=== PATIENT | female | born 1950 | race Caucasian/White ===

== ENCOUNTER 2016-12-25 13:57 | Emergency (ER) | payer MEDICARE ==
[2016-12-25 14:07] VITALS: RESP 18; TEMP 98
--- NOTE | 2016-12-25 15:31 | ED ---
General Adult HPI - General Chief complaint: Fall Stated complaint: rib Fx (Fall 2 days ago) Time Seen by Provider: 12/25/16 14:51 Source: patient, RN notes reviewed Mode of arrival: ambulatory Limitations: no limitations - History of Present Illness Initial comments: This 66-year-old female who states that she fell 2 days ago and now has left- sided rib pain. Patient did not hit her head or lose consciousness. Patient denies any neck or back pain. Patient denies any trouble breathing. Patient denies any pleuritic pain. Patient states the pain is worse on the left side posterior ribs with standing and sitting and moving. Patient denies being on any anticoagulants. Patient denies any recent fever, chills, shortness breath, chest pain, abdominal pain, nausea/vomiting/diarrhea, back pain, numbness, tingling, hematuria, headache, or visual changes, or any other complaints. - Related Data Home Medications Medication Instructions Recorded Confirmed Multivitamins, Thera [Multivitamin] 1 tab PO DAILY 04/11/16 12/25/16 Primidone [Primidone] 250 mg PO QAM 05/03/16 12/25/16 Primidone [Primidone] 500 mg PO HS 05/03/16 12/25/16 lamoTRIgine [lamoTRIgine] 300 mg PO BID 05/03/16 12/25/16 Previous Rx's Medication Instructions Recorded HYDROcodone/APAP 5-325MG [[place] 1 tab PO Q6HR #16 tab 12/25/16 5-325] Allergies Allergy/AdvReac Type Severity Reaction Status Date / Time No Known Allergies Allergy Verified 12/25/16 14:06 Review of Systems ROS Statement: Those systems with pertinent positive or pertinent negative responses have been documented in the HPI. ROS Other: All systems not noted in ROS Statement are negative. Past Medical History Past Medical History: Seizure Disorder Additional Past Medical History / Comment(s): Osteoporosis, previous right total knee joint arthroplasty, right hip replacement, and irritable bowel syndrome History of Any Multi-Drug Resistant Organisms: None Reported Past Surgical History: Orthopedic Surgery Additional Past Surgical History / Comment(s): TOTAL RIGHT HIP AND KNEE Past Anesthesia/Blood Transfusion Reactions: No Reported Reaction Past Psychological History: No Psychological Hx Reported Smoking Status: Never smoker Past Alcohol Use History: None Reported Past Drug Use History: None Reported General Exam - General Exam Comments Initial Comments: General: The patient is awake and alert, in no distress, and does not appear acutely ill. Neck: The neck is supple, there is no tenderness or JVD. No cervical midline tenderness. Cardiovascular: There is a regular rate and rhythm. No murmur, rub or gallop is appreciated. Respiratory: Lungs are clear to auscultation, respirations are non-labored, breath sounds are equal. No wheezes, stridor, rales, or rhonchi. Musculoskeletal: There is tenderness to palpation over the left posterior ribs in the area of the thoracic spine. No bruising, erythema or swelling. Range of motion, strength 5/5 and Sensation intact. Radial pulses 2+ bilaterally. Neurological: A&O x 3. CN II-XII intact, There are no obvious motor or sensory deficits. Coordination appears grossly intact. Speech is normal. Skin: Skin is warm and dry and no rashes or lesions are noted. Psychiatric: Normal mood and affect. Limitations: no limitations Course Vital Signs 12/25/16 14:02 Temperature 98.0 F Pulse Rate 93 Respiratory 18 Rate Blood Pressure 132/82 O2 Sat by Pulse 97 Oximetry Medical Decision Making - Medical Decision Making This is a 66-year-old female presents with left posterior rib pain after a fall 2 days ago. On physical exam there is tenderness to palpation over the left posterior ribs in the area of the thoracic spine. No bruising, erythema or swelling. Range of motion, strength 5/5 and Sensation intact. Radial pulses 2 + bilaterally. Patient's lungs are clear to auscultation bilaterally. And x-ray of the left ribs and chest were done and reviewed showing:X-ray chest : #1 chronic changes without acute cardiopulmonary process. #2 bilateral rib fracture deformities most of which appear old and healed. #3 however mildly displaced left posterior rib fractures involving the fifth, seventh, eighth, and ninth posterior ribs show no significant periosteal callus any acute rib fractures in these locations are not excluded. Report read by Dr. Caputo. Discussed results with patient. Patient has no pain on the right side and denies any history of rib fractures. Patient received a [place] in the [facility] for pain. Patient also received a prescription for [place]. I discussed the patient should continue follow up with her primary care physician in the next 1-2 days. I discussed return parameters. Patient will be given an incentive spirometer to use while at home. Discussed that patient should follow up with PCP in one to 2 days or return to the [facility] for any worsening symptoms or for any further concerns. Patient was receptive to this plan and patient will be discharged home. I discussed his case with attending physician Dr. Wilson who agrees the plan as stated above. Disposition Clinical Impression: Multiple fractures of ribs of left side Disposition: HOME SELF-CARE Condition: Good Instructions: Rib Fracture (ED), How to Use an Incentive Spirometer (ED) Additional Instructions: Please use pain medication as prescribed. Please use incentive spirometer every hour for 10 breaths while awake. Please follow-up with family doctor in the next 2 days of symptoms have not improved. Please return to emergency room if the symptoms increase or worsen or for any other concerns. Prescriptions: HYDROcodone/APAP 5-325MG [Luzerne 5-325] 1 tab PO Q6HR #16 tab Time of Disposition: 16:08
--- NOTE | 2016-12-25 15:50 | XR ---
EXAMINATION TYPE: XR chest 2V, Left rib series DATE OF EXAM: 12/25/2016 3:36 PM COMPARISON: None HISTORY: 66 year-old female left rib pain after fall 2 days ago FINDINGS: CHEST: There is prominent rightward patient rotation altered normal cardiac and mediastinal contours. There is some accentuated lower thoracic kyphosis. Heart is normal size. Prominent strandy atelectasis in t he lower lungs. Old healed fracture deformity of the right-sided ribs. No consolidation or pneumothor ax seen. Left RIBS: There are multiple healed left-sided rib fracture deformities. However, a couple areas show cortical step-offs including the fifth seventh, eighth, ninth posterior ribs which have a more acute appearan ce. No underlying pneumothorax. IMPRESSION: 1. Chronic changes without acute cardiopulmonary process. 2. Bilateral rib fracture deformities most of which appear old and healed. 3. However, mildly displaced left posterior rib fractures involving the fifth, seventh, eighth, and n inth posterior ribs show no significant periosteal callus and acute rib fractures in these locations are not excluded.
[2016-12-25] MEDS ORDERED: HYDROcodone/APAP 5-325MG 1 EACH TAB PO STA (16:02)
[2016-12-25 16:49] VITALS: BP 141/61; PULSE 88
== END 2016-12-25 16:48 | disposition home or self-care (01) ==
LOC: EC 13:57
DX: S22.42XA Multiple fractures of ribs, left side, initial encounter for closed fracture (principal); W19.XXXA Unspecified fall, initial encounter; G40.909 Epilepsy, unspecified, not intractable, without status epilepticus; Z79.899 Other long term (current) drug therapy
CPT/HCPCS: 71020; 99283

== ENCOUNTER 2017-03-21 13:41 | Emergency (ER) | payer MEDICARE ==
[2017-03-21 13:53] VITALS: RESP 18; TEMP 98.4
--- NOTE | 2017-03-21 14:06 | ED ---
Seizure HPI - General Chief Complaint: Seizure Stated Complaint: Seizure Time Seen by Provider: 03/21/17 13:53 Source: patient, EMS Mode of arrival: EMS Limitations: no limitations - History of Present Illness Initial Comments: This 66-year-old female with a history of long-standing epilepsy on primidone and who presents emergency department for a seizure. It was witnessed by family member who stated that last 2-3 minutes. It spontaneously resolved. The patient currently has no complaints. No injuries. No tongue biting or urinary incontinence. She states that she has seizures every once in a while and that is typical for her. She states her last seizure was approximately 3 weeks ago. She follows up with her primary doctor who just her medications. She does not recall who her neurologist is. The patient refused IV in route and states that she really does not want anything checked her done however after discussion I did convince her to undergo some blood work and EKG. No recent head trauma. No fevers or chills. No dysuria or hematuria. No nausea, vomiting, or diarrhea. No cough or shortness of breath. No other complains. - Related Data Home Medications Medication Instructions Recorded Confirmed Primidone [Primidone] 500 mg PO BID 05/03/16 03/21/17 lamoTRIgine [lamoTRIgine] 150 mg PO BID 05/03/16 03/21/17 Citalopram Hydrobromide [CeleXA] 20 mg PO DAILY 03/21/17 03/21/17 Previous Rx's Medication Instructions Recorded lamoTRIgine 150 mg PO BID #60 tab 03/21/17 Allergies Allergy/AdvReac Type Severity Reaction Status Date / Time No Known Allergies Allergy Verified 03/21/17 14:29 Review of Systems ROS Statement: Those systems with pertinent positive or pertinent negative responses have been documented in the HPI. ROS Other: All systems not noted in ROS Statement are negative. Past Medical History Past Medical History: Seizure Disorder Additional Past Medical History / Comment(s): Osteoporosis, previous right total knee joint arthroplasty, right hip replacement, and irritable bowel syndrome History of Any Multi-Drug Resistant Organisms: None Reported Past Surgical History: Orthopedic Surgery Additional Past Surgical History / Comment(s): TOTAL RIGHT HIP AND KNEE Past Anesthesia/Blood Transfusion Reactions: No Reported Reaction Past Psychological History: No Psychological Hx Reported Smoking Status: Never smoker Past Alcohol Use History: None Reported Past Drug Use History: None Reported General Exam - General Exam Comments Initial Comments: Constitutional: Awake alert Appears comfortable Head: Normocephalic atraumatic Eyes: no conjunctival injection No scleral icterus EOMI, pupils are 4 mm reactive bilaterally Neck: No JVD Supple Heart: Regular rate rhythm normal S1-S2 no murmurs Lungs: Clear to auscultation bilaterally No wheezing No rales Abdomen: Soft nondistended nontender Extremities: Non edematous DP pulses intact Radial pulses intact Neuro: A&Ox3 nerves II through XII are grossly intact, 5 out of 5 strength in upper and lower extremities bilaterally, no ataxia Psych: Appropriate mood and affect Limitations: no limitations Course Vital Signs 03/21/17 03/21/17 13:48 15:41 Temperature 98.4 F Pulse Rate 94 91 Respiratory 18 18 Rate Blood Pressure 98/54 103/51 O2 Sat by Pulse 96 94 L Oximetry - Reevaluation(s) Reevaluation #1: 03/21/17 14:20 EKG showing normal sinus rhythm with a rate of 90. No abnormal ST segment changes or T-wave inversions. QTC is 462. Other intervals are normal. No ectopy. Medical Decision Making - Medical Decision Making Is a 66-year-old female presents emergency room for seizure. She has a long history of seizures. Blood work was unremarkable. EKG was normal. Going to send her home. I refilled her Lamictal. She is to follow-up with her primary doctor and neurologist pain she can return if she has worsening symptoms. All questions were answered. - Lab Data Result diagrams: 03/21/17 14:25 03/21/17 14:25 Lab Results 03/21/17 03/21/17 Range/Units 14:25 14:25 WBC 4.2 (3.8-10.6) k/uL RBC 3.75 L (3.80-5.40) m/uL Hgb 11.4 (11.4-16.0) gm/dL Hct 34.3 (34.0-46.0) % MCV 91.5 (80.0-100.0) fL MCH 30.5 (25.0-35.0) pg MCHC 33.3 (31.0-37.0) g/dL RDW 13.4 (11.5-15.5) % Plt Count 295 (150-450) k/uL Neutrophils % 71 % Lymphocytes % 18 % Monocytes % 8 % Eosinophils % 2 % Basophils % 1 % Neutrophils # 3.0 (1.3-7.7) k/uL Lymphocytes # 0.7 L (1.0-4.8) k/uL Monocytes # 0.3 (0-1.0) k/uL Eosinophils # 0.1 (0-0.7) k/uL Basophils # 0.0 (0-0.2) k/uL Sodium 138 (137-145) mmol/L Potassium 4.0 (3.5-5.1) mmol/L Chloride 104 (98-107) mmol/L Carbon Dioxide 26 (22-30) mmol/L Anion Gap 8 mmol/L BUN 11 (7-17) mg/dL Creatinine 0.58 (0.52-1.04) mg/dL Est GFR (MDRD) Af Amer >60 (>60 ml/min/1.73 sqM) Est GFR (MDRD) Non-Af >60 (>60 ml/min/1.73 sqM) Glucose 122 H (74-99) mg/dL Calcium 8.5 (8.4-10.2) mg/dL Total Bilirubin 0.4 (0.2-1.3) mg/dL AST 29 (14-36) U/L ALT 23 (9-52) U/L Alkaline Phosphatase 129 H (38-126) U/L Total Protein 6.2 L (6.3-8.2) g/dL Albumin 3.5 (3.5-5.0) g/dL Disposition Clinical Impression: Epileptic seizure Disposition: HOME SELF-CARE Condition: Stable Instructions: Recurrent Seizures in Adults (ED) Prescriptions: lamoTRIgine 150 mg PO BID #60 tab Referrals: None,Stated [Primary Care Provider] - 1-2 days
[2017-03-21 14:40] LABS: Basophils % (A) 1 %; CH 29.8; CHCM 32.7; Eosinophils # (A) 0.1 k/uL (0-0.7); Eosinophils % (A) 2 %; HCT 34.3 % (34.0-46.0); HDW 2.28; HGB 11.4 gm/dL (11.4-16.0); Luc # (Auto) 0.08; Luc % (Auto) 2; Lymphocytes # (A) 0.7 k/uL (1.0-4.8); Lymphocytes % (A) 18 %; MCH 30.5 pg (25.0-35.0); MCHC 33.3 g/dL (31.0-37.0); MCV 91.5 fL (80.0-100.0); Mean Platelet Volume 7.5; Monocytes # (A) 0.3 k/uL (0-1.0); Monocytes % (A) 8 %; Neutrophils % (A) 71 %; RBC 3.75 m/uL (3.80-5.40); RDW 13.4 % (11.5-15.5); WBC 4.2 k/uL (3.8-10.6); WBC (Perox) 4.55
[2017-03-21 14:46] LABS: ALT 23 U/L (9-52); AST 29 U/L (14-36); Alkaline Phosphatase 129 U/L (38-126); Anion Gap 8 mmol/L; Blood Urea Nitrogen 11 mg/dL (7-17); Calcium 8.5 mg/dL (8.4-10.2); Carbon Dioxide 26 mmol/L (22-30); Chloride 104 mmol/L (98-107); Glucose 122 mg/dL (74-99); Non-African American GFR(MDRD) >60 (>60 ml/min/1.73 sqM); Sodium 138 mmol/L (137-145); Total Bilirubin 0.4 mg/dL (0.2-1.3); Total Protein 6.2 g/dL (6.3-8.2)
[2017-03-21 15:42] VITALS: BP 103/51; PULSE 91
== END 2017-03-21 15:51 | disposition home or self-care (01) ==
LOC: EC 13:41
DX: G40.909 Epilepsy, unspecified, not intractable, without status epilepticus (principal); Z79.899 Other long term (current) drug therapy
CPT/HCPCS: 36415; 80053; 85025; 93005; 99284

== ENCOUNTER 2017-06-18 08:20 | Emergency (ER) | payer MEDICARE ==
[2017-06-18] MEDS ORDERED: DIPH,PERTUS(ACELL)TETVAC-LF 0.5 ML VIAL IM ONE (08:21)
[2017-06-18 08:24] VITALS: BP 140/89; PULSE 95; RESP 16; TEMP 98.3
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
--- NOTE | 2017-06-18 08:56 | XR ---
EXAMINATION TYPE: XR hand complete RT , 3 VIEWS DATE OF EXAM ORDERED: 06/18/2017 HISTORY: Pain. COMPARISON: Previous study dated 05/03/2016. FINDINGS: There is a healed fracture at the base of the first metacarpal. There is a soft tissue def ect overlying the PIP joint of the right fifth digit. No acute fracture, dislocation or radiopaque fo reign body is seen. IMPRESSION: 1. LACERATION OF THE FIFTH DIGIT. 2. EVIDENCE OF OLD TRAUMA.
== END 2017-06-18 09:21 | disposition home or self-care (01) ==
LOC: EC 08:20
DX: S61.216A Laceration without foreign body of right little finger without damage to nail, initial encounter (principal); S61.511A Laceration without foreign body of right wrist, initial encounter; G40.909 Epilepsy, unspecified, not intractable, without status epilepticus; Z23 Encounter for immunization; Z79.899 Other long term (current) drug therapy; W01.110A Fall on same level from slipping, tripping and stumbling with subsequent striking against sharp glass, initial encounter; Y93.01 Activity, walking, marching and hiking; Y92.009 Unspecified place in unspecified non-institutional (private) residence as the place of occurrence of the external cause
CPT/HCPCS: 12002; 90471; 90715; 99283

== ENCOUNTER 2017-07-03 12:08 | Day surgery (SDC) | payer MEDICARE ==
[2017-06-29 15:38] VITALS: BMI 21.4
[~2017-07-03 12:08] MED LIST: LACTATED RINGERS 1,000 ML IV SCH
[2017-07-03 12:54] VITALS: TEMP 97.6
[2017-07-03] MEDS ORDERED: LACTATED RINGERS 1,000 ML IV ONE (12:56)
[2017-07-03] MEDS ORDERED: LIDOCAINE 1% 20 ML VIAL (10MG/ML) FOR IV START INTRADERMA ONE (12:56)
[2017-07-03] MEDS ORDERED: GLYCOPYRROLATE 0.2 MG/ML 2 ML VIAL ONE (14:04)
[2017-07-03] MEDS ORDERED: PROPOFOL 10 MG/ML 20 ML VIAL IV ONE (14:04)
[2017-07-03] MEDS ORDERED: LIDOCAINE 1% INJ 10MG/ML (20 ML MDV) ONE (14:04)
--- NOTE | 2017-07-03 14:55 | P.PCN ---
Date of Procedure: 07/03/17 Preoperative Diagnosis: Postoperative Diagnosis: Procedure(s) Performed: Procedures: 1. Esophagogastroduodenoscopy and biopsy. 2. Colonoscopy and biopsy. Preoperative diagnosis: Gastroesophageal reflux and altered bowel function. Postoperative diagnosis: 1. Hiatal hernia and LA grade C distal esophagitis. 2. Mild antral gastritis. 3. Normal colon exam. Preparation: HalfLytely prep. Sedation: Was provided by anesthesia. Brief clinical history: The patient is a 66-year-old female who I have evaluated in the office in April because of constant heart harrison that she had been experiencing for the prior 3-4 months requiring constant indigestion of Rolaids. Before that she would have an occasional heartburn "like everybody else". There is also history of irritable bowel syndrome with diarrhea. She had no recent upper endoscopy or colonoscopy. Procedure: With the patient on her left lateral decubitus position and after informed consent and adequate sedation, I passed the Olympus-GIF 160 video upper endoscope through the cricopharyngeus down the esophagus. GE junction was around 34-35 cm from the incisors and there was short linear erosions and superficial ulcerations in the distal esophagus close to the GE junction consistent with LA grade C distal esophagitis. There was an early nonobstructing stricture but no definite Vergara's esophagus. The endoscope was then passed into the stomach which was insufflated with air and inspected in detail including the retroflex view in the cardia. There was some mottling and erythema in the antrum but no ulcers or erosions. Pyloric channel, duodenal bulb, post bulbar area and descending duodenum appeared within normal limits. Because of her symptoms, I obtained biopsies from the duodenum, antrum and esophagus then the endoscope was withdrawn and I proceeded with the colonoscopy. Perianal area did not show any fissures or fistulas. There were no masses felt on digital rectal examination. The Olympus CFQ 160L video colonoscope was then inserted in the rectum in the usual fashion and advanced to the cecum. The mucosa appeared healthy. There was no obvious diverticular disease or any polyps or tumors. I obtained biopsies from the right colon then I retroflexed endoscope in the rectum before the endoscope was withdrawn. The patient tolerated the procedure well. Plan: The patient was reassured. Will await pathology results and make further plans based on her course and biopsy results. I will keep you updated on her progress. Implants: Indications for Procedure: Operative Findings: Description of Procedure:
[2017-07-03 15:04] VITALS: BP 107/77; PULSE 80; RESP 16
== END 2017-07-03 15:58 | disposition home or self-care (01) ==
LOC: ORWHC2ENDO 12:08
DX: K29.50 Unspecified chronic gastritis without bleeding (principal); K44.9 Diaphragmatic hernia without obstruction or gangrene; K21.0 Gastro-esophageal reflux disease with esophagitis; R19.4 Change in bowel habit; Z87.19 Personal history of other diseases of the digestive system; M19.90 Unspecified osteoarthritis, unspecified site; R56.9 Unspecified convulsions; Z79.899 Other long term (current) drug therapy
CPT/HCPCS: 88305; 88312; 88342; 45380; 43239; J2001; J2704

== ENCOUNTER 2017-07-22 08:50 | Emergency (ER) | payer MEDICARE ==
[2017-07-22 08:56] VITALS: RESP 18
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
[2017-07-22 09:40] LABS: Anisocytosis Slight; Basophils % (A) 1 %; CH 27.6; CHCM 31.7; Eosinophils % (A) 0 %; HDW 2.47; Luc # (Auto) 0.08; Luc % (Auto) 2; Lymphocytes # (A) 0.9 k/uL (1.0-4.8); Lymphocytes % (A) 19 %; MCHC 30.7 g/dL (31.0-37.0); MCV 87.7 fL (80.0-100.0); Mean Platelet Volume 7.6; Monocytes # (A) 0.3 k/uL (0-1.0); Monocytes % (A) 6 %; Neutrophils # (A) 3.4 k/uL (1.3-7.7); Neutrophils % (A) 73 %; RBC 4.44 m/uL (3.80-5.40); RDW 17.1 % (11.5-15.5); WBC 4.7 k/uL (3.8-10.6)
[2017-07-22 09:51] LABS: Prothrombin Time 10.1 sec (9.0-12.0)
--- NOTE | 2017-07-22 09:51 | XR ---
EXAMINATION TYPE: XR chest 2V DATE OF EXAM: 07/22/2017 COMPARISON: 12/25/2016 TECHNIQUE: PA and lateral views submitted. HISTORY: Dysrhythmia FINDINGS: The lungs are clear and there is no pneumothorax, pleural effusion, or focal pneumonia. Chronic rib deformities and elevation the right hemidiaphragm. No linear change right lung base compatible atelectasis. Degenerative changes spine and severe chroni c appearing compression deformity and additional superior endplate compression deformities within the thoracic spine. IMPRESSION: 1. No acute process.
[2017-07-22 09:56] LABS: ALT 29 U/L (9-52); AST 37 U/L (14-36); Alkaline Phosphatase 142 U/L (38-126); Anion Gap 11 mmol/L; Blood Urea Nitrogen 12 mg/dL (7-17); Calcium 8.9 mg/dL (8.4-10.2); Carbon Dioxide 25 mmol/L (22-30); Chloride 106 mmol/L (98-107); Glucose 75 mg/dL (74-99); Non-African American GFR(MDRD) >60 (>60 ml/min/1.73 sqM); Potassium 4.5 mmol/L (3.5-5.1); Sodium 142 mmol/L (137-145); Total Bilirubin 0.4 mg/dL (0.2-1.3)
[2017-07-22 10:01] LABS: Creatine Kinase 79 U/L (30-135)
[2017-07-22 10:13] LABS: Troponin I <0.012 ng/mL (0.000-0.034)
[2017-07-22 10:16] LABS: Creatine Kinase MB 2.5 ng/mL (0.0-2.4)
[2017-07-22 11:08] VITALS: BP 115/69; PULSE 76; TEMP 98.1
== END 2017-07-22 11:08 | disposition home or self-care (01) ==
LOC: EC 08:50
DX: R00.2 Palpitations (principal); F43.9 Reaction to severe stress, unspecified; G40.909 Epilepsy, unspecified, not intractable, without status epilepticus
CPT/HCPCS: 36415; 71020; 80053; 82550; 82553; 83735; 84439; 84443; 84481; 84484; 85025; 85610; 85730; 93005; 99285

== ENCOUNTER → 2018-04-04 | Outpatient (CLI) | payer MEDICARE | END | disposition home or self-care (01) | LOC: LABPAT 10:53 | PROVIDERS: ATTEND Orthopaedic Surgery | DX: Z01.812 Encounter for preprocedural laboratory examination (principal) | CPT/HCPCS: 87070 ==

== ENCOUNTER 2018-04-08 12:55 | Inpatient (IN) | payer MEDICARE ==
[2018-04-03 15:09] VITALS: BMI 21.1
--- NOTE | 2018-04-07 09:29 | HP ---
HISTORY AND PHYSICAL REASON FOR ADMISSION: Surgery 04/08/2018. HISTORY OF PRESENT ILLNESS: Yarelis Hicks is a 67-year-old patient seen with symptomatic left knee osteoarthritis. Treatment options discussed. She elected to proceed with left total knee arthroplasty. Consent was obtained. Medical clearance was provided by Dr. Garcia. PAST MEDICAL HISTORY: Depression. PAST SURGICAL HISTORY: Right total knee arthroplasty, total hip arthroplasty. MEDICATIONS: Lamictal, primidone. ALLERGIES: None. SOCIAL HISTORY: Patient denies current tobacco use. PHYSICAL EXAMINATION: Evaluation left knee range of motion is -4 to 115 degrees. Tenderness is noted along the lateral joint line with a positive lateral Blanka's. There is crepitus along the lateral patellofemoral compartments with range of motion. Pain with patellofemoral compression. There is a genu valgum deformity about the knee. Ligaments are stable. Hip rotation without pain. Distal neurovascular exam intact. RADIOGRAPHS: Left knee radiographs reveal severe lateral and moderate to severe patellofemoral compartment osteoarthritis. IMPRESSION: 1. Left knee osteoarthritis. 2. Depression. PLAN: Left total knee arthroplasty. Surgery scheduled for 04/08/2018. MMODL / IJN: [id number] /
[~2018-04-08 12:55] MED LIST changes: +ACETAMINOPHEN TAB 500 MG TAB PO ONE; +DEXAMETHASONE SOD PHOSPHATE 10 MG/ML 1 ML VIAL IV ONE; -LACTATED RINGERS 1,000 ML IV SCH; +MELOXICAM 7.5 MG TAB PO ONE; +MIDAZOLAM 2 MG/2 ML VIAL IV PRN; +ONDANSETRON 4 MG/2 ML VIAL IVP ONE; +TRANEXAMIC ACID 1,000 MG in SODIUM CHLORIDE 0.9% 50 ML IVPB ONE; +ceFAZolin IN SWFI 2 GM/20 ML SYRINGE IVP ONE; +fentaNYL (PF) 50 MCG/ML 2 ML AMP IV PRN
[2018-04-08] MEDS: LACTATED RINGERS 1,000 ML IV SCH ×3 (13:49→20:22)
[2018-04-08] MEDS ORDERED: LIDOCAINE 1% 20 ML VIAL (10MG/ML) FOR IV START INTRADERMA ONE (14:05)
--- NOTE | 2018-04-08 14:35 | P.ONQ ---
Anesthesiology Proc Note - PNB - Peripheral Nerve Block Performed Left Adductor Canal Infusion Indication: Acute Post-Operative Pain, Dx/Pain Location (Left Knee) Specifically requested for management of pain by DrRoberto: Brice Walker Sedation Type: Sedate with meaningful contact maintained Preparation: Sterile Dressing Position: Supine Catheter: Indwelling Needle Types: Other (see comment) (Pajunk) Needle Size: 100mm (4") Needle Gauge: 21 Injectate: 0.5% Ropivacaine (see comment for volume) (30cc) Blood Aspirated: No Pain Paresthesia on Injection Noted: No Resistance on Injection: Normal Events: Uneventful and Well Tolerated
[2018-04-08] MEDS ORDERED: MIDAZOLAM 2 MG/2 ML VIAL ONE (16:04)
[2018-04-08] MEDS ORDERED: TRANEXAMIC ACID 1,000 MG/10 ML VIAL ONE (16:04)
[2018-04-08] MEDS ORDERED: SODIUM CHLORIDE 0.9% 100 ML BAG ONE (16:04)
[2018-04-08] MEDS ORDERED: PROPOFOL 10 MG/ML 20 ML VIAL IV ONE (16:04)
[2018-04-08] MEDS ORDERED: ePHEDrine SULFATE/0.9% NACL/PF 50 MG/5 ML SYRINGE IV ONE (16:04)
[2018-04-08] MEDS ORDERED: fentaNYL (PF) 50 MCG/ML 2 ML AMP ONE (16:04)
[2018-04-08] MEDS ORDERED: ceFAZolin 3,000 MG in SODIUM CHLORIDE 0.9% IRRIGATIO 3,000 ML IRRIGATION ONE (16:48)
[2018-04-08] MEDS ORDERED: LACTATED RINGERS 1,000 ML IV ONE (17:45)
[2018-04-08] MEDS ORDERED: NALOXONE 0.4 MG/ML 1 ML VIAL IV PRN (18:30)
[2018-04-08] MEDS ORDERED: MORPHINE SULFATE 4 MG/ML SYRINGE IVP PRN ×3 (18:30)
[2018-04-08] MEDS: ROPIVACAINE 1,100 MG, SODIUM CHLORIDE 0.9% 330 ML MISCELLANE PRN ×2 (18:30)
[2018-04-08] MEDS ORDERED: ONDANSETRON 4 MG/2 ML VIAL IVP PRN (18:30)
[2018-04-08] MEDS ORDERED: HYDROcodone/APAP 7.5-325MG 1 EACH TAB PO PRN (18:30)
--- NOTE | 2018-04-08 18:30 | P.OP ---
Date of Procedure: 04/08/18 Preoperative Diagnosis: Left knee osteoarthritis Postoperative Diagnosis: Left knee osteoarthritis Procedure(s) Performed: Left total knee arthroplasty Implants: 1. Microport evolution MP CS/CR 6 left cemented femur 2. Microport evolution MP size 6 left cemented tibial base 3. Microport evolution MP CS size 6 left 10 mm polyethylene tibial insert 4. Microport advance 35 mm all polyethylene cemented patella Anesthesia: regional (Adductor canal catheter), spinal Surgeon: Brice Walker Associate Professor Of Surgery #1: Ghulam Cuevas Estimated Blood Loss (ml): 70 Pathology: other (Bone) Condition: stable Disposition: PACU Indications for Procedure: 67-year-old patient seen with symptomatic left knee osteoarthritis. After having treatment options discussed, she elected to proceed with total knee arthroplasty. Operative Findings: See description of procedure Description of Procedure: Patient was taken to the operative suite after having an adductor canal catheter placed by the department of anesthesia. Patient underwent a spinal anesthetic by the department of anesthesia. Patient was given preoperative IV intake antibiotics and TXA. A well-padded tourniquet was placed about the left lower extremity. The lower extremity was then prepped and draped in the normal sterile orthopedic fashion. The extremity was elevated, a tourniquet was insufflated to 350. A standard anterior incision was made sharply through skin. Dissection was taken down through the subcutaneous soft tissues down to the extensor mechanism. A medial arthrotomy was performed, patella was everted and knee was flexed. There was advanced osteoarthritis noted. A proximal tibial cutting guide was positioned. Proximal tibial cut was made. A distal intramedullary femoral cutting guide was positioned, distal femoral cut made. We placed the appropriate sizing guide and selected the appropriate size. A distal 4-in-1 femoral cutting block was positioned, distal femoral cuts were made. We now placed a trial femoral component into position, along with an appropriate size tibial tray and insert. We now took the knee through range of motion and had full extension good flexion and good overall soft tissue balance noted. The patella was everted and a flush cut made with patellar quad tendon. We templated the patella, appropriate drill holes were made. An appropriate trial patella was positioned, knee was taken through full range of motion with the patella tracking very nicely. The trial patella was removed. Drill holes were made through the femoral component. All trial components were removed after marking off the appropriate rotation of the tibia. Retractors were now positioned along the proximal tibia. An appropriate keel punch was made with the appropriate size tibial guide. At this point appropriate size implants were chosen and opened. The joint was irrigated copiously with pulse lavage mechanical irrigation. We mixed antibiotic methylmethacrylate. Once the methyl methacrylate was ready, the tibial component was cemented into place removing any excess methylmethacrylate. The femoral component was cemented into place removing the removing any excess methylmethacrylate. We then inserted the appropriate size polyethylene tibial insert. We made sure that it was locked into position. We took the knee into full extension, and then back in a flexion making sure we had removed any excess methylmethacrylate. The patellar component was then cemented down and secured with clamp. Excess methylmethacrylate removed. We kept the knee in full extension, patellar clamp in position until methylmethacrylate had hardened. Once it had hardened the patellar clamp was removed. The knee was taken through full range of motion. The patella tracked nicely. There was good soft tissue balancing. The tourniquet was now released. Additional hemostasis was achieved via electrocautery. A second gram of TXA was given. The wound was irrigated with pulse lavage mechanical irrigation. The extensor mechanism was repaired with Vicryl. We checked the repair with range of motion and it was stable. The subcutaneous soft tissues were repaired with Vicryl in layers. The skin was approximated with skin anil. Sterile dressings were applied followed by loose web roll and Alejandro bandage. The patient was transferred to a bed, and taken to recovery in stable and satisfactory condition. Davie VICENTE assisted with the procedure.
--- NOTE | 2018-04-08 20:01 | XR ---
PROCEDURE: XR knee limited LT, 2V DATE AND TIME: 04/08/2018 6:59 PM REFERRING PHYSICIAN: Brice Walker DO CLINICAL INDICATION: PHH, Evaluation for Postop abnormality and alignment TECHNIQUE: Department protocol. COMPARISON: 04/14/2014 FINDINGS: Crosstable lateral and AP views were obtained showing anterior cutaneous anil and TKR in anatomic position and alignment. Expected postprocedural changes noted. IMPRESSION: Postoperative.
[2018-04-08] MEDS ORDERED: ALPRAZolam 0.5 MG TAB PO PRN (20:04)
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
[2018-04-08] MEDS: HYDROcodone/APAP 7.5-325MG 1 EACH TAB PO PRN (20:45)
[2018-04-08] MEDS: SODIUM CHLORIDE 0.9% 1,000 ML IV SCH (20:45)
[2018-04-08] MEDS: hydrOXYzine PAMOATE 25 MG CAP PO PRN (20:46)
[2018-04-08] MEDS: PRIMIDONE 250 MG TAB PO SCH (21:53)
[2018-04-08] MEDS: lamoTRIgine 100 MG TAB PO SCH (21:54)
[2018-04-08] MEDS: SENNOSIDES-DOCUSATE SODIUM 1 EACH TAB PO SCH (21:54)
[2018-04-08] MEDS: traMADol 50 MG TAB PO SCH (21:55)
[2018-04-08] MEDS: ENOXAPARIN 30 MG/0.3 ML SYRINGE SQ SCH (21:56)
[2018-04-09] MEDS: ceFAZolin IN SWFI 2 GM/20 ML SYRINGE IVP SCH ×2 (01:50→09:26)
[2018-04-09] MEDS: ROPIVACAINE 1,100 MG, SODIUM CHLORIDE 0.9% 330 ML MISCELLANE PRN ×2 (01:51)
[2018-04-09] MEDS: LACTATED RINGERS 1,000 ML IV SCH ×2 (04:54→14:40)
[2018-04-09] MEDS: hydrOXYzine PAMOATE 25 MG CAP PO PRN ×4 (05:03→22:36)
[2018-04-09] MEDS: HYDROcodone/APAP 7.5-325MG 1 EACH TAB PO PRN ×4 (05:05→22:35)
[2018-04-09 07:35] LABS: Anisocytosis Slight; Basophils % (A) 0 %; Eosinophils # (A) 0.1 k/uL (0-0.7); Eosinophils % (A) 1 %; HCT 34.1 % (34.0-46.0); HGB 10.3 gm/dL (11.4-16.0); Hypochromasia Marked; Lymphocytes # (A) 0.8 k/uL (1.0-4.8); Lymphocytes % (A) 12 %; MCH 26.6 pg (25.0-35.0); MCHC 30.1 g/dL (31.0-37.0); MCV 88.3 fL (80.0-100.0); Mean Platelet Volume 7.3; Monocytes # (A) 0.5 k/uL (0-1.0); Monocytes % (A) 7 %; Neutrophils # (A) 5.1 k/uL (1.3-7.7); Neutrophils % (A) 78 %; Platelet Count 283 k/uL (150-450); RBC 3.86 m/uL (3.80-5.40); RDW 16.5 % (11.5-15.5); WBC 6.6 k/uL (3.8-10.6)
--- NOTE | 2018-04-09 08:03 | P.PN ---
Progress Note - Text Postoperative day # 1 status post total knee arthroplasty, on adductor canal perineural catheter placed for postoperative analgesia. Ropivacaine 0.2% 8 mL per hour through ON-Q pump continuous infusion. Pain is well controlled. On visual analog scale 3/10 Patient is taking PRN oral pain medications. Catheter site: Looks Ok. There is no erythema or tenderness. Continue with the current pain management plan and will follow.
[2018-04-09] MEDS ORDERED: FAMOTIDINE 20 MG TAB PO SCH (09:00)
[2018-04-09] MEDS: MULTIVITAMINS, THERA 1 EACH TAB PO SCH (09:01)
[2018-04-09] MEDS: lamoTRIgine 100 MG TAB PO SCH ×2 (09:01→20:04)
[2018-04-09] MEDS: FERROUS SULFATE 325 MG TAB PO SCH (09:01)
[2018-04-09] MEDS: traMADol 50 MG TAB PO SCH ×3 (09:01→17:56)
[2018-04-09] MEDS: PANTOPRAZOLE 40 MG TABLET PO SCH (09:01)
[2018-04-09] MEDS: PRIMIDONE 250 MG TAB PO SCH ×2 (09:01→20:05)
[2018-04-09] MEDS: MELOXICAM 7.5 MG TAB PO SCH (09:01)
[2018-04-09] MEDS: ENOXAPARIN 30 MG/0.3 ML SYRINGE SQ SCH ×2 (09:02→20:04)
[2018-04-09] MEDS: SODIUM CHLORIDE 0.9% 1,000 ML IV SCH (12:31)
--- NOTE | 2018-04-09 12:42 | P.PN ---
Subjective Progress Note Date: 04/09/18 Principal diagnosis: Status post arthroplasty Patient complaining of pain in her knee pain medication is helping, no nausea, tolerating oral, no fever Objective - Vital Signs Vital signs: Vital Signs Temp 98.1 F 04/09/18 07:40 Pulse 80 04/09/18 07:40 Resp 14 04/09/18 07:40 BP 106/56 04/09/18 07:40 Pulse Ox 97 04/09/18 07:40 Intake & Output 04/08/18 04/09/18 04/09/18 18:59 06:59 18:59 Intake Total 1201 1852.30 Output Total 70 400 Balance 1131 1452.30 Intake: IV 1201 100 Intake, IV Titration 412.30 Amount Sodium Chloride 0.9% 1, 412.30 000 ml @ 50 mls/hr IV . Q20H [facility] Rx#:[id number] Oral 1340 Output: Urine 400 Estimated Blood Loss 70 Other: Voiding Method Bedside Commode Bedside Commode # Voids 3 # Bowel Movements 0 - Exam gen:alert and oriented lungs:clear to auscultation heart:s1s2 abdomen:soft and depressible,non tender ext:dressing in place no edema - Labs CBC & Chem 7: 04/09/18 06:42 Labs: Abnormal Lab Results - Last 24 Hours (Table) 04/09/18 Range/Units 06:42 Hgb 10.3 L (11.4-16.0) gm/dL MCHC 30.1 L (31.0-37.0) g/dL RDW 16.5 H (11.5-15.5) % Lymphocytes # 0.8 L (1.0-4.8) k/uL Assessment and Plan (1) Osteoarthritis of left knee Narrative/Plan: s/p knee arthroplasty pain control Current Visit: Yes Status: Acute Code(s): M17.12 - UNILATERAL PRIMARY OSTEOARTHRITIS, LEFT KNEE SNOMED Code(s): 662726056594508 (2) Hypertension Narrative/Plan: controlled will keep metoprolol on hold for now Current Visit: Yes Status: Acute Code(s): I10 - ESSENTIAL (PRIMARY) HYPERTENSION SNOMED Code(s): 23906957 (3) Epilepsy Narrative/Plan: lamictal Current Visit: No Status: Acute Code(s): G40.909 - EPILEPSY, UNSP, NOT INTRACTABLE, WITHOUT STATUS EPILEPTICUS SNOMED Code(s): 06323245 (4) GERD (gastroesophageal reflux disease) Narrative/Plan: protonix Current Visit: Yes Status: Acute Code(s): K21.9 - GASTRO-ESOPHAGEAL REFLUX DISEASE WITHOUT ESOPHAGITIS SNOMED Code(s): 280008791 (5) IBS (irritable bowel syndrome) Current Visit: Yes Status: Acute Code(s): K58.9 - IRRITABLE BOWEL SYNDROME WITHOUT DIARRHEA SNOMED Code(s): 66611001
--- NOTE | 2018-04-09 13:35 | P.PN ---
Subjective Progress Note Date: 04/09/18 Principal diagnosis: Status post left total knee arthroplasty Patient seen today resting in her hospital bed, she appears comfortable. She's having some discomfort surrounding the knee. She's ambulated minimally at this time with therapy. She denies any headaches, lightheadedness, chest pain or shortness of breath. Objective - Vital Signs Vital signs: Vital Signs Temp 98.1 F 04/09/18 07:40 Pulse 80 04/09/18 07:40 Resp 14 04/09/18 07:40 BP 106/56 04/09/18 07:40 Pulse Ox 97 04/09/18 07:40 Intake & Output 04/08/18 04/09/18 04/09/18 18:59 06:59 18:59 Intake Total 1201 1852.30 Output Total 70 400 Balance 1131 1452.30 Intake: IV 1201 100 Intake, IV Titration 412.30 Amount Sodium Chloride 0.9% 1, 412.30 000 ml @ 50 mls/hr IV . Q20H [facility] Rx#:[id number] Oral 1340 Output: Urine 400 Estimated Blood Loss 70 Other: Voiding Method Bedside Commode Bedside Commode # Voids 3 # Bowel Movements 0 - Exam : Incision is clean, dry, and intact. [place] are in good condition and position. There is minimal soft tissue swelling and ecchymosis surrounding the medial and lateral aspects of the incision. Calf is soft, no tenderness with palpation. Plantar flexion, dorsiflexion, EHL, FHL are intact. Sensory exam to light touch throughout the extremity is intact, dorsal pedis pulses 2+. - Labs CBC & Chem 7: 04/09/18 06:42 Labs: Abnormal Lab Results - Last 24 Hours (Table) 04/09/18 Range/Units 06:42 Hgb 10.3 L (11.4-16.0) gm/dL MCHC 30.1 L (31.0-37.0) g/dL RDW 16.5 H (11.5-15.5) % Lymphocytes # 0.8 L (1.0-4.8) k/uL Assessment and Plan Plan: Assessment: 1. Postop day #1 status post left total knee arthroplasty Plan: 1. Pain control, continue supportive oral medication 2. Continue work with physical therapy 3. GI and DVT prophylaxis, continue use of subcu medication 4. Daily dressing changes/ice and elevate 5. Medical recommendations 6. Encourage incentive spirometer 7. Discharge planning: Patient may be discharged home, may consider outpatient rehab depending on activity level Time with Patient: Less than 30
[2018-04-09] MEDS: SENNOSIDES-DOCUSATE SODIUM 1 EACH TAB PO SCH (21:02)
[2018-04-10] MEDS: traMADol 50 MG TAB PO SCH ×5 (04:09→21:39)
[2018-04-10] MEDS: hydrOXYzine PAMOATE 25 MG CAP PO PRN ×2 (04:14→10:28)
[2018-04-10] MEDS: HYDROcodone/APAP 7.5-325MG 1 EACH TAB PO PRN ×2 (04:15→10:27)
[2018-04-10] MEDS: lamoTRIgine 100 MG TAB PO SCH ×2 (08:37→21:41)
[2018-04-10] MEDS: PANTOPRAZOLE 40 MG TABLET PO SCH (08:38)
[2018-04-10] MEDS: PRIMIDONE 250 MG TAB PO SCH ×2 (08:39→21:40)
[2018-04-10] MEDS: ENOXAPARIN 30 MG/0.3 ML SYRINGE SQ SCH ×2 (08:39→21:41)
[2018-04-10] MEDS: MELOXICAM 7.5 MG TAB PO SCH (08:39)
[2018-04-10] MEDS ORDERED: MORPHINE ORAL SOLN 10 MG/5 ML CUP PO PRN ×3 (10:12→10:13)
--- NOTE | 2018-04-10 11:26 | P.PN ---
Subjective Progress Note Date: 04/10/18 Principal diagnosis: Status post left total knee arthroplasty Patient seen today resting in her hospital bed, she appears comfortable. She continues to have a difficult time ambulating. She also admits to increased frequency of urination. She denies any headaches, lightheadedness, chest pain or shortness of breath. Objective - Vital Signs Vital signs: Vital Signs Temp 97 F L 04/10/18 08:36 Pulse 113 H 04/10/18 08:36 Resp 16 04/10/18 08:36 BP 114/63 04/10/18 08:36 Pulse Ox 95 04/10/18 08:36 Intake & Output 04/09/18 04/10/18 04/10/18 18:59 06:59 18:59 Intake Total 100 600 Balance 100 600 Intake: Intake, IV Titration 100 Amount Sodium Chloride 0.9% 1, 100 000 ml @ 50 mls/hr IV . Q20H [facility] Rx#:[id number] Oral 600 Other: Voiding Method Bedside Commode Bedside Commode # Voids 2 2 # Bowel Movements 0 - Exam : Incision is clean, dry, and intact. [place] are in good condition and position. There is minimal soft tissue swelling and ecchymosis surrounding the medial and lateral aspects of the incision. Calf is soft, no tenderness with palpation. Plantar flexion, dorsiflexion, EHL, FHL are intact. Sensory exam to light touch throughout the extremity is intact, dorsal pedis pulses 2+. - Labs CBC & Chem 7: 04/09/18 06:42 Assessment and Plan Plan: Assessment: 1. Postop day #2 status post left total knee arthroplasty Plan: 1. Pain control, continue supportive oral medication 2. Continue work with physical therapy 3. GI and DVT prophylaxis, continue use of subcu medication during inpatient stay, we'll discharge on aspirin 325 mg twice a day 4. Daily dressing changes/ice and elevate 5. Medical recommendations 6. Encourage incentive spirometer 7. Await results of UA 8. Discharge planning: Patient will be likely discharge to rehab tomorrow Time with Patient: Less than 30
--- NOTE | 2018-04-10 11:28 | P.DS ---
Providers Date of admission: 04/08/18 12:59 Expected date of discharge: 04/11/18 Attending physician: Brice Walker Consults: 04/08/18 18:30 Consult Physician Routine Consulting Provider: Anh Deleon Consult Reason/Comments: Medical management Do you want consulting provider notified?: Yes Primary care physician: [facility] Course: Date of admission: 04/08/2018 Date of discharge: 04/11/2018 Admission diagnosis: Status post left total knee arthroplasty Discharge diagnosis: Same Attending physician: Dr. Walker Surgical procedures: Left total knee arthroplasty Brief history: Patient is a 67-year-old female with a history of progressive primary left knee osteoarthritis. At this point patient has failed conservative treatment measures and has opted to proceed with a elective left total knee arthroplasty. Hospital course: Details of patient's surgery can be found in operative report. Patient tolerated the procedure well and was subsequently transported to orthopedic floor. Patient's orthopeidc and medical care was provided daily. Patient had daily laboratory tests performed for evaluation of overall blood counts. Patient had daily physical therapy to include strengthening range of motion as well as education with walker ambulation. Patient had daily CPM usage as part of their physical therapy program. Patient was treated with Lovenox for their postoperative DVT prophylaxis during their inpatient stay. Patient was noted to have a relatively uneventful postoperative course. Patient reported satisfactory pain control with oral pain medications by postoperative day 0. Patient showed satisfactory progress with physical therapy. Patient moved steadily through the program and had no difficulty meeting the goals by postoperative day 3. Given patient's otherwise satisfactory course and having met physical therapy goals, plan is to discharge patient rehab on postoperative day 3. Discharge condition/disposition: Patient will be discharged to rehab in stable condition. Discharge medications: Instructions are given on resumption of patient's normal daily medications per primary care recommendation, in addition patient will be prescribed [place] 7.5 mg/25 mg, aspirin 325 mg, Colace 100 mg. Discharge instructions: 1. Wound care and infection precautions, keep incision dry and covered while showering, no lotions, creams, moisturizers. No soaking, tubs, pools, hottubs. Do not scrub over the incision. 2. Weight-bear as tolerated with walker / cane until follow-up. 3. Ice and elevate when necessary. Do not exceed 20 minutes per hour with ice pack. 4. Utilize compression sleeve until seen at first follow up appointment. 5. Visiting nursing care. 6. Home physical therapy including home CPM. 7. Pain meds and anticoagulants per prescription. 8. Pain medication has potential to cause constipation. Increase oral fluid and fiber intake. Contact primary care provider if you have not had a bowel movement within 48 hours after discharge 9. No anti-inflammatory medication until discussed at first post operative visit, this including Motrin, Aleve, Mobic, Diclofenac. 10. Follow up in office at 2 weeks postop with Davie Cuevas PA-C 11. Follow up with your primary care doctor 7-10 days after discharge. 12. Contact [facility] with any questions, . Procedures: Left total knee arthroplasty Patient Condition at Discharge: Good Plan - Discharge Summary Discharge Rx Participant: Yes New Discharge Prescriptions: New Aspirin 325 mg PO BID #60 tab Docusate [Colace] 100 mg PO DAILY #30 capsule HYDROcodone/APAP 7.5-325MG [[place] 7.5] 1 each PO Q6HR PRN #40 tab PRN Reason: Pain No Action Primidone [Primidone] 250 mg PO BID lamoTRIgine [LaMICtal] 150 mg PO BID Multivit-Min/FA/Lycopen/Lutein [Centrum Silver Tablet] 1 tab PO DAILY ALPRAZolam [Xanax] 0.5 mg PO Q8HR PRN #8 tablet PRN Reason: Anxiety Ferrous Sulfate [Feosol] 325 mg PO DAILY Omeprazole 40 mg PO DAILY Metoprolol Tartrate [Lopressor] 25 mg PO BID Discharge Medication List Primidone [Primidone] 250 mg PO BID 05/03/16 [History] Multivit-Min/FA/Lycopen/Lutein [Centrum Silver Tablet] 1 tab PO DAILY 06/05/17 [ History] lamoTRIgine [LaMICtal] 150 mg PO BID 06/05/17 [History] ALPRAZolam [Xanax] 0.5 mg PO Q8HR PRN #8 tablet 07/22/17 [Rx] Ferrous Sulfate [Feosol] 325 mg PO DAILY 04/03/18 [History] Metoprolol Tartrate [Lopressor] 25 mg PO BID 04/03/18 [History] Omeprazole 40 mg PO DAILY 04/03/18 [History] Aspirin 325 mg PO BID #60 tab 04/10/18 [Rx] Docusate [Colace] 100 mg PO DAILY #30 capsule 04/10/18 [Rx] HYDROcodone/APAP 7.5-325MG [[place] 7.5] 1 each PO Q6HR PRN #40 tab 04/10/18 [Rx] Follow up Appointment(s)/Referral(s): Ghulam Cuevas, PAC [PHYSICIAN GROOMING ASSISTANT] - 2 Weeks Activity/Diet/Wound Care/Special Instructions: Orthopedic Discharge Instructions: 1. Wound care and infection precautions, keep incision dry and covered while showering, no lotions, creams, moisturizers. No soaking, pools, hot tubs. Do not scrub over incision. 2. Weight-bear as tolerated with walker / cane until follow-up. 3. Ice and elevate when necessary. Do not exceed 20 minutes per hour with ice pack. 4. Utilize compression sleeve until seen at first follow up appointment. 5. Visiting nursing care. 6. Home physical therapy including home CPM]. 7. Pain meds and anticoagulants per prescription. 8. Pain medication has potential to cause constipation. Increase oral fluid and fiber intake. Contact primary care provider if you have not had a bowel movement within 48 hours after discharge. 9. No anti-inflammatory medication until discussed at first post operative visit, this including Motrin, Aleve, Mobic, Diclofenac. 10. Follow up in office at 2 weeks postop with Davie Cuevas PA-C 11. Follow up with your primary care doctor 7-10 days after discharge. 12. Contact [facility] with any questions, . Discharge Disposition: HOME WITH HOME HEALTH SERVICES
--- NOTE | 2018-04-10 11:44 | P.PN ---
Subjective Progress Note Date: 04/10/18 Principal diagnosis: Status post knee replacement Still with significant pain with movement, no appetite, no fever Objective - Vital Signs Vital signs: Vital Signs Temp 97 F L 04/10/18 08:36 Pulse 113 H 04/10/18 08:36 Resp 16 04/10/18 08:36 BP 114/63 04/10/18 08:36 Pulse Ox 95 04/10/18 08:36 Intake & Output 04/09/18 04/10/18 04/10/18 18:59 06:59 18:59 Intake Total 100 600 Balance 100 600 Intake: Intake, IV Titration 100 Amount Sodium Chloride 0.9% 1, 100 000 ml @ 50 mls/hr IV . Q20H [facility] Rx#:[id number] Oral 600 Other: Voiding Method Bedside Commode Bedside Commode # Voids 2 2 # Bowel Movements 0 - Exam gen:alert and oriented lungs:clear to auscultation heart:s1s2 abdomen:soft and depressible,non tender ext: Dressing in place - Labs CBC & Chem 7: 04/09/18 06:42 Assessment and Plan (1) Osteoarthritis of left knee Narrative/Plan: s/p knee arthroplasty pain control Current Visit: Yes Status: Acute Code(s): M17.12 - UNILATERAL PRIMARY OSTEOARTHRITIS, LEFT KNEE SNOMED Code(s): 289452728799737 (2) Hypertension Narrative/Plan: controlled metoprolol still on hold Current Visit: Yes Status: Acute Code(s): I10 - ESSENTIAL (PRIMARY) HYPERTENSION SNOMED Code(s): 25143358 (3) Epilepsy Narrative/Plan: Stable Current Visit: No Status: Acute Code(s): G40.909 - EPILEPSY, UNSP, NOT INTRACTABLE, WITHOUT STATUS EPILEPTICUS SNOMED Code(s): 40154051 (4) GERD (gastroesophageal reflux disease) Narrative/Plan: Continue PPI Current Visit: Yes Status: Acute Code(s): K21.9 - GASTRO-ESOPHAGEAL REFLUX DISEASE WITHOUT ESOPHAGITIS SNOMED Code(s): 828790352 (5) IBS (irritable bowel syndrome) Current Visit: Yes Status: Acute Code(s): K58.9 - IRRITABLE BOWEL SYNDROME WITHOUT DIARRHEA SNOMED Code(s): 40338660
[2018-04-10] MEDS: MULTIVITAMINS, THERA 1 EACH TAB PO SCH (13:40)
[2018-04-10] MEDS: FERROUS SULFATE 325 MG TAB PO SCH (13:41)
[2018-04-10] MEDS: LACTATED RINGERS 1,000 ML IV SCH ×2 (17:20→17:21)
[2018-04-10] MEDS: SODIUM CHLORIDE 0.9% 1,000 ML IV SCH (17:20)
[2018-04-10 20:43] LABS: Appearance,Urine Clear (Clear); Bacteria,Urine Rare /hpf; Bilirubin,Urine Negative (Negative); Blood,Urine Moderate (Negative); Color,Urine Yellow; Glucose,Urine (UA) Negative (Negative); Ketones,Urine Negative (Negative); Leukocyte Esterase,Urine Negative (Negative); Mucus,Urine Rare /hpf; Nitrite,Urine Negative (Negative); PH, Urine 6.5 (5.0-8.0); Protein,Urine 1+ (Negative); RBC,Urine 60 /hpf (0-5); Specific Gravity,Urine 1.016 (1.001-1.035); Squamous Epithelial Cell,Urine 1 /hpf (0-4); Urobilinogen,Urine <2.0 mg/dL (<2.0); WBC,Urine 1 /hpf (0-5)
[2018-04-10] MEDS: SENNOSIDES-DOCUSATE SODIUM 1 EACH TAB PO SCH (21:38)
[2018-04-11] MEDS: HYDROcodone/APAP 7.5-325MG 1 EACH TAB PO PRN (00:58)
[2018-04-11] MEDS: hydrOXYzine PAMOATE 25 MG CAP PO PRN (00:58)
[2018-04-11 07:15] VITALS: BP 111/55; PULSE 98; RESP 20; TEMP 97.5
[2018-04-11] MEDS: SODIUM CHLORIDE 0.9% 1,000 ML IV SCH (07:38)
[2018-04-11] MEDS: LACTATED RINGERS 1,000 ML IV SCH (07:38)
[2018-04-11 08:04] LABS: Anisocytosis Slight; Basophils % (A) 0 %; Eosinophils # (A) 0.1 k/uL (0-0.7); Eosinophils % (A) 1 %; HGB 10.6 gm/dL (11.4-16.0); Hypochromasia Moderate; Lymphocytes # (A) 0.9 k/uL (1.0-4.8); Lymphocytes % (A) 13 %; MCH 26.6 pg (25.0-35.0); MCHC 30.3 g/dL (31.0-37.0); MCV 87.9 fL (80.0-100.0); Mean Platelet Volume 7.7; Monocytes # (A) 0.5 k/uL (0-1.0); Monocytes % (A) 7 %; Neutrophils # (A) 5.4 k/uL (1.3-7.7); Neutrophils % (A) 77 %; Platelet Count 209 k/uL (150-450); RBC 3.98 m/uL (3.80-5.40); RDW 16.5 % (11.5-15.5)
[2018-04-11] MEDS: ENOXAPARIN 30 MG/0.3 ML SYRINGE SQ SCH (08:28)
[2018-04-11] MEDS: traMADol 50 MG TAB PO SCH ×2 (08:28→12:01)
[2018-04-11] MEDS: PRIMIDONE 250 MG TAB PO SCH (08:29)
[2018-04-11] MEDS: MELOXICAM 7.5 MG TAB PO SCH (08:29)
[2018-04-11] MEDS: PANTOPRAZOLE 40 MG TABLET PO SCH (08:29)
[2018-04-11] MEDS: lamoTRIgine 100 MG TAB PO SCH (10:04)
--- NOTE | 2018-04-11 11:09 | P.PN ---
Progress Note - Text Progress Note Date: 04/11/18 Patient is seen lying in bed comfortably. Patient reports some discomfort in the knee although well tolerated with pain medication. Patient is having difficulty with ambulation. Incision stable with very mild drainage distally. Homans negative, Nic negative. Distal neurovascular exam intact. Impression: Status post left total knee arthroplasty Plan: We will transfer to ECF/rehab facility with appropriate discharge instructions
[2018-04-11] MEDS: FERROUS SULFATE 325 MG TAB PO SCH (12:01)
[2018-04-11] MEDS: MULTIVITAMINS, THERA 1 EACH TAB PO SCH (12:01)
--- NOTE | 2018-04-11 12:07 | P.PN ---
Subjective Progress Note Date: 04/11/18 Principal diagnosis: Status post arthroplasty Having some pain, appetite is good, Objective - Vital Signs Vital signs: Vital Signs Temp 97.5 F L 04/11/18 07:14 Pulse 98 04/11/18 07:14 Resp 20 04/11/18 07:14 BP 111/55 04/11/18 07:14 Pulse Ox 100 04/11/18 07:14 Intake & Output 04/10/18 04/11/18 04/11/18 18:59 06:59 18:59 Intake Total 600 Balance 600 Intake: Oral 600 Other: Voiding Method Toilet # Voids 2 2 - Exam gen:alert and oriented lungs:clear to auscultation heart:s1s2 abdomen:soft and depressible,non tender ext:no edema - Labs CBC & Chem 7: 04/11/18 07:00 Labs: Abnormal Lab Results - Last 24 Hours (Table) 04/10/18 04/11/18 Range/Units 19:30 07:00 Hgb 10.6 L (11.4-16.0) gm/dL MCHC 30.3 L (31.0-37.0) g/dL RDW 16.5 H (11.5-15.5) % Lymphocytes # 0.9 L (1.0-4.8) k/uL Urine Protein 1+ H (Negative) Urine Blood Moderate H (Negative) Urine RBC 60 H (0-5) /hpf Urine Bacteria Rare H (None) /hpf Urine Mucus Rare H (None) /hpf Microbiology - Last 24 Hours (Table) 04/10/18 19:30 Urine Culture - Preliminary Urine,Voided Assessment and Plan (1) Osteoarthritis of left knee Narrative/Plan: Status post arthroplasty Current Visit: Yes Status: Acute Code(s): M17.12 - UNILATERAL PRIMARY OSTEOARTHRITIS, LEFT KNEE SNOMED Code(s): 464517634395061 (2) Hypertension Narrative/Plan: Controlled Current Visit: Yes Status: Acute Code(s): I10 - ESSENTIAL (PRIMARY) HYPERTENSION SNOMED Code(s): 43762422 (3) Epilepsy Narrative/Plan: No evidence of seizures On lamictal Current Visit: No Status: Acute Code(s): G40.909 - EPILEPSY, UNSP, NOT INTRACTABLE, WITHOUT STATUS EPILEPTICUS SNOMED Code(s): 23594884 (4) GERD (gastroesophageal reflux disease) Narrative/Plan: Stable On Protonix Current Visit: Yes Status: Acute Code(s): K21.9 - GASTRO-ESOPHAGEAL REFLUX DISEASE WITHOUT ESOPHAGITIS SNOMED Code(s): 782314331 (5) IBS (irritable bowel syndrome) Current Visit: Yes Status: Acute Code(s): K58.9 - IRRITABLE BOWEL SYNDROME WITHOUT DIARRHEA SNOMED Code(s): 27531955
== END 2018-04-11 14:40 | DRG 470 ==
LOC: 2ORMAIN 12:59 → 3SUR 18:31
PROVIDERS: ADMIT Orthopaedic Surgery; ATTEND Orthopaedic Surgery
PROC: 0SRD0J9 Replacement of Left Knee Joint with Synthetic Substitute, Cemented, Open Approach (ICD-10-PCS; principal; 2018-04-08 15:45)
DX: M17.12 Unilateral primary osteoarthritis, left knee (principal); D64.9 Anemia, unspecified; F32.9 Major depressive disorder, single episode, unspecified; G40.909 Epilepsy, unspecified, not intractable, without status epilepticus; I10 Essential (primary) hypertension; K21.9 Gastro-esophageal reflux disease without esophagitis; K58.0 Irritable bowel syndrome with diarrhea; M06.9 Rheumatoid arthritis, unspecified; M41.9 Scoliosis, unspecified; R35.0 Frequency of micturition; F41.9 Anxiety disorder, unspecified; Z79.899 Other long term (current) drug therapy; Z96.651 Presence of right artificial knee joint; Z96.649 Presence of unspecified artificial hip joint; Z90.49 Acquired absence of other specified parts of digestive tract; Z82.0 Family history of epilepsy and other diseases of the nervous system; Z83.3 Family history of diabetes mellitus
CPT/HCPCS: 81001; 85025; 87086; 88300

== ENCOUNTER 2018-05-05 18:27 | Emergency (ER) | payer MEDICARE ==
[2018-05-05 18:38] VITALS: RESP 18; TEMP 98.3
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
--- NOTE | 2018-05-05 20:29 | US ---
EXAMINATION TYPE: US venous doppler duplex LE LT DATE OF EXAM: 05/05/2018 7:24 PM COMPARISON: US 05/29/2015 CLINICAL HISTORY: Pain and swelling left leg. Left knee replacement 04/08/2018 SIDE PERFORMED: Left TECHNIQUE: The lower extremity deep venous system is examined utilizing real time linear array sonog heaven with graded compression, doppler sonography and color-flow sonography. VESSELS IMAGED: External Iliac Vein (EIV) Common Femoral Vein Deep Femoral Vein Greater Saphenous Vein * Femoral Vein Popliteal Vein Small Saphenous Vein * Proximal Calf Veins (* superficial vessels) Grayscale, color doppler, spectral doppler imaging performed of the deep veins of the left lower extr emity. There is normal flow, compressibility, vascular waveforms. Left Leg: Negative for DVT IMPRESSION: No sonographic evidence of deep venous thrombosis within the left lower extremity.
[2018-05-05 21:00] LABS: Anisocytosis Slight; Basophils % (A) 0 %; Eosinophils # (A) 0.2 k/uL (0-0.7); Eosinophils % (A) 3 %; HCT 34.1 % (34.0-46.0); HGB 10.7 gm/dL (11.4-16.0); Hypochromasia Moderate; Lymphocytes # (A) 1.1 k/uL (1.0-4.8); Lymphocytes % (A) 16 %; MCH 27.6 pg (25.0-35.0); MCHC 31.5 g/dL (31.0-37.0); MCV 87.8 fL (80.0-100.0); Monocytes # (A) 0.4 k/uL (0-1.0); Monocytes % (A) 6 %; Neutrophils # (A) 4.9 k/uL (1.3-7.7); Neutrophils % (A) 74 %; Platelet Count 360 k/uL (150-450); RBC 3.88 m/uL (3.80-5.40); RDW 16.3 % (11.5-15.5); WBC 6.6 k/uL (3.8-10.6)
[2018-05-05] MEDS ORDERED: CYCLOBENZAPRINE 10MG STARTER 3 TAB BTL PO STA (21:08)
[2018-05-05 21:14] LABS: ALT 30 U/L (9-52); AST 24 U/L (14-36); Albumin 3.6 g/dL (3.5-5.0); Alkaline Phosphatase 141 U/L (38-126); Anion Gap 12 mmol/L; Blood Urea Nitrogen 14 mg/dL (7-17); C Reactive Protein 12.8 mg/L (<10.0); Calcium 8.6 mg/dL (8.4-10.2); Carbon Dioxide 22 mmol/L (22-30); Chloride 107 mmol/L (98-107); Glucose 104 mg/dL (74-99); Sodium 141 mmol/L (137-145); Total Bilirubin 0.2 mg/dL (0.2-1.3); Total Protein 6.1 g/dL (6.3-8.2)
[2018-05-05 21:34] VITALS: BP 134/78; PULSE 79
[2018-05-05] MEDS ORDERED: CEPHALEXIN 500MG STARTER PACK 4 CAP BTL PO STA (22:08)
== END 2018-05-05 22:15 | disposition home or self-care (01) ==
LOC: EC 18:27
DX: M79.89 Other specified soft tissue disorders (principal); M79.605 Pain in left leg; K21.9 Gastro-esophageal reflux disease without esophagitis; K58.9 Irritable bowel syndrome, unspecified; G40.909 Epilepsy, unspecified, not intractable, without status epilepticus; F32.9 Major depressive disorder, single episode, unspecified; F41.9 Anxiety disorder, unspecified; Z79.899 Other long term (current) drug therapy; Z96.641 Presence of right artificial hip joint; Z96.652 Presence of left artificial knee joint
CPT/HCPCS: 36415; 80053; 85025; 86140; 99284

== ENCOUNTER 2018-08-19 09:02 | Inpatient (IN) | payer MEDICARE ==
[2018-08-12 11:46] VITALS: BMI 21.1
--- NOTE | 2018-08-18 13:33 | HP ---
HISTORY AND PHYSICAL REASON FOR ADMISSION: Surgery scheduled for 08/19/2018 Yarelis Hicks is a 59-year-old patient who had previously undergone left total knee arthroplasty. She injured her knee, sustaining tears to the soft tissue, predominantly the medial collateral ligament and medial knee resulting in an unstable total knee arthroplasty. We discussed treatment options. I recommended revision left total knee arthroplasty given her significant instability. The procedure, risks, complications, benefits, and recovery were all discussed with the patient. She was agreeable and consent regarding the procedure was obtained. Medical clearance was provided by Dr. Garcia. PAST MEDICAL HISTORY: Depression. PAST SURGICAL HISTORY: Bilateral total knee arthroplasty, total hip arthroplasty. MEDICATIONS: Primidone and Lamictal. ALLERGIES: None. SOCIAL HISTORY: Patient denies tobacco use. PHYSICAL EXAMINATION: Evaluation of the left knee range of motion 0-130. There is well-healed incision. She has a +2 Olga's, very soft endpoint, +2 MCL. No end point. Weakness with quadriceps strength. Good dorsalis pedis pulse. X-RAY: Of the left knee obtained revealed medial laxity with subluxation of the knee joints. IMPRESSION: Unstable painful left total knee arthroplasty. PLAN: Revision left total knee arthroplasty. Surgery scheduled for 08/19/2018. MMODL / IJN: [id number] /
[~2018-08-19 09:02] MED LIST changes: -DEXAMETHASONE SOD PHOSPHATE 10 MG/ML 1 ML VIAL IV ONE; +HYDROmorphone 0.5 MG/0.5 ML SYRINGE IVP PRN; +LIDOCAINE 1% 20 ML VIAL (10MG/ML) FOR IV START INTRADERMA PRN; -MIDAZOLAM 2 MG/2 ML VIAL IV PRN; -fentaNYL (PF) 50 MCG/ML 2 ML AMP IV PRN
[2018-08-19] MEDS ORDERED: LACTATED RINGERS 1,000 ML IV ONE ×2 (12:59→17:08)
[2018-08-19] MEDS ORDERED: ROPIVACAINE 246.25 MG, EPINEPHrine 0.5 MG, KETOROLAC 30 MG, cloNIDine HCL/PF 80 MCG, WA... MISCELLANE ONE ×5 (14:32)
[2018-08-19] MEDS ORDERED: IV FLUID CONTINUATION 1,000 ML IV ONE (15:24)
[2018-08-19] MEDS ORDERED: ceFAZolin 3,000 MG in SODIUM CHLORIDE 0.9% IRRIGATIO 3,000 ML IRRIGATION ONE (16:16)
--- NOTE | 2018-08-19 17:59 | P.OP ---
Date of Procedure: 08/19/18 Preoperative Diagnosis: Painful/unstable left total knee arthroplasty Postoperative Diagnosis: Same Procedure(s) Performed: Revision left total knee arthroplasty Implants: 1. Microport evolution size 6 revision distal femur with medial and lateral 4 mm distal augments and a 20 mm/150 mm stem cemented 2. Microport evolution size 5 revision tibial baseplate with 15 mm/100 mm stem cemented 3. Microport evolution polyethylene tibial insert 10 mm CCK Anesthesia: local, spinal Surgeon: Brice Walker Color Paste Mixer #1: Ghulam Cuevas Estimated Blood Loss (ml): 100 Pathology: other (Extracted femoral and tibial components) Condition: stable Disposition: PACU Indications for Procedure: 67-year-old patient who was seen with a painful and unstable left total knee arthroplasty. We discussed treatment options. She elected to proceed with revision. Consent regarding the procedure was obtained. Operative Findings: See description of procedure Description of Procedure: The patient was taken to the operative suite. The patient received preoperative IV antibiotics and TXA. A spinal anesthetic was achieved by the department of anesthesia. A well-padded tourniquet was placed proximal left lower extremity. Left lower extremity was now prepped and draped in the normal sterile orthopedic fashion. Intraoperatively we noted complete loss of the MCL with significant medial laxity with no endpoint. The knee was very unstable. The extremity was elevated and tourniquet insufflated to 300. An incision was made over the previous cicatrix sharply through skin. Dissection taken down to the extensor mechanism. Medial arthrotomy made. Patella everted and knee flexed. We again noted a unstable knee with no medial stability and complete absence/loss of the medial collateral ligament. At this point the old polyethylene was removed. At this point I used a thin blade saw the lateral side to get between the cement and bone interface and the femoral component and Davie VICENTE used the saw on the medial side to get between the femoral component and the cement mantle. We both meticulously worked this until the component has loosened and then a was extracted without difficulty. There was some bone loss distally and posteriorly. Retractors were positioned along the proximal tibia. Again utilizing a thin saw blade we got between the femoral tibial component were able to work this out and remove it without difficulty. There was some bone loss but not substantial. At this point wound was irrigated with pulse lavage mechanical irrigation. And using an intramedullary drills to get up to a 15 mm on the tibia and a 20 mm femur which seemed to give us some good intramedullary stability on both sides. Freshen up cuts were made along the distal femur and proximal tibia. At this point appeared will need augments on the distal femur and 4 mm distal augments were placed both medially and laterally. At this point placed proximal components of the tibia and femur position with the appropriate stems and augments. We placed a trial 10 mm CCK polyethylene trial component. We now took the knee through a range of motion. We had full extension full flexion may be a +1 MCL laxity but solid endpoint with good stability at this point. We marked appropriate rotation of the tibia. All trial components removed. We irrigated the wound out with pulse lavage mechanical irrigation. The posterior capsule was infiltrated with local analgesic. We placed all components on the operative field and assembled them appropriately. Once the implants were appropriately assembled ready for implantation we mixed antibiotic methylmethacrylate. The knee was again irrigated with pulse lavage. Irrigation and dried out thoroughly. We now cemented down the femoral and tibial components and made sure they were well seated. I now with the assistance of Davie VICENTE removed all excess methacrylate. We now inserted our 10 mm CCK positive tibial insert was secured in position with the assistance of Davie VICENTE. We took the extension back in a flexion making sure all excess methyl methacrylate removed. We kept the knee in full extension while I continued use additional local analgesic superficially. When the methyl infected hardened the tourniquet was released. Additional hemostasis achieved electrocautery. We irrigated the wound again with pulse lavage mechanical irrigation. I now repaired the extensor mechanism with #3 Vicryl. I took the knee through range of motion and noted good overall stability and repair. The subcu soft tissues were repaired with the assistance of Davie VICENTE in layers. The skin is proximal skin anil. Sterile dressings were applied. The patient was now awakened transferred to bed and recovery stable condition. Davie VICENTE assisted with the procedure.
[2018-08-19] MEDS ORDERED: HYDROcodone/APAP 5-325MG 1 EACH TAB PO PRN (18:00)
[2018-08-19] MEDS ORDERED: NALOXONE 0.4 MG/ML 1 ML VIAL IV PRN (18:00)
[2018-08-19] MEDS ORDERED: ONDANSETRON 4 MG/2 ML VIAL IVP PRN (18:00)
[2018-08-19] MEDS ORDERED: HYDROmorphone 1 MG/ML 1 ML SYRINGE IVP PRN ×3 (18:00)
[2018-08-19] MEDS ORDERED: hydrOXYzine PAMOATE 25 MG CAP PO PRN (18:00)
--- NOTE | 2018-08-19 18:29 | XR ---
EXAMINATION TYPE: XR knee limited LT DATE OF EXAM: 08/19/2018 COMPARISON: NONE HISTORY: Postop knee surgery TECHNIQUE: 3 views FINDINGS: There are anterior skin anil. There is knee joint effusion. There is a left knee prosthe sis. Components are in anatomic position. IMPRESSION: Components are in anatomic position.
[2018-08-19] MEDS: HYDROcodone/APAP 5-325MG 1 EACH TAB PO PRN (19:59)
[2018-08-19] MEDS ORDERED: ALPRAZolam 0.5 MG TAB PO PRN (20:13)
[2018-08-19] MEDS: LACTATED RINGERS 1,000 ML IV SCH ×2 (20:16→22:24)
[2018-08-19] MEDS: traMADol 50 MG TAB PO SCH ×2 (20:16→22:22)
[2018-08-19] MEDS: SENNOSIDES-DOCUSATE SODIUM 1 EACH TAB PO SCH (22:17)
[2018-08-19] MEDS: ENOXAPARIN 30 MG/0.3 ML SYRINGE SQ SCH (22:18)
[2018-08-19] MEDS: METOPROLOL TARTRATE 25 MG TAB PO SCH (22:21)
[2018-08-19] MEDS: PRIMIDONE 250 MG TAB PO SCH (22:22)
[2018-08-19] MEDS: lamoTRIgine 100 MG TAB PO SCH (22:22)
[2018-08-20] MEDS: ceFAZolin IN SWFI 2 GM/20 ML SYRINGE IVP SCH ×2 (01:02→10:44)
[2018-08-20] MEDS: HYDROcodone/APAP 5-325MG 1 EACH TAB PO PRN ×3 (03:13→20:02)
[2018-08-20] MEDS: LACTATED RINGERS 1,000 ML IV SCH ×2 (06:24→09:26)
[2018-08-20] MEDS: lamoTRIgine 100 MG TAB PO SCH ×2 (08:06→22:04)
[2018-08-20] MEDS: PRIMIDONE 250 MG TAB PO SCH ×2 (08:06→22:05)
[2018-08-20] MEDS: MELOXICAM 7.5 MG TAB PO SCH (08:06)
[2018-08-20] MEDS: ENOXAPARIN 30 MG/0.3 ML SYRINGE SQ SCH ×2 (08:06→22:04)
[2018-08-20] MEDS: traMADol 50 MG TAB PO SCH ×4 (08:07→22:05)
[2018-08-20] MEDS: METOPROLOL TARTRATE 25 MG TAB PO SCH ×2 (08:07→22:05)
[2018-08-20 08:16] LABS: Anisocytosis Slight; Basophils % (A) 0 %; Eosinophils # (A) 0.1 k/uL (0-0.7); Eosinophils % (A) 1 %; HGB 10.2 gm/dL (11.4-16.0); Hypochromasia Slight; Lymphocytes # (A) 0.4 k/uL (1.0-4.8); Lymphocytes % (A) 5 %; MCHC 31.9 g/dL (31.0-37.0); Mean Platelet Volume 8.2; Monocytes # (A) 0.4 k/uL (0-1.0); Monocytes % (A) 6 %; Neutrophils # (A) 6.6 k/uL (1.3-7.7); Neutrophils % (A) 88 %; Platelet Count 208 k/uL (150-450); RBC 3.51 m/uL (3.80-5.40); RDW 16.7 % (11.5-15.5); WBC 7.5 k/uL (3.8-10.6)
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
--- NOTE | 2018-08-20 17:13 | P.PN ---
Subjective Progress Note Date: 08/20/18 Principal diagnosis: Status post revision left total knee arthroplasty Patient is seen today resting in her hospital bed, she appears comfortable. She does note some discomfort in the leg. She notes improvement from before surgery. She is ambulating minimally with therapy. She denies any chest pain or shortness of breath. Objective - Vital Signs Vital signs: Vital Signs Temp 99.4 F 08/20/18 14:14 Pulse 94 08/20/18 14:14 Resp 15 08/20/18 14:14 BP 106/64 08/20/18 14:14 Pulse Ox 98 08/20/18 14:14 Intake & Output 08/19/18 08/20/18 08/20/18 18:59 06:59 18:59 Intake Total 2401 630 1020 Output Total 100 Balance 2301 630 1020 Weight 64.864 kg Intake: IV 2401 Intake, IV Titration 630 Amount Lactated Ringers 1,000 ml 630 @ 70 mls/hr IV .[id number] [facility] Rx#:[id number] Oral 1020 Output: Estimated Blood Loss 100 Other: Voiding Method Toilet # Voids 1 1 - Exam Left lower extremity: Incision is clean, dry, and intact. Nubieber are in good position. There is minimal soft tissue swelling and ecchymosis surrounding the medial and lateral aspects of the incision. Calf is soft, no tenderness with palpation. Plantar flexion, dorsiflexion, EHL, FHL are intact. Sensory exam to light touch throughout the extremity is intact, dorsal pedis pulses 2+. - Labs CBC & Chem 7: 08/20/18 07:15 Labs: Abnormal Lab Results - Last 24 Hours (Table) 08/20/18 Range/Units 07:15 RBC 3.51 L (3.80-5.40) m/uL Hgb 10.2 L (11.4-16.0) gm/dL Hct 32.0 L (34.0-46.0) % RDW 16.7 H (11.5-15.5) % Lymphocytes # 0.4 L (1.0-4.8) k/uL Assessment and Plan Plan: Assessment: Postoperative day #1 status post revision left total knee arthroplasty Plan: Pain control, continue supportive oral medication Continue work physical therapy and use of CPM Daily dressing changes/ice and elevate GI and DVT prophylaxis, continue current medication Ice and elevate often Encourage incentive spirometer Discharge planning: Patient will be dischargedto rehab in the next few days Time with Patient: Less than 30
[2018-08-20] MEDS: SENNOSIDES-DOCUSATE SODIUM 1 EACH TAB PO SCH (22:05)
[2018-08-21] MEDS: HYDROcodone/APAP 5-325MG 1 EACH TAB PO PRN ×2 (04:54→16:06)
[2018-08-21] MEDS: LACTATED RINGERS 1,000 ML IV SCH ×3 (04:54→16:08)
[2018-08-21] MEDS: PANTOPRAZOLE 40 MG TABLET PO SCH (09:41)
[2018-08-21] MEDS: FERROUS SULFATE 325 MG TAB PO SCH (09:42)
[2018-08-21] MEDS: lamoTRIgine 100 MG TAB PO SCH ×2 (09:42→20:36)
[2018-08-21] MEDS: MELOXICAM 7.5 MG TAB PO SCH (09:43)
[2018-08-21] MEDS: ENOXAPARIN 30 MG/0.3 ML SYRINGE SQ SCH ×2 (09:44→20:36)
[2018-08-21] MEDS: traMADol 50 MG TAB PO SCH ×4 (09:45→22:14)
[2018-08-21] MEDS: PRIMIDONE 250 MG TAB PO SCH ×2 (09:47→22:14)
[2018-08-21] MEDS: METOPROLOL TARTRATE 25 MG TAB PO SCH ×2 (09:48→20:36)
--- NOTE | 2018-08-21 10:45 | P.PN ---
Subjective Progress Note Date: 08/21/18 Principal diagnosis: Status post revision left total knee arthroplasty Patient is seen today resting in her hospital bed, she appears comfortable. She does note some discomfort in the leg. She is ambulating minimally with therapy. She denies any chest pain or shortness of breath. Objective - Vital Signs Vital signs: Vital Signs Temp 99.2 F 08/21/18 07:37 Pulse 98 08/21/18 07:37 Resp 16 08/21/18 07:37 BP 101/62 08/21/18 07:37 Pulse Ox 96 08/21/18 07:37 Intake & Output 08/20/18 08/21/18 08/21/18 18:59 06:59 18:59 Intake Total 1138 490 Output Total 250 Balance 1138 490 -250 Intake: Intake, IV Titration 490 Amount Lactated Ringers 1,000 ml 490 @ 70 mls/hr IV .[id number] [facility] Rx#:[id number] Oral 1138 Output: Urine 250 Other: Voiding Method Toilet # Voids 1 2 - Exam Left lower extremity: Incision is clean, dry, and intact. Rolette are in good position. There is minimal soft tissue swelling and ecchymosis surrounding the medial and lateral aspects of the incision. Calf is soft, no tenderness with palpation. Plantar flexion, dorsiflexion, EHL, FHL are intact. Sensory exam to light touch throughout the extremity is intact, dorsal pedis pulses 2+. - Labs CBC & Chem 7: 08/20/18 07:15 Assessment and Plan Plan: Assessment: Postoperative day 21 status post revision left total knee arthroplasty Plan: Pain control, continue supportive oral medication Continue work physical therapy and use of CPM Daily dressing changes/ice and elevate GI and DVT prophylaxis, continue current medication Ice and elevate often Encourage incentive spirometer Discharge planning: Hopeful discharge to rehab tomorrow Time with Patient: Less than 30
--- NOTE | 2018-08-21 14:32 | P.PN ---
Subjective Progress Note Date: 08/21/18 This is a 67-year-old female patient of Dr. Garcia with past history of rheumatoid arthritis, irritable bowel syndrome diarrhea prominent, scoliosis and severe kyphosis, seizure disorder, gastroesophageal reflux disease, generalized anxiety disorder, hypertension. Patient has been brought into the hospital under the care of Dr. Walker for revision of left total knee arthroplasty. Patient gives history that she had multiple falls and ended up pulling a ligament. She denies any chest pain, shortness of breath. She denies any blood or tarry stools. She denies any dysuria. Patient does state that she had a seizure 3 days ago and normally follows with Dr. Mckeon but none since. Seizure precautions are in place. Patient has been to [facility] for subacute rehab in the past and is planning to return there for subacute rehab. Her initial knee surgery was in March of this year. 08/21: Patient is ambulating to the bathroom with assistance. She has been afebrile. Blood pressure is on the low side which is her normal. Patient has been accepted to [facility] with anticipated discharge for tomorrow. No new complaints. No chest pain or shortness of breath. No nausea or vomiting. Objective - Vital Signs Vital signs: Vital Signs Temp 99.2 F 08/21/18 07:37 Pulse 98 08/21/18 07:37 Resp 16 08/21/18 07:37 BP 101/62 08/21/18 07:37 Pulse Ox 96 08/21/18 07:37 Intake & Output 08/20/18 08/21/18 08/21/18 18:59 06:59 18:59 Intake Total 1138 490 Output Total 250 Balance 1138 490 -250 Intake: Intake, IV Titration 490 Amount Lactated Ringers 1,000 ml 490 @ 70 mls/hr IV .[id number] [facility] Rx#:[id number] Oral 1138 Output: Urine 250 Other: Voiding Method Toilet # Voids 1 2 - Exam Gen: This is a 67-year-old female. She is found ambulating with assistance from the bathroom and appears to be in no acute distress. The patient has significant kyphosis appears to impact her ambulatory status. HEENT: Head is atraumatic, normocephalic. Pupils equal, round. Sclerae is anicteric. NECK: Supple. No JVD. No lymphadenopathy. No thyromegaly. LUNGS: Clear to auscultation. No wheezes or rhonchi. No intercostal retractions. Severe kyphosis. HEART: Regular rate and rhythm. No murmur. ABDOMEN: Soft. Bowel sounds are present. No masses. No tenderness. EXTREMITIES: No pedal edema. No calf tenderness. Small dressing in place to the left knee with no drainage or breakthrough bleeding. NEUROLOGICAL: Patient is awake, alert and oriented x3. Cranial nerves 2 through 12 are grossly intact. - Labs CBC & Chem 7: 08/20/18 07:15 Assessment and Plan Plan: 1. Osteoarthritis status post revision of left total knee arthroplasty under the care of Dr. Walker. Continue current pain management, PT and OT per orthopedics, patient is on Lovenox for DVT prophylaxis with plan for aspirin 325 mg twice daily at discharge. 2. History of rheumatoid arthritis, stable. 3. Chronic anemia of chronic disease. Continue ferrous sulfate. 4. Seizure disorder. Continue Lamictal 150 mg twice daily, primidone 250 mg twice daily. Patient follows with Dr. Mckeon. 5. Generalized anxiety disorder. Continue Xanax 0.5 mg 3 times daily as needed. 6. Hypertension. Continue Lopressor 25 mg twice daily. 7. Gastroesophageal reflux disease. Continue omeprazole Discharge plan: [facility] for subacute rehab on Impression and plan of care have been directed as dictated by the signing physician. Dilma Costello nurse practitioner acting as scribe for signing physician.
[2018-08-21] MEDS: SENNOSIDES-DOCUSATE SODIUM 1 EACH TAB PO SCH (20:36)
[2018-08-22] MEDS: LACTATED RINGERS 1,000 ML IV SCH ×3 (03:11→09:56)
[2018-08-22 07:13] LABS: Anisocytosis Slight; Basophils % (A) 1 %; Eosinophils # (A) 0.2 k/uL (0-0.7); Eosinophils % (A) 3 %; HCT 29.9 % (34.0-46.0); HGB 9.4 gm/dL (11.4-16.0); Hypochromasia Slight; Lymphocytes # (A) 0.7 k/uL (1.0-4.8); Lymphocytes % (A) 14 %; MCH 28.9 pg (25.0-35.0); MCHC 31.3 g/dL (31.0-37.0); MCV 92.2 fL (80.0-100.0); Mean Platelet Volume 7.1; Monocytes # (A) 0.3 k/uL (0-1.0); Monocytes % (A) 7 %; Neutrophils # (A) 3.7 k/uL (1.3-7.7); Neutrophils % (A) 74 %; Platelet Count 207 k/uL (150-450); RBC 3.25 m/uL (3.80-5.40); RDW 16.6 % (11.5-15.5)
[2018-08-22 07:20] VITALS: BP 114/68; PULSE 90; RESP 12; TEMP 98.4
[2018-08-22] MEDS: MELOXICAM 7.5 MG TAB PO SCH (09:09)
[2018-08-22] MEDS: METOPROLOL TARTRATE 25 MG TAB PO SCH (09:09)
[2018-08-22] MEDS: FERROUS SULFATE 325 MG TAB PO SCH (09:09)
[2018-08-22] MEDS: ENOXAPARIN 30 MG/0.3 ML SYRINGE SQ SCH (09:09)
[2018-08-22] MEDS: PANTOPRAZOLE 40 MG TABLET PO SCH (09:09)
[2018-08-22] MEDS: PRIMIDONE 250 MG TAB PO SCH (09:09)
[2018-08-22] MEDS: lamoTRIgine 100 MG TAB PO SCH (09:09)
[2018-08-22] MEDS: traMADol 50 MG TAB PO SCH ×2 (09:13→12:25)
--- NOTE | 2018-08-22 11:25 | P.PN ---
Subjective Progress Note Date: 08/22/18 Principal diagnosis: Status post revision left total knee arthroplasty Patient is seen today resting in her hospital bed, she appears comfortable. She does note some discomfort in the leg. She is ambulating minimally with therapy. She denies any chest pain or shortness of breath. Objective - Vital Signs Vital signs: Vital Signs Temp 98.4 F 08/22/18 07:00 Pulse 90 08/22/18 07:00 Resp 12 08/22/18 07:00 BP 114/68 08/22/18 07:00 Pulse Ox 99 08/22/18 07:00 Intake & Output 08/21/18 08/22/18 08/22/18 18:59 06:59 18:59 Intake Total 400 500 Output Total 250 Balance 150 500 Intake: Oral 400 500 Output: Urine 250 Other: Voiding Method Toilet # Voids 2 2 - Exam Left lower extremity: Incision is clean, dry, and intact. Jansen are in good position. There is minimal soft tissue swelling and ecchymosis surrounding the medial and lateral aspects of the incision. Calf is soft, no tenderness with palpation. Plantar flexion, dorsiflexion, EHL, FHL are intact. Sensory exam to light touch throughout the extremity is intact, dorsal pedis pulses 2+. - Labs CBC & Chem 7: 08/22/18 06:34 Labs: Abnormal Lab Results - Last 24 Hours (Table) 08/22/18 Range/Units 06:34 RBC 3.25 L (3.80-5.40) m/uL Hgb 9.4 L (11.4-16.0) gm/dL Hct 29.9 L (34.0-46.0) % RDW 16.6 H (11.5-15.5) % Lymphocytes # 0.7 L (1.0-4.8) k/uL Assessment and Plan Plan: Assessment: Postoperative day #3 status post revision left total knee arthroplasty Plan: Pain control, Continue work physical therapy and use of CPM Daily dressing changes/ice and elevate GI and DVT prophylaxis, aspirin 325mg bid for 1 month Ice and elevate often Encourage incentive spirometer Discharge planning: discharge to rehab today Time with Patient: Less than 30
--- NOTE | 2018-08-22 11:28 | P.DS ---
Providers Date of admission: 08/19/18 11:45 Expected date of discharge: 08/22/18 Attending physician: Brice Walker Consults: 08/19/18 18:00 Consult Physician Routine Consulting Provider: Wendie Mcleod Consult Reason/Comments: Medical management Do you want consulting provider notified?: Yes Primary care physician: [facility] Course: Date of admission: 08/19/2018 Date of discharge: 08/22/2018 Admission diagnosis: Status post revision left total knee arthroplasty Discharge diagnosis: Same Attending physician: Dr. Walker Surgical procedures: Revision left total knee arthroplasty Brief history: Patient is a 67-year-old female with a history of a previous left total knee arthroplasty. During the postoperative period, patient has had a few separate falls, which has resulted in increasing pain and instability of the left knee. Patient was evaluated in the outpatient setting by Dr. Walker , conservative options were attempted, this did not work. She was scheduled for an elective revision left total knee arthroplasty. Hospital course: Details of patient's surgery can be found in operative report. Patient tolerated the procedure well and was subsequently transported to orthopedic floor. Patient's orthopeidc and medical care was provided daily. Patient had daily laboratory tests performed for evaluation of overall blood counts Patient had daily physical therapy to include strengthening range of motion as well as education with walker ambulation. Patient had daily CPM usage as part of their physical therapy program. Patient was treated with Lovenox for their postoperative DVT prophylaxis during their inpatient stay. Patient was noted to have a relatively uneventful postoperative course. Patient reported satisfactory pain control with oral pain medications by postoperative day 0. Patient showed satisfactory progress with physical therapy. Patient moved steadily through the program and had no difficulty meeting the goals by postoperative day 3. Given patient's otherwise satisfactory course and having met physical therapy goals, plan is to discharge patient rehab on postoperative day 3. Discharge condition/disposition: Patient will be discharged rehab in stable condition. Discharge medications: Instructions are given on resumption of patient's normal daily medications per primary care recommendation, in addition patient will be prescribed Covington 5 mg/325 mg, tramadol 50 mg, aspirin 325 mg. Discharge instructions: 1. Wound care and infection precautions, keep incision dry and covered while showering, no lotions, creams, moisturizers. No soaking, tubs, pools, hottubs. Do not scrub over the incision. 2. Weight-bear as tolerated with walker / cane until follow-up. 3. Ice and elevate when necessary. Do not exceed 20 minutes per hour with ice pack. 4. Utilize compression sleeve until seen at first follow up appointment. 5. Visiting nursing care. 6. Home physical therapy including home CPM. 7. Pain meds and anticoagulants per prescription. 8. Pain medication has potential to cause constipation. Increase oral fluid and fiber intake. Contact primary care provider if you have not had a bowel movement within 48 hours after discharge 9. No anti-inflammatory medication until discussed at first post operative visit, this including Motrin, Aleve, Mobic, Diclofenac 10. Follow up in office at 2 weeks postop with Davie Cuevas PA-C 11. Follow up with your primary care doctor 7-10 days after discharge. 12. Contact [facility] with any questions, . Procedures: Revision left total knee arthroplasty Patient Condition at Discharge: Good Plan - Discharge Summary Discharge Rx Participant: Yes New Discharge Prescriptions: New Hydrocodone/Acetaminophen [Covington 5-325] 1 - 2 each PO Q6HR PRN #40 tab PRN Reason: Pain traMADol HCl [Ultram] 50 mg PO Q6H PRN #40 tab PRN Reason: Pain Continue Primidone 250 mg PO BID lamoTRIgine [LaMICtal] 150 mg PO BID Multivit-Min/FA/Lycopen/Lutein [Centrum Silver Tablet] 1 tab PO DAILY Ferrous Sulfate [Iron (65 MG Elemental)] 325 mg PO DAILY Omeprazole 40 mg PO DAILY Metoprolol Tartrate [Lopressor] 25 mg PO BID Aspirin 325 mg PO BID #60 tab ALPRAZolam [Xanax] 0.5 mg PO TID PRN #9 tablet PRN Reason: Anxiety Discontinued HYDROcodone/APAP 7.5-325MG [Covington 7.5-325] 1 tab PO Q6HR PRN PRN Reason: Pain Discharge Medication List Primidone 250 mg PO BID 05/03/16 [History] Multivit-Min/FA/Lycopen/Lutein [Centrum Silver Tablet] 1 tab PO DAILY 06/05/17 [ History] lamoTRIgine [LaMICtal] 150 mg PO BID 06/05/17 [History] Ferrous Sulfate [Iron (65 MG Elemental)] 325 mg PO DAILY 04/03/18 [History] Metoprolol Tartrate [Lopressor] 25 mg PO BID 04/03/18 [History] Omeprazole 40 mg PO DAILY 04/03/18 [History] Aspirin 325 mg PO BID #60 tab 04/10/18 [Rx] ALPRAZolam [Xanax] 0.5 mg PO TID PRN #9 tablet 08/22/18 [Rx] Hydrocodone/Acetaminophen [Covington 5-325] 1 - 2 each PO Q6HR PRN #40 tab 08/22/18 [Rx] traMADol HCl [Ultram] 50 mg PO Q6H PRN #40 tab 08/22/18 [Rx] Follow up Appointment(s)/Referral(s): Brice Walker DO [Doctor of Osteopathic Medicine] - 09/04/18 1:50 pm Kapil Garcia MD [Primary Care Provider] - 08/27/18 1:00 pm (one week after discharge from [facility]) Activity/Diet/Wound Care/Special Instructions: Orthopedic Discharge Instructions: 1. Wound care and infection precautions, keep incision dry and covered while showering, no lotions, creams, moisturizers. No soaking, pools, hot tubs. Do not scrub over incision. 2. Weight-bear as tolerated with walker / cane until follow-up. 3. Ice and elevate when necessary. Do not exceed 20 minutes per hour with ice pack. 4. Utilize compression sleeve until seen at first follow up appointment. 5. Pain meds and anticoagulants per prescription. 6. Pain medication has potential to cause constipation. Increase oral fluid and fiber intake. Contact primary care provider if you have not had a bowel movement within 48 hours after discharge. 7. No anti-inflammatory medication until discussed at first post operative visit, this including Motrin, Aleve, Mobic, Diclofenac. 8. Follow up in office at 2 weeks postop with Davie Cuevas PA-C 9. Follow up with your primary care doctor 7-10 days after discharge. 10. Contact [facility] with any questions, . Discharge Disposition: TRANSFER TO SNF/ECF
--- NOTE | 2018-08-22 13:48 | P.PN ---
Subjective Progress Note Date: 08/22/18 This is a 67-year-old female patient of Dr. Garcia with past history of rheumatoid arthritis, irritable bowel syndrome diarrhea prominent, scoliosis and severe kyphosis, seizure disorder, gastroesophageal reflux disease, generalized anxiety disorder, hypertension. Patient has been brought into the hospital under the care of Dr. Walker for revision of left total knee arthroplasty. Patient gives history that she had multiple falls and ended up pulling a ligament. She denies any chest pain, shortness of breath. She denies any blood or tarry stools. She denies any dysuria. Patient does state that she had a seizure 3 days ago and normally follows with Dr. Mckeon but none since. Seizure precautions are in place. Patient has been to [facility] for subacute rehab in the past and is planning to return there for subacute rehab. Her initial knee surgery was in March of this year. 08/21: Patient is ambulating to the bathroom with assistance. She has been afebrile. Blood pressure is on the low side which is her normal. Patient has been accepted to [facility] with anticipated discharge for tomorrow. No new complaints. No chest pain or shortness of breath. No nausea or vomiting. 08/22: Repeat hemoglobin is at 9.4. Vital signs have been stable and patient has been afebrile. Patient is scheduled to be discharged to [facility] today. Patient denies any new complaints. Indication reconciliation reviewed. Objective - Vital Signs Vital signs: Vital Signs Temp 98.4 F 08/22/18 07:00 Pulse 90 08/22/18 07:00 Resp 12 08/22/18 07:00 BP 114/68 08/22/18 07:00 Pulse Ox 99 08/22/18 07:00 Intake & Output 08/21/18 08/22/18 08/22/18 18:59 06:59 18:59 Intake Total 400 500 Output Total 250 Balance 150 500 Intake: Oral 400 500 Output: Urine 250 Other: Voiding Method Toilet # Voids 2 2 - Exam Gen: This is a 67-year-old female. She is found ambulating with assistance from the bathroom and appears to be in no acute distress. The patient has significant kyphosis appears to impact her ambulatory status. HEENT: Head is atraumatic, normocephalic. Pupils equal, round. Sclerae is anicteric. NECK: Supple. No JVD. No lymphadenopathy. No thyromegaly. LUNGS: Clear to auscultation. No wheezes or rhonchi. No intercostal retractions. Severe kyphosis. HEART: Regular rate and rhythm. No murmur. ABDOMEN: Soft. Bowel sounds are present. No masses. No tenderness. EXTREMITIES: No pedal edema. No calf tenderness. Small dressing in place to the left knee with no drainage or breakthrough bleeding. NEUROLOGICAL: Patient is awake, alert and oriented x3. Cranial nerves 2 through 12 are grossly intact. - Labs CBC & Chem 7: 08/22/18 06:34 Labs: Abnormal Lab Results - Last 24 Hours (Table) 08/22/18 Range/Units 06:34 RBC 3.25 L (3.80-5.40) m/uL Hgb 9.4 L (11.4-16.0) gm/dL Hct 29.9 L (34.0-46.0) % RDW 16.6 H (11.5-15.5) % Lymphocytes # 0.7 L (1.0-4.8) k/uL Assessment and Plan Plan: 1. Osteoarthritis status post revision of left total knee arthroplasty under the care of Dr. Walker. Continue current pain management, PT and OT per orthopedics, patient is on Lovenox for DVT prophylaxis with plan for aspirin 325 mg twice daily at discharge. 2. History of rheumatoid arthritis, stable. 3. Chronic anemia of chronic disease. Continue ferrous sulfate. 4. Seizure disorder. Continue Lamictal 150 mg twice daily, primidone 250 mg twice daily. Patient follows with Dr. Mckeon. 5. Generalized anxiety disorder. Continue Xanax 0.5 mg 3 times daily as needed. 6. Hypertension. Continue Lopressor 25 mg twice daily. 7. Gastroesophageal reflux disease. Continue omeprazole Discharge plan: [facility] Impression and plan of care have been directed as dictated by the signing physician. Dilma Costello nurse practitioner acting as scribe for signing physician.
== END 2018-08-22 14:15 | DRG 467 ==
LOC: 2ORMAIN 11:45 → 3SUR 17:45
PROVIDERS: ADMIT Orthopaedic Surgery; ATTEND Orthopaedic Surgery
PROC: 0SRD0J9 Replacement of Left Knee Joint with Synthetic Substitute, Cemented, Open Approach (ICD-10-PCS; 2018-08-19)
PROC: 0SPD0JZ Removal of Synthetic Substitute from Left Knee Joint, Open Approach (ICD-10-PCS; principal; 2018-08-19 13:15)
DX: T84.023A Instability of internal left knee prosthesis, initial encounter (principal); K22.10 Ulcer of esophagus without bleeding; M41.9 Scoliosis, unspecified; T84.84XA Pain due to internal orthopedic prosthetic devices, implants and grafts, initial encounter; F41.1 Generalized anxiety disorder; G40.909 Epilepsy, unspecified, not intractable, without status epilepticus; I10 Essential (primary) hypertension; K58.9 Irritable bowel syndrome, unspecified; M06.9 Rheumatoid arthritis, unspecified; K21.0 Gastro-esophageal reflux disease with esophagitis; D64.9 Anemia, unspecified; F32.9 Major depressive disorder, single episode, unspecified; R29.6 Repeated falls; K44.9 Diaphragmatic hernia without obstruction or gangrene; K29.50 Unspecified chronic gastritis without bleeding; M19.049 Primary osteoarthritis, unspecified hand; Z96.651 Presence of right artificial knee joint; Z96.641 Presence of right artificial hip joint; Z79.899 Other long term (current) drug therapy; Z82.0 Family history of epilepsy and other diseases of the nervous system; Z82.49 Family history of ischemic heart disease and other diseases of the circulatory system; Z83.3 Family history of diabetes mellitus; Z84.89 Family history of other specified conditions; Y83.1 Surgical operation with implant of artificial internal device as the cause of abnormal reaction of the patient, or of later complication, without mention of misadventure at the time of the procedure; Y92.9 Unspecified place or not applicable
CPT/HCPCS: 85025

== ENCOUNTER 2018-09-09 09:43 | Inpatient (IN) | payer MEDICARE ==
[2018-09-09] MEDS ORDERED: MORPHINE SULFATE 4 MG/ML SYRINGE IVP STA (10:00)
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
--- NOTE | 2018-09-09 10:39 | XR ---
EXAMINATION TYPE: XR Hip RT and AP Pelvis DATE OF EXAM: 09/09/2018 COMPARISON: Prior pelvis 08/04/2016, right hip 10/15/2016, 08/04/2016 HISTORY: Trauma and pain TECHNIQUE: A single AP view of the pelvis is obtained. Two views of the right hip are obtained. FINDINGS: There is posterior right hip dislocation. No evident fracture. Degenerative disc changes a re present in the visualized spine. IMPRESSION: Right hip dislocation.
[2018-09-09] MEDS ORDERED: ETOMIDATE 2 MG/ML 10 ML VIAL IV STA (11:21)
[2018-09-09] MEDS ORDERED: ETOMIDATE 2 MG/ML 10 ML VIAL IVP STA (12:12)
[2018-09-09] MEDS ORDERED: HYDROcodone/APAP 5-325MG 1 EACH TAB PO PRN (12:31)
[2018-09-09] MEDS ORDERED: ONDANSETRON 4 MG/2 ML VIAL IVP PRN (12:31)
--- NOTE | 2018-09-09 12:41 | XR ---
EXAMINATION TYPE: XR Hip Limited RT DATE OF EXAM: 09/09/2018 COMPARISON: Earlier today HISTORY: 67-year-old female postreduction TECHNIQUE: Single AP view FINDINGS: On the single frontal view, there appears to be appropriate positioning of the femoral head relative to the acetabular cup. No periprosthetic fracture is seen. Stable heterotopic ossification along the superior aspect of the hip joint. IMPRESSION: Satisfactory reduction of the right hip total arthroplasty.
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
[2018-09-09 18:46] VITALS: BMI 27.7
[2018-09-10] MEDS ORDERED: ENOXAPARIN 30 MG/0.3 ML SYRINGE SQ SCH (09:00)
[2018-09-10 10:29] VITALS: RESP 16
--- NOTE | 2018-09-10 12:59 | P.PN ---
Subjective Progress Note Date: 09/10/18 Principal diagnosis: Status post relocation right total hip arthroplasty Patient is seen today resting in her hospital bed, she appears comfortable. She ambulated the halls. She notes no pain involving the right hip. Objective - Vital Signs Vital signs: Vital Signs Temp 99.3 F 09/10/18 09:01 Pulse 106 H 09/10/18 09:01 Resp 16 09/10/18 09:01 BP 100/65 09/10/18 09:01 Pulse Ox 97 09/10/18 09:01 Intake & Output 09/09/18 09/10/18 09/10/18 18:59 06:59 18:59 Intake Total 500 Balance 500 Weight 64.4 kg Intake: Amount of Fluid Infused ( 500 ml) Other: # Voids 1 - Exam Right lower extremity: No obvious malalignment noted of the extremity No obvious open lesions or sores present Painless range of motion with internal and external rotation, hip flexion reproduces no discomfort Distal neurovascular exam is intact Assessment and Plan Plan: Assessment: 1. Status post relocation right total hip arthroplasty 2. Status post fall from standing 3. History of revision left total knee arthroplasty, stable Plan: Patient remained stable at this time, the hip is causing her no symptoms. Had a discussion with her today regarding posterior hip precautions 3-4 weeks, this including limiting internal rotation, no hip flexion past 90. I also mentioned having a pillow between legs while she sleeps and avoiding laying on that side Advise weight-bear as tolerated Patient is stable via orthopedics standpoint for discharge to home Time with Patient: Less than 30
--- NOTE | 2018-09-10 13:03 | P.DS ---
Providers Date of admission: 09/09/18 12:33 Expected date of discharge: 09/10/18 Attending physician: Brice Walker Primary care physician: Kapil [facility] Course: Date of admission: 09/09/2018 Date of discharge: 09/10/2018 Admission diagnosis: Status post relocation right periprosthetic hip dislocation Discharge diagnosis: Same Attending physician: Dr. Walker Surgical procedures: None Brief history: Patient is a 59-year-old female who presented to [facility] emergency room yesterday afternoon after sustaining a fall at her home. Patient was attempting to walk and do her home, she tripped over the dura wall fell backwards on the right hip. She attempted to move the leg and felt a pop, she was unable to move the extremity. She is brought to [facility], imaging test demonstrated a right periprosthetic hip dislocation. She was given conscious sedation by the emergency room staff, he relocation procedure was performed. Post reduction films were done, this demonstrated adequate alignment of the hip. No acute fractures or dislocations are present. Patient was admitted under orthopedic care for further evaluation and management. Hospital course: Patient had a uneventful hospital stay. She was evaluated by therapy, she was able to ambulate with no difficulty. There is no significant pain involving the right hip. Discharge condition/disposition: Patient will be discharged [home] in stable condition. Discharge medications: Instructions are given on resumption of patient's normal daily medications per primary care recommendation, in addition patient will be prescribed no new medications. Discharge instructions: 1. Posterior hip precautions were discussed the patient at bedside 2. Weight-bear as tolerated 3. Patient is scheduled to follow-up with Dr. Walker for her left knee and 3 weeks, she will be reassessed for the right hip at that time. 4. Contact [phone] with any questions Procedures: Conscious sedation and relocation dislocated right periprosthetic hip Patient Condition at Discharge: Good Plan - Discharge Summary Discharge Rx Participant: Yes New Discharge Prescriptions: No Action Primidone 250 mg PO BID lamoTRIgine [LaMICtal] 150 mg PO BID Discharge Medication List Primidone 250 mg PO BID 05/03/16 [History] lamoTRIgine [LaMICtal] 150 mg PO BID 06/05/17 [History] Follow up Appointment(s)/Referral(s): Kapil Garcia MD [Primary Care Provider] - 1-2 days Brice Walker DO [Doctor of Osteopathic Medicine] - 3 Weeks Activity/Diet/Wound Care/Special Instructions: Discharge instructions: 1. Posterior hip precautions were discussed the patient 2. Weight-bear as tolerated 3. [facility]up at [facility] in [facility] weeks, contact our office with any questions Discharge Disposition: HOME SELF-CARE
[2018-09-10 13:09] VITALS: BP 115/73; PULSE 96; TEMP 98.1
== END 2018-09-10 14:20 | disposition home or self-care (01) | DRG 561 ==
LOC: EC 09:43 → 4SSUR 12:33 → 6PED 18:10
PROVIDERS: ADMIT Orthopaedic Surgery; ATTEND Orthopaedic Surgery
PROC: 0QS6XZZ Reposition Right Upper Femur, External Approach (ICD-10-PCS; principal; 2018-09-09)
DX: T84.020A Dislocation of internal right hip prosthesis, initial encounter (principal); F32.9 Major depressive disorder, single episode, unspecified; F41.9 Anxiety disorder, unspecified; G40.909 Epilepsy, unspecified, not intractable, without status epilepticus; I10 Essential (primary) hypertension; K21.9 Gastro-esophageal reflux disease without esophagitis; K58.9 Irritable bowel syndrome, unspecified; M19.90 Unspecified osteoarthritis, unspecified site; Z79.899 Other long term (current) drug therapy; Z96.653 Presence of artificial knee joint, bilateral; Z82.0 Family history of epilepsy and other diseases of the nervous system; Z82.49 Family history of ischemic heart disease and other diseases of the circulatory system; Z83.3 Family history of diabetes mellitus; W01.0XXA Fall on same level from slipping, tripping and stumbling without subsequent striking against object, initial encounter; Y92.009 Unspecified place in unspecified non-institutional (private) residence as the place of occurrence of the external cause; Y79.2 Prosthetic and other implants, materials and accessory orthopedic devices associated with adverse incidents
CPT/HCPCS: 27265; 51701; 73501; 73502; 96374; 99152; 99153; 99285

== ENCOUNTER 2018-09-11 21:53 | Emergency (ER) | payer MEDICARE ==
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
--- NOTE | 2018-09-11 23:39 | XR ---
EXAMINATION TYPE: XR Hip RT and AP Pelvis DATE OF EXAM: 09/11/2018 COMPARISON: 09/09/2018 HISTORY: Hip dislocation TECHNIQUE: A single AP view of the pelvis is obtained. Two views of the right hip are obtained. FINDINGS: There is a posterior superior dislocation of the prosthetic femoral head. I see no fracture. The pelv ic ring appears intact. Sacroiliac joints are intact. IMPRESSION: Posterior dislocation of the prosthetic femoral head is new compared to last exam.
[2018-09-12] MEDS ORDERED: ETOMIDATE 2 MG/ML 10 ML VIAL IVP STA (00:24)
[2018-09-12 01:41] VITALS: PULSE 92
[2018-09-12 02:23] VITALS: BP 112/70; RESP 16
--- NOTE | 2018-09-12 02:25 | XR ---
EXAMINATION TYPE: XR Hip Limited RT DATE OF EXAM: 09/12/2018 COMPARISON: 2 hours ago HISTORY: Post reduction TECHNIQUE: Single view. FINDINGS: There is anatomic reduction of the dislocated prosthetic femoral head. IMPRESSION: Anatomic reduction. No fracture seen.
[2018-09-12 02:31] VITALS: TEMP 98
--- NOTE | 2018-09-14 01:51 | CDI ---
Documentation Clarification OP Dear Kim FLORES, PAC As reviewed the chart, Procedure stop time is missing, Please provide addendum for procedure stop time to code the moderate sedation. Thank you, Vidya Damico Radiologic Electronic Specialist If you have any question, Please contact manager of enterprise at [phone] [facility]
== END 2018-09-12 02:30 | disposition home or self-care (01) ==
LOC: EC 21:53
DX: S73.014A Posterior dislocation of right hip, initial encounter (principal); F32.9 Major depressive disorder, single episode, unspecified; G40.909 Epilepsy, unspecified, not intractable, without status epilepticus; M19.90 Unspecified osteoarthritis, unspecified site; F41.9 Anxiety disorder, unspecified; Z79.899 Other long term (current) drug therapy; Z96.641 Presence of right artificial hip joint; X50.9XXA Other and unspecified overexertion or strenuous movements or postures, initial encounter
CPT/HCPCS: 27250; 73501; 73502; 99283

== ENCOUNTER 2018-12-01 21:21 | Observation (INO) | payer MEDICARE ==
[2018-12-01] MEDS ORDERED: PROPOFOL 10 MG/ML 20 ML VIAL IV STA ×2 (21:43→23:52)
[2018-12-01] MEDS ORDERED: SODIUM CHLORIDE 0.9% 1,000 ML IV STA (21:43)
--- NOTE | 2018-12-01 21:44 | XR ---
EXAMINATION TYPE: XR Hip Limited RT DATE OF EXAM: 12/01/2018 COMPARISON: 09/12/2018 HISTORY: Dislocated hip TECHNIQUE: Single view FINDINGS: There is a lateral superior dislocation of the prosthetic femoral head. I see no fracture l ine. IMPRESSION: Dislocated right hip prosthesis is a change compared to last exam.
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
--- NOTE | 2018-12-01 23:04 | XR ---
EXAMINATION TYPE: XR Hip Limited RT DATE OF EXAM: 12/01/2018 COMPARISON: Today HISTORY: Post reduction TECHNIQUE: Single view FINDINGS: There is anatomic reduction of the prosthetic femoral head. No fracture seen. IMPRESSION: Anatomic reduction.
--- NOTE | 2018-12-01 23:49 | XR ---
EXAMINATION TYPE: XR Hip Limited RT DATE OF EXAM: 12/01/2018 COMPARISON: Today HISTORY: Dislocation TECHNIQUE: Single view. FINDINGS: The prosthetic femoral head appears dislocated laterally and superiorly. IMPRESSION: There is dislocation of the prosthetic femoral head.
[2018-12-01] MEDS ORDERED: SODIUM CHLORIDE 0.9% 500 ML 500 ML IV STA (23:52)
[2018-12-01] MEDS ORDERED: NALOXONE 0.4 MG/ML 1 ML VIAL IV PRN (23:53)
--- NOTE | 2018-12-02 01:22 | XR ---
EXAMINATION TYPE: XR Hip Limited RT DATE OF EXAM: 12/02/2018 COMPARISON: Yesterday HISTORY: Post reduction TECHNIQUE: Single view FINDINGS: There is anatomic reduction of the prosthetic femoral head. I see no fracture. IMPRESSION: Anatomic reduction.
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
[2018-12-02] MEDS ORDERED: ARTIFICIAL TEARS-HYPROMELLOSE DROPS 15 ML BTL BOTH EYES PRN (10:39)
[2018-12-02] MEDS ORDERED: predniSONE 5 MG TAB PO SCH (10:45)
[2018-12-02] MEDS: lamoTRIgine 100 MG TAB PO SCH ×2 (11:13→20:54)
[2018-12-02] MEDS: PANTOPRAZOLE 40 MG TABLET PO SCH (11:14)
[2018-12-02] MEDS: METOPROLOL TARTRATE 25 MG TAB PO SCH ×2 (11:14→20:54)
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
[2018-12-02] MEDS: predniSONE 5 MG TAB PO SCH (16:55)
[2018-12-02] MEDS: PRIMIDONE 250 MG TAB PO SCH (20:54)
[2018-12-02] MEDS ORDERED: FAMOTIDINE 20 MG TAB PO SCH (21:00)
[2018-12-03 06:50] VITALS: BP 114/80; PULSE 89; RESP 16; TEMP 97.9
[2018-12-03] MEDS: PANTOPRAZOLE 40 MG TABLET PO SCH (08:33)
[2018-12-03] MEDS: lamoTRIgine 100 MG TAB PO SCH (08:33)
[2018-12-03] MEDS: predniSONE 5 MG TAB PO SCH (08:33)
[2018-12-03] MEDS: PRIMIDONE 250 MG TAB PO SCH (08:34)
[2018-12-03] MEDS: METOPROLOL TARTRATE 25 MG TAB PO SCH (08:34)
--- NOTE | 2018-12-03 11:13 | P.PN ---
Subjective Progress Note Date: 12/03/18 Principal diagnosis: Status post closed reduction right periprosthetic hip dislocation Patient is evaluated today at bedside, she is resting comfortably. She's ambulated with therapy. She's had no issues with the right hip since being admitted. Objective - Vital Signs Vital signs: Vital Signs Temp 97.9 F 12/03/18 06:49 Pulse 89 12/03/18 06:49 Resp 16 12/03/18 06:49 BP 114/80 12/03/18 06:49 Pulse Ox 100 12/03/18 06:49 Intake & Output 12/02/18 12/03/18 12/03/18 18:59 06:59 18:59 Intake Total 600 240 Output Total 300 Balance 300 240 Intake: Oral 600 240 Output: Urine 300 Uretheral (Mcmahan) 300 Other: Voiding Method Indwelling Catheter Toilet # Voids 2 - Exam Right lower extremity: Painless range of motion of the right hip is noted, remained stable on exam. Distal neurovascular exam is intact. Assessment and Plan Plan: Assessment: Status post closed reduction right periprosthetic hip dislocation Plan: Utilize walker with ambulation Utilize abductor pillow while lying down Posterior hip precautions [facility] 10-14 days for recheck Time with Patient: Less than 30
--- NOTE | 2018-12-03 11:14 | P.DS ---
Providers Date of admission: 12/01/18 23:56 Expected date of discharge: 12/03/18 Attending physician: Kody Parra Consults: 12/01/18 23:53 Consult Physician Stat Consulting Provider: Adelfo Stokes Reason/Comments: medical management Do you want consulting provider notified?: Yes, Notify in am Primary care physician: [facility] Course: Date of admission: 12/01/2018 Date of discharge: 12/03/2018 Admission diagnosis: Status post closed reduction right periprosthetic hip dislocation Discharge diagnosis: Same Attending physician: Dr. Parra Surgical procedures: None Brief history: Patient is a 67-year-old female who presented to [facility] late 12/01/2018 with regards to a right hip injury. Patient states that she was in the shower with attempt to shave her legs, when she felt the right hip give out. The family member contacted EMS, patient was brought to [facility]. Imaging studies demonstrated a right periprosthetic hip dislocation. Dr. Parra was contacted regarding this patient , the case was discussed with him in the emergency room staff. The emergency room staff attempted a closed reduction with sedation, x-rays demonstrated a reduced hip. Patient then had a sense of giving out of the hip while in the ER , it was determined was dislocated. Sedation was provided once again the hip was relocated properly. Patient was admitted to to [facility] for further evaluation by our orthopedic group. Hospital course: Patient's orthopeidc and medical care was provided daily. Patient had daily laboratory tests performed for evaluation of overall blood counts . Patient had daily physical therapy to include strengthening range of motion as well as education with walker ambulation. Patient was noted to have a relatively uneventful postoperative course. Patient showed satisfactory progress with physical therapy. Discussed with patient possible need for revision type surgery in the near future. She'll follow-up in the outpatient setting for further discussion of treatment. Discharge condition/disposition: Patient will be discharged home in stable condition. Discharge medications: Instructions are given on resumption of patient's normal daily medications per primary care recommendation, in addition patient will be prescribed no new medication. Discharge instructions: 1. Posterior hip precautions, utilize abductor pillow while in bed 2. Weight-bear as tolerated with walker / cane until follow-up. 3. Visiting nursing care. 4. Home physical therapy including home CPM. Procedures: Closed reduction of a right periprosthetic hip dislocation Patient Condition at Discharge: Stable Plan - Discharge Summary New Discharge Prescriptions: No Action lamoTRIgine [LaMICtal] 150 mg PO BID Ranitidine HCl [Zantac] 150 mg PO HS Omeprazole 40 mg PO DAILY Metoprolol Tartrate [Lopressor] 25 mg PO BID Artificial Tears-Hypromellose [Artificial Tear Drops] 1 drops BOTH EYES TID PRN PRN Reason: Dry Eye(S) Multivit-Min/FA/Lycopen/Lutein [Centrum Silver Tablet] 1 tab PO DAILY predniSONE See Taper PO DIRECTED Primidone [Mysoline] 500 mg PO BID Discharge Medication List lamoTRIgine [LaMICtal] 150 mg PO BID 06/05/17 [History] Artificial Tears-Hypromellose [Artificial Tear Drops] 1 drops BOTH EYES TID PRN 12/02/18 [History] Metoprolol Tartrate [Lopressor] 25 mg PO BID 12/02/18 [History] Multivit-Min/FA/Lycopen/Lutein [Centrum Silver Tablet] 1 tab PO DAILY 12/02/18 [ History] Omeprazole 40 mg PO DAILY 12/02/18 [History] Primidone [Mysoline] 500 mg PO BID 12/02/18 [History] Ranitidine HCl [Zantac] 150 mg PO HS 12/02/18 [History] predniSONE See Taper PO DIRECTED 12/02/18 [History] Follow up Appointment(s)/Referral(s): Brice Walker DO [Doctor of Osteopathic Medicine] - 12/18/18 2:50 pm Kapil Garcia MD [Primary Care Provider] - 12/05/18 4:00 pm [facility] Visiting Nurse, [NON-STAFF] - 1-2 Days Patient Instructions/Handouts: Hip Dislocation (GEN), Closed Reduction (GEN) Activity/Diet/Wound Care/Special Instructions: Discharge instructions: 1. Posterior hip precautions, utilize abductor pillow while lying down 2. Utilize walker with ambulation 3. Follow-up with orthopedics in [address] Walker Discharge Disposition: HOME WITH HOME HEALTH SERVICES
[2018-12-03] MEDS ORDERED: MULTIVITAMINS, THERA 1 EACH TAB PO SCH (12:00)
--- NOTE | 2018-12-03 13:25 | P.PN ---
Subjective Progress Note Date: 12/03/18 This is a 67-year-old female patient of Dr. Garcia with past history of rheumatoid arthritis, irritable bowel syndrome diarrhea prominent, scoliosis and severe kyphosis, seizure disorder, gastroesophageal reflux disease, generalized anxiety disorder, hypertension. Patient has history of right total hip arthroplasty done greater than 10 years ago. She states she was in the bathtub and she lifted her right leg to shave it and she felt her hip dislocate. She has had several dislocations in the past. Patient came into the [facility] emergency center for evaluation. She did undergo closed reduction in the ER but states that a few minutes later it popped back out. She denies having any pain in the hip or groin area. She has been seen by orthopedics with plan to do physical therapy and conservative management but if she has recurrent instability, revision arthroplasty may be warranted. 12/03: The patient has been doing well and has ambulated with physical therapy without any repeat dislocation. She denies having any pain to her right hip. Orthopedics is planning for discharge home today. Patient is clear for discharge from medicine. Review of Systems All systems: negative Constitutional: Denies chills, Denies fatigue, Denies fever, Denies poor appetite, Denies weakness, Denies weight loss Eyes: denies blurred vision, denies pain Ears, nose, mouth and throat: Denies dysphagia, Denies headache, Denies sore throat, Denies vertigo Cardiovascular: Denies chest pain, Denies decreased exercise tolerance, Denies dyspnea on exertion, Denies edema, Denies lightheadedness, Denies orthopnea, Denies shortness of breath, Denies syncope Respiratory: Denies cough, Denies cough with sputum, Denies dyspnea, Denies excessive sputum, Denies hemoptysis, Denies home oxygen, Denies wheezing Gastrointestinal: Denies abdominal pain, Denies diarrhea, Denies loss of appetite, Denies nausea, Denies vomiting Genitourinary: Denies dysuria, Denies hematuria Musculoskeletal: Denies gait dysfunction, Denies frequent falls, Denies muscle weakness, Denies myalgias, denies right hip pain Integumentary: Denies pruritus, Denies rash, Denies wounds Neurological: Reports gait dysfunction, Denies change in mentation, Denies change in speech, Denies convulsions, Denies numbness, Denies seizures, Denies vertigo, Denies weakness Psychiatric: Denies anxiety, Denies depression Endocrine: Denies fatigue, Denies weight change Objective - Vital Signs Vital signs: Vital Signs Temp 97.9 F 12/03/18 06:49 Pulse 89 12/03/18 06:49 Resp 16 12/03/18 06:49 BP 114/80 12/03/18 06:49 Pulse Ox 100 12/03/18 06:49 Intake & Output 12/02/18 12/03/18 12/03/18 18:59 06:59 18:59 Intake Total 600 240 Output Total 300 Balance 300 240 Intake: Oral 600 240 Output: Urine 300 Uretheral (Mcmahan) 300 Other: Voiding Method Indwelling Catheter Toilet # Voids 2 - Exam Gen: This is a 67-year-old female. She is in bed and appears to be in no acute distress. The patient has significant kyphosis appears to impact her ambulatory status. HEENT: Head is atraumatic, normocephalic. Pupils equal, round. Sclerae is anicteric. NECK: Supple. No JVD. No lymphadenopathy. No thyromegaly. LUNGS: Clear to auscultation. No wheezes or rhonchi. No intercostal retractions. Severe kyphosis. HEART: Regular rate and rhythm. No murmur. ABDOMEN: Soft. Bowel sounds are present. No masses. No tenderness. EXTREMITIES: No pedal edema. No calf tenderness. NEUROLOGICAL: Patient is awake, alert and oriented x3. Cranial nerves 2 through 12 are grossly intact. Assessment and Plan Plan: 1. Dislocation right hip. PT and OT. Conservative management. Orthopedics is following. Patient denies having any pain. Incentive spirometry to reduce incidence of atelectasis and hospital-acquired pneumonia. 2. History of osteoarthritis status post revision of left total knee arthroplasty and previous right hip arthroplasty. 3. History of rheumatoid arthritis, stable. 4. Seizure disorder. Continue Lamictal 150 mg twice daily, primidone 500 mg twice daily. Patient follows with Dr. Mckeon. 5. Generalized anxiety disorder. 6. Hypertension. Continue Lopressor 25 mg twice daily. 7. Gastroesophageal reflux disease. Continue omeprazole Discharge plan: Home with [facility] today Impression and plan of care have been directed as dictated by the signing physician. Dilma Costello nurse practitioner acting as scribe for signing physician.
[2018-12-05] MEDS ORDERED: predniSONE 5 MG TAB PO SCH (09:00)
== END 2018-12-03 13:30 | disposition home health service (06) ==
LOC: EC 21:21 → INTOOBSV 23:56 → 4SSUR 23:56
PROVIDERS: ADMIT Orthopaedic Surgery; ATTEND Orthopaedic Surgery
DX: T84.020A Dislocation of internal right hip prosthesis, initial encounter (principal); K21.9 Gastro-esophageal reflux disease without esophagitis; I10 Essential (primary) hypertension; G40.909 Epilepsy, unspecified, not intractable, without status epilepticus; M19.90 Unspecified osteoarthritis, unspecified site; M40.209 Unspecified kyphosis, site unspecified; K58.0 Irritable bowel syndrome with diarrhea; M06.9 Rheumatoid arthritis, unspecified; D64.9 Anemia, unspecified; F41.1 Generalized anxiety disorder; F32.9 Major depressive disorder, single episode, unspecified; Z79.899 Other long term (current) drug therapy; Z90.49 Acquired absence of other specified parts of digestive tract; Z96.653 Presence of artificial knee joint, bilateral; Z96.641 Presence of right artificial hip joint; Z82.0 Family history of epilepsy and other diseases of the nervous system; Z83.3 Family history of diabetes mellitus; Z82.49 Family history of ischemic heart disease and other diseases of the circulatory system; Z82.69 Family history of other diseases of the musculoskeletal system and connective tissue
CPT/HCPCS: 99285; 51702; 27265 ×2; 94770; 97116; 97161; 73501 ×2; 99152 ×2; G0378 ×3; J2704 ×2; J7512

== ENCOUNTER 2018-12-11 00:17 | Emergency (ER) | payer MEDICARE ==
[2018-12-11] MEDS ORDERED: PROPOFOL 10 MG/ML 20 ML VIAL IV STA ×2 (00:19→02:12)
[2018-12-11] MEDS ORDERED: SODIUM CHLORIDE 0.9% 500 ML 500 ML IV STA ×2 (00:19→02:12)
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
[2018-12-11 00:22] VITALS: TEMP 98.8
--- NOTE | 2018-12-11 00:40 | XR ---
EXAMINATION TYPE: XR Hip Limited RT DATE OF EXAM: 12/11/2018 COMPARISON: 12/02/2018 HISTORY: Dislocated hip TECHNIQUE: Single view FINDINGS: There is a lateral superior dislocation of the prosthetic femoral head. I see no fracture l ine. IMPRESSION: Dislocated right hip prosthesis.
[2018-12-11 00:58] VITALS: RESP 16
--- NOTE | 2018-12-11 01:13 | XR ---
EXAMINATION TYPE: XR Hip Limited RT DATE OF EXAM: 12/11/2018 COMPARISON: Today HISTORY: Post reduction TECHNIQUE: Single view. FINDINGS: There is anatomic reduction of the prosthetic femoral head. No fracture seen. IMPRESSION: Anatomic reduction.
--- NOTE | 2018-12-11 02:18 | XR ---
EXAMINATION TYPE: XR Hip Limited RT DATE OF EXAM: 12/11/2018 COMPARISON: 12/11/2018 HISTORY: Dislocation TECHNIQUE: Single view. FINDINGS: There is a superior lateral dislocation of the prosthetic femoral head. IMPRESSION: Repeat dislocation of the femoral head.
[2018-12-11 03:16] VITALS: BP 109/66; PULSE 79
--- NOTE | 2018-12-11 03:30 | XR ---
EXAMINATION TYPE: XR Hip Limited RT DATE OF EXAM: 12/11/2018 COMPARISON: Today HISTORY: Postreduction TECHNIQUE: Single view. There is anatomic reduction of the prosthetic right hip joint. I see no fracture. IMPRESSION: Anatomic reduction.
== END 2018-12-11 03:24 | disposition home or self-care (01) ==
LOC: EC 00:17
DX: T84.020A Dislocation of internal right hip prosthesis, initial encounter (principal); K21.9 Gastro-esophageal reflux disease without esophagitis; I10 Essential (primary) hypertension; M19.90 Unspecified osteoarthritis, unspecified site; G40.909 Epilepsy, unspecified, not intractable, without status epilepticus; Z96.653 Presence of artificial knee joint, bilateral; Z96.641 Presence of right artificial hip joint; Z98.890 Other specified postprocedural states; Z79.52 Long term (current) use of systemic steroids; Z79.899 Other long term (current) drug therapy; X50.1XXA Overexertion from prolonged static or awkward postures, initial encounter; Y93.89 Activity, other specified
CPT/HCPCS: 99283 ×2; 27265 ×2; 73501; L1830; J2704

== ENCOUNTER 2018-12-25 22:17 | Emergency (ER) | payer MEDICARE ==
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
[2018-12-25] MEDS ORDERED: ETOMIDATE 2 MG/ML 10 ML VIAL IVP STA (23:07)
--- NOTE | 2018-12-25 23:24 | XR ---
EXAMINATION TYPE: XR Hip Complete RT DATE OF EXAM: 12/25/2018 COMPARISON: 12/11/2018 HISTORY: Pain. Dislocation. TECHNIQUE: 2 views FINDINGS: There is a lateral superior dislocation of the right femoral head prosthesis. This is a mingo nge compared to old exam. IMPRESSION: Dislocated right hip prosthesis.
[2018-12-26 00:27] VITALS: RESP 16
--- NOTE | 2018-12-26 00:27 | XR ---
EXAMINATION TYPE: XR Hip Limited RT DATE OF EXAM: 12/26/2018 COMPARISON: Yesterday HISTORY: Post reduction Findings There is anatomic reduction of the prosthetic femoral head. IMPRESSION: Single view shows anatomic reduction.
[2018-12-26 02:23] VITALS: BP 90/59; PULSE 70; TEMP 97.8
--- NOTE | 2019-01-21 00:46 | CDI ---
Dear Jorden GUARDADO MD: Please do addendum stop time of moderate sedation given for reduction of hip dislocation. Thank you, Leslie Sauceda, [place] Program Coordinator. If you have any questions, please contact [employer] Supervisor at [phone]. MTDD
== END 2018-12-26 02:15 | disposition home or self-care (01) ==
LOC: EC 22:17
DX: T84.020A Dislocation of internal right hip prosthesis, initial encounter (principal); M19.90 Unspecified osteoarthritis, unspecified site; G40.909 Epilepsy, unspecified, not intractable, without status epilepticus; K21.9 Gastro-esophageal reflux disease without esophagitis; F32.9 Major depressive disorder, single episode, unspecified; Z79.899 Other long term (current) drug therapy; Z96.653 Presence of artificial knee joint, bilateral; Z82.69 Family history of other diseases of the musculoskeletal system and connective tissue; Y93.89 Activity, other specified
CPT/HCPCS: 27265; 73501; 73502; 99152; 99153; 99283

== ENCOUNTER 2019-01-01 10:38 | Emergency (ER) | payer MEDICARE ==
[2019-01-01 10:43] VITALS: TEMP 97.5
[2019-01-01] MEDS ORDERED: HYDROmorphone 1 MG/ML 1 ML SYRINGE IVP STA (10:55)
[2019-01-01] MEDS ORDERED: PROPOFOL 10 MG/ML 20 ML VIAL IV STA (10:56)
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
--- NOTE | 2019-01-01 11:32 | XR ---
EXAMINATION TYPE: XR Hip RT and AP Pelvis DATE OF EXAM: 01/01/2019 COMPARISON: 09/11/2018 HISTORY: Pain TECHNIQUE: AP view of the pelvis and 2 views of the right hip are submitted. FINDINGS: Dislocated total right hip prosthesis is noted. Superior dislocation of the femoral compone nt relative to the acetabular component. No acute fractures are identified. Suspect healed fractures inferior pubic rami. Severe degenerative change lumbar spine. Mild degenerative narrowing left hip mario int space. IMPRESSION: 1. Dislocated total right hip prosthesis as noted. No acute fracture seen.
[2019-01-01 12:20] LABS: Anisocytosis Slight; Basophils % (A) 1 %; Eosinophils # (A) 0.1 k/uL (0-0.7); Eosinophils % (A) 1 %; HCT 41.7 % (34.0-46.0); HGB 12.7 gm/dL (11.4-16.0); Hypochromasia Moderate; Lymphocytes % (A) 23 %; MCH 26.4 pg (25.0-35.0); MCHC 30.4 g/dL (31.0-37.0); MCV 86.8 fL (80.0-100.0); Mean Platelet Volume 7.1; Microcytosis Slight; Monocytes # (A) 0.3 k/uL (0-1.0); Monocytes % (A) 6 %; Neutrophils % (A) 66 %; Platelet Count 391 k/uL (150-450); RDW 18.1 % (11.5-15.5); WBC 4.5 k/uL (3.8-10.6)
[2019-01-01] MEDS ORDERED: LORazepam 2 MG/ML INJ IV STA (12:24)
[2019-01-01 12:45] LABS: Glucose 81 mg/dL (74-99)
[2019-01-01 12:46] LABS: ALT 27 U/L (9-52); AST 43 U/L (14-36); Albumin 4.6 g/dL (3.5-5.0); Alkaline Phosphatase 159 U/L (38-126); Anion Gap 10 mmol/L; Blood Urea Nitrogen 20 mg/dL (7-17); Calcium 9.4 mg/dL (8.4-10.2); Carbon Dioxide 25 mmol/L (22-30); Chloride 105 mmol/L (98-107); Magnesium 2.2 mg/dL (1.6-2.3); Potassium 4.5 mmol/L (3.5-5.1); Sodium 140 mmol/L (137-145); Total Bilirubin 0.4 mg/dL (0.2-1.3)
--- NOTE | 2019-01-01 12:54 | XR ---
EXAMINATION TYPE: XR Hip Limited RT DATE OF EXAM: 01/01/2019 COMPARISON: NONE HISTORY: Postreduction right hip TECHNIQUE: Single postreduction view of the right hip was submitted. FINDINGS: There appears to be relocation of the prosthetic femoral head into the prosthetic acetabulu m. No fractures are evident. IMPRESSION: Relocation of the prosthetic femoral head.
[2019-01-01 14:57] VITALS: BP 98/69; PULSE 67; RESP 18
--- NOTE | 2019-01-02 07:06 | CDI ---
Documentation Clarification OP Dear Dr. Fermin Jain Please provide sedation stop time. Thank you, Gigi Garcia Ct Technologist If you have any questions, please contact Electronic System Engineer at [phone] [facility]
== END 2019-01-01 14:57 | disposition home or self-care (01) ==
LOC: EC 10:38
DX: T84.020A Dislocation of internal right hip prosthesis, initial encounter (principal); S80.211A Abrasion, right knee, initial encounter; K21.9 Gastro-esophageal reflux disease without esophagitis; M19.90 Unspecified osteoarthritis, unspecified site; G40.909 Epilepsy, unspecified, not intractable, without status epilepticus; Z96.653 Presence of artificial knee joint, bilateral; Z96.641 Presence of right artificial hip joint; Z79.899 Other long term (current) drug therapy; W01.0XXA Fall on same level from slipping, tripping and stumbling without subsequent striking against object, initial encounter
CPT/HCPCS: 99284; 27265; 99152; 99153; 96374; 96375; 36415; 80053; 83735; 85025; 73501; 73502; J2060; J1170; J2704

== ENCOUNTER 2019-01-25 13:43 | Emergency (ER) | payer MEDICARE ==
[2019-01-25 13:48] VITALS: RESP 18
[2019-01-25] MEDS ORDERED: MAG HYDROX/AL HYDROX/SIMETH 30 ML, HYOSCYAMINE ELIXIR 10 ML, CIMETIDINE HCL 300 MG, LID... PO STA ×4 (14:09)
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
[2019-01-25 14:37] LABS: Anisocytosis Slight; Basophils % (A) 0 %; Eosinophils # (A) 0.1 k/uL (0-0.7); Eosinophils % (A) 2 %; HGB 12.8 gm/dL (11.4-16.0); Hypochromasia Marked; Lymphocytes # (A) 0.3 k/uL (1.0-4.8); Lymphocytes % (A) 4 %; MCH 26.5 pg (25.0-35.0); MCHC 29.9 g/dL (31.0-37.0); MCV 88.9 fL (80.0-100.0); Mean Platelet Volume 6.8; Monocytes # (A) 0.2 k/uL (0-1.0); Monocytes % (A) 3 %; Neutrophils % (A) 90 %; Platelet Count 270 k/uL (150-450); RBC 4.84 m/uL (3.80-5.40); RDW 16.9 % (11.5-15.5); WBC 7.8 k/uL (3.8-10.6)
[2019-01-25 14:46] LABS: ALT 34 U/L (9-52); AST 38 U/L (14-36); Albumin 4.2 g/dL (3.5-5.0); Alkaline Phosphatase 139 U/L (38-126); Amylase 84 U/L (30-110); Anion Gap 10 mmol/L; Blood Urea Nitrogen 24 mg/dL (7-17); Calcium 8.5 mg/dL (8.4-10.2); Carbon Dioxide 22 mmol/L (22-30); Chloride 106 mmol/L (98-107); Glucose 116 mg/dL (74-99); Lipase 72 U/L (23-300); Potassium 4.2 mmol/L (3.5-5.1); Sodium 138 mmol/L (137-145); Total Bilirubin 0.6 mg/dL (0.2-1.3); Total Protein 7.1 g/dL (6.3-8.2)
[2019-01-25] MEDS ORDERED: PANTOPRAZOLE 40 MG TABLET PO STA (14:57)
[2019-01-25 15:02] VITALS: BP 111/70; PULSE 103; TEMP 101.5
[2019-01-25] MEDS ORDERED: IBUPROFEN 600 MG TAB PO STA (15:02)
[2019-01-25] MEDS ORDERED: ACETAMINOPHEN TAB 325 MG TAB PO STA (15:02)
[2019-01-25] MEDS ORDERED: ACETAMINOPHEN TAB 500 MG TAB PO STA (15:13)
[2019-01-25 15:59] LABS: Appearance,Urine Clear (Clear); Bilirubin,Urine Negative (Negative); Blood,Urine Moderate (Negative); Color,Urine Yellow; Glucose,Urine (UA) Negative (Negative); Ketones,Urine Negative (Negative); Leukocyte Esterase,Urine Negative (Negative); Mucus,Urine Rare /hpf; Nitrite,Urine Negative (Negative); Protein,Urine 1+ (Negative); RBC,Urine 48 /hpf (0-5); Specific Gravity,Urine 1.022 (1.001-1.035); Squamous Epithelial Cell,Urine 1 /hpf (0-4); Urobilinogen,Urine <2.0 mg/dL (<2.0); WBC,Urine 2 /hpf (0-5)
== END 2019-01-25 16:22 | disposition home or self-care (01) ==
LOC: EC 13:43
DX: K21.9 Gastro-esophageal reflux disease without esophagitis (principal); R31.9 Hematuria, unspecified; G40.909 Epilepsy, unspecified, not intractable, without status epilepticus; M19.90 Unspecified osteoarthritis, unspecified site; Z79.899 Other long term (current) drug therapy; Z96.652 Presence of left artificial knee joint
CPT/HCPCS: 36415; 80053; 81001; 82150; 83690; 84484; 85025; 87086; 87502; 93005; 99283

== ENCOUNTER 2019-01-25 21:51 | Emergency (ER) | payer MEDICARE ==
[2019-01-25] MEDS ORDERED: SODIUM CHLORIDE 0.9% 1,000 ML IV STA (21:56)
[2019-01-25 21:57] VITALS: RESP 16; TEMP 98.9
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
--- NOTE | 2019-01-25 23:05 | XR ---
EXAM: XR Right Hip-one view CLINICAL HISTORY: Reason: recurrent dislocation TECHNIQUE: X-ray right hip -frontal 1 view. COMPARISON: Right hip radiographs 01/01/2019 FINDINGS: Status post previous right hip arthroplasty. Superior dislocation of femoral prosthesis projecting superior to acetabular cup. No acute fracture. Partially imaged internal fixation sarah mid to distal femur. IMPRESSION: Status post previous right hip arthroplasty with superior femoral prosthetic dislocation.
[2019-01-25] MEDS: PROPOFOL 10 MG/ML 20 ML VIAL IV STA ×3 (23:09→23:48)
--- NOTE | 2019-01-26 00:09 | XR ---
EXAM: XR Right Hip-frontal view 01/25/2019 at 2330 hrs. CLINICAL HISTORY: Reason: Pain TECHNIQUE: X-ray right hip. COMPARISON: Right hip radiographs 01/25/2019 at 2239 hours and right hip radiograph 01/01/2019 FINDINGS: Interval reduction of previously identified femoral prosthetic dislocation since earlier examination of the same date. Right hip arthroplasty acetabular and femoral prosthetic components appear in near anatomic position and alignment on single frontal projection. No acute fracture identified. IMPRESSION: Right hip arthroplasty. Interval reduction of previously identified femoral prosthetic dislocation.
[2019-01-26 00:28] VITALS: PULSE 80
[2019-01-26 00:32] VITALS: BP 114/81
== END 2019-01-26 01:09 | disposition home or self-care (01) ==
LOC: EC 21:51
DX: T84.020A Dislocation of internal right hip prosthesis, initial encounter (principal); G40.909 Epilepsy, unspecified, not intractable, without status epilepticus; Z96.652 Presence of left artificial knee joint; Z96.641 Presence of right artificial hip joint; Z79.899 Other long term (current) drug therapy; X50.1XXA Overexertion from prolonged static or awkward postures, initial encounter; Y93.E1 Activity, personal bathing and showering
CPT/HCPCS: 99283; 27265; 99152; 99153 ×4; 96360; 73501; J2704

== ENCOUNTER 2019-02-06 22:31 | Emergency (ER) | payer MEDICARE ==
[2019-02-06] MEDS ORDERED: PROPOFOL 10 MG/ML 20 ML VIAL IV ONE (22:39)
--- NOTE | 2019-02-06 23:01 | XR ---
EXAM: XR Right Hip With Pelvis When Performed, 2 or 3 Views CLINICAL HISTORY: ITS.REASON XR Reason: Pain/dislocation TECHNIQUE: Two or three views of the right hip, with pelvis when performed. COMPARISON: Right hip radiography 01/25/19 FINDINGS: See Impression. IMPRESSION: Superior dislocation of the right femoral head relative to the right acetabular cup. No acute or healing fractures. No focal soft tissue abnormalities.
--- NOTE | 2019-02-06 23:23 | ED ---
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: Identity, Site, Procedure, Consent Site: right hip Site Marked: Not Applicable Site Verified With Patient/Guardian: Yes - Orthopedic Joint Reduction Joint #1 Consent Obtained: verbal consent, written consent Side: right Joint Reduction Location: hip Analgesia: procedural sedation Shoulder Technique Used (if applicable): other Technique Used: other Post-Reduction Neuro Exam: intact Post-Reduction Vascular Exam: intact Post Reduction X-Ray Obtained: Yes Post Reduction X-Ray Results: reduced Splint Applied: No Patient Tolerated Procedure: well - Procedural Sedation Procedural Sedation Start Time: 23:12 Procedural Sedation Stop Time: 23:17 Indications: fracture/dislocation reduction ASA Class: II Mallampati Airway Score: 2 Preparation: cardiac cath lab manager applied, pulse oximeter, supplemental O2 applied, reversal agents at bedside, suction/airway equipment at bedside, IV secured IV Propofol Dose (mgs): 100 Complications: none Interventions: oxygen applied Patient Tolerated Procedure: well
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
--- NOTE | 2019-02-07 | XR ---
EXAM: XR Right Hip With Pelvis When Performed, 2 or 3 Views CLINICAL HISTORY: ITS.REASON XR Reason: Pain TECHNIQUE: Two or three views of the right hip, with pelvis when performed. COMPARISON: No relevant prior studies available. FINDINGS: See Impression. IMPRESSION: Interval closed reduction with satisfactory alignment demonstrated. No hardware complications or failure. No acute fracture is seen. Soft tissues are normal.
[2019-02-07 00:05] VITALS: RESP 18
[2019-02-07 00:26] VITALS: BP 112/66; PULSE 73; TEMP 97.9
== END 2019-02-07 00:25 | disposition home or self-care (01) ==
LOC: EC 22:31
DX: T84.020A Dislocation of internal right hip prosthesis, initial encounter (principal); G40.909 Epilepsy, unspecified, not intractable, without status epilepticus; Z79.899 Other long term (current) drug therapy; Z96.641 Presence of right artificial hip joint; Z96.653 Presence of artificial knee joint, bilateral; Y79.2 Prosthetic and other implants, materials and accessory orthopedic devices associated with adverse incidents
CPT/HCPCS: 73501; 96374; 27265; 99284; J2704

== ENCOUNTER 2019-02-09 05:40 | Emergency (ER) | payer MEDICARE ==
[2019-02-09] MEDS ORDERED: ETOMIDATE 2 MG/ML 10 ML VIAL IV STA (06:33)
[2019-02-09] MEDS ORDERED: ETOMIDATE 2 MG/ML 10 ML VIAL IVP STA (06:59)
[2019-02-09] MEDS ORDERED: PROPOFOL 10 MG/ML 20 ML VIAL IV ONE (07:02)
--- NOTE | 2019-02-09 07:09 | XR ---
EXAM: XR Pelvis, 1 or 2 Views CLINICAL HISTORY: ITS.REASON XR Reason: Pain TECHNIQUE: Frontal view of the pelvis. COMPARISON: Pelvic radiograph dated 05/02/15, Right hip radiographs dated 02/06/19 FINDINGS: Bones/joints: Posterior and superior dislocation of the femoral component of a right hip arthroplasty from the acetabular component. Degenerative changes of the spine. Mild joint space narrowing of the left hip. No acute fracture. Soft tissues: Unremarkable. Other findings: Multiple sutures are seen within the right mid and left upper abdomen. IMPRESSION: Posterior and superior dislocation of the femoral component of a right hip arthroplasty from the acetabular component.
[2019-02-09 07:13] VITALS: RESP 18
--- NOTE | 2019-02-09 07:46 | XR ---
AP pelvis HISTORY: Post reduction Single frontal view of the pelvis submitted and correlated to prior exam on same dated earlier time. There is been interval reduction of patient's right hip dislocation. Overlying brace is present in th e proximal aspect of the right lower extremity. There are overlying cardiac leads. No evident fractur e. No other significant interval change. IMPRESSION: Interval right hip reduction.
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
[2019-02-09 08:37] VITALS: BP 114/70; PULSE 76; TEMP 97.8
== END 2019-02-09 08:33 | disposition home or self-care (01) ==
LOC: EC 05:40
DX: T84.020A Dislocation of internal right hip prosthesis, initial encounter (principal); K21.9 Gastro-esophageal reflux disease without esophagitis; I10 Essential (primary) hypertension; G40.909 Epilepsy, unspecified, not intractable, without status epilepticus; M19.90 Unspecified osteoarthritis, unspecified site; Z96.641 Presence of right artificial hip joint; Z96.653 Presence of artificial knee joint, bilateral; Z79.899 Other long term (current) drug therapy; X58.XXXA Exposure to other specified factors, initial encounter; Y92.009 Unspecified place in unspecified non-institutional (private) residence as the place of occurrence of the external cause
CPT/HCPCS: 72170; 99284; 27265; 99152; 99153 ×2; L1830; J2704

== ENCOUNTER 2019-02-18 10:33 | Emergency (ER) | payer MEDICARE ==
[2019-02-18 10:41] VITALS: RESP 18; TEMP 98.1
[2019-02-18] MEDS ORDERED: SODIUM CHLORIDE 0.9% 1,000 ML IV ONE (10:45)
[2019-02-18] MEDS ORDERED: PROPOFOL 10 MG/ML 20 ML VIAL IV ONE ×3 (10:45→12:21)
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
--- NOTE | 2019-02-18 11:05 | XR ---
EXAMINATION TYPE: XR Hip RT and AP Pelvis DATE OF EXAM: 02/18/2019 COMPARISON: 02/09/2019 HISTORY: Pain TECHNIQUE: A single AP view of the pelvis is obtained. Two views of the right hip are obtained. FINDINGS: There is a posterior dislocation of the right femoral head prostheses relative to the acet abular component. Chronic appearing deformities of the inferior pubic rami are stable. Severe arthrop athy of the left hip. Severe degenerative change lower lumbar spine. Previous surgery noted in the lo wer abdomen. Calcifications in the pelvis appear to be vascular. IMPRESSION: 1. Posterior dislocation of femoral component of the right hip arthroplasty.
--- NOTE | 2019-02-18 12:45 | XR ---
EXAMINATION TYPE: XR Hip Limited RT DATE OF EXAM: 02/18/2019 CLINICAL HISTORY: Right hip pain and osteoarthritis. TECHNIQUE: Single AP portable view of right hip is obtained immediately postoperatively. COMPARISON: None. FINDINGS: Metallic hardware from right hip arthroplasty is seen and appears satisfactory in alignment and position. There is evidence of recent surgery with subcutaneous gas noted laterally. IMPRESSION: Metallic hardware from right hip arthroplasty is satisfactory in position.
[2019-02-18 13:26] VITALS: BP 112/66; PULSE 77
--- NOTE | 2019-02-18 14:29 | ED ---
Medical Decision Making - Medical Decision Making Patient was given moderate sedation instructions. Disposition Clinical Impression: Hip dislocation, right Disposition: HOME SELF-CARE Condition: Good Instructions (If sedation given, give patient instructions): Hip Dislocation (ED), Moderate Sedation (ED) Additional Instructions: Patient has to follow up with paid search specialist. Return to emergency department if any alarming signs or symptoms occur. Is patient prescribed a controlled substance at d/c from ED?: No Referrals: Kapil Garcia MD [Primary Care Provider] - 1-2 days Procedures - [place] Protocol (Time Out) Procedure Performed:: r hip closed reduction Performing Provider: Cristobal Gaona Nurse: Concepcion Madrigal Patient Identification (2 identifiers required): Chart Patient/Legal Site Engineer has Confirmed: Identity, Site, Procedure, Consent Site: r hip Site Verified With Patient/Guardian: No Final Confirmation: Procedure, Patient Position, Radiographs, Confirmed w/Provider
== END 2019-02-18 13:44 | disposition home or self-care (01) ==
LOC: EC 10:33
DX: T84.021A Dislocation of internal left hip prosthesis, initial encounter (principal); K21.9 Gastro-esophageal reflux disease without esophagitis; I10 Essential (primary) hypertension; G40.909 Epilepsy, unspecified, not intractable, without status epilepticus; M19.90 Unspecified osteoarthritis, unspecified site; Z96.641 Presence of right artificial hip joint; Z96.653 Presence of artificial knee joint, bilateral; Z79.899 Other long term (current) drug therapy; Z53.8 Procedure and treatment not carried out for other reasons; X58.XXXA Exposure to other specified factors, initial encounter; Y92.002 Bathroom of unspecified non-institutional (private) residence as the place of occurrence of the external cause
CPT/HCPCS: 99284 ×2; 27265 ×2; 99152 ×2; 96360 ×2; 96361 ×2; 99153 ×2; 72170; 73501; 73502; J2704

== ENCOUNTER 2019-02-18 18:42 | Emergency (ER) | payer MEDICARE ==
[2019-02-18] MEDS ORDERED: SODIUM CHLORIDE 0.9% 1,000 ML IV ONE (19:06)
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
[2019-02-18] MEDS ORDERED: PROPOFOL 10 MG/ML 20 ML VIAL IV ONE (19:14)
--- NOTE | 2019-02-18 19:19 | XR ---
EXAMINATION TYPE: XR pelvis AP view DATE OF EXAM: 02/18/2019 COMPARISON: 02/09/2019 HISTORY: Pain TECHNIQUE: Single view FINDINGS: There is a lateral dislocation of the prosthetic femoral head. The bones are osteopenic. Pe lvic ring appears intact. Sacroiliac joints are normal. IMPRESSION: Lateral dislocation of the prostatic right hip joint. No fracture seen.
--- NOTE | 2019-02-18 20:18 | XR ---
EXAMINATION TYPE: XR pelvis AP view DATE OF EXAM: 02/18/2019 COMPARISON: Today HISTORY: Postreduction TECHNIQUE: Single view FINDINGS: There is anatomic reduction of the dislocated right prosthetic femoral head. There is osteo penia. I see no fracture. IMPRESSION: Satisfactory reduction.
[2019-02-18 20:54] VITALS: BP 114/66; PULSE 84; RESP 16; TEMP 98.5
== END 2019-02-18 20:58 | disposition home or self-care (01) ==
LOC: EC 18:42
DX: T84.021A Dislocation of internal left hip prosthesis, initial encounter (principal); K21.9 Gastro-esophageal reflux disease without esophagitis; I10 Essential (primary) hypertension; M19.90 Unspecified osteoarthritis, unspecified site; G40.909 Epilepsy, unspecified, not intractable, without status epilepticus; Z96.641 Presence of right artificial hip joint; Z96.653 Presence of artificial knee joint, bilateral; Z79.899 Other long term (current) drug therapy; Z53.29 Procedure and treatment not carried out because of patient's decision for other reasons; X50.1XXA Overexertion from prolonged static or awkward postures, initial encounter; Y93.89 Activity, other specified
CPT/HCPCS: 99284; 27265; 99152; 96360; 72170; J2704

== ENCOUNTER 2019-06-07 12:46 | Emergency (ER) | payer MEDICARE ==
[2019-06-07 13:18] VITALS: BP 118/79; PULSE 97; RESP 18; TEMP 97.8
[2019-06-07] MEDS ORDERED: DIPH,PERTUS(ACELL)TETVAC-LF 0.5 ML VIAL IM ONE (13:38)
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
--- NOTE | 2019-06-07 14:19 | XR ---
EXAMINATION TYPE: XR Hip RT and AP Pelvis DATE OF EXAM: 06/07/2019 COMPARISON: 02/18/2019 HISTORY: Pain history of hip dislocations TECHNIQUE: AP pelvis and 2 view right hip FINDINGS: There is a right hip prosthesis with acetabular component. The femoral component is disloca dannie from the acetabular component superiorly. No acute fractures are evident. There is joint space narrowing of the left hip. Sacroiliac joints and symphysis pubis appear intact. Surgical sutures in the right lower quadrant. IMPRESSION: 1. Dislocation of the femoral prosthesis component from the acetabular component at the right hip. 2. No acute fractures are evident
--- NOTE | 2019-06-07 15:16 | XR ---
EXAMINATION TYPE: XR Hip Limited RT DATE OF EXAM: 06/07/2019 COMPARISON: 06/07/2019 earlier exam HISTORY: Dislocation femoral prosthesis TECHNIQUE: Single AP view right hip FINDINGS: The femoral prosthesis is been reduced with normal orientation in the AP projection. Previo us this location is not evident. IMPRESSION: 1. Reduction of previous dislocated right hip prosthesis
== END 2019-06-07 16:10 | disposition home or self-care (01) ==
LOC: EC 12:46
DX: T84.020A Dislocation of internal right hip prosthesis, initial encounter (principal); S80.211A Abrasion, right knee, initial encounter; Z23 Encounter for immunization; K21.9 Gastro-esophageal reflux disease without esophagitis; I10 Essential (primary) hypertension; G40.909 Epilepsy, unspecified, not intractable, without status epilepticus; Z79.899 Other long term (current) drug therapy; Z96.652 Presence of left artificial knee joint; W01.0XXA Fall on same level from slipping, tripping and stumbling without subsequent striking against object, initial encounter; Y79.2 Prosthetic and other implants, materials and accessory orthopedic devices associated with adverse incidents
CPT/HCPCS: 27250; 73501; 73502; 90471; 90715; 99283

== ENCOUNTER 2019-06-26 13:26 | Emergency (ER) | payer MEDICARE ==
[2019-06-26 13:35] VITALS: BP 111/72; PULSE 94; RESP 16; TEMP 98.3
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
[2019-06-26 14:49] LABS: Basophils # (A) 0.1 k/uL (0-0.2); Basophils % (A) 1 %; Eosinophils # (A) 0.1 k/uL (0-0.7); Eosinophils % (A) 1 %; HCT 34.4 % (34.0-46.0); HGB 10.3 gm/dL (11.4-16.0); Hypochromasia Marked; Lymphocytes # (A) 1.1 k/uL (1.0-4.8); Lymphocytes % (A) 18 %; MCH 23.6 pg (25.0-35.0); MCHC 29.9 g/dL (31.0-37.0); MCV 78.8 fL (80.0-100.0); Mean Platelet Volume 6.5; Microcytosis Slight; Monocytes # (A) 0.3 k/uL (0-1.0); Monocytes % (A) 6 %; Neutrophils # (A) 4.2 k/uL (1.3-7.7); Neutrophils % (A) 72 %; Platelet Count 375 k/uL (150-450); RBC 4.37 m/uL (3.80-5.40); RDW 15.9 % (11.5-15.5); WBC 5.8 k/uL (3.8-10.6)
[2019-06-26 14:56] LABS: ALT 13 U/L (9-52); AST 30 U/L (14-36); African American GFR (CKD) >90 (>60 ml/min/1.73 sqM); Albumin 4.3 g/dL (3.5-5.0); Alkaline Phosphatase 142 U/L (38-126); Anion Gap 9 mmol/L; Blood Urea Nitrogen 17 mg/dL (7-17); Calcium 9.3 mg/dL (8.4-10.2); Carbon Dioxide 22 mmol/L (22-30); Chloride 108 mmol/L (98-107); Glucose 92 mg/dL (74-99); Magnesium 2.2 mg/dL (1.6-2.3); Non-African American GFR(CKD) >90 (>60 ml/min/1.73 sqM); Potassium 4.7 mmol/L (3.5-5.1); Sodium 139 mmol/L (137-145); Total Bilirubin 0.2 mg/dL (0.2-1.3); Total Protein 7.4 g/dL (6.3-8.2)
[2019-06-26 15:38] LABS: Amphetamine Screen,Urine Not Detected (NotDetected); Barbiturate Screen,Urine Detected (NotDetected); Benzodiazepines Screen,Urine Not Detected (NotDetected); Cocaine Screen,Urine Not Detected (NotDetected); Methadone Screen, Urine Not Detected (NotDetected); Opiate Screen,Urine Not Detected (NotDetected); Oxycodone Screen, Urine Not Detected (NotDetected); Phencyclidine Screen,Urine Not Detected (NotDetected); Tricyclic Antidepressant,Urine Not Detected (NotDetected); Urn Cannabinoid Scrn Not Detected (NotDetected)
== END 2019-06-26 17:25 | disposition home or self-care (01) ==
LOC: EC 13:26
DX: F43.21 Adjustment disorder with depressed mood (principal); K21.9 Gastro-esophageal reflux disease without esophagitis; G40.909 Epilepsy, unspecified, not intractable, without status epilepticus; Z96.652 Presence of left artificial knee joint; Z79.899 Other long term (current) drug therapy
CPT/HCPCS: 36415; 80053; 80306; 82075; 83735; 84443; 85025; 99284

== ENCOUNTER 2019-10-20 17:46 | Emergency (ER) | payer MEDICARE ==
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
[2019-10-20] MEDS ORDERED: SODIUM CHLORIDE 0.9% 1,000 ML IV STA (18:04)
[2019-10-20] MEDS ORDERED: PROPOFOL 10 MG/ML 20 ML VIAL IV ONE (18:04)
--- NOTE | 2019-10-20 18:37 | XR ---
EXAMINATION TYPE: XR Hip Complete RT DATE OF EXAM: 10/20/2019 COMPARISON: 06/07/2019 HISTORY: Hip pain TECHNIQUE: 2 views FINDINGS: There is a lateral superior dislocation of the prosthetic femoral head. I see no fracture l ine. IMPRESSION: Dislocated hip prosthesis.
--- NOTE | 2019-10-20 20:45 | XR ---
EXAMINATION TYPE: XR Hip Limited RT DATE OF EXAM: 10/20/2019 COMPARISON: Today HISTORY: Fall. Hip pain. Post reduction TECHNIQUE: Single view FINDINGS: there is persistent superior and lateral dislocation of the prosthetic femoral head. IMPRESSION: Persistent dislocation.
--- NOTE | 2019-10-20 21:46 | XR ---
EXAMINATION TYPE: XR Hip Limited RT DATE OF EXAM: 10/20/2019 COMPARISON: Today HISTORY: Post reduction TECHNIQUE: Single view FINDINGS: There is anatomic reduction of the right hip joint prosthesis. IMPRESSION: Anatomic reduction. No fracture seen.
[2019-10-20 22:03] VITALS: BP 118/79; PULSE 83; RESP 18; TEMP 98.4
== END 2019-10-20 22:03 | disposition home or self-care (01) ==
LOC: EC 17:46
DX: M24.451 Recurrent dislocation, right hip (principal); K21.9 Gastro-esophageal reflux disease without esophagitis; I10 Essential (primary) hypertension; M19.90 Unspecified osteoarthritis, unspecified site; G40.909 Epilepsy, unspecified, not intractable, without status epilepticus; K58.9 Irritable bowel syndrome, unspecified; D64.9 Anemia, unspecified; F32.9 Major depressive disorder, single episode, unspecified; F41.9 Anxiety disorder, unspecified; Z79.899 Other long term (current) drug therapy; Z96.641 Presence of right artificial hip joint; Z96.651 Presence of right artificial knee joint; Y79.2 Prosthetic and other implants, materials and accessory orthopedic devices associated with adverse incidents; W18.09XA Striking against other object with subsequent fall, initial encounter; Y92.009 Unspecified place in unspecified non-institutional (private) residence as the place of occurrence of the external cause
CPT/HCPCS: 73501; 73502; 99284; 27265; 96360; 96361; 99152; 99153 ×2; J2704

== ENCOUNTER 2020-12-30 14:17 | Emergency (ER) | payer MEDICARE, OTHER ==
[2020-12-30 14:22] VITALS: BP 154/72; PULSE 104; RESP 16; TEMP 98
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
--- NOTE | 2020-12-30 15:28 | XR ---
EXAMINATION TYPE: XR knee complete LT DATE OF EXAM: 12/30/2020 CLINICAL HISTORY: History of replacement 3 years ago with pain TECHNIQUE: Three views of the left knee are obtained. COMPARISON: Left x-ray August 19, 2018. FINDINGS: There is long segment metallic prosthesis redemonstrated. Position stable and satisfactor y. No new suspicious surrounding lucency. [place] osseous structures demineralized. No acute fracture or dislocation seen. IMPRESSION: As above.
--- NOTE | 2020-12-30 15:29 | US ---
EXAMINATION TYPE: US venous doppler duplex LE LT DATE OF EXAM: 12/30/2020 2:55 PM COMPARISON: NONE CLINICAL HISTORY: concern for dvt. Pain SIDE PERFORMED: Left TECHNIQUE: The lower extremity deep venous system is examined utilizing real time linear array sonog heaven with graded compression, doppler sonography and color-flow sonography. VESSELS IMAGED: Common Femoral Vein Deep Femoral Vein Greater Saphenous Vein * Femoral Vein Popliteal Vein Small Saphenous Vein * Proximal Calf Veins (* superficial vessels) Left Leg: Negative for DVT IMPRESSION: 1. Left lower extremity ultrasound negative for deep venous thrombosis.
== END 2020-12-30 16:26 | disposition home or self-care (01) ==
LOC: EC 14:17
DX: R60.0 Localized edema (principal); K21.9 Gastro-esophageal reflux disease without esophagitis; I10 Essential (primary) hypertension; G40.909 Epilepsy, unspecified, not intractable, without status epilepticus; F41.9 Anxiety disorder, unspecified; F32.9 Major depressive disorder, single episode, unspecified; Z79.899 Other long term (current) drug therapy
CPT/HCPCS: 99284

== ENCOUNTER 2021-05-15 08:30 | Emergency (ER) | payer MEDICARE, OTHER ==
[2021-05-15] MEDS ORDERED: SODIUM CHLORIDE 0.9% 500 ML 500 ML IV STA (08:51)
[2021-05-15 09:19] LABS: Basophils % (A) 1 %; Eosinophils # (A) 0.1 k/uL (0-0.7); Eosinophils % (A) 2 %; HCT 33.4 % (34.0-46.0); HGB 10.7 gm/dL (11.4-16.0); Hypochromasia Slight; Lymphocytes # (A) 0.6 k/uL (1.0-4.8); Lymphocytes % (A) 11 %; MCH 29.6 pg (25.0-35.0); MCHC 32.1 g/dL (31.0-37.0); MCV 92.2 fL (80.0-100.0); Monocytes # (A) 0.4 k/uL (0-1.0); Monocytes % (A) 7 %; Neutrophils # (A) 4.2 k/uL (1.3-7.7); Neutrophils % (A) 79 %; Platelet Count 398 k/uL (150-450); RBC 3.63 m/uL (3.80-5.40); RDW 13.4 % (11.5-15.5); WBC 5.4 k/uL (3.8-10.6)
[2021-05-15 09:22] LABS: ALT 13 U/L (4-34); African American GFR (CKD) >90 (>60 ml/min/1.73 sqM); Anion Gap 12 mmol/L; Blood Urea Nitrogen 14 mg/dL (7-17); Calcium 8.5 mg/dL (8.4-10.2); Carbon Dioxide 29 mmol/L (22-30); Chloride 99 mmol/L (98-107); Glucose 81 mg/dL (74-99); Non-African American GFR(CKD) >90 (>60 ml/min/1.73 sqM); Sodium 140 mmol/L (137-145); Total Bilirubin 0.4 mg/dL (0.2-1.3); Total Protein 6.8 g/dL (6.3-8.2)
[2021-05-15 09:22] LABS: INR 0.9 (<1.2); Partial Thromboplastin Time 27.5 sec (22.0-30.0); Prothrombin Time 9.9 sec (9.0-12.0)
[2021-05-15 09:23] LABS: AST 38 U/L (14-36); Alkaline Phosphatase 125 U/L (38-126); Magnesium 2.5 mg/dL (1.6-2.3); Potassium 3.5 mmol/L (3.5-5.1)
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
[2021-05-15] MEDS ORDERED: SODIUM CHLORIDE 0.9% 1,000 ML IV STA (09:45)
[2021-05-15 10:06] LABS: Amorphous Sediment,Urine Rare /hpf; Appearance,Urine Clear (Clear); Bacteria,Urine Rare /hpf; Bilirubin,Urine Negative (Negative); Blood,Urine Moderate (Negative); Color,Urine Light Yellow; Glucose,Urine (UA) Negative (Negative); Ketones,Urine Negative (Negative); Leukocyte Esterase,Urine Negative (Negative); Nitrite,Urine Negative (Negative); PH, Urine 7.5 (5.0-8.0); Protein,Urine Negative (Negative); RBC,Urine 8 /hpf (0-5); Specific Gravity,Urine 1.009 (1.001-1.035); Squamous Epithelial Cell,Urine <1 /hpf (0-4); Urobilinogen,Urine <2.0 mg/dL (<2.0); WBC,Urine 1 /hpf (0-5)
--- NOTE | 2021-05-15 10:48 | XR ---
EXAMINATION TYPE: XR chest 2V DATE OF EXAM: 05/15/2021 COMPARISON: Chest x-ray July 22, 2017 HISTORY: Weakness and Lightheadedness. Minor fall injury. TECHNIQUE: Frontal and lateral views of the chest are obtained. FINDINGS: Multiple posterior lateral bilateral old rib fractures redemonstrated. Persistent elevated and eventrated anterior aspect right hemidiaphragm. Chronic ankle multiple changes without new focal airspace opacity, pleural effusion, or pneumothorax. Cardiac silhouette size upper limits of normal on current study with retrocardiac opacity suggesting moderate size hiatal hernia. Osseous structures are demineralized with underlying scoliosis and exaggerated thoracic kyphosis noted. IMPRESSION: Chronic changes without new acute pulmonary process.
[2021-05-15 11:17] VITALS: RESP 16
[2021-05-15 12:00] VITALS: BP 130/85; PULSE 74; TEMP 98.2
== END 2021-05-15 12:18 | disposition home or self-care (01) ==
LOC: SUPCPDRO 08:30 → EC 08:30
DX: E86.0 Dehydration (principal); R55 Syncope and collapse; I10 Essential (primary) hypertension; K21.9 Gastro-esophageal reflux disease without esophagitis; G40.909 Epilepsy, unspecified, not intractable, without status epilepticus; M19.90 Unspecified osteoarthritis, unspecified site; M06.9 Rheumatoid arthritis, unspecified; Z79.899 Other long term (current) drug therapy; Z79.1 Long term (current) use of non-steroidal anti-inflammatories (NSAID)
CPT/HCPCS: 36415; 71046; 80053; 81001; 83605; 83735; 84484; 85025; 85610; 85730; 93005; 96360; 99284

== ENCOUNTER 2021-10-27 14:06 | Emergency (ER) | payer MEDICARE, OTHER ==
[2021-10-27 14:22] VITALS: RESP 20; TEMP 97.8
--- NOTE | 2021-10-27 15:21 | XR ---
EXAMINATION TYPE: XR hand complete LT DATE OF EXAM: 10/27/2021 CLINICAL HISTORY: pain TECHNIQUE: Frontal, lateral and oblique images of the left wrist are obtained. COMPARISON: None. FINDINGS: There is fracture through the middle one third of the proximal phalanx of the left first di git with displacement of approximately 2.7 mm. Soft tissue swelling noted. There are degenerative mingo nges throughout the visualized metacarpal phalangeal joints and interphalangeal joints. IMPRESSION: Fracture involving the middle one third of the proximal phalanx left first digit.
[2021-10-27] MEDS ORDERED: LIDOCAINE 1% INJ 10MG/ML (20 ML MDV) SQ ONE (15:24)
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
[2021-10-27 17:09] VITALS: BP 132/79; PULSE 86
== END 2021-10-27 16:46 | disposition home or self-care (01) ==
LOC: EC 14:06
DX: S62.512A Displaced fracture of proximal phalanx of left thumb, initial encounter for closed fracture (principal); I10 Essential (primary) hypertension; K21.9 Gastro-esophageal reflux disease without esophagitis; M06.9 Rheumatoid arthritis, unspecified; M19.90 Unspecified osteoarthritis, unspecified site; G40.909 Epilepsy, unspecified, not intractable, without status epilepticus; Z79.899 Other long term (current) drug therapy; W01.0XXA Fall on same level from slipping, tripping and stumbling without subsequent striking against object, initial encounter
CPT/HCPCS: 29125; 99283

== ENCOUNTER 2022-01-27 18:20 | Inpatient (IN) | payer MEDICARE, OTHER ==
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
--- NOTE | 2022-01-27 18:52 | XR ---
EXAMINATION TYPE: XR Hip Complete RT DATE OF EXAM: 01/27/2022 COMPARISON: 10/20/2019 HISTORY: Fall dislocation TECHNIQUE: 2 views FINDINGS: There is a superior lateral dislocation of the right femoral prosthetic head. No fracture s een. IMPRESSION: Dislocated hip prosthesis is a change compared to the old exam.
[2022-01-27] MEDS ORDERED: PROPOFOL 10 MG/ML 20 ML VIAL IV STA (18:59)
[2022-01-27] MEDS ORDERED: SODIUM CHLORIDE 0.9% 500 ML 500 ML IV STA (18:59)
--- NOTE | 2022-01-27 21:51 | XR ---
EXAMINATION TYPE: XR Hip Limited RT DATE OF EXAM: 01/27/2022 COMPARISON: NONE HISTORY: Post reduction TECHNIQUE: Single view FINDINGS: There is anatomic position of the prosthetic right hip joint. IMPRESSION: Anatomic reduction. No fracture seen.
[2022-01-27] MEDS ORDERED: Acetaminophen-Codeine 300-30mg TAB PO STA (22:04)
[2022-01-28] MEDS ORDERED: NALOXONE 0.4 MG/ML 1 ML VIAL IV PRN (00:07)
[2022-01-28] MEDS: lamoTRIgine 100 MG TAB PO SCH ×3 (00:16→20:27)
[2022-01-28] MEDS: PRIMIDONE 250 MG TAB PO SCH ×3 (00:57→20:27)
[2022-01-28 00:59] LABS: Anisocytosis Slight; Basophils % (A) 0 %; Eosinophils % (A) 0 %; HCT 39.3 % (34.0-46.0); HGB 12.3 gm/dL (11.4-16.0); Hypochromasia Slight; Lymphocytes # (A) 0.9 k/uL (1.0-4.8); Lymphocytes % (A) 14 %; MCH 26.7 pg (25.0-35.0); MCHC 31.3 g/dL (31.0-37.0); MCV 85.4 fL (80.0-100.0); Mean Platelet Volume 7.5; Monocytes # (A) 0.3 k/uL (0-1.0); Monocytes % (A) 5 %; Neutrophils % (A) 79 %; Platelet Count 294 k/uL (150-450); RBC 4.61 m/uL (3.80-5.40); RDW 17.8 % (11.5-15.5); WBC 6.4 k/uL (3.8-10.6)
[2022-01-28 01:15] LABS: ALT 27 U/L (4-34); AST 43 U/L (14-36); African American GFR (CKD) >90 (>60 ml/min/1.73 sqM); Albumin 3.9 g/dL (3.5-5.0); Alkaline Phosphatase 136 U/L (38-126); Anion Gap 8 mmol/L; Blood Urea Nitrogen 17 mg/dL (7-17); Calcium 8.7 mg/dL (8.4-10.2); Carbon Dioxide 25 mmol/L (22-30); Chloride 104 mmol/L (98-107); Glucose 105 mg/dL (74-99); Non-African American GFR(CKD) >90 (>60 ml/min/1.73 sqM); Potassium 3.5 mmol/L (3.5-5.1); Sodium 137 mmol/L (137-145); Total Bilirubin 0.5 mg/dL (0.2-1.3); Total Protein 6.9 g/dL (6.3-8.2)
[2022-01-28] MEDS: FUROSEMIDE 20 MG TAB PO SCH (08:44)
[2022-01-28] MEDS: SERTRALINE 100 MG TAB PO SCH (08:44)
[2022-01-28] MEDS: PANTOPRAZOLE 40 MG TABLET PO SCH (08:44)
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
--- NOTE | 2022-01-28 11:44 | US ---
EXAMINATION TYPE: US carotid duplex BILAT DATE OF EXAM: 01/28/2022 COMPARISON: NONE CLINICAL HISTORY: falling. h/o seizures, recent fall EXAM MEASUREMENTS: RIGHT: Peak Systolic Velocity (PSV) cm/sec ----- Right CCA: 92.6 ----- Right ICA: 141 ----- Right ECA: 77.3 ICA/CCA ratio: 1.5 RIGHT: End Diastole cm/sec ----- Right CCA: 19.7 ----- Right ICA: 22.2 ----- Right ECA: 10.1 LEFT: Peak Systolic Velocity (PSV) cm/sec ----- Left CCA: 107 ----- Left ICA: 115 ----- Left ECA: 88.8 ICA/CCA ratio: 0.8 LEFT: End Diastole cm/sec ----- Left CCA: 19.1 ----- Left ICA: 25.2 ----- Left ECA: 9.5 VERTEBRALS (direction of flow): Right Vertebral: Antegrade Left Vertebral: Antegrade Rhythm: Normal IMPRESSION: Mild homogeneous plaque with no significant stenosis seen Criteria for Assigning % of Stenosis / Diameter reduction (Estimation based on the indirect measurements of the internal carotid artery velocities (ICA PSV). 1. Normal (no stenosis)=ICA PSV < 125 cm/s: ratio < 2.0: ICA EDV<40 cm/s. 2. Less than 50% stenosis=ICA PSV < 125 cm/s: ratio < 2.0: ICA EDV<40 cm/s. 3. 50 to 69% stenosis=ICA PSV of 125 to 230 cm/s: ration 2.0 ? 4.0: ICA EDV 40-100 cm/s. 4. Greater than 70% stenosis to near occlusion= ICA PSV > 230 cm/s: ratio > 4.0: ICA EDV > 100 cm/s. 5. Near occlusion= ICA PSV velocities may be low or undetectable: variable ratio and ICA EDV. 6. Total occlusion=unable to detect flow.
--- NOTE | 2022-01-28 12:28 | CT ---
EXAMINATION TYPE: CT brain wo con DATE OF EXAM: 01/28/2022 COMPARISON: 05/02/2015 HISTORY: seizure CT DLP: 1206.[address] of the brain was performed. The ventricles, basal cisterns and sulci overlying the cerebral convexities demonstrate mild enlargem ent. There is no evidence for intracranial hemorrhage or sulcal effacement. There is decreased attenuation about the periventricular white matter and deep white matter of both c erebral hemispheres, compatible with chronic small vessel ischemia. Differential diagnosis does inclu de demyelination. No mass effects are seen.No midline shift. Osseous calvarium is intact. If symptoms persist consider MRI. IMPRESSION: 1. Age related atrophic and chronic small vessel ischemic change without acute intracranial process s een at this time.
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
[2022-01-28 20:19] VITALS: RESP 20
[2022-01-28] MEDS: lamoTRIgine 25 MG TAB PO SCH (20:27)
[2022-01-29 04:50] VITALS: TEMP 97.9
[2022-01-29] MEDS: PANTOPRAZOLE 40 MG TABLET PO SCH (08:21)
[2022-01-29] MEDS: SERTRALINE 100 MG TAB PO SCH (08:21)
[2022-01-29] MEDS: PRIMIDONE 250 MG TAB PO SCH (08:21)
[2022-01-29] MEDS: lamoTRIgine 100 MG TAB PO SCH (08:21)
[2022-01-29] MEDS: lamoTRIgine 25 MG TAB PO SCH (08:21)
[2022-01-29] MEDS: FUROSEMIDE 20 MG TAB PO SCH (08:21)
[2022-01-29 08:26] VITALS: BP 118/74; PULSE 90
--- NOTE | 2022-01-29 11:37 | P.PN ---
Subjective Progress Note Date: 01/29/22 The patient is seen at bedside and she feels she is doing well and no further seizures. Per nurse she agrees she had no further seizures. Objective - Vital Signs Vital signs: Vital Signs Temp 97.9 F 01/29/22 04:30 Pulse 90 01/29/22 08:30 Resp 20 01/29/22 08:30 BP 118/74 01/29/22 08:26 Pulse Ox 96 01/29/22 04:30 Intake & Output 01/28/22 01/29/22 01/29/22 18:59 06:59 18:59 Intake Total 360 700 Balance 360 700 Intake: Oral 360 700 Other: Voiding Method Toilet Toilet # Voids 5 1 3 # Bowel Movements 1 - Exam GENERAL: The patient is lying in bed and is not in acute distress. NEUROLOGICAL: Higher mental function: The patient is awake, alert, oriented to self, place and time. Patient is following commands. No aphasia and no neglect. Cranial nerves: The pupils are round, equal and reactive to light and accommodat ion. Visual rasmussen are full to confrontation throughout. Extraocular movement is intact no nystagmus is noted. Facial sensation is normal to touch throughout. The facial strength is normal throughout. Hearing is normal bilaterally to hand rub. Tongue is midline and moved [id number] without any difficulty. No dysarthria is noted. Shoulder shrug is normal bilaterally. Motor: Gait is deferred because of pain over the right lower extremity. The strength is 5/5 throughout except could not assess right lower extremity because has brace on from her dislocation. Normal tone and bulk. Cerebellum: Normal finger to nose bilaterally. Sensation: Sensation is normal to touch throughout Reflexes (right/left): 1+ throughout (right lower could not be assessed). Plantars is right lower extremity is right is mute while left is upgoing. WORK-UP: CT of the head is reported as age-related atrophic and chronic small vessel ischemic change without acute intracranial process seen at this time. Carotid duplex was reported as mild homogeneous plaque with no significant stenosis seen. - Labs CBC & Chem 7: 01/28/22 00:35 01/28/22 00:35 Assessment and Plan Assessment: Breakthrough seizure (had reported two seizure-like in the ED lasting 20 seconds within 6 hour period). Her labs do not seem significantly remarkably reactive for patient with two seizure--currently stable History of seizure since age of [age] years old Right hip dislocation due to mechanical fall Plan: Continue Lamictal from 175 mg 1 tablet twice a day (was increased during this hospital stay from 150mg bid). If she continues to have further seizure-like episodes recommend increasing it to 200 mg 1 tablet twice a day She is also on primidone 250 mg twice a day for seizures. Lamictal level is ordered by ED and is pending I ordered at 2.5 hour EEG as an outpatient (ambulatory EEG) to truly assess whether the patient truly has seizures or epileptiform discharges this will be coordinated by the remanufacturing technician. If negative I recommend that her neurologist or primary caregiver for her for epilepsy monitoring unit as an outpatient to capture these episodes. PT and OT are consulted. Orthopedic surgery team is consulted for right hip dislocation Every 4 hours neuro checks Patient is on seizure precautions We'll defer the rest of the medical management to the primary team Patient was notified that per [facility] that she cannot drive for 6 month until seizure-free. She is to avoid heights, swimming unassisted and using heavy machinery. Upon discharge recommend the patient to follow-up with her neurologist as an outpatient within 1-2 weeks. She does not recall name of her neurologist. The plan was discussed with the patient and her nurse There is no further neurological work-up. Patient is clear from neurological perspective. Bridger Gutiérrez M.D. Neuro-hospitalist Time with Patient: Less than 30
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
== END 2022-01-29 13:30 | disposition home or self-care (01) | DRG 101 ==
LOC: EC 18:20 → 5NMEDONC 01-28 00:07
PROVIDERS: ADMIT Hospitalist; ATTEND Hospitalist
PROC: 0QS6XZZ Reposition Right Upper Femur, External Approach (ICD-10-PCS; principal; 2022-01-27)
DX: G40.909 Epilepsy, unspecified, not intractable, without status epilepticus (principal); T84.020A Dislocation of internal right hip prosthesis, initial encounter; F32.A Depression, unspecified; F41.9 Anxiety disorder, unspecified; I10 Essential (primary) hypertension; K58.9 Irritable bowel syndrome, unspecified; D64.9 Anemia, unspecified; K21.9 Gastro-esophageal reflux disease without esophagitis; M06.9 Rheumatoid arthritis, unspecified; M41.9 Scoliosis, unspecified; Z79.899 Other long term (current) drug therapy; Z82.0 Family history of epilepsy and other diseases of the nervous system; Z82.49 Family history of ischemic heart disease and other diseases of the circulatory system; Z83.3 Family history of diabetes mellitus; Z96.653 Presence of artificial knee joint, bilateral; W01.0XXA Fall on same level from slipping, tripping and stumbling without subsequent striking against object, initial encounter; Y79.2 Prosthetic and other implants, materials and accessory orthopedic devices associated with adverse incidents
CPT/HCPCS: 27265; 70450; 73501; 73502; 80053; 80175; 80188; 85025; 93880; 99156; 99285

== ENCOUNTER 2022-01-30 09:04 | Inpatient (IN) | payer MEDICARE, OTHER ==
[2022-01-30] MEDS ORDERED: MORPHINE SULFATE 4 MG/ML SYRINGE IVP STA (09:21)
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
[2022-01-30 11:50] LABS: INR 0.9 (<1.2); Partial Thromboplastin Time 24.3 sec (22.0-30.0); Prothrombin Time 10.1 sec (9.0-12.0)
--- NOTE | 2022-01-30 12:22 | US ---
EXAMINATION TYPE: US groin RT DATE OF EXAM: 01/30/2022 COMPARISON: NONE CLINICAL HISTORY: pain, swelling. Pain and swelling in right groin. Pt states she had hip surgery 01/27. Scanned right groin at area of concern. Complex area seen at patient's palpable area measuring 5.3 x 5.3 x 6.7 cm. IMPRESSION: Findings suggest necrotic adenopathy in the right groin
--- NOTE | 2022-01-30 13:00 | XR ---
EXAMINATION TYPE: XR pelvis AP view DATE OF EXAM: 01/30/2022 COMPARISON: X-ray dated 01/27/2022 INDICATION: Right inguinal pain TECHNIQUE: Single AP view of the pelvis FINDINGS: Right total hip arthroplasty. Questionable lucency surrounding the right acetabular prosthesis, stabl e. Osteopenia. No definite acute pelvic bone fracture identified. Degenerative changes of the lumbar spine. Mild degenerative changes of the right sacroiliac joint. Right abdominal surgical sutures. Bilateral pelvic phleboliths rather than urinary calculi. Degenerative changes of the left hip joint. IMPRESSION: As above.
[2022-01-30] MEDS ORDERED: MORPHINE SULFATE 4 MG/ML SYRINGE IV PRN (13:08)
[2022-01-30] MEDS ORDERED: NALOXONE 0.4 MG/ML 1 ML VIAL IV PRN (13:08)
[2022-01-30] MEDS ORDERED: AMPICILLIN-SULBACTAM 1.5 GM in SODIUM CHLORIDE 0.9% 50 ML IVPB STA (13:09)
[2022-01-30 13:37] LABS: ALT 24 U/L (4-34); African American GFR (CKD) >90 (>60 ml/min/1.73 sqM); Albumin 4.3 g/dL (3.5-5.0); Anion Gap 10 mmol/L; Blood Urea Nitrogen 14 mg/dL (7-17); Calcium 8.8 mg/dL (8.4-10.2); Carbon Dioxide 23 mmol/L (22-30); Chloride 101 mmol/L (98-107); Glucose 102 mg/dL (74-99); Non-African American GFR(CKD) >90 (>60 ml/min/1.73 sqM); Sodium 134 mmol/L (137-145); Total Bilirubin 0.9 mg/dL (0.2-1.3); Total Protein 7.7 g/dL (6.3-8.2)
[2022-01-30 13:38] LABS: AST 52 U/L (14-36); Alkaline Phosphatase 148 U/L (38-126)
[2022-01-30 13:54] LABS: Anisocytosis Slight; Basophils % (A) 1 %; Eosinophils % (A) 1 %; HCT 39.9 % (34.0-46.0); HGB 12.7 gm/dL (11.4-16.0); Hypochromasia Slight; Lymphocytes # (A) 1.1 k/uL (1.0-4.8); Lymphocytes % (A) 16 %; MCH 27.4 pg (25.0-35.0); MCHC 31.8 g/dL (31.0-37.0); MCV 86.1 fL (80.0-100.0); Mean Platelet Volume 7.2; Monocytes # (A) 0.3 k/uL (0-1.0); Monocytes % (A) 5 %; Neutrophils % (A) 76 %; Platelet Count 270 k/uL (150-450); RBC 4.63 m/uL (3.80-5.40); RDW 17.6 % (11.5-15.5); WBC 6.6 k/uL (3.8-10.6)
--- NOTE | 2022-01-30 15:12 | CT ---
EXAMINATION TYPE: CT pelvis w con DATE OF EXAM: 01/30/2022 INDICATION: Necrotic adenopathy right groin area CT DLP: 642.2 mGy.cm Automated Exposure Control for Dose Reduction was Utilized. TECHNIQUE AND CONTRAST: Multiplanar CT scan of the pelvis is performed with IV Contrast, patient injected with 100 mL of Isov ue 300. COMPARISON: Ultrasound dated 01/30/2022 FINDINGS: Status post right total hip arthroplasty. Marginally enhancing cystic structure is seen insinuated be tween the superior aspect of the right adductor muscles and the right inferior pubic ramus measuring 5.4 x 7.7 cm, with marginal calcification. It is inseparable from the adjacent portion of the adducto r muscles. No air or solid component seen within. This could represent a larger bursitis. A smaller one is seen more posteriorly between the right femoral lesser trochanter and the ischial bobby ne measuring up to 2.2 cm. A third similar marginally enhancing collection is seen along the lateral aspect of the right femoral greater trochanter with marginal calcification inferiorly, measuring 4.3 x 8.9 cm. This also most likely represents a greater trochanteric bursitis. Associated infection candy ot be excluded. Lucency surrounding the right acetabular prosthesis, suboptimally assessed due to artifacts. Chronic healed fractures of the inferior pubic rami. Osteopenia. No definite acute pelvic bone fracture ident ified. Severe degenerative changes of the lower lumbar spine. Severe bilateral L3-4, bilateral L4-5 a nd bilateral L5-S1 neuroforaminal stenosis compressing the corresponding nerve roots. Surgical sutures are seen along the right lower anterior abdominal wall. Subcentimeter bilateral ingu inal lymph nodes with preserved fatty eric. No suspicious lymphadenopathy in the pelvis. IMPRESSION: Multiple cystic structures along the right hip joint and right upper thigh as described above, not ap preciated in 2011 CT scan, possibly representing bursitis. Other cystic lesion or superadded infectio n/abscesses cannot be excluded, please correlate clinically. Further MRI assessment can be considered . No suspicious or pathologically enlarged inguinal or pelvic lymph nodes. Other findings as described above.
[2022-01-30] MEDS ORDERED: KETOROLAC 30 MG/ML 1 ML VIAL IVP PRN (15:28)
[2022-01-30] MEDS ORDERED: HYDROcodone/APAP 5-325MG 1 EACH TAB PO PRN (15:29)
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
[2022-01-30] MEDS: AMPICILLIN-SULBACTAM 1.5 GM in SODIUM CHLORIDE 0.9% 50 ML IVPB SCH (18:11)
[2022-01-30] MEDS: HEPARIN SODIUM,PORCINE/PF 5,000 UNIT/0.5 ML SYRINGE SQ SCH (21:18)
[2022-01-30] MEDS: PRIMIDONE 250 MG TAB PO SCH (21:18)
[2022-01-30] MEDS: lamoTRIgine 25 MG TAB PO SCH (21:18)
[2022-01-30] MEDS: lamoTRIgine 100 MG TAB PO SCH (21:18)
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
[2022-01-31] MEDS: AMPICILLIN-SULBACTAM 1.5 GM in SODIUM CHLORIDE 0.9% 50 ML IVPB SCH ×4 (00:23→19:57)
[2022-01-31] MEDS: HEPARIN SODIUM,PORCINE/PF 5,000 UNIT/0.5 ML SYRINGE SQ SCH ×2 (09:39→19:57)
[2022-01-31] MEDS: lamoTRIgine 100 MG TAB PO SCH ×2 (10:13→19:57)
[2022-01-31] MEDS: FUROSEMIDE 20 MG TAB PO SCH (10:13)
[2022-01-31] MEDS: PANTOPRAZOLE 40 MG TABLET PO SCH (10:13)
[2022-01-31] MEDS: PRIMIDONE 250 MG TAB PO SCH ×2 (10:14→19:57)
[2022-01-31] MEDS: lamoTRIgine 25 MG TAB PO SCH ×2 (10:14→19:57)
[2022-01-31] MEDS: SERTRALINE 100 MG TAB PO SCH (10:15)
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
--- NOTE | 2022-01-31 13:21 | P.PN ---
Subjective Progress Note Date: 01/31/22 CHIEF COMPLAINT: Right groin pain HISTORY OF PRESENT ILLNESS: Patient reports improvement in her pain today. White count is 6.6. Discussed case with orthopedic PA who reported that the cystic formation of the right hip is likely due to patient's chronic hip instability and trauma from the dislocation of the hip. They're recommending that patient follows up with orthopedic at [facility] for revision of her right hip arthroplasty. Patient is afebrile. White count is 6.6. Patient seen and examined with Dr. Copeland PHYSICAL EXAM: VITAL SIGNS: Reviewed. GENERAL: Well-developed in no acute distress. HEENT: No sclera icterus. Extraocular movements grossly intact. Moist buccal mucosa. Head is atraumatic, normocephalic. ABDOMEN: Soft. Nondistended. Nontender. NEUROLOGIC: Alert and oriented. Cranial nerves II through XII grossly intact. ASSESSMENT: 1. Right groin pain 2. Multiple cystic structures along the right hip joint and right upper thigh noted on computed tomography scan likely due to trauma from patient's recurrent dislocation of the hip 3. Recent right hip reduction 4. Prior history of right total hip arthroplasty PLAN: -No surgical intervention planned -Defer to orthopedic service -we will transfer service to medical service -Continue supportive care Physician Health Information Assistant note has been reviewed by physician. Signing provider agrees with the documented findings, assessment, and plan of care. Objective - Vital Signs Vital signs: Vital Signs Temp 97.5 F L 01/31/22 07:00 Pulse 81 01/31/22 08:00 Resp 18 01/31/22 08:00 BP 122/77 01/31/22 07:00 Pulse Ox 100 01/31/22 07:00 Intake & Output 01/30/22 01/31/22 01/31/22 18:59 06:59 18:59 Intake Total 900 118 Balance 900 118 Weight 65.771 kg Intake: Oral 900 118 Other: Voiding Method Toilet Toilet # Voids 2 - Labs CBC & Chem 7: 01/30/22 13:47 01/30/22 11:08 Labs: Abnormal Lab Results - Last 24 Hours (Table) 01/30/22 01/30/22 Range/Units 11:08 13:47 RDW 17.6 H (11.5-15.5) % Sodium 134 L (137-145) mmol/L Creatinine 0.50 L (0.52-1.04) mg/dL Glucose 102 H (74-99) mg/dL AST 52 H (14-36) U/L Alkaline Phosphatase 148 H (38-126) U/L
--- NOTE | 2022-01-31 14:20 | CONS ---
CONSULTATION DATE OF SERVICE: 01/31/2022 REASON FOR CONSULTATION: Advice regarding a cyst around the right heel joint, pain and other medical issues, requested by Surgery. HISTORY OF PRESENT ILLNESS: This 71-year-old woman with a past medical history of multiple medical problems, including GERD and hypertension, also had right hip surgery, but subsequently the patient had multiple dislocations and corrections. Currently patient is complaining of severe right hip pain. Patient was taken to [facility]. Significant cystic lesion or bursal fluid collection was noted on the CT scan. The patient is being closely monitored. There is no history of any fever, rigor or chills at this time. Multiple consultants are following the patient closely. PAST MEDICAL HISTORY: History of GERD, hypertension. MEDICATIONS: Home medications include Lamictal and Zoloft. Doses and other medications are reviewed. ALLERGIES: NONE. FAMILY HISTORY: History of Parkinson's in mother. SOCIAL HISTORY: No history of smoking. Occasional alcohol intake. REVIEW OF SYSTEMS: Fourteen-point review of systems negative except as mentioned earlier. PHYSICAL EXAMINATION: Pulse is 81, blood pressure 126/80 respiration 18. HEENT: Normal. CARDIOVASCULAR: S1, S2 muffled. RESPIRATION: Breath sounds diminished at the bases. No rhonchi. No crackles. ABDOMEN: Soft, nontender. No mass palpable. LEGS: Significant pain and difficulty moving the right hip present. Some excoriations of the skin of the right knee joint also present. NERVOUS SYSTEM: No focal deficit. SKIN: As mentioned earlier. JOINTS: As mentioned earlier. LYMPHATICS: No lymph node palpable in neck, axillae or groin. LABS: WBC 6.6, sodium 135. ASSESSMENT: 1. Severe right hip pain with cystic lesion around the hip joint; rule out bursitis or infection. 2. Gait dysfunction. 3. Hyponatremia. 4. Hypertension. 5. Rheumatoid arthritis. RECOMMENDATIONS AND DISCUSSION: In this 71-year-old woman who presented with multiple complex medical issues, I recommend continuing the current medications. Closely follow with Orthopedic Surgery. ESR is only 14 and CRP is 0.7. I would recommend a possible interventional radiology consultation and fluid aspiration for symptomatic relief. Prognosis guarded. Further recommendations to follow. I would also recommend a rheumatoid factor and JAVAN. See orders for further details. MMODL / IJN: [id number] / [facility]
[2022-01-31] MEDS ORDERED: KETOROLAC 15 MG/ML 1 ML VIAL IVP PRN (16:46)
[2022-01-31 21:18] LABS: Rheumatoid Factor, Qnt <10 IU/mL (0-15); Uric Acid 4.8 mg/dL (2.9-7.7)
--- NOTE | 2022-01-31 22:44 | P.PN ---
Subjective Progress Note Date: 01/31/22 Principal diagnosis: Abnormal CT question of bursitis versus abscess right hip Patient is a 71-year-old female with a past medical history significant for osteoarthritis did have a history of dislocation of the right hip presenting to the hospital with a right groin pain with abnormal CT suspicious for possible cystic lesion on the tip concerning for bursitis versus abscess. On today's evaluation that is 01/31/2022, the patient denies having any fever or any chills, the patient pain to the right hip area has improved patient denies having any chest pain shortness of breath or cough no abdominal pain no diarrhea Objective - Vital Signs Vital signs: Vital Signs Temp 98.2 F 01/31/22 14:51 Pulse 63 01/31/22 14:51 Resp 18 01/31/22 14:51 BP 100/63 01/31/22 14:51 Pulse Ox 98 01/31/22 14:51 Intake & Output 01/30/22 01/31/22 01/31/22 18:59 06:59 18:59 Intake Total 900 236 Balance 900 236 Weight 65.771 kg Intake: Oral 900 236 Other: Voiding Method Toilet Toilet # Voids 2 3 # Bowel Movements 1 - Exam GENERAL DESCRIPTION: An elderly female lying in bed in no distress RESPIRATORY SYSTEM: Unlabored breathing , decreased breath sounds at bases HEART: S1 S2 regular rate and rhythm , ABDOMEN: Soft , no tenderness EXTREMITIES: No edema feet - Labs CBC & Chem 7: 01/30/22 13:47 01/30/22 11:08 Assessment and Plan (1) Abnormal CT scan, pelvis Current Visit: Yes Status: Acute Code(s): R93.5 - ABN FINDINGS ON DX IMAGING OF ABD REGIONS, INC RETROPERITON SNOMED Code(s): 49362115990595818 (2) Adenopathy Current Visit: Yes Status: Acute Code(s): R59.9 - ENLARGED LYMPH NODES, UNSPECIFIED SNOMED Code(s): 24889507 Plan: 1patient presented to hospital with pain to the right groin area in this patient who do have a history of recurrent dislocation of the right hip status post reduction with recent injection about 3 days ago noted to have abnormal CT of the pelvis which is showing a cystic masses with concern for possible bursitis patient is clinically not behaving as an abscess with no fever or elevated white count. 2Arthur has evaluated the patient and did not recommending aspiration 3Patient did have normal inflammatory markers 4Unasyn can be safely discontinued Time with Patient: Less than 30
[2022-02-01 03:36] LABS: Appearance,Urine Clear (Clear); Bilirubin,Urine Negative (Negative); Blood,Urine Negative (Negative); Color,Urine Light Yellow; Glucose,Urine (UA) Negative (Negative); Ketones,Urine Negative (Negative); Leukocyte Esterase,Urine Negative (Negative); Nitrite,Urine Negative (Negative); PH, Urine 6.5 (5.0-8.0); Protein,Urine Negative (Negative); Specific Gravity,Urine 1.004 (1.001-1.035); Urobilinogen,Urine <2.0 mg/dL (<2.0)
[2022-02-01] MEDS: lamoTRIgine 100 MG TAB PO SCH ×2 (08:26→20:24)
[2022-02-01] MEDS: PANTOPRAZOLE 40 MG TABLET PO SCH (08:26)
[2022-02-01] MEDS: HEPARIN SODIUM,PORCINE/PF 5,000 UNIT/0.5 ML SYRINGE SQ SCH ×3 (08:26→20:24)
[2022-02-01] MEDS: FUROSEMIDE 20 MG TAB PO SCH (08:26)
[2022-02-01] MEDS: lamoTRIgine 25 MG TAB PO SCH ×2 (08:26→20:24)
[2022-02-01] MEDS: PRIMIDONE 250 MG TAB PO SCH ×2 (08:26→20:24)
[2022-02-01] MEDS: SERTRALINE 100 MG TAB PO SCH (08:26)
[2022-02-01 08:52] LABS: Basophils # (A) 0.02 X 10*3/uL (0.00-0.10); Basophils % (A) 0.4 %; Eosinophils # (A) 0 X 10*3/uL (0.04-0.35); Eosinophils % (A) 0 %; HGB 11.6 g/dL (12.0-15.0); Immature Grans, Automated 0.4 %; Lymphocytes # (A) 1.08 X 10*3/uL (0.90-5.00); Lymphocytes % (A) 20.5 %; MCH 25.5 pg (27.0-32.0); MCHC 29.7 g/dL (32.0-37.0); MCV 85.7 fL (80.0-97.0); Mean Platelet Volume 10.3 fL (9.5-12.2); Monocytes # (A) 0.59 X 10*3/uL (0.20-1.00); Monocytes % (A) 11.2 %; NRBC Per 100 WBC 0 /100 WBCS (0.0-0.0); Neutrophils # (A) 3.57 X 10*3/uL (1.80-7.70); Neutrophils % (A) 67.5 %; Platelet Count 247 X 10*3/uL (140-440); RBC 4.55 X 10*6/uL (4.10-5.20); RDW 19.6 % (11.5-14.5); WBC 5.28 X 10*3/uL (4.50-10.00)
[2022-02-01 09:53] LABS: ALT 18 U/L (8-44); AST 24 U/L (13-35); African American GFR (CKD) 105.5 (60.0-200.0); Albumin 3.6 g/dL (3.8-4.9); Alkaline Phosphatase 118 U/L (41-126); BUN/Creat Ratio 19.17 Ratio (12.00-20.00); Blood Urea Nitrogen 11.5 mg/dL (9.0-27.0); Calcium 8.9 mg/dL (8.7-10.3); Carbon Dioxide 24.9 mmol/L (20.0-27.5); Chloride 101 mmol/L (96-109); Globulin 2.4 g/dL (1.6-3.3); Glucose 88 mg/dL (70-110); Non-African American GFR(CKD) 91.1 (60.0-200.0); Potassium 3.6 mmol/L (3.5-5.5); Sodium 139 mmol/L (135-145); Total Bilirubin <0.15 mg/dL (0.30-1.20)
--- NOTE | 2022-02-01 12:19 | P.PN ---
Subjective Progress Note Date: 02/01/22 This is a pleasant 71-year-old female who was recently admitted with right hip pain and has had multiple dislocations and corrections most recently 3-4 days prior to this admission and was reduced in the ER and was sent home and patient continued to develop worsening severe right hip pain and presented back to the ER for further evaluation. Orthopedics and Gen. surgery following an consult interventional radiology was placed for possible aspiration of these multiple significant cystic lesions or bursal fluid collections that were noted on CT. Infectious disease also following and patient was maintained on IV anabiotic's with concerns for possible infection although patient is afebrile and denies any further hip pain and WBC is within normal limits at 5.28 today. Patient tolerating diet with no reports of nausea or vomiting noted. Patient will be made nothing by mouth for interventional radiology consultation today. Patient is afebrile. Patient denies any chest pain or shortness of breath. Patient encouraged to increase activity as tolerated. PT/OT therapy working with the patient. Case management and social work also following and arranging for possible home care in the outpatient setting. Patient is refusing rehab at this time. Patient is adamant about going home and states she has family and friends that can check on her. Review of systems: Constitutional: No reports of fatigue, fever, or chills Cardiovascular: No reports of chest pain or palpitations Respiratory: No reports of shortness of breath or cough GI: reports of nausea, no reports of of vomiting, no reports of diarrhea : No reports of dysuria or retention Neurovascular: No reports of generalized weakness, reports right hip pain, although is improved today All medications have been reviewed Active Medications Hydrocodone Bitart/Acetaminophen (Hydrocodone/Apap 5-325mg 1 Each Tab) 1 each PO Q4HR PRN PRN Reason: Pain Last Admin: 01/30/22 19:29 Dose: 1 each Documented by: Furosemide (Furosemide 20 Mg Tab) 20 mg PO DAILY SEBAS Last Admin: 02/01/22 08:26 Dose: 20 mg Documented by: Heparin Sodium (Porcine) (Heparin Sodium,Porcine/Pf 5,000 Unit/0.5 Ml Syringe) 5,000 unit SQ Q12HR SEBAS Last Admin: 02/01/22 09:18 Dose: Not Given Documented by: Ketorolac Tromethamine (Ketorolac 15 Mg/Ml 1 Ml Vial) 15 mg IVP Q6HR PRN PRN Reason: Pain Stop: 02/02/22 15:28 Lamotrigine (Lamotrigine 25 Mg Tab) 75 mg PO BID [facility] Last Admin: 02/01/22 08:26 Dose: 75 mg Documented by: Lamotrigine (Lamotrigine 100 Mg Tab) 100 mg PO BID [facility] Last Admin: 02/01/22 08:26 Dose: 100 mg Documented by: Morphine Sulfate (Morphine Sulfate 4 Mg/Ml Syringe) 4 mg IV Q4HR PRN PRN Reason: Severe Pain Naloxone HCl (Naloxone 0.4 Mg/Ml 1 Ml Vial) 0.2 mg IV Q2M PRN PRN Reason: Opioid Reversal Pantoprazole Sodium (Pantoprazole 40 Mg Tablet) 40 mg PO AC-BRKFST [facility] Last Admin: 02/01/22 08:26 Dose: 40 mg Documented by: Primidone (Primidone 250 Mg Tab) 250 mg PO BID [facility] Last Admin: 02/01/22 08:26 Dose: 250 mg Documented by: Sertraline HCl (Sertraline 100 Mg Tab) 100 mg PO DAILY [facility] Last Admin: 02/01/22 08:26 Dose: 100 mg Documented by: PHYSICAL EXAMINATION: GENERAL: The patient is alert and oriented x4, Well developed, well nourished. Thin built HEENT: Pupils are round and equally reacting to light. EOMI. does have scleral icterus. No conjunctival pallor. Normocephalic, atraumatic. No pharyngeal erythema. No thyromegaly. CARDIOVASCULAR: S1 and S2 muffled PULMONARY: diminished breath sounds bilaterally with no wheezing or rhonchi noted. ABDOMEN: soft. Nontender on exam. non-distended, normoactive bowel sounds. No palpable organomegaly. MUSCULOSKELETAL: No joint swelling or deformity. EXTREMITIES: No cyanosis, clubbing, or pedal edema. Right hip tenderness noted on palpation laterally NEUROLOGICAL: Gross neurological examination did not reveal any focal deficits. Diffuse weakness SKIN: No rashes. Assessment: Severe right hip pain with cystic lesion around the hip joint, rule out bursitis or infection Gait dysfunction hyponatremia Hypertension Rheumatoid arthritis GI prophylaxis DVT prophylaxis Full code Plan: Recommend to continue with current medications and management. Multiple medical consultations including infectious disease, general surgery, orthopedics, and interventional radiology following. No orthopedic or surgical interventions planned at this time and the case was discussed with interventional radiology f or possible aspiration of these multiple lesions noted on the right hip which will be attempted this afternoon. Patient is nothing by mouth and orders have been placed. Patient is working with PT/OT therapy daily in case management also following arranging for home care in the outpatient setting. Patient is refusing ECF for rehab at this time. Encouraged increase activity as tolerated and will continue to monitor closely. Will await interventional radiology report. Patient is currently off IV antibiotics and WBC within normal limits at 5.28 and patient continues to be afebrile. Again infectious disease is following closely. Given the severity of symptoms and multiple rehospitalizatio ns and admissions for dislocations, patient will require more than two night hospitalization for interventions and to rule out infection. Due to multiple complex medical issues, prognosis is guarded. The impression and plan of care has been dictated by Mine Negrete, nurse practitioner as directed. MD Mark I have performed a history and examination and MDM of this patient, discussed the same with the dictator, and agree with the dictator's assessment and plan as written ,documented as a scribe. Based on total visit time, I have performed more than 50% of the visit. Total number of minutes spent on this visit, 15 minutes. Any additional findings or plans will be noted. Objective - Vital Signs Vital signs: Vital Signs Temp 97.8 F 02/01/22 07:00 Pulse 83 02/01/22 07:00 Resp 18 02/01/22 07:00 BP 110/69 02/01/22 07:00 Pulse Ox 98 02/01/22 07:00 Intake & Output 01/31/22 02/01/22 02/01/22 18:59 06:59 18:59 Intake Total 236 118 Balance 236 118 Intake: Oral 236 118 Other: Voiding Method Toilet # Voids 3 3 # Bowel Movements 1 - Labs CBC & Chem 7: 02/01/22 06:14 02/01/22 06:14 Labs: Abnormal Lab Results - Last 24 Hours (Table) 02/01/22 Range/Units 06:14 Hgb 11.6 L (12.0-15.0) g/dL MCH 25.5 L (27.0-32.0) pg MCHC 29.7 L (32.0-37.0) g/dL RDW 19.6 H (11.5-14.5) % Eosinophils # 0 L (0.04-0.35) X 10*3/uL Microbiology - Last 24 Hours (Table) 01/30/22 13:45 Blood Culture - Preliminary Blood No Growth after 24 hours 01/30/22 13:47 Blood Culture - Preliminary Blood No Growth after 24 hours
--- NOTE | 2022-02-01 13:27 | US ---
Ultrasound-guided right thigh fluid collection. DATE OF EXAM: 02/01/2022 CLINICAL HISTORY: Request for fine needle aspiration of right thigh fluid collection analysis. FINDINGS: The procedure was discussed with the patient. The risks, complications, benefits, and alternatives we re discussed and any questions were answered. Informed consent was obtained. The patient was placed s upine on the ultrasound table and prepped and draped in the usual sterile fashion. All elements of maximal barrier technique were utilized. Under ultrasound guidance, access into the right thigh fluid collection was achieved and there is removal of approximately 200 cc of serous. Jose ple sent to pathology for analysis. The patient was stable throughout the procedure and remained stable upon discharge from Department of Radiology. IMPRESSION: Successful right-sided fluid collection FNA under ultrasound guidance.
--- NOTE | 2022-02-01 15:49 | P.PN ---
Subjective Progress Note Date: 02/01/22 CHIEF COMPLAINT: Right groin pain HISTORY OF PRESENT ILLNESS: Patient denies any right groin pain or hip pain. She has been up and ambulating without pain. IR did a fine-needle aspiration of fluid from the right thigh 200 mL of serous fluid. Patient afebrile. Patient seen and examined with Dr. Copeland PHYSICAL EXAM: VITAL SIGNS: Reviewed. GENERAL: Well-developed in no acute distress. HEENT: No sclera icterus. Extraocular movements grossly intact. Moist buccal mucosa. Head is atraumatic, normocephalic. ABDOMEN: Soft. Nondistended. Nontender. NEUROLOGIC: Alert and oriented. Cranial nerves II through XII grossly intact. ASSESSMENT: 1. Right groin pain 2. Multiple cystic structures along the right hip joint and right upper thigh noted on computed tomography scan likely due to trauma from patient's recurrent dislocation of the hip 3. Recent right hip reduction 4. Prior history of right total hip arthroplasty PLAN: -Follow up on fluid aspiration results -No surgical intervention planned -Defer to orthopedic service. They recommended revision of right total hip with physician out of [place] -Continue supportive care Physician Bus Matron note has been reviewed by physician. Signing provider agrees with the documented findings, assessment, and plan of care. Objective - Vital Signs Vital signs: Vital Signs Temp 97.9 F 02/01/22 14:54 Pulse 94 02/01/22 14:54 Resp 16 02/01/22 14:54 BP 106/70 02/01/22 14:54 Pulse Ox 95 02/01/22 14:54 Intake & Output 01/31/22 02/01/22 02/01/22 18:59 06:59 18:59 Intake Total 236 680 Balance 236 680 Intake: Oral 236 680 Other: Voiding Method Toilet # Voids 3 3 1 # Bowel Movements 1 - Labs CBC & Chem 7: 02/01/22 06:14 02/01/22 06:14 Labs: Abnormal Lab Results - Last 24 Hours (Table) 02/01/22 02/01/22 Range/Units 06:14 06:14 Hgb 11.6 L (12.0-15.0) g/dL MCH 25.5 L (27.0-32.0) pg MCHC 29.7 L (32.0-37.0) g/dL RDW 19.6 H (11.5-14.5) % Eosinophils # 0 L (0.04-0.35) X 10*3/uL Total Bilirubin <0.15 L (0.30-1.20) mg/dL Total Protein 6.0 L (6.2-8.2) g/dL Albumin 3.6 L (3.8-4.9) g/dL Albumin/Globulin Ratio 1.50 L (1.60-3.17) g/dL Microbiology - Last 24 Hours (Table) 01/30/22 13:45 Blood Culture - Preliminary Blood No Growth after 24 hours 01/30/22 13:47 Blood Culture - Preliminary Blood No Growth after 24 hours
[2022-02-02 02:15] LABS: Appearance,BF Bloody
[2022-02-02] MEDS: HEPARIN SODIUM,PORCINE/PF 5,000 UNIT/0.5 ML SYRINGE SQ SCH ×2 (09:38→20:54)
[2022-02-02] MEDS: FUROSEMIDE 20 MG TAB PO SCH (09:38)
[2022-02-02] MEDS: PANTOPRAZOLE 40 MG TABLET PO SCH (09:38)
[2022-02-02] MEDS: lamoTRIgine 25 MG TAB PO SCH ×2 (09:39→20:54)
[2022-02-02] MEDS: PRIMIDONE 250 MG TAB PO SCH ×2 (09:39→20:55)
[2022-02-02] MEDS: SERTRALINE 100 MG TAB PO SCH (09:40)
[2022-02-02] MEDS: lamoTRIgine 100 MG TAB PO SCH ×2 (09:41→21:09)
--- NOTE | 2022-02-02 11:19 | P.PN ---
Subjective Progress Note Date: 02/02/22 CHIEF COMPLAINT: Right groin pain HISTORY OF PRESENT ILLNESS: Patient denies any right groin pain or hip pain. She has been up and ambulating without pain. IR did a fine-needle aspiration of fluid from the right thigh 200 mL of serous fluid. Culture results are pending. Patient tolerating diet. Patient elected discharged home. Patient afebrile. Patient seen and examined with Dr. Copeland PHYSICAL EXAM: VITAL SIGNS: Reviewed. GENERAL: Well-developed in no acute distress. HEENT: No sclera icterus. Extraocular movements grossly intact. Moist buccal mucosa. Head is atraumatic, normocephalic. ABDOMEN: Soft. Nondistended. Nontender. NEUROLOGIC: Alert and oriented. Cranial nerves II through XII grossly intact. ASSESSMENT: 1. Right groin pain resolved 2. Multiple cystic structures along the right hip joint and right upper thigh noted on computed tomography scan possibly due to trauma from patient's recurrent dislocation of the hip. Status post aspiration of fluid 3. Recent right hip reduction 4. Prior history of right total hip arthroplasty PLAN: -Patient can be discharged from surgical standpoint and follow up with aspiration culture results outpatient with her PCP -No surgical intervention planned Physician Asset Coordinator note has been reviewed by physician. Signing provider agrees with the documented findings, assessment, and plan of care. Objective - Vital Signs Vital signs: Vital Signs Temp 97.3 F L 02/02/22 08:00 Pulse 89 02/02/22 08:00 Resp 16 02/02/22 08:00 BP 104/68 02/02/22 08:00 Pulse Ox 96 02/02/22 08:00 Intake & Output 02/01/22 02/02/22 02/02/22 18:59 06:59 18:59 Intake Total 1028 480 Balance 1028 480 Intake: Oral 1028 480 Other: Voiding Method Toilet # Voids 1 1 - Labs CBC & Chem 7: 02/01/22 06:14 02/01/22 06:14 Labs: Microbiology - Last 24 Hours (Table) 02/01/22 13:00 Gram Stain - Preliminary Aspirate Body Fluid Culture - Preliminary 02/01/22 13:00 Anaerobic Culture - Preliminary Aspirate 01/30/22 13:45 Blood Culture - Preliminary Blood No Growth after 48 hours 01/30/22 13:47 Blood Culture - Preliminary Blood No Growth after 48 hours
--- NOTE | 2022-02-02 13:18 | P.PN ---
Subjective Progress Note Date: 02/02/22 This is a pleasant 71-year-old female who was recently admitted with right hip pain and has had multiple dislocations and corrections most recently 3-4 days prior to this admission and was reduced in the ER and was sent home and patient continued to develop worsening severe right hip pain and presented back to the ER for further evaluation. Orthopedics and Gen. surgery following an consult interventional radiology was placed for possible aspiration of these multiple significant cystic lesions or bursal fluid collections that were noted on CT. Infectious disease also following and patient was maintained on IV antibiotics with concerns for possible infection although patient is afebrile and denies any further hip pain and WBC is within normal limits at 5.28 today. Patient tolerating diet with no reports of nausea or vomiting noted. Patient will be made nothing by mouth for interventional radiology consultation today. Patient is afebrile. Patient denies any chest pain or shortness of breath. Patient encouraged to increase activity as tolerated. PT/OT therapy working with the patient. Case management and social work also following and arranging for possible home care in the outpatient setting. Patient is refusing rehab at this time. Patient is adamant about going home and states she has family and friends that can check on her. 02/02/2022 Patient is seen and evaluated in follow-up today status post aspiration of the right hip cyst and cultures were obtained and currently pending. Multiple medical consultations including orthopedics, infectious disease, general surgery following. Physical therapy also following and working with the patient daily. Reported approximately 200 mL from the aspiration and cultures are pending. Patient continues to be afebrile and infectious disease is following. Patient is maintained off IV antibiotic therapy and will continue for now. Patient is anxious to go home. We'll continue to monitor closely and await culture results. She denies any chest pain, shortness of breath, or palpitations. Patient denies nausea or vomiting and tolerating diet. Patient denies any pain of the right hip and reports improvement in mobility. PT/OT following. Review of systems: Constitutional: No reports of fatigue, fever, or chills Cardiovascular: No reports of chest pain or palpitations Respiratory: No reports of shortness of breath or cough GI: no reports of nausea, no reports of of vomiting, no reports of diarrhea : No reports of dysuria or retention Neurovascular: No reports of generalized weakness, reports right hip pain is re solved All medications have been reviewed Active Medications Hydrocodone Bitart/Acetaminophen (Hydrocodone/Apap 5-325mg 1 Each Tab) 1 each PO Q4HR PRN PRN Reason: Pain Last Admin: 01/30/22 19:29 Dose: 1 each Documented by: Furosemide (Furosemide 20 Mg Tab) 20 mg PO DAILY [facility] Last Admin: 02/02/22 09:38 Dose: 20 mg Documented by: Heparin Sodium (Porcine) (Heparin Sodium,Porcine/Pf 5,000 Unit/0.5 Ml Syringe) 5,000 unit SQ Q12HR [facility] Last Admin: 02/02/22 09:38 Dose: 5,000 unit Documented by: Ketorolac Tromethamine (Ketorolac 15 Mg/Ml 1 Ml Vial) 15 mg IVP Q6HR PRN PRN Reason: Pain Stop: 02/02/22 15:28 Lamotrigine (Lamotrigine 25 Mg Tab) 75 mg PO BID [facility] Last Admin: 02/02/22 09:39 Dose: 75 mg Documented by: Lamotrigine (Lamotrigine 100 Mg Tab) 100 mg PO BID [facility] Last Admin: 02/02/22 09:41 Dose: 100 mg Documented by: Morphine Sulfate (Morphine Sulfate 4 Mg/Ml Syringe) 4 mg IV Q4HR PRN PRN Reason: Severe Pain Naloxone HCl (Naloxone 0.4 Mg/Ml 1 Ml Vial) 0.2 mg IV Q2M PRN PRN Reason: Opioid Reversal Pantoprazole Sodium (Pantoprazole 40 Mg Tablet) 40 mg PO AC-BRKFST [facility] Last Admin: 02/02/22 09:38 Dose: 40 mg Documented by: Primidone (Primidone 250 Mg Tab) 250 mg PO BID [facility] Last Admin: 02/02/22 09:39 Dose: 250 mg Documented by: Sertraline HCl (Sertraline 100 Mg Tab) 100 mg PO DAILY [facility] Last Admin: 02/02/22 09:40 Dose: 100 mg Documented by: PHYSICAL EXAMINATION: GENERAL: The patient is alert and oriented x4, Well developed, well nourished. Thin built HEENT: Pupils are round and equally reacting to light. EOMI. does have scleral icterus. No conjunctival pallor. Normocephalic, atraumatic. No pharyngeal eryt johnnie. No thyromegaly. CARDIOVASCULAR: S1 and S2 muffled PULMONARY: diminished breath sounds bilaterally with no wheezing or rhonchi noted. ABDOMEN: soft. Nontender on exam. non-distended, normoactive bowel sounds. No palpable organomegaly. MUSCULOSKELETAL: No joint swelling or deformity. EXTREMITIES: No cyanosis, clubbing, or pedal edema. Right hip nontender on palpation , status post needle aspiration of approximately 200 mL of the right hip cyst noted laterally NEUROLOGICAL: Gross neurological examination did not reveal any focal deficits. Diffuse weakness SKIN: No rashes. Assessment: Severe right hip pain with cystic lesion around the hip joint, rule out bursitis or infection Status post aspiration of fluid on the lateral aspect of the right hip Gait dysfunction hyponatremia Hypertension Rheumatoid arthritis GI prophylaxis DVT prophylaxis Full code Plan: Recommend to continue with current medications and management. Multiple medical consultations including infectious disease, general surgery, orthopedics, and interventional radiology following. No orthopedic or surgical interventions planned at this time . Patient is status post aspiration of the right lateral cystic lesion approximately 200 mL of fluid aspirated and sent for analysis which is currently pending. Patient reports to significant improvement in pain in mobility and requesting to go home today. Patient is working with PT/OT therapy daily in case management also following arranging for home care in the outpatient setting. Encouraged increase activity as tolerated and will continue to monitor closely. Patient is currently off IV antibiotics and WBC within normal limits at 5.28 and patient continues to be afebrile. infectious disease is following closely. Due to multiple complex medical issues, prognosis is guarded. Possible discharge in 24 hours. The impression and plan of care has been dictated by Mine Negrete, nurse practitioner as directed. MD Mark I have performed a history and examination and MDM of this patient, discussed the same with the dictator, and agree with the dictator's assessment and plan as written ,documented as a scribe. Based on total visit time, I have performed more than 50% of the visit. Total number of minutes spent on this visit, 15 minutes. Any additional findings or plans will be noted. Objective - Vital Signs Vital signs: Vital Signs Temp 97.3 F L 02/02/22 08:00 Pulse 89 02/02/22 08:00 Resp 16 02/02/22 08:00 BP 104/68 02/02/22 08:00 Pulse Ox 96 02/02/22 08:00 Intake & Output 03/08/1702/02/22 02/02/22 18:59 06:59 18:59 Intake Total 1028 Balance 1028 Intake: Oral 1028 Other: Voiding Method Toilet # Voids 1 1 - Labs CBC & Chem 7: 02/01/22 06:14 02/01/22 06:14 Labs: Abnormal Lab Results - Last 24 Hours (Table) 02/01/22 02/01/22 Range/Units 06:14 06:14 Hgb 11.6 L (12.0-15.0) g/dL MCH 25.5 L (27.0-32.0) pg MCHC 29.7 L (32.0-37.0) g/dL RDW 19.6 H (11.5-14.5) % Eosinophils # 0 L (0.04-0.35) X 10*3/uL Total Bilirubin <0.15 L (0.30-1.20) mg/dL Total Protein 6.0 L (6.2-8.2) g/dL Albumin 3.6 L (3.8-4.9) g/dL Albumin/Globulin Ratio 1.50 L (1.60-3.17) g/dL Microbiology - Last 24 Hours (Table) 02/01/22 13:00 Body Fluid Culture - Preliminary Aspirate 02/01/22 13:00 Anaerobic Culture - Preliminary Aspirate 01/30/22 13:45 Blood Culture - Preliminary Blood No Growth after 48 hours 01/30/22 13:47 Blood Culture - Preliminary Blood No Growth after 48 hours
--- NOTE | 2022-02-02 22:18 | P.PN ---
Subjective Progress Note Date: 02/01/22 Principal diagnosis: Abnormal CT question of bursitis versus abscess right hip Patient is a 71-year-old female with a past medical history significant for osteoarthritis did have a history of dislocation of the right hip presenting to the hospital with a right groin pain with abnormal CT suspicious for possible cystic lesion on the tip concerning for bursitis versus abscess. On today's evaluation that is 02/01/2022, the patient remains to be afebrile, the patient pain to the right hip and groin area has improved patient denies having any chest pain shortness of breath or cough no abdominal pain no diarrhea Objective - Vital Signs Vital signs: Vital Signs Temp 97.8 F 02/01/22 07:00 Pulse 83 02/01/22 07:00 Resp 18 02/01/22 07:00 BP 110/69 02/01/22 07:00 Pulse Ox 98 02/01/22 07:00 Intake & Output 01/31/22 02/01/22 02/01/22 18:59 06:59 18:59 Intake Total 236 118 Balance 236 118 Intake: Oral 236 118 Other: Voiding Method Toilet # Voids 3 3 # Bowel Movements 1 - Exam GENERAL DESCRIPTION: An elderly female lying in bed in no distress RESPIRATORY SYSTEM: Unlabored breathing , decreased breath sounds at bases HEART: S1 S2 regular rate and rhythm , ABDOMEN: Soft , no tenderness EXTREMITIES: No edema feet - Labs CBC & Chem 7: 02/01/22 06:14 02/01/22 06:14 Labs: Abnormal Lab Results - Last 24 Hours (Table) 02/01/22 02/01/22 Range/Units 06:14 06:14 Hgb 11.6 L (12.0-15.0) g/dL MCH 25.5 L (27.0-32.0) pg MCHC 29.7 L (32.0-37.0) g/dL RDW 19.6 H (11.5-14.5) % Eosinophils # 0 L (0.04-0.35) X 10*3/uL Total Bilirubin <0.15 L (0.30-1.20) mg/dL Total Protein 6.0 L (6.2-8.2) g/dL Albumin 3.6 L (3.8-4.9) g/dL Albumin/Globulin Ratio 1.50 L (1.60-3.17) g/dL Microbiology - Last 24 Hours (Table) 01/30/22 13:45 Blood Culture - Preliminary Blood No Growth after 24 hours 01/30/22 13:47 Blood Culture - Preliminary Blood No Growth after 24 hours Assessment and Plan (1) Abnormal CT scan, pelvis Current Visit: Yes Status: Acute Code(s): R93.5 - ABN FINDINGS ON DX IMAGING OF ABD REGIONS, INC RETROPERITON SNOMED Code(s): 56504712949121221 (2) Adenopathy Current Visit: Yes Status: Acute Code(s): R59.9 - ENLARGED LYMPH NODES, UNSPECIFIED SNOMED Code(s): 47034729 Plan: 1patient presented to hospital with pain to the right groin area in this patient who do have a history of recurrent dislocation of the right hip status post reduction with recent injection about 3 days ago noted to have abnormal CT of the pelvis which is showing a cystic masses with concern for possible bursitis patient is clinically not behaving as an abscess with no fever or elevated white count. 2ortho has evaluated the patient and did not recommending aspiration 3Patient did have normal inflammatory markers and is currently being monitor closely off antibiotic therapy Time with Patient: Less than 30
--- NOTE | 2022-02-02 22:20 | P.PN ---
Subjective Progress Note Date: 02/02/22 Principal diagnosis: Abnormal CT question of bursitis versus abscess right hip Patient is a 71-year-old female with a past medical history significant for osteoarthritis did have a history of dislocation of the right hip presenting to the hospital with a right groin pain with abnormal CT suspicious for possible cystic lesion on the tip concerning for bursitis versus abscess. On today's evaluation that is 02/02/2022, the patient denies fever or any chills, the patient denies pain to the right hip and groin area , patient denies having any chest pain shortness of breath or cough no abdominal pain no diarrhea Objective - Vital Signs Vital signs: Vital Signs Temp 97.8 F 02/02/22 14:00 Pulse 94 02/02/22 14:00 Resp 18 02/02/22 14:00 BP 121/74 02/02/22 14:00 Pulse Ox 99 02/02/22 14:00 Intake & Output 02/02/22 02/02/22 02/03/22 06:59 18:59 06:59 Intake Total 1178 Balance 1178 Intake: Oral 1178 Other: Voiding Method Toilet # Voids 1 2 - Exam GENERAL DESCRIPTION: An elderly female lying in bed in no distress RESPIRATORY SYSTEM: Unlabored breathing , decreased breath sounds at bases HEART: S1 S2 regular rate and rhythm , ABDOMEN: Soft , no tenderness EXTREMITIES: No edema feet - Labs CBC & Chem 7: 02/01/22 06:14 02/01/22 06:14 Labs: Microbiology - Last 24 Hours (Table) 02/01/22 13:00 Gram Stain - Preliminary Aspirate Body Fluid Culture - Preliminary 01/30/22 13:45 Blood Culture - Preliminary Blood No Growth after 72 hours 01/30/22 13:47 Blood Culture - Preliminary Blood No Growth after 72 hours 02/01/22 13:00 Anaerobic Culture - Preliminary Aspirate Assessment and Plan (1) Abnormal CT scan, pelvis Current Visit: Yes Status: Acute Code(s): R93.5 - ABN FINDINGS ON DX IMAGING OF ABD REGIONS, INC RETROPERITON SNOMED Code(s): 68422944380348475 (2) Adenopathy Current Visit: Yes Status: Acute Code(s): R59.9 - ENLARGED LYMPH NODES, UNSPECIFIED SNOMED Code(s): 10946620 Plan: 1patient presented to hospital with pain to the right groin area in this patient who do have a history of recurrent dislocation of the right hip status post reduction with recent injection about 3 days ago noted to have abnormal CT of the pelvis which is showing a cystic masses with concern for possible bursitis patient is clinically not behaving as an abscess with no fever or elevated white count. 2ortho has evaluated the patient and did not recommending aspiration of the right hip 3Patient did have normal inflammatory markers and is currently doing well off antibiotic therapy, hence recommending no antibiotic on discharge Time with Patient: Less than 30
[2022-02-02 23:18] VITALS: RESP 16
[2022-02-03 07:50] LABS: Anisocytosis Slight; Basophils % (A) 1 %; Eosinophils % (A) 0 %; HCT 40.7 % (34.0-46.0); HGB 12.3 gm/dL (11.4-16.0); Hypochromasia Moderate; Lymphocytes # (A) 0.9 k/uL (1.0-4.8); Lymphocytes % (A) 19 %; MCH 26.6 pg (25.0-35.0); MCHC 30.3 g/dL (31.0-37.0); Mean Platelet Volume 7.4; Monocytes # (A) 0.3 k/uL (0-1.0); Monocytes % (A) 6 %; Neutrophils # (A) 3.2 k/uL (1.3-7.7); Neutrophils % (A) 71 %; Platelet Count 244 k/uL (150-450); RBC 4.63 m/uL (3.80-5.40); RDW 17.6 % (11.5-15.5); WBC 4.6 k/uL (3.8-10.6)
[2022-02-03 08:07] LABS: African American GFR (CKD) >90 (>60 ml/min/1.73 sqM); Anion Gap 3 mmol/L; Blood Urea Nitrogen 16 mg/dL (7-17); Calcium 8.6 mg/dL (8.4-10.2); Carbon Dioxide 28 mmol/L (22-30); Chloride 105 mmol/L (98-107); Glucose 86 mg/dL (74-99); Non-African American GFR(CKD) >90 (>60 ml/min/1.73 sqM); Sodium 136 mmol/L (137-145)
[2022-02-03] MEDS: HEPARIN SODIUM,PORCINE/PF 5,000 UNIT/0.5 ML SYRINGE SQ SCH (09:30)
[2022-02-03] MEDS: lamoTRIgine 25 MG TAB PO SCH (09:30)
[2022-02-03] MEDS: SERTRALINE 100 MG TAB PO SCH (09:31)
[2022-02-03] MEDS: PANTOPRAZOLE 40 MG TABLET PO SCH (09:31)
[2022-02-03] MEDS: FUROSEMIDE 20 MG TAB PO SCH (09:31)
[2022-02-03] MEDS: PRIMIDONE 250 MG TAB PO SCH (09:31)
[2022-02-03] MEDS: lamoTRIgine 100 MG TAB PO SCH (09:31)
--- NOTE | 2022-02-03 11:39 | P.PN ---
Subjective Progress Note Date: 02/02/22 Principal diagnosis: Recent right periprosthetic hip dislocation, status post relocation, other medical comorbidities patient evaluated at bedside, she is resting comfortably. It has continued to improve. Interventional radiology did aspirate fluid from the soft tissue near the right hip yesterday. Objective - Vital Signs Vital signs: Vital Signs Temp 97.3 F L 02/02/22 08:00 Pulse 89 02/02/22 08:00 Resp 16 02/02/22 08:00 BP 104/68 02/02/22 08:00 Pulse Ox 96 02/02/22 08:00 Intake & Output 02/01/22 02/02/22 02/02/22 18:59 06:59 18:59 Intake Total 1028 Balance 1028 Intake: Oral 1028 Other: Voiding Method Toilet # Voids 1 1 - Exam Right lower extremity: No open lesions or sores are visualized throughout the extremity, there is well- healed incision on the posterior/lateral aspect of the right lower extremity No tenderness with palpation throughout the right lower extremity, there is some generalized swelling present in the greater trochanteric region. Logroll maneuver of the extremity reproduces no pain, she is able to straight leg raise, this does reproduce some discomfort in the groin. Taking the patient to passive motion is to include minimal external and internal rotation reproduces no obvious instability. Knee flexion, knee extension, plantar flexion, dorsiflexion, EHL, FHL is intact Calf is soft, no tenderness with palpation. Anterior posterior compartments of the upper aspect of the extremity are soft and compressible Sensory exam to light touch throughout the extremity is intact, dorsalis pedis pulses 2+ - Labs CBC & Chem 7: 02/03/22 06:37 02/03/22 06:37 Labs: Abnormal Lab Results - Last 24 Hours (Table) 02/01/22 Range/Units 06:14 Total Bilirubin <0.15 L (0.30-1.20) mg/dL Total Protein 6.0 L (6.2-8.2) g/dL Albumin 3.6 L (3.8-4.9) g/dL Albumin/Globulin Ratio 1.50 L (1.60-3.17) g/dL Microbiology - Last 24 Hours (Table) 02/01/22 13:00 Gram Stain - Preliminary Aspirate Body Fluid Culture - Preliminary 02/01/22 13:00 Anaerobic Culture - Preliminary Aspirate 01/30/22 13:45 Blood Culture - Preliminary Blood No Growth after 48 hours 01/30/22 13:47 Blood Culture - Preliminary Blood No Growth after 48 hours Assessment and Plan Assessment: History of right total hip arthroplasty Recent periprosthetic hip dislocation with relocation Cystic formation right hip, likely chronic hip instability Other medical specialty recommendations Plan: Office visit was scheduled for Dr. Turner out of [facility] on 02/10/2022, paperwork was placed in her chart. She was notified to contact office with any questions Recommend weightbear as tolerated with walker Posterior hip precautions Please contact our practice with any questions
--- NOTE | 2022-02-03 11:42 | P.PN ---
Subjective Progress Note Date: 02/03/22 CHIEF COMPLAINT: Right groin pain HISTORY OF PRESENT ILLNESS: Patient denies any right groin pain or hip pain. She has been up and ambulating without pain. IR did a fine-needle aspiration of fluid from the right thigh 200 mL of serous fluid. Culture results are pending. Patient tolerating diet. Patient afebrile. WBC 4.6 Patient seen and examined with Dr. Copeland PHYSICAL EXAM: VITAL SIGNS: Reviewed. GENERAL: Well-developed in no acute distress. HEENT: No sclera icterus. Extraocular movements grossly intact. Moist buccal mucosa. Head is atraumatic, normocephalic. ABDOMEN: Soft. Nondistended. Nontender. NEUROLOGIC: Alert and oriented. Cranial nerves II through XII grossly intact. ASSESSMENT: 1. Right groin pain resolved 2. Multiple cystic structures along the right hip joint and right upper thigh noted on computed tomography scan possibly due to trauma from patient's recur rent dislocation of the hip. Status post aspiration of fluid 3. Recent right hip reduction 4. Prior history of right total hip arthroplasty PLAN: -Patient can be discharged from surgical standpoint and follow up with aspiration culture results outpatient with her PCP -No surgical intervention planned -Follow up with orthopedics outpatient. Patient has scheduled orthopedic appointment at [facility] -Surgical service will sign off. Please call with any questions or concerns. Physician Asic Engineer note has been reviewed by physician. Signing provider agrees with the documented findings, assessment, and plan of care. Objective - Vital Signs Vital signs: Vital Signs Temp 97.6 F 02/03/22 08:00 Pulse 83 02/03/22 08:00 Resp 16 02/03/22 08:00 BP 101/66 02/03/22 08:00 Pulse Ox 96 02/03/22 08:00 Intake & Output 02/02/22 02/03/22 02/03/22 18:59 06:59 18:59 Intake Total 1178 118 Balance 1178 118 Intake: Oral 1178 118 Other: # Voids 2 - Labs CBC & Chem 7: 02/03/22 06:37 02/03/22 06:37 Labs: Abnormal Lab Results - Last 24 Hours (Table) 02/03/22 02/03/22 Range/Units 06:37 06:37 MCHC 30.3 L (31.0-37.0) g/dL RDW 17.6 H (11.5-15.5) % Lymphocytes # 0.9 L (1.0-4.8) k/uL Sodium 136 L (137-145) mmol/L Microbiology - Last 24 Hours (Table) 02/01/22 13:00 Gram Stain - Preliminary Aspirate Body Fluid Culture - Preliminary 01/30/22 13:45 Blood Culture - Preliminary Blood No Growth after 72 hours 01/30/22 13:47 Blood Culture - Preliminary Blood No Growth after 72 hours
[2022-02-03 15:14] VITALS: BP 113/73; PULSE 114; TEMP 98.3
--- NOTE | 2022-02-03 23:03 | P.DS ---
Providers Date of admission: 02/01/22 13:48 Expected date of discharge: 02/03/22 Attending physician: Dalton Kendrick Consults: 01/30/22 13:09 Consult Physician Routine Consulting Provider: Dmitriy Burks Consult Reason/Comments: medical care Do you want consulting provider notified?: Yes 01/30/22 15:24 Consult Physician Routine Consulting Provider: Brice Castillo Consult Reason/Comments: groin pain, multiple cystic structures at right hip joint Do you want consulting provider notified?: Yes 01/30/22 15:36 Consult Physician Routine Consulting Provider: Mini Lainez Consult Reason/Comments: Cystic structures at right hip joint, possible infection Do you want consulting provider notified?: Yes 01/31/22 13:14 Consult Physician Routine Consulting Provider: Ronni Copeland Consult Reason/Comments: Lymphadenopathy Do you want consulting provider notified?: Already Contacted Primary care physician: Sawyer Lance [facility] Course: Final diagnosis Severe right hip pain with cystic lesion around the hip joint, ruled out bursitis or infection Status post aspiration of fluid on the lateral aspect of the right hip Gait dysfunction hyponatremia Hypertension Rheumatoid arthritis GI prophylaxis DVT prophylaxis Full code Discharge disposition Patient is being discharged in a stable condition with guarded prognosis to home. Patient will follow-up with Dr. Lance in the outpatient setting upon discharge. Patient is to follow up with DR. Castillo as scheduled. Total time taken is greater than 35 minutes. Hospital course This is a 71-year-old female who was recently admitted with right hip pain and swelling and has had multiple dislocations of this hip with reduction. Patient developed multiple cystic lesions of the right hip and was concern for bursitis or infection. Patient was initially started on IV antibiotics with ID following and has had no fever, no wbc, and now no pain. Orthopedics evaluated the patient recommending following up outpatient for possible intervention with ortho from [place]. Patient does have an appointment with Dr. castillo. Patient was seen by IR and one of the cysts were drained of approx 200ml of fluid and culture remain negative thus far. Patient is adamant about going home. Currently no reports of chest pain, shortness of breath, or palpitations. Patient is afebrile. No reports of nausea or vomiting and patient is tolerating diet. Patient will be discharge home today. Guarded prognosis. On exam vital signs are stable. Cardio S1, S2 are muffled. Respiratory system shows diminished breath sounds at the bases with no wheezing or rhonchi noted. Abdomen is soft and nontender. right hip is non-tender on palpation. Nervous system shows no focal deficits. Please refer to medication reconciliation sheet for a list of medications. The impression and plan of care has been dictated by Mine Negrete, nurse practitioner as directed. MD Mark I have performed a history and examination and MDM of this patient, discussed the same with the dictator, and agree with the dictator's assessment and plan as written ,documented as a scribe. Based on total visit time, I have performed more than 50% of the visit. Patient Condition at Discharge: Stable Plan - Discharge Summary New Discharge Prescriptions: Continue Primidone [Mysoline] 250 mg PO BID Omeprazole 40 mg PO DAILY Sertraline [Zoloft] 100 mg PO DAILY Furosemide [Lasix] 20 mg PO DAILY lamoTRIgine [LaMICtal] 100 mg PO BID 30 Days #60 tab lamoTRIgine [LaMICtal] 75 mg PO BID 30 Days #60 tab Discharge Medication List Primidone [Mysoline] 250 mg PO BID 02/18/19 [History] Omeprazole 40 mg PO DAILY 10/20/19 [History] Furosemide [Lasix] 20 mg PO DAILY 01/27/22 [History] Sertraline [Zoloft] 100 mg PO DAILY 01/27/22 [History] lamoTRIgine [LaMICtal] 75 mg PO BID 30 Days #60 tab 01/29/22 [Rx] lamoTRIgine [LaMICtal] 100 mg PO BID 30 Days #60 tab 01/29/22 [Rx] Follow up Appointment(s)/Referral(s): [facility], [NON-STAFF] - 1-2 Days Brice Castillo DO [Doctor of Osteopathic Medicine] - 1 Week Sawyer Lance DO [Primary Care Provider] - 02/08/22 1:30 pm Patient Instructions/Handouts: Osteoarthritis (DC), Revision Total Joint Arthroplasty (DC) Activity/Diet/Wound Care/Special Instructions: Activity Limited until follow-up Follow-up with primary care provider on discharge follow-up with orthopedics as discussed and scheduled with Linda Continue taking medications as prescribed Discharge Disposition: HOME WITH HOME HEALTH SERVICES
== END 2022-02-03 16:10 | disposition home health service (06) | DRG 556 ==
LOC: EC 09:04 → 6NMEDSUR 13:09 → OBSVTOIN 02-01 13:48
PROVIDERS: ADMIT Hospitalist; ATTEND Hospitalist
PROC: 0J9L3ZX Drainage of Right Upper Leg Subcutaneous Tissue and Fascia, Percutaneous Approach, Diagnostic (ICD-10-PCS; principal; 2022-02-01)
DX: M79.89 Other specified soft tissue disorders (principal); T84.020A Dislocation of internal right hip prosthesis, initial encounter; E87.1 Hypo-osmolality and hyponatremia; R59.0 Localized enlarged lymph nodes; F32.A Depression, unspecified; F41.9 Anxiety disorder, unspecified; I10 Essential (primary) hypertension; M06.9 Rheumatoid arthritis, unspecified; G40.909 Epilepsy, unspecified, not intractable, without status epilepticus; K58.9 Irritable bowel syndrome, unspecified; M41.9 Scoliosis, unspecified; Z96.652 Presence of left artificial knee joint; M25.351 Other instability, right hip; R26.9 Unspecified abnormalities of gait and mobility; Y79.2 Prosthetic and other implants, materials and accessory orthopedic devices associated with adverse incidents; D64.9 Anemia, unspecified; Z79.899 Other long term (current) drug therapy; Z82.0 Family history of epilepsy and other diseases of the nervous system; Z82.49 Family history of ischemic heart disease and other diseases of the circulatory system; Z83.3 Family history of diabetes mellitus
CPT/HCPCS: 10030; 36415; 72170; 72193; 76942; 80048; 80053; 81003; 83605; 84145; 84550; 85025; 85610; 85652; 85730; 86038; 86140; 86431; 87040; 87070; 87075; 87205; 88108; 88305; 89050; 96365; 96366; 96372; 96375; 99285

== ENCOUNTER 2022-02-17 13:20 | Inpatient (IN) | payer MEDICARE, OTHER ==
[2022-02-17] MEDS ORDERED: SODIUM CHLORIDE 0.9% 1,000 ML IV STA (14:07)
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
[2022-02-17 14:41] LABS: Calcium 7.8 mg/dL (8.4-10.2)
[2022-02-17 14:42] LABS: Potassium 2.7 mmol/L (3.5-5.1)
[2022-02-17] MEDS ORDERED: POTASSIUM CHLORIDE 40 MEQ in WATER FOR INJECTION 1 100ML.BAG IVPB STA (14:43)
[2022-02-17 14:44] LABS: Anisocytosis Slight; Basophils % (A) 0 %; Eosinophils # (A) 0.1 k/uL (0-0.7); Eosinophils % (A) 1 %; HGB 12.2 gm/dL (11.4-16.0); Hypochromasia Slight; Lymphocytes # (A) 0.2 k/uL (1.0-4.8); Lymphocytes % (A) 1 %; MCHC 31.4 g/dL (31.0-37.0); MCV 85.8 fL (80.0-100.0); Mean Platelet Volume 7.6; Monocytes # (A) 0.5 k/uL (0-1.0); Monocytes % (A) 3 %; Neutrophils # (A) 15.1 k/uL (1.3-7.7); Neutrophils % (A) 94 %; Platelet Count 298 k/uL (150-450); RBC 4.54 m/uL (3.80-5.40); RDW 18.2 % (11.5-15.5); WBC 16.1 k/uL (3.8-10.6)
[2022-02-17 14:47] LABS: Appearance,Urine Clear (Clear); Bilirubin,Urine Negative (Negative); Blood,Urine Moderate (Negative); Color,Urine Yellow; Glucose,Urine (UA) Negative (Negative); Ketones,Urine Negative (Negative); Leukocyte Esterase,Urine Negative (Negative); Nitrite,Urine Negative (Negative); PH, Urine 5.5 (5.0-8.0); Protein,Urine 1+ (Negative); RBC,Urine 14 /hpf (0-5); Specific Gravity,Urine 1.011 (1.001-1.035); Squamous Epithelial Cell,Urine <1 /hpf (0-4); Urobilinogen,Urine <2.0 mg/dL (<2.0); WBC,Urine 6 /hpf (0-5)
[2022-02-17] MEDS: POTASSIUM CHLORIDE 20 MEQ in WATER FOR INJECTION 1 100ML.BAG IVPB SCH ×2 (14:58→17:00)
--- NOTE | 2022-02-17 15:00 | XR ---
EXAMINATION TYPE: XR knee 4V RT DATE OF EXAM: 02/17/2022 CLINICAL HISTORY: Fall injury with pain TECHNIQUE: Three views of the right knee are obtained. Fourth sunrise view was acquired. COMPARISON: Prior right knee x-ray May 02, 2015. FINDINGS: [place] osseous structures are demineralized. There is no acute fracture/dislocation evident in right knee. Metallic hardware from total right knee arthroplasty redemonstrated. Large intramedul jefry sarah with distal transverse fixating screw is partially imaged similar to prior through healed fr acture distal metadiaphysis. Patellar articulation satisfactory on the sunrise view. There is moderat e suprapatellar joint effusion now thought present on lateral view. IMPRESSION: There is no acute fracture or dislocation in the right knee.
--- NOTE | 2022-02-17 15:02 | XR ---
EXAMINATION TYPE: XR chest 1V portable DATE OF EXAM: 02/17/2022 COMPARISON: Chest x-ray May 15, 2021 HISTORY: Frequent falls with pain. TECHNIQUE: Single frontal view of the chest is obtained. FINDINGS: Osseous structures are demineralized. Elevated Right humeral head suggests chronic rotator cuff tear. Multiple bilateral rib fractures are redemonstrated. Elevated right hemidiaphragm again se en. Chronic parenchymal changes with new right basilar opacity. Cardiac silhouette size is stable and upper limits of normal with retrocardiac opacity consistent with moderate size hiatal hernia redemon strated. IMPRESSION: Chronic changes with new right lateral basilar mass like opacity favoring consolidation and/or atelectasis. Progress study advised.
--- NOTE | 2022-02-17 15:08 | XR ---
EXAMINATION TYPE: XR Hip Bilateral and AP pelvis DATE OF EXAM: 02/17/2022 COMPARISON: CT pelvis and pelvic x-ray January 30, 2022 HISTORY: Fall injury with pain. TECHNIQUE: A single AP view of the pelvis is obtained. Two views of the bilateral hips are obtained. FINDINGS: Osseous structures are demineralized which is noted to lower radiographic sensitivity. Old healed fracture bilateral inferior pelvic rami redemonstrated. Sacroiliac joints are symmetric and wi thin normal limits. Numerous surgical sutures overlie the right lower quadrant and upper pelvis simil ar to prior. Pubic symphysis is intact. Multilevel spurring and disc space narrowing in the mid to lo wer lumbar spine is redemonstrated. Occasional scattered pelvic phleboliths. Persistent curvilinear d ensity just above pubic symphysis correlates with anterior density on CT of uncertain etiology. Images of right femur show metallic hardware stable and satisfactory in position. No periprosthetic f racture. Images of left hip show no acute displaced fracture. Moderate to severe axial joint space lo ss is redemonstrated. IMPRESSION: There is no acute fracture or dislocation in the pelvis or either hip.
--- NOTE | 2022-02-17 15:08 | CT ---
EXAMINATION TYPE: CT brain cspine wo con DATE OF EXAM: 02/17/2022 COMPARISON: 01/29/2020 to HISTORY: Fall,pain CT DLP: 2766.4 mGycm Automated exposure control for dose reduction was used. TECHNIQUE: CT scan of the head and cervical spine are performed without contrast. FINDINGS: Artifact limits assessment of the posterior fossa. Moderate generalized degenerative change and areas of low attenuation in the white matter most typica l remote ischemia. Scattered vascular calcifications are seen throughout the brain. There is artifact from a density within the left parietal temporal calvarium which appears to be present on the prior exam and may be metallic and embedded within the calvarium correlate clinically. Stable from prior ex am. Also stable from exam of 2014. No acute hemorrhage or mass effect. No midline shift. Orbits symme tric.. Assessment cervical spine is limited due to positioning. There is an exaggerated lordosis of the cerv ical spine. Grossly odontoid is intact and there are severe degenerative disc disease at virtually al l levels with multilevel facet arthropathy, foraminal encroachment and canal stenosis suspected. Ther e is be a grade 1 anterolisthesis of C7 relative to T1. Axial images due to positioning or severely l imited. No definite acute fracture. Given limitation exam at clinical suspicion is high correlate wit h MRI. Multiple rib cage deformities are seen. Assessment spinal canal nondiagnostic due to artifact and technique. Atherosclerotic changes of the carotid arteries noted. There is a scoliosis of the spi ne. There is right-sided consolidation within the lung which is only partially included in the field- of-view. IMPRESSION: 1. There is no acute fracture or dislocation evident in the cervical spine. Severe multilevel degener ative disc disease with grade 1 anterolisthesis C7 relative to T1. Multilevel facet arthropathy, maria luisa l stenosis and foraminal encroachment suspected recommend follow-up MRI. 2. No acute intracranial hemorrhage, mass effect, or midline shift is seen. Degenerative and nonspeci fic white matter changes most typical remote ischemia. 3. There is increased consolidation in the right lung recommend chest x-ray.
[2022-02-17] MEDS ORDERED: fentaNYL (PF) 50 MCG/ML 2 ML AMP IV STA (15:45)
[2022-02-17] MEDS ORDERED: NALOXONE 0.4 MG/ML 1 ML VIAL IV PRN (19:26)
[2022-02-17] MEDS ORDERED: ONDANSETRON 4 MG/2 ML VIAL IVP PRN (19:26)
[2022-02-17] MEDS ORDERED: ACETAMINOPHEN TAB 325 MG TAB PO PRN (19:26)
[2022-02-17] MEDS: IBUPROFEN 600 MG TAB PO PRN (19:46)
[2022-02-17] MEDS: SODIUM CHLORIDE 0.9% 1,000 ML IV SCH (19:48)
[2022-02-17] MEDS ORDERED: Potassium Replacement Protocol 1 EACH MISC MISCELLANE PRN (21:09)
[2022-02-17] MEDS: lamoTRIgine 100 MG TAB PO SCH (22:48)
[2022-02-17] MEDS: lamoTRIgine 25 MG TAB PO SCH (22:48)
[2022-02-17] MEDS: PRIMIDONE 250 MG TAB PO SCH (22:48)
[2022-02-18] MEDS: HEPARIN SODIUM,PORCINE/PF 5,000 UNIT/0.5 ML SYRINGE SQ SCH ×4 (00:04→23:38)
[2022-02-18] MEDS: POTASSIUM CHLORIDE ER 20 MEQ TAB.ER PO SCH ×6 (00:04→16:04)
[2022-02-18] MEDS: IBUPROFEN 600 MG TAB PO PRN ×3 (04:05→20:14)
[2022-02-18] MEDS: PANTOPRAZOLE 40 MG TABLET PO SCH (07:56)
[2022-02-18] MEDS: lamoTRIgine 25 MG TAB PO SCH ×2 (07:56→20:14)
[2022-02-18] MEDS: FUROSEMIDE 20 MG TAB PO SCH (07:56)
[2022-02-18] MEDS: PRIMIDONE 250 MG TAB PO SCH ×2 (07:56→20:15)
[2022-02-18] MEDS: lamoTRIgine 100 MG TAB PO SCH ×2 (07:56→20:14)
[2022-02-18] MEDS: SERTRALINE 100 MG TAB PO SCH (07:56)
[2022-02-18] MEDS: SODIUM CHLORIDE 0.9% 1,000 ML IV SCH (09:55)
[2022-02-18] MEDS: Acetaminophen-Codeine 300-30mg TAB PO PRN ×2 (14:16→16:05)
--- NOTE | 2022-02-18 15:16 | HP ---
HISTORY AND PHYSICAL DATE OF SERVICE: 02/18/2022 CHIEF COMPLAINTS: Fall and pain of both knees and right knee more than the left. HISTORY OF PRESENT ILLNESS: This 71-year-old woman with a past medical history of multiple medical problems including: Hypertension, DJD, history of seizure disorder, was being followed by Dr. Lance in the outpatient setting. Patient apparently had a fall about 2 nights ago and the patient had significant pain and swelling of the right knee. The patient taken to [facility] and was admitted for further evaluation and treatment. Apparently bedbugs were also found per staff. The evaluation including the knee x-ray showed no acute fracture or dislocation of the right knee. There is no history of fever, rigors, chills. PAST MEDICAL HISTORY: History of DJD, history of hypertension, rheumatoid arthritis, seizure. HOME MEDICATIONS: Reviewed and include: Lamictal and Zoloft. Doses and other medications reviewed. ALLERGIES: None. FAMILY HISTORY: No history of heart disease but Parkinson's in mother. SOCIAL HISTORY: No history of smoking. Daily alcohol. REVIEW OF SYSTEMS: A 14-point review is negative except as mentioned earlier. PHYSICAL EXAMINATION: Pulse 58, blood pressure 180/60, respiration 20, temperature 97.2. HEENT: Conjunctivae normal. NECK: No JVD. CARDIOVASCULAR: S1, S2 muffled. RESPIRATION: Breath sounds diminished in the bases. No rhonchi. No crackles. ABDOMEN: Soft, nontender. LEGS: Significant pain and swelling of the both knees, right more the left with cellulitis and some effusions/hematoma on the right knee present, anterior part. Some skin breakdown also noted. NERVOUS SYSTEM: No focal deficits. SKIN as mentioned. JOINTS: No active deforming arthropathy. LABS: Sodium 132, potassium 2.6. Other labs are noted. ASSESSMENT: 1. Fall and right knee trauma with possible cellulitis and effusion or hematoma. 2. Severe hypokalemia. 3. Severe hyponatremia. 4. Increased WBC. 5. Gastroesophageal reflux disease. 6. Hypertension. 7. History of degenerative joint disease. 8. Gait dysfunction. 9. History of seizure disorder. RECOMMENDATIONS AND DISCUSSION: This is a 71-year-old woman who presented with multiple complex medical issues, we will monitor the patient closely. I would recommend to initiate broad-spectrum IV antibiotics, obtain cultures and consult Infectious Disease and Orthopedic surgery. Otherwise PT/OT evaluation, possible ECF rehab. Resume the rest of the medications. Overall prognosis guarded because of multiple complex medical issues. Further recommendations to follow. MMODL / IJN: [id number] /
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
[2022-02-19] MEDS: SODIUM CHLORIDE 0.9% 1,000 ML IV SCH ×3 (00:15→23:53)
[2022-02-19] MEDS: IBUPROFEN 600 MG TAB PO PRN ×2 (04:42→15:57)
[2022-02-19] MEDS: PANTOPRAZOLE 40 MG TABLET PO SCH (07:25)
[2022-02-19] MEDS: SERTRALINE 100 MG TAB PO SCH (07:25)
[2022-02-19] MEDS: lamoTRIgine 100 MG TAB PO SCH ×2 (07:25→20:03)
[2022-02-19] MEDS: FUROSEMIDE 20 MG TAB PO SCH (07:26)
[2022-02-19] MEDS: lamoTRIgine 25 MG TAB PO SCH ×2 (07:26→20:03)
[2022-02-19] MEDS: PRIMIDONE 250 MG TAB PO SCH ×2 (07:27→20:04)
[2022-02-19] MEDS: HEPARIN SODIUM,PORCINE/PF 5,000 UNIT/0.5 ML SYRINGE SQ SCH ×3 (07:27→23:53)
[2022-02-19] MEDS ORDERED: DRY MOUTH SPRAY 44.3 SPRAY/44.3 ML SPRAY MUCOUS MEM PRN (11:24)
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
--- NOTE | 2022-02-19 12:22 | P.PN ---
Subjective Progress Note Date: 02/19/22 Principal diagnosis: Right knee pain, cellulitis Patient is seen at bedside this morning with Dr. Whitten. We are following her for right knee pain and cellulitis. She states her pain is improved some. She denies any new complaints. She denies numbness, tingling or calf pain. Review of systems is negative for fever, chills, chest pain, shortness of breath or other Objective - Vital Signs Vital signs: Vital Signs Temp 97.9 F 02/19/22 04:14 Pulse 111 H 02/19/22 08:00 Resp 20 02/19/22 04:14 BP 119/67 02/19/22 04:14 Pulse Ox 92 L 02/19/22 04:14 Intake & Output 02/18/22 02/19/22 02/19/22 18:59 06:59 18:59 Intake Total 1730 Balance 1730 Intake: Intake, IV Titration 950 Amount Sodium Chloride 0.9% 1, 900 000 ml @ 75 mls/hr IV . [id number] Rx#:[id number] ceFAZolin 2 gm In Sodium 50 Chloride 0.9% 50 ml @ 100 mls/hr IVPB Q8HR [facility] Rx# :[id number] Oral 780 Other: Voiding Method Bedside Commode # Voids 2 1 # Bowel Movements 1 - Exam Inspection shows a small dime sized healing wound at the anterior knee. There is no change or improved. There is no diffuse erythema. There is no effusion. The joint is not hot to touch. there is no excessive pain with ROM of the knee. The knee appears ligamentously stable. Neurovascular status is intact throughout the lower extremity with motor and sensation fully intact. Calf is soft and nontender. 2+ dorsalis pedis pulse and less than 2 second cap refill is present.. - Constitutional General appearance: Present: no acute distress - Labs CBC & Chem 7: 02/20/22 05:28 02/20/22 05:28 Labs: Abnormal Lab Results - Last 24 Hours (Table) 02/18/22 Range/Units 13:00 Potassium 3.4 L (3.5-5.1) mmol/L Microbiology - Last 24 Hours (Table) 02/17/22 18:05 Blood Culture Gram Stain - Preliminary Blood Blood Culture - Preliminary Staphylococcus aureus 02/17/22 18:05 Blood Culture - Final Blood Assessment and Plan (1) Cellulitis of right knee Narrative/Plan: Continue to monitor along with continue IV antibiotics, wound care, rest, pain management, and medical management. Will continue to follow Current Visit: Yes Status: Acute Priority: Medium Code(s): L03.115 - CELLULITIS OF RIGHT LOWER LIMB SNOMED Code(s): 42762710561301284 Plan: Pt seen and examined. The redness and irritation seems isolated to her prepate llar bursa area. She has minimal pain with movement of the knee joint itself. Continue ABX, no restrictions. Time with Patient: Less than 30
--- NOTE | 2022-02-19 13:31 | PN ---
PROGRESS NOTE DATE OF SERVICE: 02/19/2022 This 71-year-old woman who was admitted with a fall and significant right knee pain and swelling also had features of sepsis. Staph aureus was grown from the culture. Final ID is pending. Infectious Disease is following the patient as well as Orthopedic Surgery. Patient complains of severe pain and swelling of the right knee joint. Past medical reviewed. REVIEW OF SYSTEMS: CARDIOVASCULAR SYSTEM: No angina. RESPIRATION: As mentioned earlier. GI: As mentioned earlier. MUSCULOSKELETAL: As mentioned earlier. CURRENT MEDICATIONS: Reviewed. They include Tylenol No.3, cefazolin, Lasix and other medications. PHYSICAL EXAMINATION: Pulse is 111, blood pressure 199/60, respiration 20. CHEST: Clear to auscultation. CARDIOVASCULAR: S1, S2 muffled. ABDOMEN: Soft, nontender. EXAMINATION OF RIGHT LEG: Significant swelling and pain and tenderness and limitation of movement present. LABS: Reviewed. Potassium 4.5. Other labs are not available. ASSESSMENT: 1. Fall and right knee swelling with possible cellulitis and effusion or hematoma or abscess with sepsis with Staphylococcus aureus. 2. Severe hypokalemia. 3. Severe hyponatremia. 4. Increased white count. 5. Gastroesophageal reflux disease. 6. Hypertension. 7. History of degenerative joint disease. 8. Gait dysfunction. 9. History of seizure disorder. RECOMMENDATIONS AND DISCUSSION: I recommend to continue current medications, continue with the monitoring, symptomatic treatment. Continue with broad-spectrum IV antibiotics. I would also recommend ultrasound of the right knee and continue with orthopedic evaluation for any interventions such as joint aspiration and further studies. Otherwise, closely follow with Infectious Disease. Repeat labs are ordered. As mentioned earlier, the current labs are not available. Further recommendations to follow. MMODL / IJN: [id number] /
--- NOTE | 2022-02-19 14:10 | US ---
EXAMINATION TYPE: US extremity nonvasc mass RT DATE OF EXAM: 02/19/2022 COMPARISON: NONE CLINICAL HISTORY: swollen painful knee joint. Right knee swollen wound following fall 1 week ago No fluid collection seen IMPRESSION: 1. No obvious joint effusion. 2. Consider MRI for additional evaluation of soft tissues
[2022-02-19] MEDS: Acetaminophen-Codeine 300-30mg TAB PO PRN ×2 (20:06→23:24)
--- NOTE | 2022-02-19 23:23 | P.PN ---
Subjective Progress Note Date: 02/19/22 Principal diagnosis: Right knee cellulitis and MSSA bacteremia Patient is a 71-year-old female presenting to the hospital with right knee pain in this patient who did have a x-ray showing moderate suprapatellar joint fluid and did have MSSA bacteremia concerning for possible septic bursitis. On today's evaluation that is 02/19/2022, the patient denies having any fever or any chills, the patient pain to the right knee is currently controlled, denies having any chest pain shortness of breath or cough no abdominal pain no diarrhea Objective - Vital Signs Vital signs: Vital Signs Temp 98.1 F 02/19/22 13:03 Pulse 103 H 02/19/22 13:03 Resp 17 02/19/22 13:03 BP 108/61 02/19/22 13:03 Pulse Ox 99 02/19/22 13:03 Intake & Output 02/18/22 02/19/22 02/19/22 18:59 06:59 18:59 Intake Total 1730 Balance 1730 Intake: Intake, IV Titration 950 Amount Sodium Chloride 0.9% 1, 900 000 ml @ 75 mls/hr IV . [id number] [facility] Rx#:[id number] ceFAZolin 2 gm In Sodium 50 Chloride 0.9% 50 ml @ 100 mls/hr IVPB Q8HR [facility] Rx# :[id number] Oral 780 Other: Voiding Method Bedside Commode # Voids 2 1 # Bowel Movements 1 - Exam GENERAL DESCRIPTION: An elderly female lying in bed in no distress RESPIRATORY SYSTEM: Unlabored breathing , decreased breath sounds at bases HEART: S1 S2 regular rate and rhythm , ABDOMEN: Soft , no tenderness EXTREMITIES: No edema feet - Labs CBC & Chem 7: 02/17/22 14:19 02/18/22 18:11 Labs: Abnormal Lab Results - Last 24 Hours (Table) 02/19/22 02/19/22 Range/Units 07:33 07:33 ESR 88 H (0-30) mm/Hr C-Reactive Protein 27.80 H (0.00-0.80) mg/dL Microbiology - Last 24 Hours (Table) 02/17/22 18:05 Blood Culture Gram Stain - Preliminary Blood Blood Culture - Preliminary Staphylococcus aureus 02/17/22 18:05 Blood Culture - Final Blood Assessment and Plan (1) Cellulitis of right knee Current Visit: Yes Status: Acute Priority: Medium Code(s): L03.115 - CELLULITIS OF RIGHT LOWER LIMB SNOMED Code(s): 00574628559887308 Plan: 1patient presented to hospital with sepsis in this patient who did have a fever elevated white count predominantly pain to the right knee area with abnormal x- ray suspicious for suprapatellar fluid collection with concern for possible septic bursitis and will need to cover for the gram-positive skin yosvany to be the likely pathogen. 2patient to continuecefazolin 2 g every 8 hours 3blood cultures has been repeated to document clearance of bacteremia Time with Patient: Less than 30
[2022-02-20 06:30] LABS: Anisocytosis Slight; HCT 37.6 % (34.0-46.0); HGB 10.9 gm/dL (11.4-16.0); Hypochromasia Marked; MCH 27.8 pg (25.0-35.0); MCHC 28.9 g/dL (31.0-37.0); Macrocytosis Slight; Platelet Count 261 k/uL (150-450); RBC 3.91 m/uL (3.80-5.40); RDW 17.7 % (11.5-15.5); WBC 6.5 k/uL (3.8-10.6)
[2022-02-20 06:32] LABS: MCV 96.2 fL (80.0-100.0)
[2022-02-20 07:43] LABS: Lymphocytes # (M) 1.17 k/uL (1.0-4.8); Monocytes # (M) 0.65 k/uL (0-1.0); Neutrophils # (M) 4.68 k/uL (1.3-7.7); Neutrophils % (M) 72 %; Nucleated Red Blood Cells 0 /100 WBC (0-0); Ovalocytes Present; Polychromasia Present; Rouleaux Present; Total Cells Counted 100
[2022-02-20 09:38] LABS: African American GFR (CKD) 120.6 (60.0-200.0); Albumin 2.8 g/dL (3.8-4.9); Albumin/Globulin Ratio 1.12 (1.60-3.17); Anion Gap 13.4 mmol/L (10.00-18.00); BUN/Creat Ratio 17.75 Ratio (12.00-20.00); Blood Urea Nitrogen 7.1 mg/dL (9.0-27.0); Calcium 8.3 mg/dL (8.7-10.3); Carbon Dioxide 21.6 mmol/L (20.0-27.5); Globulin 2.5 g/dL (1.6-3.3); Non-African American GFR(CKD) 104.1 (60.0-200.0); Potassium 3.7 mmol/L (3.5-5.5); Total Bilirubin 0.3 mg/dL (0.30-1.20); Total Protein 5.3 g/dL (6.2-8.2)
[2022-02-20] MEDS: FUROSEMIDE 20 MG TAB PO SCH (10:04)
[2022-02-20] MEDS: HEPARIN SODIUM,PORCINE/PF 5,000 UNIT/0.5 ML SYRINGE SQ SCH ×3 (10:04→23:19)
[2022-02-20] MEDS: lamoTRIgine 100 MG TAB PO SCH ×2 (10:05→20:53)
[2022-02-20] MEDS: SERTRALINE 100 MG TAB PO SCH (10:05)
[2022-02-20] MEDS: PANTOPRAZOLE 40 MG TABLET PO SCH (10:05)
[2022-02-20] MEDS: lamoTRIgine 25 MG TAB PO SCH ×2 (10:05→20:52)
[2022-02-20] MEDS: PRIMIDONE 250 MG TAB PO SCH ×2 (10:06→21:03)
[2022-02-20] MEDS: IBUPROFEN 600 MG TAB PO PRN ×2 (10:24→20:29)
--- NOTE | 2022-02-20 12:42 | P.PN ---
Subjective Progress Note Date: 02/20/22 Principal diagnosis: Right knee cellulitis and MSSA bacteremia Patient is a 71-year-old female presenting to the hospital with right knee pain in this patient who did have a x-ray showing moderate suprapatellar joint fluid and did have MSSA bacteremia concerning for possible septic bursitis. On today's evaluation that is 02/20/2022, the patient remains to be afebrile, the patient pain to the right knee is currently controlled,the patient denies having any chest pain shortness of breath or cough no abdominal pain no diarrhea Objective - Vital Signs Vital signs: Vital Signs Temp 98.3 F 02/20/22 04:47 Pulse 96 02/20/22 04:47 Resp 16 02/20/22 04:47 BP 113/71 02/20/22 04:47 Pulse Ox 97 02/20/22 04:47 Intake & Output 02/19/22 02/20/22 02/20/22 18:59 06:59 18:59 Intake Total 2070 685 Balance 2070 685 Intake: Intake, IV Titration 560 Amount Sodium Chloride 0.9% 1, 510 000 ml @ 75 mls/hr IV . [id number] [facility] Rx#:[id number] ceFAZolin 2 gm In Sodium 50 Chloride 0.9% 50 ml @ 100 mls/hr IVPB Q8HR [facility] Rx# :[id number] Oral [id number] 685 Other: Voiding Method Bedside Commode Bedside Commode # Voids 3 1 1 - Exam GENERAL DESCRIPTION: An elderly female lying in bed in no distress RESPIRATORY SYSTEM: Unlabored breathing , decreased breath sounds at bases HEART: S1 S2 regular rate and rhythm , ABDOMEN: Soft , no tenderness EXTREMITIES: No edema feet - Labs CBC & Chem 7: 02/20/22 05:28 02/20/22 05:28 Labs: Abnormal Lab Results - Last 24 Hours (Table) 02/19/22 02/19/22 02/20/22 Range/Units 07:33 07:33 05:28 Hgb 10.9 L (11.4-16.0) gm/dL MCHC 28.9 L (31.0-37.0) g/dL RDW 17.7 H (11.5-15.5) % ESR 88 H (0-30) mm/Hr BUN (9.0-27.0) mg/dL Creatinine (0.6-1.5) mg/dL Calcium (8.7-10.3) mg/dL Alkaline Phosphatase (41-126) U/L C-Reactive Protein 27.80 H (0.00-0.80) mg/dL Total Protein (6.2-8.2) g/dL Albumin (3.8-4.9) g/dL Albumin/Globulin Ratio (1.60-3.17) g/dL 02/20/22 Range/Units 05:28 Hgb (11.4-16.0) gm/dL MCHC (31.0-37.0) g/dL RDW (11.5-15.5) % ESR (0-30) mm/Hr BUN 7.1 L (9.0-27.0) mg/dL Creatinine 0.4 L (0.6-1.5) mg/dL Calcium 8.3 L (8.7-10.3) mg/dL Alkaline Phosphatase 130 H (41-126) U/L C-Reactive Protein (0.00-0.80) mg/dL Total Protein 5.3 L (6.2-8.2) g/dL Albumin 2.8 L (3.8-4.9) g/dL Albumin/Globulin Ratio 1.12 L (1.60-3.17) g/dL Microbiology - Last 24 Hours (Table) 02/19/22 07:33 Blood Culture - Preliminary Blood No Growth after 24 hours 02/17/22 18:05 Blood Culture Gram Stain - Preliminary Blood Blood Culture - Preliminary Staphylococcus aureus Assessment and Plan (1) Cellulitis of right knee Current Visit: Yes Status: Acute Priority: Medium Code(s): L03.115 - CELLULITIS OF RIGHT LOWER LIMB SNOMED Code(s): 59593523893385933 Plan: 1patient presented to hospital with sepsis in this patient who did have a fever elevated white count predominantly pain to the right knee area with abnormal x- ray suspicious for suprapatellar fluid collection with concern for possible septic bursitis and will need to cover for the gram-positive skin yosvany to be the likely pathogen. 2-patient blood culture positive for staph aureus likely secondary to the right knee bursitis, blood culture has been repeated document clearance of bacteremia 3- cefazolin 2 g every 8 hours to continue Time with Patient: Less than 30
--- NOTE | 2022-02-20 13:04 | P.PN ---
Subjective Progress Note Date: 02/20/22 Principal diagnosis: Right knee pain, cellulitis Patient is seen at bedside this morning. We are following her for right knee pain and cellulitis/prepatellarbursitis. She states her pain is same. She denies any new complaints. She has ambulated to bathroom. U/S was negative for effusion. She had a PICC line placed. Initial blood cultures were positive for MSSA. She denies numbness, tingling or calf pain. Review of systems is negative for fever, chills, chest pain, shortness of breath or other Objective - Vital Signs Vital signs: Vital Signs Temp 98.3 F 02/20/22 04:47 Pulse 96 02/20/22 04:47 Resp 16 02/20/22 04:47 BP 113/71 02/20/22 04:47 Pulse Ox 97 02/20/22 04:47 Intake & Output 02/19/22 02/20/22 02/20/22 18:59 06:59 18:59 Intake Total 2070 685 Balance 2070 685 Intake: Intake, IV Titration 560 Amount Sodium Chloride 0.9% 1, 510 000 ml @ 75 mls/hr IV . [id number] [facility] Rx#:[id number] ceFAZolin 2 gm In Sodium 50 Chloride 0.9% 50 ml @ 100 mls/hr IVPB Q8HR [facility] Rx# :[id number] Oral [id number] Other: Voiding Method Bedside Commode Bedside Commode # Voids 3 1 1 - Exam Inspection shows a small improved sized healing wound at the anterior knee. There is no diffuse erythema. There is no joint effusion. There is some peripatellar edema. The joint is not hot to touch. There is no excessive pain with ROM of the knee. The knee appears ligamentously stable. Neurovascular status is intact throughout the lower extremity with motor and sensation fully intact. Calf is soft and nontender. 2+ dorsalis pedis pulse and less than 2 second cap refill is present.. - Constitutional General appearance: Present: no acute distress - Labs CBC & Chem 7: 02/20/22 05:28 02/20/22 05:28 Labs: Abnormal Lab Results - Last 24 Hours (Table) 02/19/22 02/19/22 02/20/22 Range/Units 07:33 07:33 05:28 Hgb 10.9 L (11.4-16.0) gm/dL MCHC 28.9 L (31.0-37.0) g/dL RDW 17.7 H (11.5-15.5) % ESR 88 H (0-30) mm/Hr BUN (9.0-27.0) mg/dL Creatinine (0.6-1.5) mg/dL Calcium (8.7-10.3) mg/dL Alkaline Phosphatase (41-126) U/L C-Reactive Protein 27.80 H (0.00-0.80) mg/dL Total Protein (6.2-8.2) g/dL Albumin (3.8-4.9) g/dL Albumin/Globulin Ratio (1.60-3.17) g/dL 02/20/22 Range/Units 05:28 Hgb (11.4-16.0) gm/dL MCHC (31.0-37.0) g/dL RDW (11.5-15.5) % ESR (0-30) mm/Hr BUN 7.1 L (9.0-27.0) mg/dL Creatinine 0.4 L (0.6-1.5) mg/dL Calcium 8.3 L (8.7-10.3) mg/dL Alkaline Phosphatase 130 H (41-126) U/L C-Reactive Protein (0.00-0.80) mg/dL Total Protein 5.3 L (6.2-8.2) g/dL Albumin 2.8 L (3.8-4.9) g/dL Albumin/Globulin Ratio 1.12 L (1.60-3.17) g/dL Microbiology - Last 24 Hours (Table) 02/19/22 07:33 Blood Culture - Preliminary Blood No Growth after 24 hours 02/17/22 18:05 Blood Culture Gram Stain - Preliminary Blood Blood Culture - Preliminary Staphylococcus aureus Assessment and Plan (1) Cellulitis of right knee Narrative/Plan: We will continue to monitor along with continue IV antibiotics, wound care, rest, pain management, and medical management. If edema worsens may consider I and D. Will continue to follow Current Visit: Yes Status: Acute Priority: Medium Code(s): L03.115 - OLIVER LULITIS OF RIGHT LOWER LIMB SNOMED Code(s): 17011224944919296 Time with Patient: Less than 30
--- NOTE | 2022-02-20 14:56 | P.PN ---
Subjective Progress Note Date: 02/20/22 This is a 71-year-old female who was recently admitted with recent fall and significant right knee pain and swelling and also sepsis, present on admission. Patient being closely monitored and evaluated by infectious disease along with orthopedics. Patient continues with right knee pain and some fluctuation noted on exam and will discuss further with orthopedics about possible aspiration or I&D. Patient has continued on IV antibiotics and also was found to have some evidence of bacteremia. Patient continues on IV cefazolin and will continue at this time. Awaiting cultures as well. PT/OT to follow and will also consult social work and case management for possible ECF. Patient denies chest pain or shortness of breath. Patient is afebrile. No reports of nausea or vomiting noted and patient is tolerating diet. Review of systems: Constitutional: No reports of fatigue, fever, or chills Cardiovascular: No reports of chest pain or palpitations Respiratory: No reports of shortness of breath or cough GI: No reports of nausea, no reports of of vomiting, no reports of diarrhea : No reports of dysuria or retention Neurovascular: reports of generalized weakness, reports right knee pain Active Medications Acetaminophen (Acetaminophen Tab 325 Mg Tab) 650 mg PO Q6HR PRN PRN Reason: Mild Pain or Fever > 100.5 Acetaminophen/Codeine Phosphate (Acetaminophen-Codeine 300-30mg Tab) 1 each PO Q4HR PRN PRN Reason: Pain Last Admin: 02/19/22 20:06 Dose: 1 each Documented by: Acetaminophen/Codeine Phosphate (Acetaminophen-Codeine 300-30mg Tab) 2 each PO Q4HR PRN PRN Reason: Pain Last Admin: 02/19/22 23:24 Dose: 2 each Documented by: Furosemide (Furosemide 20 Mg Tab) 20 mg PO DAILY [facility] Last Admin: 02/20/22 10:04 Dose: 20 mg Documented by: Heparin Sodium (Porcine) (Heparin Sodium,Porcine/Pf 5,000 Unit/0.5 Ml Syringe) 5,000 unit SQ Q8HR [facility] Last Admin: 02/20/22 10:04 Dose: 5,000 unit Documented by: Sodium Chloride (Saline 0.9%) 1,000 mls @ 75 mls/hr IV .[id number] [facility] Last Admin: 02/19/22 23:53 Dose: Not Given Documented by: Cefazolin Sodium 2 gm/ Sodium (Chloride) 50 mls @ 100 mls/hr IVPB Q8HR [facility]; Protocol Last Admin: 02/20/22 10:08 Dose: 100 mls/hr Documented by: Ibuprofen (Ibuprofen 600 Mg Tab) 600 mg PO Q8HR PRN PRN Reason: Pain Last Admin: 02/20/22 10:24 Dose: 600 mg Documented by: Lamotrigine (Lamotrigine 100 Mg Tab) 100 mg PO BID [facility] Last Admin: 02/20/22 10:05 Dose: 100 mg Documented by: Lamotrigine (Lamotrigine 25 Mg Tab) 75 mg PO BID [facility] Last Admin: 02/20/22 10:05 Dose: 75 mg Documented by: Miscellaneous Information (Potassium Replacement Protocol 1 Each Misc) 1 each MISCELLANE DAILY PRN; Protocol PRN Reason: Per Protocol Naloxone HCl (Naloxone 0.4 Mg/Ml 1 Ml Vial) 0.2 mg IV Q2M PRN PRN Reason: Opioid Reversal Ondansetron HCl (Ondansetron 4 Mg/2 Ml Vial) 4 mg IVP Q8HR PRN PRN Reason: Nausea And Vomiting Pantoprazole Sodium (Pantoprazole 40 Mg Tablet) 40 mg PO AC-BRKFST [facility] Last Admin: 02/20/22 10:05 Dose: 40 mg Documented by: Primidone (Primidone 250 Mg Tab) 250 mg PO BID [facility] Last Admin: 02/20/22 10:06 Dose: 250 mg Documented by: Saliva Substitute (Dry Mouth [place] 44.3 [place]/44.3 Ml [place]) 1 spray MUCOUS MEM QID PRN PRN Reason: Dry Mouth Last Admin: 02/19/22 11:37 Dose: 1 spray Documented by: Sertraline HCl (Sertraline 100 Mg Tab) 100 mg PO DAILY [facility] Last Admin: 02/20/22 10:05 Dose: 100 mg Documented by: PHYSICAL EXAMINATION: GENERAL: The patient is alert and oriented x4, Well developed, well nourished. HEENT: Pupils are round and equally reacting to light. EOMI. no scleral icterus. No conjunctival pallor. Normocephalic, atraumatic. No pharyngeal erythema. No thyromegaly. CARDIOVASCULAR: S1 and S2 muffled PULMONARY: diminished breath sounds bilaterally with no wheezing or rhonchi noted. ABDOMEN: soft. Nontender on exam. non-distended, normoactive bowel sounds. No palpable organomegaly. MUSCULOSKELETAL: No joint swelling or deformity. EXTREMITIES: No cyanosis, clubbing, or pedal edema. Right knee swelling and tenderness on palpation with some mild fluctuation noted NEUROLOGICAL: Gross neurological examination did not reveal any focal deficits. Diffuse weakness SKIN: No rashes. Assessment: Fall and right knee swelling with possible cellulitis and effusion or hematoma or abscess with sepsis with Staphylococcus aureus, present on admission Severe hypokalemia Severe hyponatremia Increased white count Gastroesophageal reflux disease Hypertension History of degenerative joint disease Gait dysfunction history of seizure disorder GI prophylaxis DVT prophylaxis Full code Plan: Recommend to continue with current medications and management. Infectious disease and orthopedics following. Patient is maintained on IV cefazolin and most recent repeat blood cultures are negative to monitor for clearance of bacteremia. Patient continues with extensive right knee pain and discomfort with minimal palpation and will discuss further with orthopedics about possible aspiration or I&D of the right knee. PT/OT to evaluate the patient and will also consult case management and social work for possible ECF. Recommend repeat labs in the morning and will continue to monitor closely. Due to multiple complex medical issues, prognosis is guarded. The impression and plan of care has been dictated by Mine Negrete, nurse practitioner as directed. MD Mark I have performed a history and examination and MDM of this patient, discussed the same with the dictator, and agree with the dictator's assessment and plan as written ,documented as a scribe. Based on total visit time, I have performed more than 50% of the visit. Any additional findings or plans will be noted. Objective - Vital Signs Vital signs: Vital Signs Temp 98.3 F 02/20/22 04:47 Pulse 96 02/20/22 04:47 Resp 16 02/20/22 04:47 BP 113/71 02/20/22 04:47 Pulse Ox 97 02/20/22 04:47 Intake & Output 02/19/22 02/20/22 02/20/22 18:59 06:59 18:59 Intake Total 0 685 Balance 2069 685 Intake: Intake, IV Titration 560 Amount Sodium Chloride 0.9% 1, 510 000 ml @ 75 mls/hr IV . [id number] [facility] Rx#:[id number] ceFAZolin 2 gm In Sodium 50 Chloride 0.9% 50 ml @ 100 mls/hr IVPB Q8HR [facility] Rx# :[id number] Oral [id number] Other: Voiding Method Bedside Commode Bedside Commode # Voids 3 1 1 - Labs CBC & Chem 7: 02/20/22 05:28 02/20/22 05:28 Labs: Abnormal Lab Results - Last 24 Hours (Table) 02/19/22 02/19/22 02/20/22 Range/Units 07:33 07:33 05:28 Hgb 10.9 L (11.4-16.0) gm/dL MCHC 28.9 L (31.0-37.0) g/dL RDW 17.7 H (11.5-15.5) % ESR 88 H (0-30) mm/Hr BUN (9.0-27.0) mg/dL Creatinine (0.6-1.5) mg/dL Calcium (8.7-10.3) mg/dL Alkaline Phosphatase (41-126) U/L C-Reactive Protein 27.80 H (0.00-0.80) mg/dL Total Protein (6.2-8.2) g/dL Albumin (3.8-4.9) g/dL Albumin/Globulin Ratio (1.60-3.17) g/dL 02/20/22 Range/Units 05:28 Hgb (11.4-16.0) gm/dL MCHC (31.0-37.0) g/dL RDW (11.5-15.5) % ESR (0-30) mm/Hr BUN 7.1 L (9.0-27.0) mg/dL Creatinine 0.4 L (0.6-1.5) mg/dL Calcium 8.3 L (8.7-10.3) mg/dL Alkaline Phosphatase 130 H (41-126) U/L C-Reactive Protein (0.00-0.80) mg/dL Total Protein 5.3 L (6.2-8.2) g/dL Albumin 2.8 L (3.8-4.9) g/dL Albumin/Globulin Ratio 1.12 L (1.60-3.17) g/dL Microbiology - Last 24 Hours (Table) 02/19/22 07:33 Blood Culture - Preliminary Blood No Growth after 24 hours 02/17/22 18:05 Blood Culture Gram Stain - Preliminary Blood Blood Culture - Preliminary Staphylococcus aureus
[2022-02-20] MEDS: SODIUM CHLORIDE 0.9% 1,000 ML IV SCH ×2 (16:06→20:24)
[2022-02-20] MEDS: Acetaminophen-Codeine 300-30mg TAB PO PRN (23:17)
[2022-02-21] MEDS: Acetaminophen-Codeine 300-30mg TAB PO PRN (05:09)
[2022-02-21] MEDS: lamoTRIgine 100 MG TAB PO SCH ×2 (08:04→20:39)
[2022-02-21] MEDS: PANTOPRAZOLE 40 MG TABLET PO SCH (08:04)
[2022-02-21] MEDS: HEPARIN SODIUM,PORCINE/PF 5,000 UNIT/0.5 ML SYRINGE SQ SCH ×2 (08:04→15:29)
[2022-02-21] MEDS: SERTRALINE 100 MG TAB PO SCH (08:04)
[2022-02-21] MEDS: PRIMIDONE 250 MG TAB PO SCH ×2 (08:05→20:39)
[2022-02-21] MEDS: FUROSEMIDE 20 MG TAB PO SCH (08:05)
[2022-02-21] MEDS: lamoTRIgine 25 MG TAB PO SCH ×2 (08:05→20:39)
[2022-02-21] MEDS: IBUPROFEN 600 MG TAB PO PRN ×2 (10:46→20:38)
--- NOTE | 2022-02-21 11:22 | P.PN ---
Subjective Progress Note Date: 02/21/22 Principal diagnosis: Right knee pain, cellulitis Patient is seen at bedside this morning. We are following her for right knee pain and cellulitis/prepatellarbursitis. She states her pain is improved. She denies any new complaints. She has ambulated and sititing up in chair comfo rtable. U/S was negative for effusion. She had a PICC line placed. She denies numbness, tingling or calf pain. Review of systems is negative for fever, chills, chest pain, shortness of breath or other Objective - Vital Signs Vital signs: Vital Signs Temp 97.9 F 02/21/22 04:51 Pulse 99 02/21/22 04:51 Resp 16 02/21/22 04:51 BP 122/76 02/21/22 04:51 Pulse Ox 96 02/21/22 04:51 Intake & Output 02/20/22 02/21/22 02/21/22 18:59 06:59 18:59 Intake Total 850 1360 Balance 850 1360 Intake: Intake, IV Titration 850 Amount Sodium Chloride 0.9% 1, 750 000 ml @ 75 mls/hr IV . [id number] [facility] Rx#:[id number] ceFAZolin 2 gm In Sodium 100 Chloride 0.9% 50 ml @ 100 mls/hr IVPB Q8HR [facility] Rx# :[id number] Oral 1360 Other: Voiding Method Bedside Commode Bedside Commode Bedside Commode # Voids 1 8 - Exam Inspection shows a small improved sized healing wound at the anterior knee. There is no diffuse erythema. There is no joint effusion. There is improved peripatellar edema today versus yesterday. The joint is not hot to touch. There is no excessive pain with ROM of the knee. The knee appears ligamentously stable. Neurovascular status is intact throughout the lower extremity with motor and sensation fully intact. Calf is soft and nontender. 2+ dorsalis pedis pulse and less than 2 second cap refill is present.. - Constitutional General appearance: Present: no acute distress - Labs CBC & Chem 7: 02/20/22 05:28 02/20/22 05:28 Labs: Microbiology - Last 24 Hours (Table) 02/19/22 07:33 Blood Culture - Preliminary Blood No Growth after 48 hours 02/20/22 05:28 Blood Culture - Preliminary Blood No Growth after 24 hours 02/17/22 18:05 Blood Culture Gram Stain - Final Blood Blood Culture - Final Staphylococcus aureus Assessment and Plan (1) Cellulitis of right knee Narrative/Plan: She is showing signs of improvement today. She remains afebrile. WBC is normal. We will continue to monitor along with continued IV antibiotics, wound care, rest, pain management, and medical management. Patient was reviewed with Dr. Whitten. Will continue to follow Current Visit: Yes Status: Acute Priority: Medium Code(s): L03.115 - CELLULITIS OF RIGHT LOWER LIMB SNOMED Code(s): 75264902891255643 Time with Patient: Less than 30
--- NOTE | 2022-02-21 19:55 | P.PN ---
Subjective Progress Note Date: 02/21/22 This is a 71-year-old female who was recently admitted with recent fall and significant right knee pain and swelling and also sepsis, present on admission. Patient being closely monitored and evaluated by infectious disease along with orthopedics. Patient continues with right knee pain and some fluctuation noted on exam and will discuss further with orthopedics about possible aspiration or I&D. Patient has continued on IV antibiotics and also was found to have some evidence of bacteremia. Patient continues on IV cefazolin and will continue at this time. Awaiting cultures as well. PT/OT to follow and will also consult social work and case management for possible ECF. Patient denies chest pain or shortness of breath. Patient is afebrile. No reports of nausea or vomiting noted and patient is tolerating diet. 02/21/2022 Patient seen today and reports to some mild improvement in the swelling of the right knee. Patient is afebrile and has no white count. ID following along with orthopedics and recommending conservative management and no plan for I&D at this time. Patient with continued weakness and now agreeable to rehab. Case management following and referrals submitted. Patient denies chest pain or shortness of breath. Patient being followed by PT/OT daily. Review of systems: Constitutional: No reports of fatigue, fever, or chills Cardiovascular: No reports of chest pain or palpitations Respiratory: No reports of shortness of breath or cough GI: No reports of nausea, no reports of of vomiting, no reports of diarrhea : No reports of dysuria or retention Neurovascular: reports of generalized weakness, reports right knee pain with some mild improvement Active Medications Acetaminophen (Acetaminophen Tab 325 Mg Tab) 650 mg PO Q6HR PRN PRN Reason: Mild Pain or Fever > 100.5 Last Admin: 02/21/22 15:29 Dose: 650 mg Documented by: Acetaminophen/Codeine Phosphate (Acetaminophen-Codeine 300-30mg Tab) 1 each PO Q4HR PRN PRN Reason: Pain Last Admin: 02/20/22 23:17 Dose: 1 each Documented by: Acetaminophen/Codeine Phosphate (Acetaminophen-Codeine 300-30mg Tab) 2 each PO Q4HR PRN PRN Reason: Pain Last Admin: 02/21/22 05:09 Dose: 2 each Documented by: Furosemide (Furosemide 20 Mg Tab) 20 mg PO DAILY [facility] Last Admin: 02/21/22 08:05 Dose: 20 mg Documented by: Heparin Sodium (Porcine) (Heparin Sodium,Porcine/Pf 5,000 Unit/0.5 Ml Syringe) 5,000 unit SQ Q8HR [facility] Last Admin: 02/21/22 15:29 Dose: 5,000 unit Documented by: Cefazolin Sodium 2 gm/ Sodium (Chloride) 50 mls @ 100 mls/hr IVPB Q8HR [facility]; Protocol Last Admin: 02/21/22 15:29 Dose: 100 mls/hr Documented by: Ibuprofen (Ibuprofen 600 Mg Tab) 600 mg PO Q8HR PRN PRN Reason: Pain Last Admin: 02/21/22 10:46 Dose: 600 mg Documented by: Lamotrigine (Lamotrigine 100 Mg Tab) 100 mg PO BID [facility] Last Admin: 02/21/22 08:04 Dose: 100 mg Documented by: Lamotrigine (Lamotrigine 25 Mg Tab) 75 mg PO BID [facility] Last Admin: 02/21/22 08:05 Dose: 75 mg Documented by: Miscellaneous Information (Potassium Replacement Protocol 1 Each Misc) 1 each MISCELLANE DAILY PRN; Protocol PRN Reason: Per Protocol Naloxone HCl (Naloxone 0.4 Mg/Ml 1 Ml Vial) 0.2 mg IV Q2M PRN PRN Reason: Opioid Reversal Ondansetron HCl (Ondansetron 4 Mg/2 Ml Vial) 4 mg IVP Q8HR PRN PRN Reason: Nausea And Vomiting Pantoprazole Sodium (Pantoprazole 40 Mg Tablet) 40 mg PO AC-BRKFST [facility] Last Admin: 02/21/22 08:04 Dose: 40 mg Documented by: Primidone (Primidone 250 Mg Tab) 250 mg PO BID [facility] Last Admin: 02/21/22 08:05 Dose: 250 mg Documented by: Saliva Substitute (Dry Mouth [place] 44.3 [place]/44.3 Ml [place]) 1 spray MUCOUS MEM QID PRN PRN Reason: Dry Mouth Last Admin: 02/19/22 11:37 Dose: 1 spray Documented by: Sertraline HCl (Sertraline 100 Mg Tab) 100 mg PO DAILY [facility] Last Admin: 02/21/22 08:04 Dose: 100 mg Documented by: PHYSICAL EXAMINATION: GENERAL: The patient is alert and oriented x4, Well developed, well nourished. HEENT: Pupils are round and equally reacting to light. EOMI. no scleral icterus. No conjunctival pallor. Normocephalic, atraumatic. No pharyngeal erythema. No thyromegaly. CARDIOVASCULAR: S1 and S2 muffled PULMONARY: diminished breath sounds bilaterally with no wheezing or rhonchi noted. ABDOMEN: soft. Nontender on exam. non-distended, normoactive bowel sounds. No palpable organomegaly. MUSCULOSKELETAL: No joint swelling or deformity. EXTREMITIES: No cyanosis, clubbing, or pedal edema. Right knee swelling and t enderness on palpation with some improvement in the swelling noted NEUROLOGICAL: Gross neurological examination did not reveal any focal deficits. Diffuse weakness SKIN: No rashes. Assessment: Fall and right knee swelling with possible cellulitis and effusion or hematoma or abscess with sepsis with Staphylococcus aureus, present on admission bacteremia secondary to above Severe hypokalemia Severe hyponatremia Increased white count Gastroesophageal reflux disease Hypertension History of degenerative joint disease Gait dysfunction history of seizure disorder GI prophylaxis DVT prophylaxis Full code Plan: Recommend to continue with current medications and management. Infectious disease and orthopedics following. Patient is maintained on IV cefazolin and most recent repeat blood cultures are negative to monitor for clearance of bacteremia. Patient continues with right knee pain and discomfort although reports to some improvement in the swelling. discussed further with orthopedics about possible aspiration or I&D of the right knee and will evaluate although most likely recommending conservative management and continued IV antibiotics. ID following as well and will discuss further about treatment plan and possible need for IV at ECF. PT/OT to follow. Due to multiple complex medical issues, prognosis is guarded. Possible discharge in 24-48 hours. The impression and plan of care has been dictated by Mine Negrete, nurse practitioner as directed. MD Mark I have performed a history and examination and MDM of this patient, discussed the same with the dictator, and agree with the dictator's assessment and plan as written ,documented as a scribe. Based on total visit time, I have performed more than 50% of the visit. Any additional findings or plans will be noted. Objective - Vital Signs Vital signs: Vital Signs Temp 97.9 F 02/21/22 04:51 Pulse 99 02/21/22 04:51 Resp 16 02/21/22 04:51 BP 122/76 02/21/22 04:51 Pulse Ox 96 02/21/22 04:51 Intake & Output 02/20/22 02/21/22 02/21/22 18:59 06:59 18:59 Intake Total 850 1360 Balance 850 1360 Intake: Intake, IV Titration 850 Amount Sodium Chloride 0.9% 1, 750 000 ml @ 75 mls/hr IV . [id number] [facility] Rx#:[id number] ceFAZolin 2 gm In Sodium 100 Chloride 0.9% 50 ml @ 100 mls/hr IVPB Q8HR [facility] Rx# :[id number] Oral 1360 Other: Voiding Method Bedside Commode Bedside Commode # Voids 1 8 - Labs CBC & Chem 7: 02/20/22 05:28 02/20/22 05:28 Labs: Abnormal Lab Results - Last 24 Hours (Table) 02/20/22 Range/Units 05:28 BUN 7.1 L (9.0-27.0) mg/dL Creatinine 0.4 L (0.6-1.5) mg/dL Calcium 8.3 L (8.7-10.3) mg/dL Alkaline Phosphatase 130 H (41-126) U/L Total Protein 5.3 L (6.2-8.2) g/dL Albumin 2.8 L (3.8-4.9) g/dL Albumin/Globulin Ratio 1.12 L (1.60-3.17) g/dL Microbiology - Last 24 Hours (Table) 02/20/22 05:28 Blood Culture - Preliminary Blood No Growth after 24 hours 02/17/22 18:05 Blood Culture Gram Stain - Final Blood Blood Culture - Final Staphylococcus aureus 02/19/22 07:33 Blood Culture - Preliminary Blood No Growth after 24 hours
[2022-02-22] MEDS: HEPARIN SODIUM,PORCINE/PF 5,000 UNIT/0.5 ML SYRINGE SQ SCH ×2 (00:02→08:46)
[2022-02-22] MEDS: Acetaminophen-Codeine 300-30mg TAB PO PRN ×2 (00:02→05:21)
[2022-02-22 01:04] VITALS: RESP 20
[2022-02-22] MEDS: PRIMIDONE 250 MG TAB PO SCH (08:46)
[2022-02-22] MEDS: SERTRALINE 100 MG TAB PO SCH (08:46)
[2022-02-22] MEDS: FUROSEMIDE 20 MG TAB PO SCH (08:46)
[2022-02-22] MEDS: lamoTRIgine 100 MG TAB PO SCH (08:46)
[2022-02-22] MEDS: lamoTRIgine 25 MG TAB PO SCH (08:46)
[2022-02-22] MEDS: PANTOPRAZOLE 40 MG TABLET PO SCH (08:46)
--- NOTE | 2022-02-22 10:02 | P.PN ---
Subjective Progress Note Date: 02/22/22 Principal diagnosis: Right knee pain, cellulitis Patient is seen at bedside this morning. We are following her for right knee pain and cellulitis/prepatellarbursitis. She states her pain continues to improve some. She denies any new complaints. She has ambulated with PT and sitt ing up in chair comfortably. U/S was negative for effusion. She had a PICC line placed. WBC normal, afebrile. She denies numbness, tingling or calf pain. Review of systems is negative for fever, chills, chest pain, shortness of breath or other Objective - Vital Signs Vital signs: Vital Signs Temp 98.2 F 02/22/22 04:50 Pulse 100 02/22/22 04:50 Resp 20 02/21/22 19:35 BP 118/69 02/22/22 04:50 Pulse Ox 94 L 02/21/22 19:35 Intake & Output 02/21/22 02/22/22 02/22/22 18:59 06:59 18:59 Intake Total 1000 100 Balance 1000 100 Intake: Intake, IV Titration 1000 Amount Sodium Chloride 0.9% 1, 900 000 ml @ 75 mls/hr IV . [id number] [facility] Rx#:[id number] ceFAZolin 2 gm In Sodium 100 Chloride 0.9% 50 ml @ 100 mls/hr IVPB Q8HR [facility] Rx# :[id number] Oral 100 Other: Voiding Method Bedside Commode Bedside Commode # Voids 3 - Exam Inspection shows a small improving healing wound at the anterior knee. There is no diffuse erythema. There is no joint effusion. There is improved peripatellar edema today versus yesterday. The joint is not hot to touch. There is no excessive pain with ROM of the knee. The knee appears ligamentously stable. Neurovascular status is intact throughout the lower extremity with motor and sensation fully intact. Calf is soft and nontender. 2+ dorsalis pedis pulse and less than 2 second cap refill is present.. - Constitutional General appearance: Present: no acute distress - Labs CBC & Chem 7: 02/20/22 05:28 02/20/22 05:28 Labs: Microbiology - Last 24 Hours (Table) 02/19/22 07:33 Blood Culture - Preliminary Blood No Growth after 72 hours 03/28/22 05:28 Blood Culture - Preliminary Blood No Growth after 48 hours Assessment and Plan (1) Cellulitis of right knee Narrative/Plan: She continues to show some signs of improvement. The knee is not red or hot. She has DJD and recent injury which has likely caused her the majority of her pain vs the bursitis/cellulitis. Suspect the initial blood cultures possibly contaminant. She remains afebrile. WBC is normal. Would consider giving corticosteroids if okay with IM. Continue IV antibiotics, wound care, rest, ice, PT, pain management, and medical management. Would also recommend knee immobilizer or hinged knee brace while out of bed but she stated she would not wear. Will continue to follow. Current Visit: Yes Status: Acute Priority: Medium Code(s): L03.115 - CELLULITIS OF RIGHT LOWER LIMB SNOMED Code(s): 77568813296040437 Time with Patient: Less than 30
[2022-02-22] MEDS: IBUPROFEN 600 MG TAB PO PRN (10:52)
[2022-02-22 11:38] VITALS: BP 100/64; PULSE 92; TEMP 97.8
--- NOTE | 2022-02-22 12:19 | P.DS ---
Providers Date of admission: 02/17/22 19:26 Expected date of discharge: 02/22/22 Attending physician: Dalton Kendrick Consults: 02/17/22 19:27 Consult Physician Routine Consulting Provider: Christine Whitten Consult Reason/Comments: Right knee cellulitis history of right total knee replacement Do you want consulting provider notified?: Yes, Notify in am 02/18/22 10:41 Consult Physician Routine Consulting Provider: Mini Lainez Consult Reason/Comments: cellulitis Do you want consulting provider notified?: Yes Primary care physician: Sawyer Lance [facility] Course: Final diagnosis Fall and right knee swelling with possible cellulitis and effusion or hematoma or abscess with sepsis with Staphylococcus aureus, present on admission bacteremia secondary to above Severe hypokalemia Severe hyponatremia Increased white count Gastroesophageal reflux disease Hypertension History of degenerative joint disease Gait dysfunction history of seizure disorder GI prophylaxis DVT prophylaxis Full code Discharge disposition Patient is being discharged in a stable condition with guarded prognosis to [facility] for continued PT/OT therapy. Patient will follow-up with Dr. Dueñas in the outpatient setting upon discharge. Patient is to continue with IV antibiotics in the form of cefazolin 2 g every 8 hours per infectious disease recommendations on discharge are the next 4 weeks. Patient will need outpatient follow-up with Dr. Lainez in one week in his clinic. Patient will need orthopedic along with infectious disease follow-up in the outpatient setting. Total time taken is greater than 35 minutes. Hospital course This is a 71-year-old female who was recently admitted with recent fall and right knee pain and swelling and also sepsis, present on admission and is being closely monitored. Patient was evaluated by orthopedics along with infectious disease as patient was also found to have some bacteremia. Right knee swelling is slightly improved and orthopedics recommending conservative management and continued IV antibiotics. Patient has been evaluated by infectious disease and needs close outpatient follow-up in one week and will continue on IV cefazolin 2 g every 8 hours for the next 4 weeks. Patient did receive a midline. Patient continues with weakness and is now agreeable to rehab. Patient reports to feeling much better and is adamant about leaving today. Patient will be discharged to [facility]. Currently no reports of chest pain, shortness of breath, or palpitations. Patient is afebrile. No reports of nausea or vomiting and patient is tolerating diet. Patient will be going to [facility] today. Guarded prognosis. On exam vital signs are stable. Cardio S1, S2 are muffled. Respiratory system shows diminished breath sounds at the bases with no wheezing or rhonchi noted. Abdomen is soft and obese, and nontender. Nervous system shows diffuse weakness. Please refer to medication reconciliation sheet for a list of medications. The impression and plan of care has been dictated by Mine Negrete, Nurse Practitioner as directed. Dr. Aroldo MD I have performed a history and examination and MDM of this patient, discussed the same with the dictator, and agree with the dictator's assessment and plan as written ,documented as a scribe. Based on total visit time, I have performed more than 50% of the visit. Patient Condition at Discharge: Fair Plan - Discharge Summary New Discharge Prescriptions: New Ibuprofen [Motrin] 600 mg PO Q8HR PRN tab PRN Reason: Pain Heparin Sodium,Porcine [Heparin Sodium] 5,000 unit SQ Q12HR 30 Days #60 each ceFAZolin [Kefzol] 2 gm IVP Q8HR 30 Days #90 each Acetaminophen Tab [Tylenol] 650 mg PO Q6HR PRN tab PRN Reason: Mild Pain Or Fever > 100.5 Acetaminophen-Codeine 300-30mg [Tylenol w/codeine #3] 2 each PO Q4HR PRN #6 tab PRN Reason: Pain Continue Primidone [Mysoline] 250 mg PO BID Omeprazole 40 mg PO DAILY Sertraline [Zoloft] 100 mg PO DAILY Furosemide [Lasix] 20 mg PO DAILY lamoTRIgine [LaMICtal] 75 mg PO BID #6 tab lamoTRIgine [LaMICtal] 100 mg PO BID #6 tab Discharge Medication List Primidone [Mysoline] 250 mg PO BID 02/18/19 [History] Omeprazole 40 mg PO DAILY 10/20/19 [History] Furosemide [Lasix] 20 mg PO DAILY 01/27/22 [History] Sertraline [Zoloft] 100 mg PO DAILY 01/27/22 [History] Acetaminophen Tab [Tylenol] 650 mg PO Q6HR PRN tab 02/22/22 [Rx] Acetaminophen-Codeine 300-30mg [Tylenol w/codeine #3] 2 each PO Q4HR PRN #6 tab 02/22/22 [Rx] Heparin Sodium,Porcine [Heparin Sodium] 5,000 unit SQ Q12HR 30 Days #60 each 02/22/22 [Rx] Ibuprofen [Motrin] 600 mg PO Q8HR PRN tab 02/22/22 [Rx] ceFAZolin [Kefzol] 2 gm IVP Q8HR 30 Days #90 each 02/22/22 [Rx] lamoTRIgine [LaMICtal] 75 mg PO BID #6 tab 02/22/22 [Rx] lamoTRIgine [LaMICtal] 100 mg PO BID #6 tab 02/22/22 [Rx] Follow up Appointment(s)/Referral(s): Christine Whitten DO [Doctor of Osteopathic Medicine] - 1 Week Sawyer Lance DO [Primary Care Provider] - 1-2 days Mini Lainez MD [STAFF PHYSICIAN] - 1 Week Patient Instructions/Handouts: Seizure/Epilepsy Discharge Instructions & Follow-Up Activity/Diet/Wound Care/Special Instructions: Patient is going to [facility] Activity as tolerated Patient follow-up with orthopedics in the outpatient setting in the next 2-3 weeks Patient to follow-up with infectious disease Dr. Lainez in one week Patient is to continue on IV antibiotics of cefazolin 2 g every 8 hours for the next 4 weeks Continue current diet Discharge Disposition: TRANSFER TO SNF/ECF
--- NOTE | 2022-02-22 12:41 | P.PN ---
Subjective Progress Note Date: 02/21/22 Principal diagnosis: Right knee cellulitis and MSSA bacteremia Patient is a 71-year-old female presenting to the hospital with right knee pain in this patient who did have a x-ray showing moderate suprapatellar joint fluid and did have MSSA bacteremia concerning for possible septic bursitis. On today's evaluation that is 02/21/2022, The patient denies having any fever or any chills, the patient pain to the leg is currently controlled but denies having any chest pain shortness of breath or cough no nausea vomiting abdominal pain or diarrhea Objective - Vital Signs Vital signs: Vital Signs Temp 97.9 F 02/21/22 04:51 Pulse 99 02/21/22 04:51 Resp 16 02/21/22 04:51 BP 122/76 02/21/22 04:51 Pulse Ox 96 02/21/22 04:51 Intake & Output 02/20/22 02/21/22 02/21/22 18:59 06:59 18:59 Intake Total 850 1360 Balance 850 1360 Intake: Intake, IV Titration 850 Amount Sodium Chloride 0.9% 1, 750 000 ml @ 75 mls/hr IV . [id number] [facility] Rx#:[id number] ceFAZolin 2 gm In Sodium 100 Chloride 0.9% 50 ml @ 100 mls/hr IVPB Q8HR [facility] Rx# :[id number] Oral 1360 Other: Voiding Method Bedside Commode Bedside Commode Bedside Commode # Voids 1 8 - Exam GENERAL DESCRIPTION: An elderly female lying in bed in no distress RESPIRATORY SYSTEM: Unlabored breathing , decreased breath sounds at bases HEART: S1 S2 regular rate and rhythm , ABDOMEN: Soft , no tenderness EXTREMITIES: No edema feet - Labs CBC & Chem 7: 02/20/22 05:28 02/20/22 05:28 Labs: Microbiology - Last 24 Hours (Table) 02/19/22 07:33 Blood Culture - Preliminary Blood No Growth after 48 hours 02/20/22 05:28 Blood Culture - Preliminary Blood No Growth after 24 hours 02/17/22 18:05 Blood Culture Gram Stain - Final Blood Blood Culture - Final Staphylococcus aureus Assessment and Plan (1) Cellulitis of right knee Current Visit: Yes Status: Acute Priority: Medium Code(s): L03.115 - CELLULITIS OF RIGHT LOWER LIMB SNOMED Code(s): 34149019386163962 Plan: 1patient presented to hospital with sepsis in this patient who did have a fever elevated white count predominantly pain to the right knee area with abnormal x- ray suspicious for suprapatellar fluid collection with concern for possible septic bursitis and will need to cover for the gram-positive skin yosvany to be the likely pathogen. 2-patient blood culture positive for staph aureus likely secondary to the right knee bursitis, blood culture has been repeated document clearance of bacteremia 3- cefazolin 2 g every 8 hours to continue While monitoring clinical course closely Time with Patient: Less than 30
--- NOTE | 2022-02-22 12:43 | P.PN ---
Subjective Progress Note Date: 02/22/22 Principal diagnosis: Right knee cellulitis and MSSA bacteremia Patient is a 71-year-old female presenting to the hospital with right knee pain in this patient who did have a x-ray showing moderate suprapatellar joint fluid and did have MSSA bacteremia concerning for possible septic bursitis. On today's evaluation that is 02/22/2022, The patient is afebrile , the patient pain to the right knee is currently controlled, the pt denies having any chest pain shortness of breath or cough no nausea vomiting abdominal pain or diarrhea Objective - Vital Signs Vital signs: Vital Signs Temp 97.8 F 02/22/22 11:35 Pulse 92 02/22/22 11:35 Resp 20 02/22/22 11:35 BP 100/64 02/22/22 11:35 Pulse Ox 99 02/22/22 11:35 Intake & Output 02/21/22 02/22/22 02/22/22 18:59 06:59 18:59 Intake Total 1000 100 Balance 1000 100 Intake: Intake, IV Titration 1000 Amount Sodium Chloride 0.9% 1, 900 000 ml @ 75 mls/hr IV . [id number] COUNT INCLUDES THE [facility] Rx#:[id number] ceFAZolin 2 gm In Sodium 100 Chloride 0.9% 50 ml @ 100 mls/hr IVPB Q8HR COUNT INCLUDES THE [facility] Rx# :[id number] Oral 100 Other: Voiding Method Bedside Commode Bedside Commode # Voids 3 - Exam GENERAL DESCRIPTION: An elderly female lying in bed in no distress RESPIRATORY SYSTEM: Unlabored breathing , decreased breath sounds at bases HEART: S1 S2 regular rate and rhythm , ABDOMEN: Soft , no tenderness EXTREMITIES: Right knee swelling and warmth has slightly decreased - Labs CBC & Chem 7: 02/20/22 05:28 02/20/22 05:28 Labs: Microbiology - Last 24 Hours (Table) 02/19/22 07:33 Blood Culture - Preliminary Blood No Growth after 72 hours 02/20/22 05:28 Blood Culture - Preliminary Blood No Growth after 48 hours Assessment and Plan (1) Cellulitis of right knee Current Visit: Yes Status: Acute Priority: Medium Code(s): L03.115 - CELLULITIS OF RIGHT LOWER LIMB SNOMED Code(s): 34403190257511674 Plan: 1patient presented to hospital with sepsis in this patient who did have a fever elevated white count predominantly pain to the right knee area with abnormal x- ray suspicious for suprapatellar fluid collection with concern for possible septic bursitis and will need to cover for the gram-positive skin yosvany to be the likely pathogen. 2-patient blood culture positive for MSSA repeat blood culture has been negative so far 3- Patient already has midline and will continue with cefazolin 2 g every 8 hours X 4weeks to finish her course of therapy And close outpatient follow-up Time with Patient: Less than 30
[2022-02-22 13:15] VITALS: BMI 25.7
== END 2022-02-22 14:35 | DRG 872 ==
LOC: EC 13:20 → 5NMEDONC 19:26
PROVIDERS: ADMIT Hospitalist; ATTEND Hospitalist
PROC: 02HV33Z Insertion of Infusion Device into Superior Vena Cava, Percutaneous Approach (ICD-10-PCS; principal; 2022-02-20 09:00)
PROC: B548ZZA Ultrasonography of Superior Vena Cava, Guidance (ICD-10-PCS; 2022-02-20 09:00)
DX: A41.01 Sepsis due to Methicillin susceptible Staphylococcus aureus (principal); L03.115 Cellulitis of right lower limb; E87.1 Hypo-osmolality and hyponatremia; E87.6 Hypokalemia; G40.909 Epilepsy, unspecified, not intractable, without status epilepticus; I10 Essential (primary) hypertension; K21.9 Gastro-esophageal reflux disease without esophagitis; M06.9 Rheumatoid arthritis, unspecified; M19.90 Unspecified osteoarthritis, unspecified site; M41.9 Scoliosis, unspecified; R29.6 Repeated falls; K58.9 Irritable bowel syndrome, unspecified; B88.8 Other specified infestations; Z96.641 Presence of right artificial hip joint; Z96.651 Presence of right artificial knee joint; Z20.822 Contact with and (suspected) exposure to COVID-19; W18.30XA Fall on same level, unspecified, initial encounter; Z79.899 Other long term (current) drug therapy; Z82.0 Family history of epilepsy and other diseases of the nervous system; Z82.49 Family history of ischemic heart disease and other diseases of the circulatory system; Z83.3 Family history of diabetes mellitus
CPT/HCPCS: 36410; 36415; 70450; 71045; 72125; 73521; 76937; 80048; 80053; 81001; 83735; 84132; 84550; 85025; 85652; 86140; 87040; 87077; 87186; 87635; 93005; 96361; 96365; 96366; 96375; 99285

== ENCOUNTER → 2022-07-12 | Outpatient (CLI) | payer MEDICARE, OTHER ==
--- NOTE | 2022-07-12 12:58 | US ---
EXAMINATION TYPE: US venous doppler duplex LE RT DATE OF EXAM: 07/12/2022 12:47 PM COMPARISON: NONE CLINICAL HISTORY: 71-year-old female R22.41 SWELLING, MASS AND LUMP, RIGHT LOWER LIMB. Right calf sw elling, no hx DVT SIDE PERFORMED: Right TECHNIQUE: The lower extremity deep venous system is examined utilizing real time linear array sonog heaven with graded compression, doppler sonography and color-flow sonography. FINDINGS: VESSELS IMAGED: Common Femoral Vein Deep Femoral Vein Greater Saphenous Vein * Femoral Vein Popliteal Vein Small Saphenous Vein * Proximal Calf Veins (* superficial vessels) Right Leg: Negative for DVT Additional scanning along the calf at the area of concern shows edematous subcutaneous tissues. IMPRESSION: 1. No evidence for DVT within the right lower extremity imaged from the groin to the upper calf. 2. Additional scanning along the calf at the area of concern shows subcutaneous soft tissue swelling.
== END | disposition home or self-care (01) ==
LOC: RADUSWWP 12:19
PROVIDERS: ATTEND Family Medicine
DX: R22.41 Localized swelling, mass and lump, right lower limb (principal)

== ENCOUNTER → 2023-02-27 | Outpatient (CLI) | payer MEDICARE ==
--- NOTE | 2023-02-27 14:17 | XR ---
EXAMINATION TYPE: XR foot complete RT DATE OF EXAM: 02/27/2023 CLINICAL HISTORY: pain TECHNIQUE: Frontal, lateral and oblique images of the right foot are obtained. COMPARISON: None. FINDINGS: There is no acute fracture/dislocation evident. The joint spaces appear within normal zamora its. The overlying soft tissue appears unremarkable. IMPRESSION: There is no acute fracture or dislocation. ICD 10 NO FRACTURE, INITIAL EVALUATION
== END | disposition home or self-care (01) ==
LOC: RADXRMAIN 13:56
PROVIDERS: ATTEND Family Medicine
DX: M79.671 Pain in right foot (principal)

== ENCOUNTER 2023-05-30 14:04 | Inpatient (IN) | payer MEDICARE ==
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
[2023-05-30 16:38] LABS: Anisocytosis Slight; Hypochromasia Marked; MCH 16.6 pg (25.0-35.0); MCHC 26.6 g/dL (31.0-37.0); MCV 62.3 fL (80.0-100.0); Mean Platelet Volume 8.5; Microcytosis Marked; Platelet Count 500 k/uL (150-450); Poikilocytosis Moderate; RBC 3.18 m/uL (3.80-5.40); RDW 17.9 % (11.5-15.5); WBC 4.2 k/uL (3.8-10.6)
[2023-05-30 16:44] LABS: HCT 19.8 % (34.0-46.0); HGB 5.3 gm/dL (11.4-16.0)
[2023-05-30 16:51] LABS: ALT 20 U/L (4-34); AST 40 U/L (14-36); African American GFR (CKD) >90 (>60 ml/min/1.73 sqM); Alkaline Phosphatase 125 U/L (38-126); Anion Gap 11 mmol/L; Blood Urea Nitrogen 16 mg/dL (7-17); Calcium 8.5 mg/dL (8.4-10.2); Carbon Dioxide 30 mmol/L (22-30); Chloride 94 mmol/L (98-107); Glucose 96 mg/dL (74-99); Magnesium 2.1 mg/dL (1.6-2.3); Non-African American GFR(CKD) >90 (>60 ml/min/1.73 sqM); Potassium 3.2 mmol/L (3.5-5.1); Sodium 135 mmol/L (137-145); Total Bilirubin 0.3 mg/dL (0.2-1.3); Total Protein 6.9 g/dL (6.3-8.2)
[2023-05-30 17:30] LABS: Lymphocytes # (M) 0.92 k/uL (1.0-4.8); Monocytes # (M) 0.38 k/uL (0-1.0); Neutrophils % (M) 69 %; Nucleated Red Blood Cells 0 /100 WBC (0-0); Total Cells Counted 100
[2023-05-30 17:31] LABS: Stomatocytes Present
[2023-05-30 18:43] LABS: Prothrombin Time 10.4 sec (9.0-12.0)
[2023-05-30 18:47] LABS: Partial Thromboplastin Time 21.4 sec (22.0-30.0)
[2023-05-30] MEDS ORDERED: NALOXONE 0.4 MG/ML 1 ML VIAL IV PRN (19:07)
[2023-05-30] MEDS ORDERED: ONDANSETRON 4 MG/2 ML VIAL IVP PRN (19:07)
[2023-05-30] MEDS ORDERED: ACETAMINOPHEN TAB 325 MG TAB PO PRN (19:07)
[2023-05-30] MEDS ORDERED: POTASSIUM CHLORIDE ER 20 MEQ TAB.ER PO STA (19:10)
[2023-05-30 19:33] LABS: Reticulocyte % 1.8 % (0.5-2.0)
[2023-05-30 19:38] LABS: Appearance,Urine Clear (Clear); Bacteria,Urine Rare /hpf; Bilirubin,Urine Negative (Negative); Blood,Urine Negative (Negative); Color,Urine Yellow; Glucose,Urine (UA) Negative (Negative); Ketones,Urine Negative (Negative); Leukocyte Esterase,Urine Moderate (Negative); Mucus,Urine Rare /hpf; Nitrite,Urine Negative (Negative); PH, Urine 6.5 (5.0-8.0); Protein,Urine Negative (Negative); RBC,Urine 1 /hpf (0-5); Specific Gravity,Urine 1.015 (1.001-1.035); Squamous Epithelial Cell,Urine 2 /hpf (0-4); Urobilinogen,Urine <2.0 mg/dL (<2.0); WBC,Urine 1 /hpf (0-5)
[2023-05-31] MEDS: HYDROcodone/APAP 5-325MG 1 EACH TAB PO PRN (01:36)
[2023-05-31 03:03] LABS: Anisocytosis Moderate; Basophils % (A) 0 %; Eosinophils % (A) 0 %; HCT 26.4 % (34.0-46.0); Hypochromasia Marked; Lymphocytes % (A) 23 %; MCHC 29.1 g/dL (31.0-37.0); Mean Platelet Volume 8.5; Microcytosis Marked; Monocytes # (A) 0.4 k/uL (0-1.0); Monocytes % (A) 9 %; Neutrophils # (A) 2.8 k/uL (1.3-7.7); Neutrophils % (A) 63 %; Platelet Count 456 k/uL (150-450); Poikilocytosis Marked; RBC 3.83 m/uL (3.80-5.40); WBC 4.5 k/uL (3.8-10.6)
[2023-05-31 03:09] LABS: HGB 7.7 gm/dL (11.4-16.0)
[2023-05-31 03:10] LABS: MCV 68.8 fL (80.0-100.0)
[2023-05-31 03:17] LABS: ALT 17 U/L (4-34); AST 31 U/L (14-36); African American GFR (CKD) >90 (>60 ml/min/1.73 sqM); Albumin 3.3 g/dL (3.5-5.0); Albumin/Globulin Ratio 1.2; Alkaline Phosphatase 109 U/L (38-126); Anion Gap 4 mmol/L; Blood Urea Nitrogen 14 mg/dL (7-17); Carbon Dioxide 31 mmol/L (22-30); Chloride 98 mmol/L (98-107); Globulin 2.7 g/dL; Glucose 95 mg/dL (74-99); Non-African American GFR(CKD) >90 (>60 ml/min/1.73 sqM); Potassium 3.1 mmol/L (3.5-5.1); Sodium 133 mmol/L (137-145); Total Bilirubin 0.8 mg/dL (0.2-1.3)
[2023-05-31 03:32] LABS: % Iron Saturation 1.79 (12.00-45.00)
[2023-05-31] MEDS ORDERED: Potassium Replacement Protocol 1 EACH MISC MISCELLANE PRN (03:54)
[2023-05-31 04:00] LABS: Band Neutrophils % 2 %; Lymphocytes # (M) 1.17 k/uL (1.0-4.8); Monocytes # (M) 0.23 k/uL (0-1.0); Neutrophils % (M) 67 %; Nucleated Red Blood Cells 0 /100 WBC (0-0); Total Cells Counted 100
[2023-05-31] MEDS: POTASSIUM CHLORIDE ER 20 MEQ TAB.ER PO SCH ×2 (04:33→05:36)
[2023-05-31] MEDS: PANTOPRAZOLE 40 MG/10 ML VIAL IVP SCH (09:25)
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
[2023-05-31] MEDS ORDERED: PEG 3350 (236 GM/BTL) + LYTES 4,000 ML BOTTLE PO ONE (16:00)
[2023-06-01] MEDS ORDERED: MAGNESIUM CITRATE 296 ML BOTTLE PO ONE (06:42)
[2023-06-01] MEDS: PANTOPRAZOLE 40 MG/10 ML VIAL IVP SCH ×2 (08:31→08:36)
[2023-06-01 08:52] LABS: HCT 25.4 % (37.2-46.3); HGB 7.1 d/dL (12.0-15.0); MCH 19.5 pg (27.0-32.0); MCV 69.8 FL (80.0-97.0); Mean Platelet Volume 9.5 FL (9.5-12.2); NRBC Per 100 WBC 0 X 10*3/uL (0.00-0.01); Platelet Count 419 X 10*3/uL (140-440); RBC 3.64 X 10*6/uL (4.10-5.20); RDW 23.8 % (11.5-14.5); WBC 3.96 X 10*3/uL (4.50-10.00)
[2023-06-01 09:47] LABS: Calcium 8.5 mg/dL (8.7-10.3); Carbon Dioxide 25.6 mmol/L (21.6-31.8); Chloride 108 mmol/L (96-109); Glucose 91 mg/dL (70-110); Sodium 144 mmol/L (135-145)
[2023-06-01] MEDS: PRIMIDONE 250 MG TAB PO SCH ×2 (10:39→21:40)
[2023-06-01] MEDS: SERTRALINE 100 MG TAB PO SCH (10:39)
[2023-06-01] MEDS: lamoTRIgine 100 MG TAB PO SCH ×2 (10:39→21:41)
[2023-06-01] MEDS ORDERED: SODIUM FERRIC GLUCONAT-SUCROSE 125 MG in SODIUM CHLORIDE 0.9% 100 ML IVPB ONE (13:21)
[2023-06-01] MEDS ORDERED: PROPOFOL 10 MG/ML 20 ML VIAL IV ONE (15:10)
[2023-06-01] MEDS ORDERED: LIDOCAINE 2% INJ 20 MG/ML (2 ML VIAL) ONE (15:10)
[2023-06-01] MEDS ORDERED: SODIUM CHLORIDE 0.9% 500 ML 500 ML IV ONE (15:11)
--- NOTE | 2023-06-01 15:41 | P.PCN ---
Date of Procedure: 06/01/23 Procedure(s) Performed: Brief history: Patient is a pleasant 72-year-old white female scheduled for an upper endoscopy as well as colonoscopy as a part of evaluation of Iro deficiency anemia. She was admitted hospital with symptomatic anemia and hemoglobin of 5.3 g/dL and iron indices consistent with iron deficiency anemia Procedure performed: Esophagogastroduodenoscopy with biopsy Colonoscopy Preoperative diagnosis: Severe symptomatic iron deficiency anemia Anesthesia: MAC Procedure: After informed consent was obtained from the patient was brought into the endoscopy unit and IV sedation was administered by anesthesia under continuous monitoring. Initially upper endoscopy was done. The Olympus GF 160 video endoscope was inserted inserted into the mouth and esophagus intubated without any difficulty and was gradually advanced into the stomach and duodenum and carefully examined. The bulb and second part of the duodenum appeared normal. Abscesses were done from the duodenum to rule out celiac disease. The scope was then withdrawn into the stomach adequately insufflated with air and upon careful examination the antrum had mild gastritis and biopsies were done from this area. Mucosa of the body, cardia and fundus appeared normal. There was a large hiatal hernia noted with Todd erosions. The scope was then withdrawn into the esophagus. The GE junction was located at 33 cm to the incisors. It appeared regular with no erythema erosions or ulcerations. Rest of the es ophagus appeared normal. Patient tolerated the procedure well. At this time the patient continued to remain sedation. Initial digital rectal examination was normal. Olympus CF 160 video colonoscope was then inserted into the rectum and gradually advanced to the cecum without any difficulty. Careful examination was performed as the scope was gradually being withdrawn. The prep was excellent. The cecum, ascending colon, transverse colon, descending colon, sigmoid colon and rectum appeared normal. Retroflexion was performed in the rectum and no lesions were noted. Patient tolerated the procedure well. Impression: 1. Upper endoscopy revealed a large hiatal hernia with Todd erosions and mild gastritis 2. Colonoscopy revealed scattered sigmoid diverticulosis but no evidence of col orectal neoplasia Recommendations: Findings of this examination were discussed with the patient . I deficiency anemia most likely related to large hiatal hernia with Todd erosions. She was advised to follow with the biopsy results. Start iron supplements and Protonix 40 mg daily. Follow up in office in 2-3 weeks followed discharge from the hospital
[2023-06-01] MEDS: HYDROcodone/APAP 5-325MG 1 EACH TAB PO PRN ×2 (17:06→22:09)
[2023-06-01] MEDS ORDERED: PANTOPRAZOLE 40 MG/10 ML VIAL IVP SCH (21:00)
[2023-06-01] MEDS ORDERED: LACTATED RINGERS 1,000 ML IV SCH (21:45)
[2023-06-02] MEDS ORDERED: PANTOPRAZOLE 40 MG TABLET PO SCH (07:30)
[2023-06-02] MEDS: PRIMIDONE 250 MG TAB PO SCH (08:40)
[2023-06-02] MEDS: lamoTRIgine 100 MG TAB PO SCH (08:40)
[2023-06-02] MEDS: SERTRALINE 100 MG TAB PO SCH (08:41)
[2023-06-02] MEDS: SODIUM FERRIC GLUCONAT-SUCROSE 125 MG in SODIUM CHLORIDE 0.9% 100 ML IVPB SCH ×2 (08:53→08:55)
[2023-06-02] MEDS: HYDROcodone/APAP 5-325MG 1 EACH TAB PO PRN (11:45)
[2023-06-02 15:11] LABS: Anisocytosis Moderate; Basophils % (A) 0 %; Eosinophils % (A) 0 %; HCT 27.2 % (34.0-46.0); HGB 7.6 gm/dL (11.4-16.0); Hypochromasia Marked; Lymphocytes % (A) 16 %; MCHC 27.8 g/dL (31.0-37.0); MCV 71.8 fL (80.0-100.0); Mean Platelet Volume 8.2; Microcytosis Marked; Monocytes # (A) 0.4 k/uL (0-1.0); Monocytes % (A) 6 %; Neutrophils # (A) 4.8 k/uL (1.3-7.7); Neutrophils % (A) 75 %; Platelet Count 407 k/uL (150-450); Poikilocytosis Marked; RBC 3.79 m/uL (3.80-5.40); RDW 23.2 % (11.5-15.5); WBC 6.4 k/uL (3.8-10.6)
[2023-06-02 15:23] LABS: African American GFR (CKD) >90 (>60 ml/min/1.73 sqM); Anion Gap 7 mmol/L; Blood Urea Nitrogen 8 mg/dL (7-17); Calcium 8.4 mg/dL (8.4-10.2); Carbon Dioxide 25 mmol/L (22-30); Chloride 105 mmol/L (98-107); Glucose 111 mg/dL (74-99); Non-African American GFR(CKD) >90 (>60 ml/min/1.73 sqM); Potassium 4.5 mmol/L (3.5-5.1); Sodium 137 mmol/L (137-145)
[2023-06-02 15:33] VITALS: BP 106/69; PULSE 81; RESP 18; TEMP 98.3
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
--- NOTE | 2023-06-03 09:08 | P.PN ---
Subjective Progress Note Date: 06/01/23 72-year-old female, history of hypertension, seizure disorder, osteoarthritis presents emergency Department with chief complaint of anemia. Patient was sent in by her PCP Dr. Lance for low hemoglobin. She denies any bleeding denies any history of anemia denies any melena, hematochezia, hematemesis. Patient denies any blood thinners. In addition to the information above, patient reports that she's been feeling exhausted for several days, which is what prompted the blood work. In addition to the exhaustion, states that she has had diarrhea. Otherwise denies any complaints. Denies any fevers, chills, sore throat, cough, dyspnea, chest pain, palpitations, abdominal pain, nausea, vomiting, back pain, or headaches. Blood work completed in ED reveals a WBC of 4.2, hemoglobin of 5.38 hematocrit of 98 and platelet count 500, sodium 135, potassium 3.2, BUN/creatinine 16/0.45 and blood glucose of 96 Patient with stool occult negative; iron panel was ordered. Patient received 2 units of packed RBCs along with daily dose of 40 mEq times; patient is being admitted for further GI evaluation -- Hemoglobin is at 7.7 after transfusion with 2 units packed RBCs; patient has been evaluated by GI with plans for EGD and colonoscopy later today; patient was started on bowel prep yesterday - IV fluids normal saline at rate of 75 mL an hour -- Further recommendations once EGD and colonoscopy is completed Objective - Vital Signs Vital signs: Vital Signs Temp 98.1 F 06/01/23 13:05 Pulse 88 06/01/23 13:05 Resp 17 06/01/23 13:05 BP 133/78 06/01/23 13:05 Pulse Ox 95 06/01/23 13:05 FiO2 Intake & Output 05/31/23 06/01/23 06/01/23 18:59 06:59 18:59 Intake Total 0 Balance 0 Intake: Oral 0 Other: # Voids 1 1 1 # Bowel Movements 1 4 - Exam PHYSICAL EXAMINATION: GENERAL: The patient is alert and oriented x3, not in any acute distress. Well developed, well nourished. HEENT: Pupils are round and equally reacting to light. EOMI. No scleral icterus. No conjunctival pallor. Normocephalic, atraumatic. No pharyngeal erythema. No thyromegaly. CARDIOVASCULAR: S1 and S2 present. No murmurs, rubs, or gallops. PULMONARY: Chest is clear to auscultation, no wheezing or crackles. ABDOMEN: Soft, nontender, nondistended, normoactive bowel sounds. No palpable organomegaly. MUSCULOSKELETAL: No joint swelling or deformity. EXTREMITIES: No cyanosis, clubbing, or pedal edema. NEUROLOGICAL: Gross neurological examination did not reveal any focal deficits. SKIN: No rashes. - Labs CBC & Chem 7: 06/02/23 14:56 06/02/23 14:56 Labs: Abnormal Lab Results - Last 24 Hours (Table) 05/31/23 06/01/23 06/01/23 Range/Units 02:28 05:42 05:42 WBC 3.96 L (4.50-10.00) X 10*3/uL RBC 3.64 L (4.10-5.20) X 10*6/uL Hgb 7.1 L (12.0-15.0) d/dL Hct 25.4 L (37.2-46.3) % MCV 69.8 L (80.0-97.0) FL MCH 19.5 L (27.0-32.0) pg MCHC 28.0 L (32.0-37.0) d/dL RDW 23.8 H (11.5-14.5) % BUN 5.0 L (9.0-27.0) mg/dL Creatinine 0.4 L (0.6-1.5) mg/dL Calcium 8.5 L (8.7-10.3) mg/dL Ferritin 8.7 L (10.0-291.0) ng/mL Assessment and Plan Assessment: 1. Severe symptomatic anemia; hemoglobin at 5.3 upon arrival to ED; patient is receiving 2 units of packed RBCs; We will continue to monitor H&H closely and transfuse if hemoglobin is less than 7.0 2. GI bleed; patient was found to be stool occult blood positive in ED; Protonix 40 mg IV every 12 hours; continue to monitor stool for occult blood; consult GI for further recommendations 3. Hypokalemia; supplemented in ED. K Dur 40 mg by mouth 1; we will monitor electrolytes closely and make further recommendations as needed 4. Seizure disorder; we will continue with home dose of Lamictal 150 mg twice a day along with primidone 250 mg twice a day - Patient is placed on seizure precautions 5. Depression; Zoloft 100 mg daily 6. Gastroesophageal reflux disease; patient takes omeprazole at home; currently on IV Protonix DVT prophylaxis; SCDs only due to GI bleed CODE STATUS; full code
--- NOTE | 2023-06-03 09:13 | P.PN ---
Subjective Progress Note Date: 06/02/23 Principal diagnosis: GI bleed; status post EGD/colonoscopy; large hiatal hernia with Todd erosions and mild gastritis Acute symptomatic anemia 72-year-old female, history of hypertension, seizure disorder, osteoarthritis presents emergency Department with chief complaint of anemia. Patient was sent in by her PCP Dr. Lance for low hemoglobin. She denies any bleeding denies any history of anemia denies any melena, hematochezia, hematemesis. Patient denies any blood thinners. In addition to the information above, patient reports that she's been feeling exhausted for several days, which is what prompted the blood work. In addition to the exhaustion, states that she has had diarrhea. Otherwise denies any complaints. Denies any fevers, chills, sore throat, cough, dyspnea, chest pain, palpitations, abdominal pain, nausea, vomiting, back pain, or headaches. Blood work completed in ED reveals a WBC of 4.2, hemoglobin of 5.38 hematocrit of 98 and platelet count 500, sodium 135, potassium 3.2, BUN/creatinine 16/0.45 and blood glucose of 96 Patient with stool occult negative; iron panel was ordered. Patient received 2 units of packed RBCs along with daily dose of 40 mEq times; patient is being admitted for further GI evaluation -- Hemoglobin is at 7.7 after transfusion with 2 units packed RBCs; patient has been evaluated by GI with plans for EGD and colonoscopy later today; patient was started on bowel prep yesterday - IV fluids normal saline at rate of 75 mL an hour -- Further recommendations once EGD and colonoscopy is completed 06/02/2023 Patient is seen and evaluated in room at bedside; does report some abdominal pain and nausea; EGD results were discussed with patient -- Patient is status post EGD/colonoscopy which revealed large hiatal hernia with Todd erosions and mild gastritis; colonoscopy reveals sigmoid diverticulosis with no evidence of colorectal neoplasm; iron deficiency anemia likely related to large hiatal hernia with Todd erosions; GI is recommending to start patient on iron supplement and Protonix and follow-up with GI once biopsy results are available -- H&H closely monitor hemoglobin 7.1; patient has been placed on a diet; we will plan to monitor H&H with possible plans for discharge in next 24 hours if hemoglobin remained stable; patient is reluctant but agreeable; was hoping to be discharged home today; monitor CBC Objective - Vital Signs Vital signs: Vital Signs Temp 98.3 F 06/02/23 15:09 Pulse 81 06/02/23 15:09 Resp 18 06/02/23 15:09 BP 106/69 06/02/23 15:09 Pulse Ox 99 06/02/23 15:09 FiO2 Intake & Output 06/02/23 06/03/23 06/03/23 18:59 06:59 18:59 Other: Voiding Method Toilet Bedside Commode # Voids 4 - Exam PHYSICAL EXAMINATION: GENERAL: The patient is alert and oriented x3, not in any acute distress. Well developed, well nourished. HEENT: Pupils are round and equally reacting to light. EOMI. No scleral icterus. No conjunctival pallor. Normocephalic, atraumatic. No pharyngeal erythema. No thyromegaly. CARDIOVASCULAR: S1 and S2 present. No murmurs, rubs, or gallops. PULMONARY: Chest is clear to auscultation, no wheezing or crackles. ABDOMEN: Soft, nontender, nondistended, normoactive bowel sounds. No palpable organomegaly. MUSCULOSKELETAL: No joint swelling or deformity. EXTREMITIES: No cyanosis, clubbing, or pedal edema. NEUROLOGICAL: Gross neurological examination did not reveal any focal deficits. SKIN: No rashes. - Labs CBC & Chem 7: 06/02/23 14:56 06/02/23 14:56 Labs: Abnormal Lab Results - Last 24 Hours (Table) 06/01/23 06/02/23 06/02/23 Range/Units 10:45 14:56 14:56 RBC 3.79 L (3.80-5.40) m/uL Hgb 7.6 L (11.4-16.0) gm/dL Hct 27.2 L (34.0-46.0) % MCV 71.8 L (80.0-100.0) fL MCH 20.0 L (25.0-35.0) pg MCHC 27.8 L (31.0-37.0) g/dL RDW 23.2 H (11.5-15.5) % Creatinine 0.51 L (0.52-1.04) mg/dL Glucose 111 H (74-99) mg/dL Lamotrigine 1.3 L (2.0-15.0) ug/mL Assessment and Plan Assessment: 1. Severe symptomatic anemia; hemoglobin at 5.3 upon arrival to ED; patient is receiving 2 units of packed RBCs; We will continue to monitor H&H closely and transfuse if hemoglobin is less than 7.0 2. GI bleed; patient was found to be stool occult blood positive in ED; Protonix 40 mg IV every 12 hours; continue to monitor stool for occult blood; consult GI for further recommendations 3. Hypokalemia; supplemented in ED. K Dur 40 mg by mouth 1; we will monitor electrolytes closely and make further recommendations as needed 4. Seizure disorder; we will continue with home dose of Lamictal 150 mg twice a day along with primidone 250 mg twice a day - Patient is placed on seizure precautions 5. Depression; Zoloft 100 mg daily 6. Gastroesophageal reflux disease; patient takes omeprazole at home; currently on IV Protonix DVT prophylaxis; SCDs only due to GI bleed CODE STATUS; full code
== END 2023-06-02 19:38 | disposition left against medical advice (07) | DRG 812 ==
LOC: EC 14:04 → 5NMEDONC 18:52
PROVIDERS: ADMIT Hospitalist; ATTEND Hospitalist
PROC: 30233N1 Transfusion of Nonautologous Red Blood Cells into Peripheral Vein, Percutaneous Approach (ICD-10-PCS; 2023-05-30)
PROC: 0DJD8ZZ Inspection of Lower Intestinal Tract, Via Natural or Artificial Opening Endoscopic (ICD-10-PCS; principal; 2023-06-01 15:20)
PROC: 0DB68ZX Excision of Stomach, Via Natural or Artificial Opening Endoscopic, Diagnostic (ICD-10-PCS; 2023-06-01 15:20)
DX: D50.9 Iron deficiency anemia, unspecified (principal); E87.6 Hypokalemia; F32.A Depression, unspecified; F41.9 Anxiety disorder, unspecified; G40.909 Epilepsy, unspecified, not intractable, without status epilepticus; I10 Essential (primary) hypertension; K21.00 Gastro-esophageal reflux disease with esophagitis, without bleeding; K29.70 Gastritis, unspecified, without bleeding; K44.9 Diaphragmatic hernia without obstruction or gangrene; K57.30 Diverticulosis of large intestine without perforation or abscess without bleeding; K58.9 Irritable bowel syndrome, unspecified; M06.9 Rheumatoid arthritis, unspecified; M41.9 Scoliosis, unspecified; Z96.651 Presence of right artificial knee joint; Z96.641 Presence of right artificial hip joint; Z96.652 Presence of left artificial knee joint; Z79.899 Other long term (current) drug therapy; Z82.0 Family history of epilepsy and other diseases of the nervous system; Z82.49 Family history of ischemic heart disease and other diseases of the circulatory system; Z83.3 Family history of diabetes mellitus
CPT/HCPCS: 36415; 36430; 43239; 45378; 80048; 80053; 80175; 81001; 82272; 82607; 82728; 82746; 82747; 83540; 83550; 83735; 85025; 85027; 85045; 85610; 85730; 86850; 86900; 86901; 86920; 99285

== ENCOUNTER 2023-09-24 12:32 | Observation (INO) | payer MEDICARE ==
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
[2023-09-24 13:55] LABS: Anisocytosis Slight; Basophils % (A) 0 %; Eosinophils # (A) 0.1 k/uL (0-0.7); Eosinophils % (A) 1 %; HCT 20.6 % (34.0-46.0); Hypochromasia Marked; Lymphocytes # (A) 0.6 k/uL (1.0-4.8); Lymphocytes % (A) 10 %; MCH 18.5 pg (25.0-35.0); MCHC 27.5 g/dL (31.0-37.0); MCV 67.1 fL (80.0-100.0); Mean Platelet Volume 8.6; Microcytosis Marked; Monocytes # (A) 0.3 k/uL (0-1.0); Monocytes % (A) 5 %; Neutrophils # (A) 5.5 k/uL (1.3-7.7); Neutrophils % (A) 82 %; Platelet Count 317 k/uL (150-450); Poikilocytosis Moderate; RBC 3.07 m/uL (3.80-5.40); RDW 17.2 % (11.5-15.5); WBC 6.8 k/uL (3.8-10.6)
[2023-09-24 13:56] LABS: ALT 16 U/L (4-34); AST 38 U/L (14-36); African American GFR (CKD) >90 (>60 ml/min/1.73 sqM); Albumin 4.1 g/dL (3.5-5.0); Alkaline Phosphatase 146 U/L (38-126); Anion Gap 12 mmol/L; Blood Urea Nitrogen 21 mg/dL (7-17); Calcium 8.5 mg/dL (8.4-10.2); Carbon Dioxide 19 mmol/L (22-30); Chloride 105 mmol/L (98-107); Glucose 100 mg/dL (74-99); Magnesium 2.2 mg/dL (1.6-2.3); Non-African American GFR(CKD) >90 (>60 ml/min/1.73 sqM); Potassium 4.4 mmol/L (3.5-5.1); Sodium 136 mmol/L (137-145); Total Bilirubin 0.4 mg/dL (0.2-1.3); Total Protein 7.4 g/dL (6.3-8.2)
[2023-09-24 14:00] LABS: HGB 5.7 gm/dL (11.4-16.0)
[2023-09-24] MEDS ORDERED: NALOXONE 0.4 MG/ML 1 ML VIAL IV PRN (15:45)
[2023-09-24] MEDS ORDERED: PANTOPRAZOLE 40 MG/10 ML VIAL IVP ONE (21:27)
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
[2023-09-24] MEDS: SODIUM CHLORIDE 0.9% 1,000 ML IV SCH (22:31)
[2023-09-25 02:27] LABS: % Iron Saturation 1.46 (12.00-45.00)
[2023-09-25] MEDS ORDERED: PANTOPRAZOLE 40 MG TABLET PO SCH (07:30)
[2023-09-25] MEDS ORDERED: PRIMIDONE 250 MG TAB PO SCH (09:00)
[2023-09-25] MEDS ORDERED: lamoTRIgine 100 MG TAB PO SCH (09:00)
[2023-09-25] MEDS ORDERED: SERTRALINE 100 MG TAB PO SCH (09:00)
[2023-09-25 09:13] LABS: ALT 14 U/L (4-34); AST 37 U/L (14-36); African American GFR (CKD) >90 (>60 ml/min/1.73 sqM); Albumin 3.9 g/dL (3.5-5.0); Albumin/Globulin Ratio 1.3; Alkaline Phosphatase 136 U/L (38-126); Anion Gap 10 mmol/L; Blood Urea Nitrogen 13 mg/dL (7-17); Carbon Dioxide 23 mmol/L (22-30); Chloride 108 mmol/L (98-107); Globulin 3.1 g/dL; Glucose 84 mg/dL (74-99); Non-African American GFR(CKD) >90 (>60 ml/min/1.73 sqM); Sodium 141 mmol/L (137-145); Total Bilirubin 0.6 mg/dL (0.2-1.3)
[2023-09-25 09:14] LABS: Calcium 5.1 mg/dL (8.4-10.2); Potassium 6.8 mmol/L (3.5-5.1)
[2023-09-25 11:31] LABS: African American GFR (CKD) >90 (>60 ml/min/1.73 sqM); Anion Gap 10 mmol/L; Blood Urea Nitrogen 13 mg/dL (7-17); Calcium 8.7 mg/dL (8.4-10.2); Carbon Dioxide 22 mmol/L (22-30); Chloride 107 mmol/L (98-107); Glucose 99 mg/dL (74-99); Non-African American GFR(CKD) >90 (>60 ml/min/1.73 sqM); Potassium 4.1 mmol/L (3.5-5.1); Sodium 139 mmol/L (137-145)
[2023-09-25 11:34] LABS: Anisocytosis Slight; Basophils % (A) 1 %; Eosinophils % (A) 0 %; HCT 26.8 % (34.0-46.0); Hypochromasia Marked; Lymphocytes # (A) 0.5 k/uL (1.0-4.8); Lymphocytes % (A) 8 %; MCH 21.5 pg (25.0-35.0); MCHC 29.5 g/dL (31.0-37.0); Mean Platelet Volume 8.3; Microcytosis Moderate; Monocytes # (A) 0.5 k/uL (0-1.0); Monocytes % (A) 8 %; Neutrophils # (A) 4.9 k/uL (1.3-7.7); Neutrophils % (A) 81 %; Platelet Count 319 k/uL (150-450); Poikilocytosis Marked; RBC 3.67 m/uL (3.80-5.40); RDW 18.9 % (11.5-15.5)
[2023-09-25 11:55] LABS: HGB 7.9 gm/dL (11.4-16.0); MCV 72.9 fL (80.0-100.0)
[2023-09-25 13:22] VITALS: BP 117/65; PULSE 95; RESP 16; TEMP 98.7
[2023-09-25] MEDS: SODIUM CHLORIDE 0.9% 1,000 ML IV SCH (13:28)
[2023-09-25] MEDS ORDERED: SODIUM FERRIC GLUCONAT-SUCROSE 125 MG in SODIUM CHLORIDE 0.9% 100 ML IVPB ONE (14:00)
== END 2023-09-25 16:40 | disposition home or self-care (01) ==
LOC: EC 12:32 → 5NMEDONC 15:45
PROVIDERS: ADMIT Internal Medicine; ATTEND Internal Medicine
DX: D50.9 Iron deficiency anemia, unspecified (principal); K21.9 Gastro-esophageal reflux disease without esophagitis; I10 Essential (primary) hypertension; F32.A Depression, unspecified; F41.9 Anxiety disorder, unspecified; K57.30 Diverticulosis of large intestine without perforation or abscess without bleeding; E87.1 Hypo-osmolality and hyponatremia; K58.9 Irritable bowel syndrome, unspecified; G40.909 Epilepsy, unspecified, not intractable, without status epilepticus; R74.01 Elevation of levels of liver transaminase levels; Z79.899 Other long term (current) drug therapy
CPT/HCPCS: 36430 ×2; 96365; 96375; 99285; 36415; 93005; 86900; 86901; 82747; 80053 ×2; 80048; 84443; 82607; 83540; 83550; 83735; 85025 ×2; 86850; 86920; 82272; G0378 ×2; P9016; J2916; C9113

== ENCOUNTER 2023-12-28 03:27 | Emergency (ER) | payer MEDICARE ==
[2023-12-28 03:51] VITALS: RESP 18
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
[2023-12-28] MEDS: SODIUM CHLORIDE 0.9% 500 ML 500 ML IV STA (04:05)
[2023-12-28] MEDS: PROPOFOL 10 MG/ML 20 ML VIAL IV ONE (04:15)
--- NOTE | 2023-12-28 04:43 | XR ---
Yarelis Hicks 4:14 AM EXAMINATION TYPE: XR Hip Limited RT DATE OF EXAM: 12/28/2023 CLINICAL HISTORY: Right hip reduction. TECHNIQUE: Single AP portable view of the right hip is obtained after reduction. COMPARISON: Right hip x-ray earlier today. FINDINGS: Successful interval reduction of prosthetic dislocation is now present. IMPRESSION: As above.
--- NOTE | 2023-12-28 04:43 | XR ---
CORI VEGA EXAMINATION TYPE: XR Hip Limited RT DATE OF EXAM: 12/28/2023 CLINICAL HISTORY: Right hip stretching with popping injury. Dislocation. Shortening. TECHNIQUE: Single AP portable view of the right hip is obtained . COMPARISON: Right hip x-ray August 20, 2023 FINDINGS: Metallic hardware from total right hip arthroplasty is identified. Prosthetic dislocation i s confirmed. There is suspected old fracture of the right inferior pelvic ramus redemonstrated. No ac peter fracture is seen. 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
[2023-12-28 07:11] VITALS: BP 131/62; PULSE 82; TEMP 98.3
== END 2023-12-28 06:01 | disposition home or self-care (01) ==
LOC: EC 03:27
DX: S73.004A Unspecified dislocation of right hip, initial encounter (principal); I10 Essential (primary) hypertension; K21.9 Gastro-esophageal reflux disease without esophagitis; F41.9 Anxiety disorder, unspecified; F32.A Depression, unspecified; Z79.899 Other long term (current) drug therapy; X58.XXXA Exposure to other specified factors, initial encounter
CPT/HCPCS: 73501; 27250; 99152; 99284; 96374; J2704

== ENCOUNTER 2024-01-14 16:48 | Inpatient (IN) | payer MEDICARE ==
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
[2024-01-14] MEDS: MORPHINE SULFATE 4 MG/ML SYRINGE IVP STA ×2 (17:27→18:04)
--- NOTE | 2024-01-14 17:45 | XR ---
PROCEDURE: XR Hip RT and AP Pelvis - 3V DATE AND TIME: 01/14/2024 5:07 PM CLINICAL INDICATION: PHH; pain TECHNIQUE: 3 views were obtained. COMPARISON: 06/07/2019 FINDINGS/IMPRESSION: There is dislocation of the right THR. There is no evidence of proximal femur fracture, but the media l acetabulum shows evidence of a fracture just caudal to the acetabular prosthesis, which can be furt her characterized with CT. No other candidate for fracture.
--- NOTE | 2024-01-14 18:50 | CT ---
EXAMINATION TYPE: CT hip RT wo con DATE OF EXAM: 01/14/2024 COMPARISON: Same day radiographs HISTORY: right hip pain TECHNIQUE: Departmental protocol. Automated exposure control for dose reduction was used. CT DLP: 654.9 mGycm. FINDINGS/IMPRESSION: SKELETAL STRUCTURES There is posterior dislocation of the femur with respect to the acetabulum. The THR components are in tact. The proximal femurs negative for evidence of fracture. There is a mildly mildly comminuted/mild ly displaced fracture of the right ischium. No other fractures. SOFT TISSUES Soft tissue swelling noted about the right hip. The urinary bladder has a prominent component situated anterior to the right hip. The rectosigmoid has a prominent volume of stool.
[2024-01-14] MEDS: PROPOFOL 10 MG/ML 20 ML VIAL IV ONE (20:30)
[2024-01-14] MEDS ORDERED: NALOXONE 0.4 MG/ML 1 ML VIAL IV PRN (20:35)
[2024-01-14] MEDS ORDERED: ONDANSETRON 4 MG/2 ML VIAL IVP PRN (20:35)
[2024-01-14] MEDS ORDERED: MORPHINE SULFATE 4 MG/ML SYRINGE IV PRN (20:35)
--- NOTE | 2024-01-14 20:39 | XR ---
PROCEDURE: XR Hip Limited RT - 1V DATE AND TIME: 01/14/2024 8:27 PM CLINICAL INDICATION: PHH; reduction TECHNIQUE: Department protocol COMPARISON: Same day study is FINDINGS/IMPRESSION: AP portable view shows interval reduction of the right hip. Right ischium fracture redemonstrated.
[2024-01-14] MEDS: SODIUM CHLORIDE 0.9% 1,000 ML IV SCH (22:03)
[2024-01-14 22:40] LABS: Anisocytosis Moderate; Basophils % (A) 1 %; Eosinophils % (A) 0 %; Hypochromasia Marked; Lymphocytes % (A) 13 %; MCH 16.6 pg (25.0-35.0); MCHC 26.5 g/dL (31.0-37.0); MCV 62.5 fL (80.0-100.0); Mean Platelet Volume 7.8; Microcytosis Marked; Monocytes # (A) 0.5 k/uL (0-1.0); Monocytes % (A) 7 %; Neutrophils # (A) 5.6 k/uL (1.3-7.7); Neutrophils % (A) 77 %; Platelet Count 349 k/uL (150-450); Poikilocytosis Moderate; RBC 3.03 m/uL (3.80-5.40); WBC 7.3 k/uL (3.8-10.6)
[2024-01-14 22:49] LABS: AST 27 U/L (14-36); African American GFR (CKD) >90 (>60 ml/min/1.73 sqM); Albumin 3.6 g/dL (3.5-5.0); Anion Gap 3 mmol/L; Blood Urea Nitrogen 9 mg/dL (7-17); Calcium 8.3 mg/dL (8.4-10.2); Carbon Dioxide 29 mmol/L (22-30); Chloride 105 mmol/L (98-107); Glucose 102 mg/dL (74-99); Non-African American GFR(CKD) >90 (>60 ml/min/1.73 sqM); Potassium 3.7 mmol/L (3.5-5.1); Sodium 137 mmol/L (137-145); Total Bilirubin 0.3 mg/dL (0.2-1.3); Total Protein 6.5 g/dL (6.3-8.2)
[2024-01-14 22:50] LABS: ALT 16 U/L (4-34); Alkaline Phosphatase 139 U/L (38-126)
[2024-01-14 23:46] LABS: HCT 18.9 % (34.0-46.0)
[2024-01-15] MEDS: FUROSEMIDE 10 MG/ML 2 ML VIAL IV ONE (01:30)
--- NOTE | 2024-01-15 02:35 | XR ---
EXAM: XR Chest, 2 Views CLINICAL HISTORY: XR Reason: anemia TECHNIQUE: Frontal and lateral views of the chest. COMPARISON: May 15, 2021 FINDINGS: Lungs: Low lung volumes with increased bibasilar atelectasis and possible small left effusion. Pleural space: Unremarkable. No pneumothorax. Heart: The cardiac silhouette is mildly enlarged. There is a 5 cm hiatal hernia projecting mild the heart, similar to previous. Mediastinum: Unremarkable. Normal mediastinal contour. Bones/joints: Increased kyphosis of the thoracic spine and moderate multilevel degenerative changes with scoliosis. Multiple old healed bilateral rib fractures with chest wall deformity, unchanged. Upper abdomen: Elevated right diaphragm, unchanged. There is no pneumoperitoneum under the diaphragm. IMPRESSION: 1. The cardiac silhouette is mildly enlarged. There is a 5 cm hiatal hernia projecting mild the heart, similar to previous. 2. Low lung volumes with increased bibasilar atelectasis and possible small left effusion.
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
[2024-01-15] MEDS: traMADol 50 MG TAB PO PRN (12:49)
[2024-01-15] MEDS: PANTOPRAZOLE 40 MG/10 ML VIAL IVP SCH (12:50)
[2024-01-15 16:30] LABS: Anisocytosis Moderate; Basophils % (A) 0 %; Eosinophils % (A) 0 %; HCT 29.5 % (34.0-46.0); Hypochromasia Marked; Lymphocytes # (A) 0.7 k/uL (1.0-4.8); Lymphocytes % (A) 8 %; MCH 21.2 pg (25.0-35.0); MCHC 29.3 g/dL (31.0-37.0); Mean Platelet Volume 7.6; Microcytosis Marked; Monocytes # (A) 0.6 k/uL (0-1.0); Monocytes % (A) 7 %; Neutrophils # (A) 6.9 k/uL (1.3-7.7); Neutrophils % (A) 82 %; Platelet Count 325 k/uL (150-450); Poikilocytosis Marked; RBC 4.08 m/uL (3.80-5.40); RDW 22.2 % (11.5-15.5); WBC 8.4 k/uL (3.8-10.6)
[2024-01-15 16:32] LABS: HGB 8.7 gm/dL (11.4-16.0)
[2024-01-15 16:33] LABS: MCV 72.4 fL (80.0-100.0)
[2024-01-15 20:12] LABS: Glucose,Whole Blood 112 mg/dL (70-110)
[2024-01-15] MEDS: PRIMIDONE 250 MG TAB PO SCH (20:17)
[2024-01-15] MEDS: lamoTRIgine 100 MG TAB PO SCH (20:17)
[2024-01-15] MEDS ORDERED: SENNOSIDES 8.6 MG TAB PO PRN (22:09)
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
[2024-01-16 02:22] LABS: % Iron Saturation 1.59 (12.00-45.00)
[2024-01-16] MEDS: DICLOFENAC SODIUM GEL 100 GM TUBE TOPICAL PRN (04:24)
[2024-01-16 06:10] LABS: Glucose,Whole Blood 108 mg/dL (70-110)
[2024-01-16] MEDS: DICLOFENAC SODIUM GEL 100 GM TUBE TOPICAL SCH (07:56)
[2024-01-16] MEDS: SODIUM FERRIC GLUCONAT-SUCROSE 125 MG in SODIUM CHLORIDE 0.9% 100 ML IVPB SCH (08:55)
[2024-01-16] MEDS: PANTOPRAZOLE 40 MG TABLET PO SCH (08:55)
[2024-01-16 09:56] LABS: Anisocytosis Moderate; Basophils # (A) 0.1 k/uL (0-0.2); Basophils % (A) 1 %; Eosinophils % (A) 0 %; Hypochromasia Marked; Lymphocytes % (A) 10 %; MCHC 29.1 g/dL (31.0-37.0); MCV 72.2 fL (80.0-100.0); Mean Platelet Volume 7.3; Microcytosis Marked; Monocytes # (A) 0.8 k/uL (0-1.0); Monocytes % (A) 9 %; Neutrophils # (A) 7.5 k/uL (1.3-7.7); Neutrophils % (A) 79 %; Platelet Count 337 k/uL (150-450); Poikilocytosis Marked; RBC 4.29 m/uL (3.80-5.40); RDW 23.5 % (11.5-15.5); WBC 9.5 k/uL (3.8-10.6)
[2024-01-16 10:24] LABS: African American GFR (CKD) >90 (>60 ml/min/1.73 sqM); Anion Gap 8 mmol/L; Blood Urea Nitrogen 9 mg/dL (7-17); Calcium 8.5 mg/dL (8.4-10.2); Carbon Dioxide 24 mmol/L (22-30); Chloride 105 mmol/L (98-107); Glucose 138 mg/dL (74-99); Non-African American GFR(CKD) >90 (>60 ml/min/1.73 sqM); Potassium 3.4 mmol/L (3.5-5.1); Sodium 137 mmol/L (137-145)
--- NOTE | 2024-01-16 10:52 | P.PN ---
Subjective Progress Note Date: 01/16/24 Principal diagnosis: Recurrent right periprosthetic hip dislocation, right ischium fracture Patient was evaluated today at bedside, she is resting in her hospital bed. Patient is having very minimal discomfort of her right hip joint at this time. She does have some pain in the pelvic region. CT scan of the right hip did demonstrate a mildly displaced right ischium fracture. Components remain in adequate position after relocation procedure. Patient has not been up and am bulating at this time. She did receive blood yesterday due to her severe anemia. Internal medicine continues to follow the patient for this. Objective - Vital Signs Vital signs: Vital Signs Temp 98.5 F 01/16/24 04:00 Pulse 102 H 01/16/24 04:00 Resp 18 01/16/24 04:00 BP 123/76 01/16/24 04:00 Pulse Ox 96 01/16/24 04:00 FiO2 Intake & Output 01/15/24 01/16/24 01/16/24 18:59 06:59 18:59 Intake Total 842 420 Output Total 1150 1100 Balance -308 -1100 420 Weight 65.77 kg Intake: Oral 222 420 Blood Product 620 Rc Irr As1 Unit 310 [id number] Rc Irr As1 Unit 310 [id number] Output: Urine 1150 1100 Other: Voiding Method Indwelling Catheter Indwelling Catheter # Voids 0 - Exam Right lower extremity: No obvious open lesions or sores are present throughout the extremity. Patient does have some mild soft tissue swelling to the lateral aspect of the hip. Logroll maneuver reproduces no severe pain. Hip flexion does reproduce some discomfort in the pelvic region. She does have a scab present over the anterior aspect of the knee, the remaining knee incision is well-healed. There is no effusion present on the knee. Extension and flexion at the knee are intact, plantarflexion, dorsiflexion, EHL, FHL are intact. Sensory exam to light touch is intact throughout the extremity. Dorsalis pedis pulses 2+ - Labs CBC & Chem 7: 01/16/24 08:59 01/16/24 08:59 Labs: Abnormal Lab Results - Last 24 Hours (Table) 01/14/24 01/15/24 01/15/24 Range/Units 22:29 00:07 15:59 Hgb 8.7 L D (11.4-16.0) gm/dL Hct 29.5 L (34.0-46.0) % MCV 72.4 L D (80.0-100.0) fL MCH 21.2 L (25.0-35.0) pg MCHC 29.3 L (31.0-37.0) g/dL RDW 22.2 H (11.5-15.5) % Lymphocytes # 0.7 L (1.0-4.8) k/uL Potassium (3.5-5.1) mmol/L Creatinine (0.52-1.04) mg/dL Glucose (74-99) mg/dL POC Glucose (mg/dL) (70-110) mg/dL Iron 8 L (50-170) UG/DL TIBC 504 H (228-460) UG/DL % Saturation 1.59 L (12.00-45.00) Transferrin 360.0 H (204.0-354.0) mg/dL Primidone (4-12) ug/mL Crossmatch See Detail 01/15/24 01/15/24 01/16/24 Range/Units 15:59 20:08 08:59 Hgb 9.0 L (11.4-16.0) gm/dL Hct 31.0 L (34.0-46.0) % MCV 72.2 L (80.0-100.0) fL MCH 21.0 L (25.0-35.0) pg MCHC 29.1 L (31.0-37.0) g/dL RDW 23.5 H (11.5-15.5) % Lymphocytes # (1.0-4.8) k/uL Potassium (3.5-5.1) mmol/L Creatinine (0.52-1.04) mg/dL Glucose (74-99) mg/dL POC Glucose (mg/dL) 112 H (70-110) mg/dL Iron (50-170) UG/DL TIBC (228-460) UG/DL % Saturation (12.00-45.00) Transferrin (204.0-354.0) mg/dL Primidone <1.0 L (4-12) ug/mL Crossmatch 01/16/24 Range/Units 08:59 Hgb (11.4-16.0) gm/dL Hct (34.0-46.0) % MCV (80.0-100.0) fL MCH (25.0-35.0) pg MCHC (31.0-37.0) g/dL RDW (11.5-15.5) % Lymphocytes # (1.0-4.8) k/uL Potassium 3.4 L (3.5-5.1) mmol/L Creatinine 0.42 L (0.52-1.04) mg/dL Glucose 138 H (74-99) mg/dL POC Glucose (mg/dL) (70-110) mg/dL Iron (50-170) UG/DL TIBC (228-460) UG/DL % Saturation (12.00-45.00) Transferrin (204.0-354.0) mg/dL Primidone (4-12) ug/mL Crossmatch Assessment and Plan Assessment: Recurrent right periprosthetic hip dislocation Mildly displaced right ischium fracture Anemia Other medical comorbidities Plan: No emergent orthopedic surgical intervention is recommended at this time Recommend protected weightbearing, this to include use of a walker. Recommend evaluation by PT/OT Pain control, utilize Tylenol and NSAIDs as needed Discussed with the patient that she does need to consider revision of her right total hip arthroplasty due to the constant dislocations. We have had this conversation many times when patient was in the hospital, she has had no interest in seeing another provider regarding this. I advised to the patient that we would help facilitate follow-up with a tertiary care facility to have her meet with an orthopedic surgeon that specializes in revision surgery. Our office information will be placed in chart Please contact our service with any further questions regarding this patient Time with Patient: Less than 30
[2024-01-16 11:47] LABS: Glucose,Whole Blood 81 mg/dL (70-110)
[2024-01-16] MEDS: POTASSIUM CHLORIDE ER 20 MEQ TAB.ER PO STA (19:58)
[2024-01-17 09:41] LABS: Anisocytosis Moderate; Basophils % (A) 0 %; Eosinophils % (A) 0 %; HCT 30.2 % (34.0-46.0); HGB 8.2 gm/dL (11.4-16.0); Hypochromasia Marked; Lymphocytes # (A) 1.1 k/uL (1.0-4.8); Lymphocytes % (A) 10 %; MCH 20.2 pg (25.0-35.0); MCHC 27.1 g/dL (31.0-37.0); MCV 74.5 fL (80.0-100.0); Mean Platelet Volume 8.1; Microcytosis Marked; Monocytes # (A) 0.8 k/uL (0-1.0); Monocytes % (A) 8 %; Neutrophils % (A) 78 %; Platelet Count 319 k/uL (150-450); Poikilocytosis Marked; RBC 4.06 m/uL (3.80-5.40); RDW 23.9 % (11.5-15.5); WBC 10.2 k/uL (3.8-10.6)
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
[2024-01-17 10:16] LABS: African American GFR (CKD) >90 (>60 ml/min/1.73 sqM); Anion Gap 7 mmol/L; Blood Urea Nitrogen 6 mg/dL (7-17); Calcium 8.5 mg/dL (8.4-10.2); Carbon Dioxide 23 mmol/L (22-30); Chloride 108 mmol/L (98-107); Glucose 89 mg/dL (74-99); Non-African American GFR(CKD) >90 (>60 ml/min/1.73 sqM); Potassium 4.4 mmol/L (3.5-5.1); Sodium 138 mmol/L (137-145)
[2024-01-17 11:39] VITALS: RESP 16; TEMP 98.2
[2024-01-17] MEDS: ACETAMINOPHEN TAB 325 MG TAB PO PRN (11:47)
[2024-01-17 13:47] VITALS: PULSE 96
[2024-01-17 16:35] LABS: Appearance,Urine Clear (Clear); Bacteria,Urine Rare /hpf; Bilirubin,Urine Negative (Negative); Blood,Urine Negative (Negative); Color,Urine Colorless; Glucose,Urine (UA) Negative (Negative); Ketones,Urine Negative (Negative); Leukocyte Esterase,Urine Large (Negative); Nitrite,Urine Negative (Negative); PH, Urine 6.5 (5.0-8.0); Protein,Urine Negative (Negative); RBC,Urine 4 /hpf (0-5); Specific Gravity,Urine 1.011 (1.001-1.035); Squamous Epithelial Cell,Urine 1 /hpf (0-4); Urobilinogen,Urine <2.0 mg/dL (<2.0); WBC,Urine 88 /hpf (0-5)
[2024-01-17 16:54] VITALS: BP 120/60
[2024-01-17] MEDS ORDERED: MIRTAZAPINE 15 MG TAB PO SCH (21:00)
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
== END 2024-01-17 17:49 | disposition home health service (06) | DRG 560 ==
LOC: EC 16:48 → 4SSUR 20:36 → 3SCARD 01-15 04:19 → OBSVTOIN 01-15 08:47 → 3SCARD 01-15 12:19
PROVIDERS: ADMIT Internal Medicine; ATTEND Internal Medicine
DX: T84.020A Dislocation of internal right hip prosthesis, initial encounter (principal); D62 Acute posthemorrhagic anemia; S32.601A Unspecified fracture of right ischium, initial encounter for closed fracture; K58.9 Irritable bowel syndrome, unspecified; K21.9 Gastro-esophageal reflux disease without esophagitis; Y79.2 Prosthetic and other implants, materials and accessory orthopedic devices associated with adverse incidents; M41.9 Scoliosis, unspecified; F32.A Depression, unspecified; F41.9 Anxiety disorder, unspecified; H92.01 Otalgia, right ear; G40.909 Epilepsy, unspecified, not intractable, without status epilepticus; K44.9 Diaphragmatic hernia without obstruction or gangrene; I10 Essential (primary) hypertension; M06.9 Rheumatoid arthritis, unspecified; K29.70 Gastritis, unspecified, without bleeding; M19.90 Unspecified osteoarthritis, unspecified site; Z79.899 Other long term (current) drug therapy; Z82.0 Family history of epilepsy and other diseases of the nervous system; Z82.49 Family history of ischemic heart disease and other diseases of the circulatory system; Z96.653 Presence of artificial knee joint, bilateral; Z28.310 Unvaccinated for COVID-19; Z28.21 Immunization not carried out because of patient refusal; Z96.641 Presence of right artificial hip joint; Z90.49 Acquired absence of other specified parts of digestive tract
CPT/HCPCS: 27250; 71046; 73501; 73502; 80048; 80053; 80188; 81001; 82607; 82747; 83540; 83550; 84443; 85025; 86850; 86900; 86901; 86920; 96374; 96375; 99152; 99285

== ENCOUNTER 2024-01-24 11:05 | Emergency (ER) | payer MEDICARE ==
[2024-01-24 12:12] VITALS: TEMP 97.2
--- NOTE | 2024-01-24 13:00 | XR ---
EXAMINATION TYPE: XR chest 1V DATE OF EXAM: 01/24/2024 COMPARISON: 01/15/2024 HISTORY: 73-year-old female with pain after fall TECHNIQUE: Single frontal view of the chest is obtained. FINDINGS: Levoconvex scoliosis. Secondary thoracic deformity. Asymmetric elevation right hemidiaphra gm versus eventration is unchanged. Patchy left infrahilar and left basilar opacity. No pleural effus ion or pneumothorax is seen. Chronic rotator cuff arthropathy right shoulder. IMPRESSION: 1. Thoracic deformity due to a prominent levoconvex scoliosis and old bilateral rib fractures. 2. Similar asymmetric elevation versus eventration right hemidiaphragm. Findings may be on the basis of hemidiaphragmatic paralysis. 3. Focal left infrahilar and left basilar atelectasis or infiltrate.
--- NOTE | 2024-01-24 13:02 | XR ---
EXAMINATION TYPE: XR Hip 2 views RT and AP Pelvis DATE OF EXAM: 01/24/2024 COMPARISON: 01/14/2024 HISTORY: 73-year-old female with pain after fall FINDINGS: There is a total right hip arthroplasty. Femoral stem component appears well seated. Acetabular cup c omponent also appears well seated. However, there is a superior dislocation of the prosthetic hip. Si milar finding on 01/14/2024. Sutures projecting at the lower abdomen. No displaced fracture seen. Poss ible old healed fracture deformities of the inferior pubic rami. Mild degenerative axial joint space narrowing left hip. 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 No periprosthetic fracture se en.
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
[2024-01-24 14:33] LABS: Anisocytosis Marked; Basophils % (A) 0 %; Eosinophils % (A) 1 %; HCT 35.2 % (34.0-46.0); Hypochromasia Marked; Lymphocytes # (A) 0.9 k/uL (1.0-4.8); Lymphocytes % (A) 15 %; MCH 22.6 pg (25.0-35.0); MCHC 28.5 g/dL (31.0-37.0); MCV 79.2 fL (80.0-100.0); Mean Platelet Volume 8.5; Microcytosis Marked; Monocytes # (A) 0.3 k/uL (0-1.0); Monocytes % (A) 6 %; Neutrophils # (A) 4.4 k/uL (1.3-7.7); Neutrophils % (A) 76 %; Platelet Count 342 k/uL (150-450); Poikilocytosis Marked; RBC 4.45 m/uL (3.80-5.40); WBC 5.8 k/uL (3.8-10.6)
[2024-01-24 14:45] LABS: INR 0.9 (<1.2); Partial Thromboplastin Time 23.8 sec (22.0-30.0); Prothrombin Time 10.4 sec (10.0-12.5)
[2024-01-24 14:48] LABS: ALT 15 U/L (4-34); AST 51 U/L (14-36); African American GFR (CKD) >90 (>60 ml/min/1.73 sqM); Alkaline Phosphatase 120 U/L (38-126); Anion Gap 5 mmol/L; Blood Urea Nitrogen 15 mg/dL (7-17); Calcium 8.7 mg/dL (8.4-10.2); Carbon Dioxide 28 mmol/L (22-30); Chloride 106 mmol/L (98-107); Glucose 87 mg/dL (74-99); Magnesium 2.1 mg/dL (1.6-2.3); Non-African American GFR(CKD) >90 (>60 ml/min/1.73 sqM); Phosphorus 3.5 mg/dL (2.5-4.5); Potassium 4.2 mmol/L (3.5-5.1); Sodium 139 mmol/L (137-145); Total Bilirubin 0.5 mg/dL (0.2-1.3); Total Protein 7.2 g/dL (6.3-8.2)
[2024-01-24 14:55] LABS: NT-Pro-B-Type Natriuretic Pept 558 pg/mL
[2024-01-24] MEDS: MORPHINE SULFATE 2 MG/ML SYRINGE IVP STA (14:57)
[2024-01-24] MEDS: SODIUM CHLORIDE 0.9% 1,000 ML IV STA (14:57)
[2024-01-24] MEDS: PROPOFOL 10 MG/ML 20 ML VIAL IV ONE (15:08)
[2024-01-24 15:13] LABS: RDW 28.7 % (11.5-15.5)
--- NOTE | 2024-01-24 15:47 | XR ---
EXAMINATION TYPE: XR Hip Limited AP RT DATE OF EXAM: 01/24/2024 Comparison: 01/14/2024 Clinical History: 73-year-old female post reduction Findings: Interval satisfactory reduction of the right hip joint. No periprosthetic fracture seen. The retaining sutures are present. Linear, needlelike density projecting at the lower left pelvis. Cl inically correlate. Impression: Interval satisfactory reduction of the prosthetic right hip.
[2024-01-24 16:33] VITALS: BP 139/77; PULSE 81; RESP 14
== END 2024-01-24 16:41 | disposition home or self-care (01) ==
LOC: EC 11:05
DX: S73.014A Posterior dislocation of right hip, initial encounter (principal); I10 Essential (primary) hypertension; K21.9 Gastro-esophageal reflux disease without esophagitis; G40.909 Epilepsy, unspecified, not intractable, without status epilepticus; F41.9 Anxiety disorder, unspecified; F32.A Depression, unspecified; Z79.899 Other long term (current) drug therapy; W01.0XXA Fall on same level from slipping, tripping and stumbling without subsequent striking against object, initial encounter; Y92.009 Unspecified place in unspecified non-institutional (private) residence as the place of occurrence of the external cause
CPT/HCPCS: 27252; 99284; 96374; 96361; 99152; 99153; 36415; 83880; 80053; 83735; 84100; 84484; 85025; 85610; 85730; 73501; 73502; 71045; J2270; J2704

== ENCOUNTER 2024-03-29 05:39 | Emergency (ER) | payer MEDICARE ==
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
[2024-03-29 06:58] VITALS: TEMP 97.5
--- NOTE | 2024-03-29 07:27 | XR ---
Right hip. HISTORY: Hip pain. COMPARISON: 01/27/2022. TECHNIQUE: 2 views of the right hip were obtained. FINDINGS: There is a dislocated right hip prosthesis. The right hemipelvis appears intact. IMPRESSION: Dislocated right hip prosthesis.
[2024-03-29] MEDS: PROPOFOL 10 MG/ML 20 ML VIAL IV ONE (07:47)
--- NOTE | 2024-03-29 08:10 | XR ---
Right hip. HISTORY: Post reduction COMPARISON: 03/29/2024. TECHNIQUE: Single portable post reduction film of the right hip was obtained. FINDINGS: There is been satisfactory post reduction of the previously dislocated right hip prosthesis. There i s near-anatomic alignment. IMPRESSION: Satisfactory reduction of the previously dislocated right hip prosthesis.
[2024-03-29 09:09] VITALS: PULSE 79
[2024-03-29 10:32] VITALS: BP 107/69; RESP 17
== END 2024-03-29 10:28 | disposition home or self-care (01) ==
LOC: EC 05:39 → SUPCPDRO 05:39 → EC 10:28
DX: S73.004A Unspecified dislocation of right hip, initial encounter (principal); B88.9 Infestation, unspecified; X58.XXXA Exposure to other specified factors, initial encounter; Y79.2 Prosthetic and other implants, materials and accessory orthopedic devices associated with adverse incidents
CPT/HCPCS: 73501; 73502; 99152; 27266; 99153; 99284; J2704

== ENCOUNTER 2024-04-26 01:38 | Emergency (ER) | payer MEDICARE ==
[2024-04-26 02:09] VITALS: RESP 18; TEMP 98.2
[2024-04-26] MEDS: PROPOFOL 10 MG/ML 20 ML VIAL IV ONE (03:34)
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
[2024-04-26 04:24] VITALS: BP 125/83; PULSE 88
--- NOTE | 2024-04-26 05:11 | XR ---
EXAM: XR Right Hip With Pelvis When Performed, 2 or 3 Views CLINICAL HISTORY: ITS.REASON XR Reason: fall injury TECHNIQUE: Two or three views of the right hip with pelvis when performed. COMPARISON: 04/26/2024 at 2:37 AM FINDINGS: Bones/joints: Right total hip arthroplasty hardware in place.. No acute fracture. No dislocation. Soft tissues: Unremarkable. IMPRESSION: Interval reduction of dislocation of right total hip arthroplasty now in normal anatomic alignment. No acute fracture.
--- NOTE | 2024-04-26 05:35 | XR ---
EXAM: XR Right Hip With Pelvis When Performed, 2 or 3 Views CLINICAL HISTORY: ITS.REASON XR Reason: reduction TECHNIQUE: Two or three views of the right hip with pelvis when performed. COMPARISON: No relevant prior studies available. FINDINGS: Bones/joints: Right total right hip arthroplasty hardware in place with posterior dislocation of the femoral component. Partially visualized plate and screw fixation of the distal right femur. Soft tissues: Unremarkable. IMPRESSION: Right total right hip arthroplasty hardware in place with posterior dislocation of the femoral component. Partially visualized plate and screw fixation of the distal right femur.
== END 2024-04-26 04:47 | disposition home or self-care (01) ==
LOC: EC 01:38
DX: S73.004A Unspecified dislocation of right hip, initial encounter (principal); W01.0XXA Fall on same level from slipping, tripping and stumbling without subsequent striking against object, initial encounter; Y79.2 Prosthetic and other implants, materials and accessory orthopedic devices associated with adverse incidents
CPT/HCPCS: 73502; 99152; 27265; 96374; 99284; J3360

== ENCOUNTER 2024-06-14 06:03 | Emergency (ER) | payer MEDICARE ==
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
--- NOTE | 2024-06-14 07:09 | XR ---
EXAMINATION TYPE: XR Hip RT and AP Pelvis DATE OF EXAM: 06/14/2024 7:01 AM CLINICAL INDICATION:Female, 73 years old with history of pain s/p fall; [facility] COMPARISON: 04/26/2024. TECHNIQUE: XR Hip RT and AP Pelvis; hip was examined in the frontal and lateral projections and a AP pelvis. FINDINGS/IMPRESSION: Right hip arthroplasty with dislocation of the hip superiorly and anteriorly. No evidence of fracture .
[2024-06-14] MEDS: HYDROmorphone 0.5 MG/0.5 ML SYRINGE IVP STA (07:50)
[2024-06-14] MEDS: KETOROLAC 15 MG/ML 1 ML VIAL IVP STA (07:50)
--- NOTE | 2024-06-14 08:47 | XR ---
EXAMINATION TYPE: XR Hip Limited RT DATE OF EXAM: 06/14/2024 8:27 AM CLINICAL INDICATION:Female, 73 years old with history of post reduction; [facility] COMPARISON: None. TECHNIQUE: XR Hip Limited RT; hip was examined in the frontal and lateral projections and a AP pelvis . FINDINGS/IMPRESSION: Appropriate placement of the femoral head component into the acetabulum on this single view. No evide nce of fracture.
[2024-06-14 09:17] VITALS: BP 132/77; PULSE 64; RESP 18; TEMP 98.1
== END 2024-06-14 09:21 | disposition home or self-care (01) ==
LOC: EC 06:03
DX: T84.020A Dislocation of internal right hip prosthesis, initial encounter (principal); W19.XXXA Unspecified fall, initial encounter
CPT/HCPCS: 73501; 73502; 99284; 96374; 96375; 27265; L1830; J1885; J1170

== ENCOUNTER 2024-07-28 14:21 | Inpatient (IN) | payer MEDICARE ==
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
--- NOTE | 2024-07-28 16:07 | XR ---
EXAMINATION TYPE: XR foot complete RT DATE OF EXAM: 07/28/2024 COMPARISON: None HISTORY: Right foot swelling, drainage x2 weeks TECHNIQUE: 3 view right foot FINDINGS: Structures are osteopenic. Suspicious cortical erosion is not identified. Joint spaces appe ar preserved. Hammertoes are present. Soft tissues appear within normal limits. Small Achilles tendon calcaneal heel spur is present. Follow up exams can be performed 7-10 days from acute trauma for continued pain. Three-phase bone sca n can be performed for sufficient clinical suspicion of osteomyelitis. IMPRESSION: 1. No acute osseous abnormality radiographically apparent. Follow up exams can be performed as clini salbador indicated.
[2024-07-28 16:43] LABS: Anisocytosis Moderate; Basophils # (A) 0.1 k/uL (0-0.2); Basophils % (A) 1 %; Eosinophils # (A) 0.1 k/uL (0-0.7); Eosinophils % (A) 1 %; HCT 34.6 % (34.0-46.0); HGB 10.1 gm/dL (11.4-16.0); Hypochromasia Marked; Lymphocytes # (A) 0.8 k/uL (1.0-4.8); Lymphocytes % (A) 12 %; MCH 23.6 pg (25.0-35.0); MCV 81.2 fL (80.0-100.0); Mean Platelet Volume 8.4; Microcytosis Moderate; Monocytes # (A) 0.4 k/uL (0-1.0); Monocytes % (A) 6 %; Neutrophils # (A) 5.1 k/uL (1.3-7.7); Neutrophils % (A) 78 %; Platelet Count 376 k/uL (150-450); RBC 4.27 m/uL (3.80-5.40); WBC 6.6 k/uL (3.8-10.6)
[2024-07-28 16:53] LABS: ALT 12 U/L (4-34); AST 29 U/L (14-36); African American GFR (CKD) >90 (>60 ml/min/1.73 sqM); Albumin 3.8 g/dL (3.5-5.0); Alkaline Phosphatase 166 U/L (38-126); Anion Gap 3 mmol/L; Blood Urea Nitrogen 22 mg/dL (7-17); Calcium 8.7 mg/dL (8.4-10.2); Carbon Dioxide 26 mmol/L (22-30); Chloride 107 mmol/L (98-107); Glucose 88 mg/dL (74-99); Non-African American GFR(CKD) >90 (>60 ml/min/1.73 sqM); Potassium 4.8 mmol/L (3.5-5.1); Sodium 136 mmol/L (137-145); Total Bilirubin 0.3 mg/dL (0.2-1.3); Total Protein 6.8 g/dL (6.3-8.2)
[2024-07-28] MEDS ORDERED: ACETAMINOPHEN TAB 325 MG TAB PO PRN (18:19)
[2024-07-28] MEDS ORDERED: NALOXONE 0.4 MG/ML 1 ML VIAL IV PRN (18:19)
[2024-07-28] MEDS: Acetaminophen-Codeine 300-30mg TAB PO PRN (18:28)
[2024-07-28] MEDS: MORPHINE SULFATE 4 MG/ML SYRINGE IV PRN (22:10)
[2024-07-29] MEDS: PANTOPRAZOLE 40 MG TABLET PO SCH (10:50)
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
[2024-07-29] MEDS ORDERED: VANCOMYCIN IV PER PHARMACY 1 EACH MISC MISCELLANE PRN ×2 (13:47→14:45)
[2024-07-29] MEDS: PRIMIDONE 250 MG TAB PO SCH (13:51)
[2024-07-29] MEDS: VANCOMYCIN 1,250 MG in SODIUM CHLORIDE 0.9% 250 ML IVPB SCH (14:06)
[2024-07-29] MEDS: CALCIUM CARBONATE 500 MG CHEWABLE PO PRN (20:21)
[2024-07-29] MEDS ORDERED: PRIMIDONE 250 MG TAB PO SCH (21:00)
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
[2024-07-30 09:05] LABS: HCT 35.3 % (37.2-46.3); HGB 9.8 g/dL (12.0-15.0); MCH 22.8 pg (27.0-32.0); MCHC 27.8 g/dL (32.0-37.0); MCV 82.3 FL (80.0-97.0); Mean Platelet Volume 9.3 FL (9.5-12.2); Platelet Count 368 X 10*3/uL (140-440); RBC 4.29 X 10*6/uL (4.10-5.20); RDW 26.8 % (11.5-14.5); WBC 7.54 X 10*3/uL (4.50-10.00)
[2024-07-30 10:05] LABS: Basophils # (A) 0.03 X 10*3/uL (0.00-0.10); Basophils % (A) 0.4 %; Eosinophils # (A) 0 X 10*3/uL (0.04-0.35); Eosinophils % (A) 0 %; Lymphocytes # (A) 1.05 X 10*3/uL (0.90-5.00); Lymphocytes % (A) 13.9 %; Monocytes # (A) 0.73 X 10*3/uL (0.20-1.00); Monocytes % (A) 9.7 %; Neutrophils % (A) 75.6 %
[2024-07-30 10:23] LABS: Erythrocyte Sedimentation Rate 47 mm/Hr (0-30)
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
--- NOTE | 2024-07-30 12:31 | P.PN ---
Subjective Progress Note Date: 07/30/24 Principal diagnosis: Reason for follow-up is right for cellulitis Patient be diagnosed with aPatient is a 73-year-old female with a past medical history significant for hypertension rheumatoid arthritis seizure disorder osteoarthritis reflux patient presenting to the hospital for right foot pain swelling and redness right foot cellulitis On today's evaluation that is 07/30/2024, patient has been afebrile, patient is breathing comfortably and is currently on room air, patient denies having any significant cough no chest pain shortness of breath, patient denies nausea vomiting or diarrhea and no abdominal pain, pain to the right foot is slightly decreased in intensity no drainage. Patient white count is 7.54 ESR 47 CRP is 4.5 Objective - Vital Signs Vital signs: Vital Signs Temp 98.2 F 07/30/24 08:00 Pulse 104 H 07/30/24 09:14 Resp 19 07/30/24 09:14 BP 132/58 07/30/24 08:00 Pulse Ox 94 L 07/30/24 08:00 FiO2 Intake & Output 07/29/24 07/30/24 07/30/24 18:59 06:59 18:59 Intake Total 470 120 Balance 470 120 Weight 65.771 kg Intake: Oral 470 120 Other: # Voids 2 1 1 - Exam GENERAL DESCRIPTION: An elderly female lying in bed in no distress RESPIRATORY SYSTEM: Unlabored breathing , decreased breath sounds at bases HEART: S1 S2 regular rate and rhythm , ABDOMEN: Soft , no tenderness EXTREMITIES: Right foot redness slightly decreased no drainage - Labs CBC & Chem 7: 07/30/24 05:47 07/28/24 16:20 Labs: Abnormal Lab Results - Last 24 Hours (Table) 07/30/24 07/30/24 Range/Units 05:47 05:47 Hgb 9.8 L (12.0-15.0) g/dL Hct 35.3 L (37.2-46.3) % MCH 22.8 L (27.0-32.0) pg MCHC 27.8 L (32.0-37.0) g/dL RDW 26.8 H (11.5-14.5) % MPV 9.3 L (9.5-12.2) FL Eosinophils # 0 L (0.04-0.35) X 10*3/uL ESR 47 H (0-30) mm/Hr C-Reactive Protein 4.5 H (<1.0) mg/dL Microbiology - Last 24 Hours (Table) 07/28/24 16:50 Blood Culture - Preliminary Blood Assessment and Plan (1) Cellulitis of right foot Current Visit: Yes Status: Acute Code(s): L03.115 - CELLULITIS OF RIGHT LOWER LIMB SNOMED Code(s): 06540975290539895 Plan: 1patient with acute right lower extremity/foot area cellulitis apparently started with a small wound on the medial aspect of the right foot at the base of the big toe that seem to have dried out clinical suspicion is likely for Staphylococcus aureus infection with a question of MRSA. 2patient did have slight decrease in the redness continue with the vancomycin if the area started to drain to get culture Dictation was produced using [employer] dictation software. please excuse any grammatical, word or spelling errors. Time with Patient: Less than 30
[2024-07-30] MEDS: VANCOMYCIN TROUGH DUE 1 EACH MISC MISCELLANE ONE (13:46)
[2024-07-30] MEDS: VANCOMYCIN 1,000 MG in SODIUM CHLORIDE 0.9% 250 ML IVPB SCH (13:46)
[2024-07-30] MEDS: ONDANSETRON 4 MG/2 ML VIAL IVP PRN (13:51)
--- NOTE | 2024-07-30 14:47 | P.PN ---
Subjective Progress Note Date: 07/30/24 Patient is a 73-year-old female with known history of rheumatoid arthritis, and epilepsy came in for right foot swelling. She reports that began 2 weeks ago where boil at the base of her right toe popped which she was treating with iodine and soap and water. However the boil did not heal, and the wound began to be erythematous and the base of the right toe began to swell. The swelling and redness spread to the dorsal aspect of her foot with associated tenderness and warmth to touch. She denies having any fevers, new onset cough, sweats, headaches, new onset joint pain, loss of sensation affected foot, loss of range of motion of affected foot, or shortness of breath. Foot x-ray showed no acute process. WBC was 6.6 hemoglobin 10.1 platelet count 376 sodium 136 potassium 4.8 On admission patient was afebrile with a temperature of 98 Fahrenheit, normotensive at 113/50, pulse rate 93, 97% oxygenation at room air. 07/30 Patient seen and examined at bedside. Patient reports pain on right foot that is tolerable with pain medication. Swelling has decreased. She denies loss of sensation of affected foot, joint pain, new onset headache, subjective fever, new onset cough, SOB, chest pain, abd pain. WBC 7.4. CRP 4.5. ESR 47 hemoglobin 9.8 hematocrit 35.3 MCV 82.3 Review of systems: Pertinent positives and negatives as discussed in HPI, a complete review of systems was performed and all other systems are negative. Physical examination: Vital signs reviewed General: non toxic, no distress, appears at stated age, normal weight Derm: Wound on right base of toe with necrotic center, surrounding skin erythematous associated skin exfoliation surrounding the toe no unusual rashes/lesions, warm Head: atraumatic, normocephalic, symmetric Eyes: EOMI, no lid lag, anicteric sclera, pupils equal round reactive to light ENT: Nose and ears atraumatic Neck: No cervical lymphadenopathy, trachea midline, supple Mouth: no lip lesion, mucus membranes moist Cardiovascular: S1S2 reg, no murmur, Lungs: CTA bilateral, no rhonchi, no rales, no accessory muscle use Abdominal: soft, nontender to palpation, no guarding Ext: muscle strength 5 out of 5 in all 4 extremities grossly, no gross muscle atrophy, no contractures, positive dorsalis pedis pulse bilateral, right foot is tender and erythematous with nonpitting edema and fluctuance spreading from the all toes and dorsum of the foot to the distal sole of the foot, green discharge noted between 2nd-3rd toes Neuro: CN II-XI grossly intact, no gross focal neuro deficits Psych: Alert, oriented, appropriate affect and mood Assessment/Plan: #. Cellulitis of the right foot r/o osteomyelitis, improving #. Normocytic anemia likely due to above Patient is currently afebrile. WBC count is normal at 7.4. CRP is elevated at 4.5. ESR is elevated at 47. Signs of cellulitis only spread to dorsum of right foot and has not spread. Swelling has improved. MRI could not be done as patient could not stay still due to pain. -Per ID, continue with Vancomycin and d/c Rocefin -Per wound care, use therahoney with gauze -Continue with pain control -Blood cultures pending -Monitor with CBC at a.m. Chronic conditions: Epilepsy, GERD, hypertension, depression, anxiety GI prophylaxis: Pantoprazole 40 mg p.o. OD Objective - Vital Signs Vital signs: Vital Signs Temp 97.9 F 07/30/24 02:00 Pulse 89 07/30/24 02:00 Resp 18 07/30/24 02:00 BP 126/66 07/30/24 02:00 Pulse Ox 94 L 07/30/24 02:00 FiO2 Intake & Output 07/29/24 07/30/24 07/30/24 18:59 06:59 18:59 Intake Total 470 120 Balance 470 120 Weight 65.771 kg Intake: Oral 470 120 Other: # Voids 2 1 - Labs CBC & Chem 7: 07/30/24 05:47 07/28/24 16:20 Labs: Abnormal Lab Results - Last 24 Hours (Table) 07/30/24 Range/Units 05:47 C-Reactive Protein 4.5 H (<1.0) mg/dL Microbiology - Last 24 Hours (Table) 07/28/24 16:50 Blood Culture - Preliminary Blood
[2024-07-30] MEDS ORDERED: levETIRAcetam 500 MG TAB PO SCH (15:30)
[2024-07-30] MEDS: lamoTRIgine 100 MG TAB PO SCH (15:40)
[2024-07-31 08:13] LABS: Anisocytosis Moderate; Basophils % (A) 0 %; Eosinophils # (A) 0.1 k/uL (0-0.7); Eosinophils % (A) 1 %; HCT 32.8 % (34.0-46.0); HGB 9.3 gm/dL (11.4-16.0); Hypochromasia Marked; Lymphocytes # (A) 0.5 k/uL (1.0-4.8); Lymphocytes % (A) 5 %; MCH 23.5 pg (25.0-35.0); MCHC 28.4 g/dL (31.0-37.0); Mean Platelet Volume 7.1; Microcytosis Moderate; Monocytes # (A) 0.7 k/uL (0-1.0); Monocytes % (A) 7 %; Neutrophils # (A) 9.3 k/uL (1.3-7.7); Neutrophils % (A) 87 %; Platelet Count 402 k/uL (150-450); RBC 3.96 m/uL (3.80-5.40); RDW 23.2 % (11.5-15.5); WBC 10.7 k/uL (3.8-10.6)
--- NOTE | 2024-07-31 11:31 | XR ---
EXAMINATION TYPE: XR Hip Complete 2 views RT DATE OF EXAM: 07/31/2024 Comparison: 06/14/2024 Clinical History: 73-year-old female with pain, right hip dislocated Findings: There is a superior posterior dislocation of the prosthetic right hip. No periprosthetic fracture is identified. Some surgical material noted projecting over the right iliac wing. Pelvic phleboliths. So me calcification of the right hamstrings origin redemonstrated. Impression: Exam positive for the suspected posterior superior prosthetic right hip dislocation.
[2024-07-31] MEDS: KETOROLAC 15 MG/ML 1 ML VIAL IVP PRN (13:49)
[2024-07-31] MEDS: VANCOMYCIN TROUGH DUE 1 EACH MISC MISCELLANE ONE (13:51)
--- NOTE | 2024-07-31 14:40 | P.PN ---
Subjective Progress Note Date: 07/31/24 Patient is a 73-year-old female with known history of rheumatoid arthritis, and epilepsy came in for right foot swelling. She reports that began 2 weeks ago where boil at the base of her right toe popped which she was treating with iodine and soap and water. However the boil did not heal, and the wound began to be erythematous and the base of the right toe began to swell. The swelling and redness spread to the dorsal aspect of her foot with associated tenderness and warmth to touch. She denies having any fevers, new onset cough, sweats, headaches, new onset joint pain, loss of sensation affected foot, loss of range of motion of affected foot, or shortness of breath. Foot x-ray showed no acute process. WBC was 6.6 hemoglobin 10.1 platelet count 376 sodium 136 potassium 4.8 On admission patient was afebrile with a temperature of 98 Fahrenheit, normotensive at 113/50, pulse rate 93, 97% oxygenation at room air. 07/30 Patient seen and examined at bedside. Patient reports pain on right foot that is tolerable with pain medication. Swelling has decreased. She denies loss of sensation of affected foot, joint pain, new onset headache, subjective fever, new onset cough, SOB, chest pain, abd pain. WBC 7.4. CRP 4.5. ESR 47 hemoglobin 9.8 hematocrit 35.3 MCV 82.3 07/31 patient seen and examined at bedside. Patient reports pain on right foot that is tolerable with pain medication. Swelling has decreased. She denies loss of sensation of affected foot, joint pain, new onset headache, subjective fever, new onset cough, SOB, chest pain, abd pain. WBC 10.7 Hemoglobin 9.3 hematocrit 32.8 platelet 402. Had a seizure episode for a few minutes in the morning, but returned to baseline mentation after a few minutes post-ictal with associated right hip dislocation post-ictal. She reports this has happened before. Pain tolerable with medication. Review of systems: Pertinent positives and negatives as discussed in HPI, a complete review of systems was performed and all other systems are negative. Physical examination: Vital signs reviewed General: non toxic, no distress, appears at stated age, normal weight Derm: Wound on right base of toe with necrotic center, surrounding skin erythem atous associated skin exfoliation surrounding the toe no unusual rashes/lesions, warm Head: atraumatic, normocephalic, symmetric Eyes: EOMI, no lid lag, anicteric sclera, pupils equal round reactive to light ENT: Nose and ears atraumatic Neck: No cervical lymphadenopathy, trachea midline, supple Mouth: no lip lesion, mucus membranes moist Cardiovascular: S1S2 reg, no murmur, Lungs: CTA bilateral, no rhonchi, no rales, no accessory muscle use Abdominal: soft, nontender to palpation, no guarding Ext: muscle strength 5 out of 5 in all 4 extremities grossly, no gross muscle atrophy, no contractures, positive dorsalis pedis pulse bilateral, right foot is tender and erythematous with nonpitting edema and fluctuance spreading from the all toes and dorsum of the foot to the distal sole of the foot, green discharge noted between 2nd-3rd toes Neuro: CN II-XI grossly intact, no gross focal neuro deficits Psych: Alert, oriented, appropriate affect and mood Assessment/Plan: #. Cellulitis of the right foot r/o osteomyelitis, improving #. Normocytic anemia likely due to above Patient is currently afebrile. WBC count is elevated at 10.7. CRP is elevated at 4.5. ESR is elevated at 47. Signs of cellulitis only spread to dorsum of right foot and has not spread. Swelling has improved. MRI could not be done as patient could not stay still due to pain. -Per ID, continue with Vancomycin, attempt to culture any discharge from wound -Per wound care, use therahoney with gauze -Continue with pain control -Blood cultures pending -Monitor with CBC at a.m. #. Right hip dislocation Patient has artificial hip. Patient is stable and pain is controlled. -C/w pain control -Hip xray -Consult ortho Chronic conditions: Epilepsy, GERD, hypertension, depression, anxiety GI prophylaxis: Pantoprazole 40 mg p.o. OD Objective - Vital Signs Vital signs: Vital Signs Temp 97.8 F 07/31/24 02:00 Pulse 103 H 07/31/24 05:55 Resp 18 07/31/24 05:55 BP 107/60 07/31/24 05:55 Pulse Ox 94 L 07/31/24 05:55 FiO2 Intake & Output 07/30/24 07/31/24 07/31/24 18:59 06:59 18:59 Intake Total 250 Balance 250 Intake: Oral 250 Other: # Voids 1 1 - Labs CBC & Chem 7: 07/31/24 07:59 07/28/24 16:20 Labs: Abnormal Lab Results - Last 24 Hours (Table) 07/30/24 Range/Units 05:47 Hgb 9.8 L (12.0-15.0) g/dL Hct 35.3 L (37.2-46.3) % MCH 22.8 L (27.0-32.0) pg MCHC 27.8 L (32.0-37.0) g/dL RDW 26.8 H (11.5-14.5) % MPV 9.3 L (9.5-12.2) FL Eosinophils # 0 L (0.04-0.35) X 10*3/uL ESR 47 H (0-30) mm/Hr Microbiology - Last 24 Hours (Table) 07/29/24 20:38 Blood Culture - Preliminary Blood 07/28/24 16:50 Blood Culture - Preliminary Blood
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
[2024-08-01 04:30] LABS: African American GFR (CKD) >90 (>60 ml/min/1.73 sqM); Non-African American GFR(CKD) >90 (>60 ml/min/1.73 sqM)
[2024-08-01] MEDS ORDERED: LIDOCAINE 1% INJ 10MG/ML (20 ML MDV) ONE ×2 (07:56→13:51)
[2024-08-01] MEDS ORDERED: KETOROLAC 15 MG/ML 1 ML VIAL ONE (07:56)
[2024-08-01] MEDS ORDERED: PROPOFOL 10 MG/ML 20 ML VIAL IV ONE ×2 (07:56→13:51)
--- NOTE | 2024-08-01 08:11 | P.OP ---
Date of Procedure: 08/01/24 Preoperative Diagnosis: Right hip periprosthetic dislocation Postoperative Diagnosis: Right hip periprosthetic dislocation Procedure(s) Performed: Attempted closed reduction right hip periprosthetic dislocation Anesthesia: MAC Surgeon: Brice Walker [facility] Manager #1: Ghulam Cuevas Estimated Blood Loss (ml): 0 Pathology: none sent Condition: stable Disposition: PACU Indications for Procedure: 73-year-old patient seen with a right hip periprosthetic dislocation. I recommended close reduction. Patient was agreeable. Consents obtained. Operative Findings: See description of procedure Description of Procedure: Patient was taken to a monitored anesthesia area. She received IV sedation by the department anesthesia. Once sufficient anesthesia was noted we attempted to close reduction of the right hip. We were unsuccessful in performing this. The patient will be scheduled for close reduction in the operating room as soon as we get availability.
[2024-08-01] MEDS: IV FLUID CONTINUATION 1,000 ML IV ONE (08:13)
--- NOTE | 2024-08-01 08:21 | P.PN ---
Subjective Progress Note Date: 07/31/24 Principal diagnosis: Reason for follow-up is right for cellulitis Patient is a 73-year-old female with a past medical history significant for hypertension rheumatoid arthritis seizure disorder osteoarthritis reflux patient presenting to the hospital for right foot pain swelling and redness right foot cellulitis On today's evaluation that is 07/31/2024, Patient is afebrile this morning patient denies having any chest pain shortness of breath or cough, the patient i s breathing comfortably and currently on room air, patient denies any abdominal pain no diarrhea no nausea no vomiting right foot swelling and pain has slightly decreased in intensity. Patient did have white count of 10.7, creatinine 0.28 Vanco trough is 17.9 blood culture so far negative Objective - Vital Signs Vital signs: Vital Signs Temp 98.8 F 07/31/24 14:06 Pulse 100 07/31/24 14:06 Resp 16 07/31/24 14:06 BP 104/64 07/31/24 14:06 Pulse Ox 99 07/31/24 14:06 FiO2 Intake & Output 07/30/24 07/31/24 07/31/24 18:59 06:59 18:59 Intake Total 250 Balance 250 Intake: Oral 250 Other: Voiding Method Bedpan # Voids 1 1 - Exam GENERAL DESCRIPTION: An elderly female lying in bed in no distress RESPIRATORY SYSTEM: Unlabored breathing , decreased breath sounds at bases HEART: S1 S2 regular rate and rhythm , ABDOMEN: Soft , no tenderness EXTREMITIES: Right foot redness slightly decreased patient did have wound between the toes culture obtained - Labs CBC & Chem 7: 07/31/24 07:59 08/01/24 03:49 Labs: Abnormal Lab Results - Last 24 Hours (Table) 07/31/24 Range/Units 07:59 WBC 10.7 H (3.8-10.6) k/uL Hgb 9.3 L (11.4-16.0) gm/dL Hct 32.8 L (34.0-46.0) % MCH 23.5 L (25.0-35.0) pg MCHC 28.4 L (31.0-37.0) g/dL RDW 23.2 H (11.5-15.5) % Neutrophils # 9.3 H (1.3-7.7) k/uL Lymphocytes # 0.5 L (1.0-4.8) k/uL Microbiology - Last 24 Hours (Table) 07/29/24 20:38 Blood Culture - Preliminary Blood 07/28/24 16:50 Blood Culture - Preliminary Blood Assessment and Plan (1) Cellulitis of right foot Current Visit: Yes Status: Acute Code(s): L03.115 - CELLULITIS OF RIGHT LOWER LIMB SNOMED Code(s): 98805991340445008 Plan: 1patient with acute right lower extremity/foot area cellulitis apparently start ed with a small wound on the medial aspect of the right foot at the base of the big toe that seem to have dried out clinical suspicion is likely for Staphylococcus aureus infection with a question of MRSA. 2patient did have wound on both sides of the toes slightly concerning culture has been obtained we will continue the vancomycin while waiting for the culture to finalize Dictation was produced using [employer] software. please excuse any grammatical, word or spelling errors. Time with Patient: Less than 30
[2024-08-01 08:52] LABS: Basophils # (A) 0.04 X 10*3/uL (0.00-0.10); Basophils % (A) 0.3 %; Eosinophils # (A) 0 X 10*3/uL (0.04-0.35); Eosinophils % (A) 0 %; HCT 31.5 % (37.2-46.3); Lymphocytes # (A) 0.87 X 10*3/uL (0.90-5.00); Lymphocytes % (A) 7.3 %; MCH 23.1 pg (27.0-32.0); MCHC 28.6 g/dL (32.0-37.0); MCV 80.8 FL (80.0-97.0); Mean Platelet Volume 9.5 FL (9.5-12.2); Monocytes # (A) 1.01 X 10*3/uL (0.20-1.00); Monocytes % (A) 8.5 %; NRBC Per 100 WBC 0 X 10*3/uL (0.00-0.01); Neutrophils # (A) 9.96 X 10*3/uL (1.80-7.70); Neutrophils % (A) 83.5 %; Platelet Count 399 X 10*3/uL (140-440); RDW 26.3 % (11.5-14.5); WBC 11.93 X 10*3/uL (4.50-10.00)
[2024-08-01] MEDS: HYDROcodone/APAP 5-325MG 1 EACH TAB PO PRN (13:08)
[2024-08-01] MEDS: DEXAMETHASONE SOD PHOSPHATE 4 MG/ML 1 ML VIAL IVP STA (13:40)
[2024-08-01] MEDS ORDERED: MIDAZOLAM 2 MG/2 ML VIAL ONE (13:51)
[2024-08-01] MEDS ORDERED: KETAMINE HCL IN 0.9 % NACL 50 MG/5 ML SYRINGE ONE (13:51)
[2024-08-01] MEDS ORDERED: SUCCINYLCHOLINE CHLORIDE 200 MG/10 ML VIAL IV ONE (13:51)
[2024-08-01] MEDS: LACTATED RINGERS 1,000 ML IV ONE (13:53)
--- NOTE | 2024-08-01 14:32 | P.OP ---
Date of Procedure: 08/01/24 Preoperative Diagnosis: Right periprosthetic hip dislocation Postoperative Diagnosis: Right periprosthetic hip dislocation Procedure(s) Performed: Closed reduction right hip periprosthetic hip dislocation under general anesthetic Anesthesia: EMMA Surgeon: Brice Walker Client Success Manager #1: Carmine Estes Estimated Blood Loss (ml): 0 Pathology: none sent Condition: stable Disposition: PACU Indications for Procedure: 73-year-old patient who was found to have a right hip periprosthetic hip dislocation. I attempted a closed reduction earlier this morning with IV sedation and monitored anesthesia area and I was unable to reduce the hip. I recommended taking the patient to the operative suite and undergoing a general anesthetic. Patient agreeable. Consent obtained. Operative Findings: See description of procedure Description of Procedure: Patient was taken to the operative suite. She was transferred to the operative table. She underwent a general anesthetic by the department anesthesia. When s he was under complete general anesthetic a C-arm was brought to the operative field. Under direct fluoroscopy the right hip was reduced. I noted good reduction of the hip. I took the hip range of motion is seen fairly stable. The components appeared stable. The C-arm was pulled back. The patient was placed into an abduction pillow. The patient was awakened and transferred to a bed and recovery in stable condition. Carmine Estes assisted with this procedure.
--- NOTE | 2024-08-01 14:38 | P.PN ---
Subjective Progress Note Date: 08/01/24 Patient is a 73-year-old female with known history of rheumatoid arthritis, and epilepsy came in for right foot swelling. She reports that began 2 weeks ago where boil at the base of her right toe popped which she was treating with iodine and soap and water. However the boil did not heal, and the wound began to be erythematous and the base of the right toe began to swell. The swelling and redness spread to the dorsal aspect of her foot with associated tenderness and warmth to touch. She denies having any fevers, new onset cough, sweats, headaches, new onset joint pain, loss of sensation affected foot, loss of range of motion of affected foot, or shortness of breath. Foot x-ray showed no acute process. WBC was 6.6 hemoglobin 10.1 platelet count 376 sodium 136 potassium 4.8 On admission patient was afebrile with a temperature of 98 Fahrenheit, normotensive at 113/50, pulse rate 93, 97% oxygenation at room air. 07/30 Patient seen and examined at bedside. Patient reports pain on right foot that is tolerable with pain medication. Swelling has decreased. She denies loss of sensation of affected foot, joint pain, new onset headache, subjective fever, new onset cough, SOB, chest pain, abd pain. WBC 7.4. CRP 4.5. ESR 47 hemoglobin 9.8 hematocrit 35.3 MCV 82.3 07/31 patient seen and examined at bedside. Patient reports pain on right foot that is tolerable with pain medication. Swelling has decreased. She denies loss of sensation of affected foot, joint pain, new onset headache, subjective fever, new onset cough, SOB, chest pain, abd pain. WBC 10.7 Hemoglobin 9.3 hematocrit 32.8 platelet 402. Had a seizure episode for a few minutes in the morning, but returned to baseline mentation after a few minutes post-ictal with associated right hip dislocation post-ictal. She reports this has happened before. Pain tolerable with medication. 08/01 patient seen at bedside postop closed reduction of right hip dislocation. Patient awake and comfortable. Reports swelling and redness of foot has improved. Pain controlled with medication. WBC 11.93 with immature granulocytes elevated at 0.05 hemoglobin 9 platelet 399 creatinine 0.28 Review of systems: Pertinent positives and negatives as discussed in HPI, a complete review of systems was performed and all other systems are negative. Physical examination: Vital signs reviewed General: non toxic, no distress, appears at stated age, normal weight Derm: Wound on right base of toe with necrotic center, surrounding skin erythematous associated skin exfoliation surrounding the toe no unusual rashes/lesions, warm Head: atraumatic, normocephalic, symmetric Eyes: EOMI, no lid lag, anicteric sclera, pupils equal round reactive to light ENT: Nose and ears atraumatic Neck: No cervical lymphadenopathy, trachea midline, supple Mouth: no lip lesion, mucus membranes moist Cardiovascular: S1S2 reg, no murmur Lungs: CTA bilateral, no rhonchi, no rales, no accessory muscle use Abdominal: soft, nontender to palpation, no guarding Ext: muscle strength 5 out of 5 in all 4 extremities grossly, no gross muscle atrophy, no contractures, positive dorsalis pedis pulse bilateral, right foot wound covered in dressing that is dry and clean, nontender palpation surrounding skin unremarkable Neuro: CN II-XI grossly intact, no gross focal neuro deficits Psych: Alert, oriented, appropriate affect and mood Assessment/Plan: #. Cellulitis of the right foot r/o osteomyelitis, improving #. Normocytic anemia likely due to above Patient is currently afebrile. WBC count is elevated at 11.93 and uptrending. CRP is elevated at 4.5. ESR is elevated at 47. Signs of cellulitis only spread to dorsum of right foot and has not spread. Swelling has improved. MRI could not be done as patient could not stay still due to pain. Bone scan could not be done due to hip dislocation. -Per ID, continue with Vancomycin, attempt to culture any discharge from wound -Per wound care, use therahoney with gauze -Continue with pain control -Monitor with CBC at a.m. -Creatinine at a.m. #. Right hip dislocation Patient has artificial hip. Patient is stable and pain is controlled. Hip x-ray showed posterior superior prosthetic right hip dislocation. -Per Ortho, close reduction was attempted day but was unsuccessful. Reattempt done in the afternoon. Right leg placed in abduction pillow. -C/w pain control Chronic conditions: Epilepsy, GERD, hypertension, depression, anxiety GI prophylaxis: Pantoprazole 40 mg p.o. OD DVT prophylaxis: Lovenox 30mg SQ OD Objective - Vital Signs Vital signs: Vital Signs Temp 98.8 F 07/31/24 20:00 Pulse 106 H 07/31/24 20:00 Resp 14 07/31/24 20:00 BP 132/85 07/31/24 20:00 Pulse Ox 95 07/31/24 20:00 FiO2 Intake & Output 07/31/24 08/01/24 08/01/24 18:59 06:59 18:59 Output Total 150 Balance -150 Output: Urine 150 Other: Voiding Method Bedpan - Labs CBC & Chem 7: 08/01/24 03:49 08/01/24 03:49 Labs: Abnormal Lab Results - Last 24 Hours (Table) 07/31/24 08/01/24 Range/Units 07:59 03:49 WBC 10.7 H (3.8-10.6) k/uL Hgb 9.3 L (11.4-16.0) gm/dL Hct 32.8 L (34.0-46.0) % MCH 23.5 L (25.0-35.0) pg MCHC 28.4 L (31.0-37.0) g/dL RDW 23.2 H (11.5-15.5) % Neutrophils # 9.3 H (1.3-7.7) k/uL Lymphocytes # 0.5 L (1.0-4.8) k/uL Creatinine 0.28 L (0.52-1.04) mg/dL Microbiology - Last 24 Hours (Table) 07/29/24 20:38 Blood Culture - Preliminary Blood 07/28/24 16:50 Blood Culture - Preliminary Blood 07/31/24 13:42 Gram Stain - Preliminary Toe - Right Third
--- NOTE | 2024-08-01 14:53 | P.PN ---
Subjective Progress Note Date: 08/01/24 Principal diagnosis: Reason for follow-up is right for cellulitis Patient is a 73-year-old female with a past medical history significant for hypertension rheumatoid arthritis seizure disorder osteoarthritis reflux patient presenting to the hospital for right foot pain swelling and redness right foot cellulitis On today's evaluation that is 08/01/2024,the patient denies any fever or any chills, patient is breathing comfortably on room air, the patient denies chest pain shortness of breath and no significant cough, patient denies abdominal pain, no nausea vomiting or diarrhea. Denies any worsening pain to the right foot area Patient white count of 11.93 creatinine 0.28 culture with Proteus Mirabella's Objective - Vital Signs Vital signs: Vital Signs Temp 97.4 F L 08/01/24 08:14 Pulse 94 08/01/24 10:49 Resp 16 08/01/24 09:15 BP 109/72 08/01/24 10:49 Pulse Ox 93 L 08/01/24 10:49 FiO2 Intake & Output 07/31/24 08/01/24 08/01/24 18:59 06:59 18:59 Intake Total 0 Output Total 150 Balance -150 0 Intake: IV 0 Output: Urine 150 Other: Voiding Method Bedpan Bedside Commode # Voids 1 # Bowel Movements 1 - Exam GENERAL DESCRIPTION: An elderly female lying in bed in no distress RESPIRATORY SYSTEM: Unlabored breathing , decreased breath sounds at bases HEART: S1 S2 regular rate and rhythm , ABDOMEN: Soft , no tenderness EXTREMITIES: Right foot redness slightly decreased patient did have wound between the toes culture obtained - Labs CBC & Chem 7: 08/01/24 03:49 08/01/24 03:49 Labs: Abnormal Lab Results - Last 24 Hours (Table) 08/01/24 08/01/24 Range/Units 03:49 03:49 WBC 11.93 H (4.50-10.00) X 10*3/uL RBC 3.90 L (4.10-5.20) X 10*6/uL Hgb 9.0 L (12.0-15.0) g/dL Hct 31.5 L (37.2-46.3) % MCH 23.1 L (27.0-32.0) pg MCHC 28.6 L (32.0-37.0) g/dL RDW 26.3 H (11.5-14.5) % Immature Gran # 0.05 H (0.00-0.04) X 10*3/uL Neutrophils # 9.96 H (1.80-7.70) X 10*3/uL Lymphocytes # 0.87 L (0.90-5.00) X 10*3/uL Monocytes # 1.01 H (0.20-1.00) X 10*3/uL Eosinophils # 0 L (0.04-0.35) X 10*3/uL Creatinine 0.28 L (0.52-1.04) mg/dL Microbiology - Last 24 Hours (Table) 07/29/24 20:38 Blood Culture - Preliminary Blood 07/28/24 16:50 Blood Culture - Preliminary Blood 07/31/24 13:42 Gram Stain - Preliminary Toe - Right Third Assessment and Plan (1) Cellulitis of right foot Current Visit: Yes Status: Acute Code(s): L03.115 - CELLULITIS OF RIGHT LOWER LIMB SNOMED Code(s): 16825930466906258 Plan: 1patient with acute right lower extremity/foot area cellulitis apparently started with a small wound on the medial aspect of the right foot at the base of the big toe that seem to have dried out clinical suspicion is likely for Staphylococcus aureus infection with a question of MRSA. 2patient did have wound on both sides of the toes slightly concerning culture has been obtained which are currently growing Proteus, we will continue the vancomycin add Rocephin 2 g daily and monitor clinical course closely Dictation was produced using [employer] dictation software. please excuse any grammatical, word or spelling errors. Time with Patient: Less than 30
[2024-08-01] MEDS: HYDROmorphone 0.5 MG/0.5 ML SYRINGE IVP STA (15:00)
[2024-08-02] MEDS: ENOXAPARIN 30 MG/0.3 ML SYRINGE SQ SCH (08:29)
--- NOTE | 2024-08-02 10:36 | P.PN ---
Subjective Progress Note Date: 08/02/24 Principal diagnosis: Periprosthetic right hip dislocation, right foot cellulitis/wounds Patient evaluated today at bedside, she is resting comfortably. She states that the hip is feeling a lot better. She has been up to the bedside commode with no difficulty. She denies any chest pain, shortness of breath, fevers or chills. Objective - Vital Signs Vital signs: Vital Signs Temp 97.5 F L 08/02/24 07:16 Pulse 89 08/02/24 07:16 Resp 15 08/02/24 07:16 BP 123/73 08/02/24 07:16 Pulse Ox 88 L 08/02/24 07:16 FiO2 Intake & Output 08/01/24 08/02/24 08/02/24 18:59 06:59 18:59 Intake Total 940 540 240 Output Total 0 150 Balance 940 390 240 Intake: IV 400 Oral 540 540 240 Output: Urine 150 Estimated Blood Loss 0 Other: Voiding Method Bedside Commode # Voids 1 1 2 # Bowel Movements 1 1 - Exam Right lower extremity: No malalignment of the extremity compared to the contralateral side, gentle range of motion of the hip reproduces no pain, it seems stable at this time. Calf is soft, no tenderness with palpation. Plantarflexion, dorsiflexion, EHL, FHL are intact. Sensory exam to light touch is intact throughout the extremity. Dorsalis pedis pulses 2+ - Labs CBC & Chem 7: 08/01/24 03:49 08/01/24 03:49 Labs: Microbiology - Last 24 Hours (Table) 07/29/24 20:38 Blood Culture - Preliminary Blood 07/31/24 13:42 Gram Stain - Preliminary Toe - Right Third Wound Culture - Preliminary Proteus mirabilis Assessment and Plan Assessment: Postoperative day #1 status post closed reduction right periprosthetic hip dislocation History of right total hip arthroplasty Right foot wound/cellulitis Plan: Posterior hip precautions, weight-bear as tolerated with walker PT/OT recommendations appreciated DVT prophylaxis per primary medical service Other medical specialty recommendations appreciated Orthopedically patient remained stable for discharge, please contact our service with any further questions regarding this patient. Time with Patient: Less than 30
--- NOTE | 2024-08-02 14:43 | P.PN ---
Subjective Progress Note Date: 08/02/24 Principal diagnosis: Reason for follow-up is right for cellulitis Patient is a 73-year-old female with a past medical history significant for hypertension rheumatoid arthritis seizure disorder osteoarthritis reflux patient presenting to the hospital for right foot pain swelling and redness right foot cellulitis On today's evaluation that is 08/02/2024,the patient remains to be afebrile, patient is on room air not requiring supplemental oxygen and denies any shortn ess of breath no chest pain or cough.Patient denies having any nausea or vomiting, no abdominal pain and no diarrhea pain to the right foot has decreased in intensity. Patient white count 11.93, creatinine 0.28 local culture growing Proteus Mirabelis Objective - Vital Signs Vital signs: Vital Signs Temp 97.5 F L 08/02/24 07:16 Pulse 89 08/02/24 07:16 Resp 15 08/02/24 07:16 BP 123/73 08/02/24 07:16 Pulse Ox 88 L 08/02/24 07:16 FiO2 Intake & Output 08/01/24 08/02/24 08/02/24 18:59 06:59 18:59 Intake Total 940 540 240 Output Total 0 150 Balance 940 390 240 Intake: IV 400 Oral 540 540 240 Output: Urine 150 Estimated Blood Loss 0 Other: Voiding Method Bedside Commode # Voids 1 1 2 # Bowel Movements 1 1 - Exam GENERAL DESCRIPTION: An elderly female lying in bed in no distress RESPIRATORY SYSTEM: Unlabored breathing , decreased breath sounds at bases HEART: S1 S2 regular rate and rhythm , ABDOMEN: Soft , no tenderness EXTREMITIES: Right foot redness slightly decreased patient did have wound between the toes culture obtained - Labs CBC & Chem 7: 08/01/24 03:49 08/01/24 03:49 Labs: Microbiology - Last 24 Hours (Table) 07/31/24 13:42 Gram Stain - Final Toe - Right Third Wound Culture - Final Proteus mirabilis 07/29/24 20:38 Blood Culture - Preliminary Blood Assessment and Plan (1) Cellulitis of right foot Current Visit: Yes Status: Acute Code(s): L03.115 - CELLULITIS OF RIGHT LOWER LIMB SNOMED Code(s): 55264269991612972 Plan: 1patient with acute right lower extremity/foot area cellulitis apparently started with a small wound on the medial aspect of the right foot at the base of the big toe that seem to have dried out clinical suspicion is likely for Staphylococcus aureus infection with a question of MRSA. 2patient did have wound on both sides of the toes slightly concerning culture has been obtained which are currently growing Proteus, that is a sensitive pathogen 3-we will discontinue vancomycin and continue with Rocephin Dictation was produced using [employer] software. please excuse any grammatical, word or spelling errors.
[2024-08-02 16:40] LABS: Anisocytosis Moderate; Basophils % (A) 0 %; Eosinophils % (A) 1 %; HCT 31.7 % (34.0-46.0); Hypochromasia Marked; Lymphocytes # (A) 0.6 k/uL (1.0-4.8); Lymphocytes % (A) 10 %; MCH 23.6 pg (25.0-35.0); MCHC 28.4 g/dL (31.0-37.0); MCV 83.1 fL (80.0-100.0); Mean Platelet Volume 7.4; Microcytosis Moderate; Monocytes # (A) 0.4 k/uL (0-1.0); Monocytes % (A) 7 %; Neutrophils # (A) 4.9 k/uL (1.3-7.7); Neutrophils % (A) 81 %; Platelet Count 415 k/uL (150-450); RBC 3.81 m/uL (3.80-5.40)
--- NOTE | 2024-08-02 16:47 | P.PN ---
Subjective Progress Note Date: 08/02/24 Patient is a 73-year-old female with known history of rheumatoid arthritis, and epilepsy came in for right foot swelling. She reports that began 2 weeks ago where boil at the base of her right toe popped which she was treating with iodine and soap and water. However the boil did not heal, and the wound began to be erythematous and the base of the right toe began to swell. The swelling and redness spread to the dorsal aspect of her foot with associated tenderness and warmth to touch. She denies having any fevers, new onset cough, sweats, headaches, new onset joint pain, loss of sensation affected foot, loss of range of motion of affected foot, or shortness of breath. Foot x-ray showed no acute process. WBC was 6.6 hemoglobin 10.1 platelet count 376 sodium 136 potassium 4.8 On admission patient was afebrile with a temperature of 98 Fahrenheit, normotensive at 113/50, pulse rate 93, 97% oxygenation at room air. 07/30 Patient seen and examined at bedside. Patient reports pain on right foot that is tolerable with pain medication. Swelling has decreased. She denies loss of sensation of affected foot, joint pain, new onset headache, subjective fever, new onset cough, SOB, chest pain, abd pain. WBC 7.4. CRP 4.5. ESR 47 hemoglobin 9.8 hematocrit 35.3 MCV 82.3 07/31 patient seen and examined at bedside. Patient reports pain on right foot that is tolerable with pain medication. Swelling has decreased. She denies loss of sensation of affected foot, joint pain, new onset headache, subjective fever, new onset cough, SOB, chest pain, abd pain. WBC 10.7 Hemoglobin 9.3 hematocrit 32.8 platelet 402. Had a seizure episode for a few minutes in the morning, but returned to baseline mentation after a few minutes post-ictal with associated right hip dislocation post-ictal. She reports this has happened before. Pain tolerable with medication. 08/01 patient seen at bedside postop closed reduction of right hip dislocation. Patient awake and comfortable. Reports swelling and redness of foot has improved. Pain controlled with medication. WBC 11.93 with immature granulocytes elevated at 0.05 hemoglobin 9 platelet 399 creatinine 0.28 08/02 patient seen and awake at bedside. Patient reports episodes of right foot pain controlled with medication. She notes no hip pain. WBC 6 hemoglobin 9 platelet count 415 Review of systems: Pertinent positives and negatives as discussed in HPI, a complete review of systems was performed and all other systems are negative. Physical examination: Vital signs reviewed General: non toxic, no distress, appears at stated age, normal weight Derm: Wound on right base of toe with necrotic center, surrounding skin erythematous associated skin exfoliation surrounding the toe no unusual rashes/lesions, warm Head: atraumatic, normocephalic, symmetric Eyes: EOMI, no lid lag, anicteric sclera, pupils equal round reactive to light ENT: Nose and ears atraumatic Neck: No cervical lymphadenopathy, trachea midline, supple Mouth: no lip lesion, mucus membranes moist Cardiovascular: S1S2 reg, no murmur Lungs: CTA bilateral, no rhonchi, no rales, no accessory muscle use Abdominal: soft, nontender to palpation, no guarding Ext: muscle strength 5 out of 5 in all 4 extremities grossly, no gross muscle atrophy, no contractures, positive dorsalis pedis pulse bilateral, right foot wound covered in dressing that is dry and clean, nontender to palpation kevin rounding skin unremarkable Neuro: CN II-XI grossly intact, no gross focal neuro deficits Psych: Alert, oriented, appropriate affect and mood Assessment/Plan: #. Cellulitis of the right foot secondary to right foot wound r/o osteomyelitis, improving #. Normocytic anemia likely due to above Patient is currently afebrile. WBC count is elevated at 11.93 and uptrending. CRP is elevated at 4.5. ESR is elevated at 47. Signs of cellulitis only spread to dorsum of right foot and has not spread. Swelling has improved. MRI could not be done as patient could not stay still due to pain. Bone scan could not be done due to hip dislocation. -Per ID, d/c Vancomycin start Rocephin 2gm IVPB OD -Per wound care, use therahoney with gauze -Continue with pain control -Monitor with CBC at a.m. -CT scan of right foot -Creatinine at a.m. #. Right hip dislocation Patient has artificial hip. Patient is stable and pain is controlled. Hip x-ray showed posterior superior prosthetic right hip dislocation. -Per Ortho, close reduction was attempted day but was unsuccessful. Reattempt done in the afternoon. Right leg placed in abduction pillow. -C/w pain control -Consult PT OT Chronic conditions: Epilepsy, GERD, hypertension, depression, anxiety GI prophylaxis: Pantoprazole 40 mg p.o. OD DVT prophylaxis: Lovenox 30mg SQ OD Attestation: I have personally seen and examined the patient with Resident, reviewed the documentation and participated and agree with the assessment and plan as written. Objective - Vital Signs Vital signs: Vital Signs Temp 97.5 F L 08/02/24 07:16 Pulse 89 08/02/24 07:16 Resp 15 08/02/24 07:16 BP 123/73 08/02/24 07:16 Pulse Ox 88 L 08/02/24 07:16 FiO2 Intake & Output 08/01/24 08/02/24 08/02/24 18:59 06:59 18:59 Intake Total 940 540 Output Total 0 150 Balance 940 390 Intake: IV 400 Oral 540 540 Output: Urine 150 Estimated Blood Loss 0 Other: Voiding Method Bedside Commode # Voids 1 1 # Bowel Movements 1 - Labs CBC & Chem 7: 08/02/24 16:28 08/03/24 04:39 Labs: Abnormal Lab Results - Last 24 Hours (Table) 08/01/24 Range/Units 03:49 WBC 11.93 H (4.50-10.00) X 10*3/uL RBC 3.90 L (4.10-5.20) X 10*6/uL Hgb 9.0 L (12.0-15.0) g/dL Hct 31.5 L (37.2-46.3) % MCH 23.1 L (27.0-32.0) pg MCHC 28.6 L (32.0-37.0) g/dL RDW 26.3 H (11.5-14.5) % Immature Gran # 0.05 H (0.00-0.04) X 10*3/uL Neutrophils # 9.96 H (1.80-7.70) X 10*3/uL Lymphocytes # 0.87 L (0.90-5.00) X 10*3/uL Monocytes # 1.01 H (0.20-1.00) X 10*3/uL Eosinophils # 0 L (0.04-0.35) X 10*3/uL Microbiology - Last 24 Hours (Table) 07/29/24 20:38 Blood Culture - Preliminary Blood 07/31/24 13:42 Gram Stain - Preliminary Toe - Right Third Wound Culture - Preliminary Proteus mirabilis
[2024-08-02 16:50] LABS: African American GFR (CKD) >90 (>60 ml/min/1.73 sqM); Anion Gap 8 mmol/L; Blood Urea Nitrogen 10 mg/dL (7-17); Calcium 8.4 mg/dL (8.4-10.2); Carbon Dioxide 25 mmol/L (22-30); Chloride 106 mmol/L (98-107); Glucose 123 mg/dL (74-99); Non-African American GFR(CKD) >90 (>60 ml/min/1.73 sqM); Potassium 3.6 mmol/L (3.5-5.1); Sodium 139 mmol/L (137-145)
--- NOTE | 2024-08-02 18:04 | CT ---
CT right foot with contrast. HISTORY: Wound culture right third toe rule out osteomyelitis. COMPARISON: None TECHNIQUE : Multiple axial images are obtained through the right foot. Sagittal and coronal reconstru ctions were generated and reviewed. FINDINGS: There is marked diffuse osteopenia. There is no fracture or focal intraosseous abnormality. There is no cortical destruction or periosteal reaction of the osseous structures. The second and thi rd toes are hammertoes. IMPRESSION: No evidence of osteomyelitis.
[2024-08-03 01:54] VITALS: RESP 16
[2024-08-03] MEDS ORDERED: VANCOMYCIN TROUGH DUE 1 EACH MISC MISCELLANE ONE (05:00)
[2024-08-03 05:34] LABS: African American GFR (CKD) >90 (>60 ml/min/1.73 sqM); Anion Gap 4 mmol/L; Blood Urea Nitrogen 7 mg/dL (7-17); Calcium 8.1 mg/dL (8.4-10.2); Carbon Dioxide 30 mmol/L (22-30); Chloride 107 mmol/L (98-107); Glucose 94 mg/dL (74-99); Non-African American GFR(CKD) >90 (>60 ml/min/1.73 sqM); Potassium 3.1 mmol/L (3.5-5.1); Sodium 141 mmol/L (137-145)
[2024-08-03] MEDS: ENOXAPARIN 40 MG/0.4 ML SYRINGE SQ SCH (08:38)
[2024-08-03 09:35] LABS: HCT 30.8 % (37.2-46.3); HGB 8.5 g/dL (12.0-15.0); MCH 22.5 pg (27.0-32.0); MCHC 27.6 g/dL (32.0-37.0); MCV 81.7 FL (80.0-97.0); Mean Platelet Volume 9.8 FL (9.5-12.2); NRBC Per 100 WBC 0 X 10*3/uL (0.00-0.01); Platelet Count 423 X 10*3/uL (140-440); RBC 3.77 X 10*6/uL (4.10-5.20); WBC 6.06 X 10*3/uL (4.50-10.00)
[2024-08-03] MEDS ORDERED: Potassium Replacement Protocol 1 EACH MISC MISCELLANE PRN (10:09)
[2024-08-03] MEDS ORDERED: Magnesium Replacement Protocol 1 EACH MISC MISCELLANE PRN (10:09)
[2024-08-03] MEDS: POTASSIUM CHLORIDE ER 20 MEQ TAB.ER PO SCH (10:52)
--- NOTE | 2024-08-03 13:57 | P.PN ---
Subjective Progress Note Date: 08/03/24 Interval History: Patient is a 73-year-old female with known history of rheumatoid arthritis, and epilepsy came in for right foot swelling. She reports that began 2 weeks ago where boil at the base of her right toe popped which she was treating with iodine and soap and water. However the boil did not heal, and the wound began to be erythematous and the base of the right toe began to swell. The swelling and redness spread to the dorsal aspect of her foot with associated tenderness and warmth to touch. She denies having any fevers, new onset cough, sweats, headaches, new onset joint pain, loss of sensation affected foot, loss of range of motion of affected foot, or shortness of breath. Foot x-ray showed no acute process. WBC was 6.6 hemoglobin 10.1 platelet count 376 sodium 136 potassium 4.8 On admission patient was afebrile with a temperature of 98 Fahrenheit, normotensive at 113/50, pulse rate 93, 97% oxygenation at room air. 07/30 Patient seen and examined at bedside. Patient reports pain on right foot that is tolerable with pain medication. Swelling has decreased. She denies loss of sensation of affected foot, joint pain, new onset headache, subjective fever, new onset cough, SOB, chest pain, abd pain. WBC 7.4. CRP 4.5. ESR 47 hemoglobin 9.8 hematocrit 35.3 MCV 82.3 07/31 patient seen and examined at bedside. Patient reports pain on right foot that is tolerable with pain medication. Swelling has decreased. She denies loss of sensation of affected foot, joint pain, new onset headache, subjective fever, new onset cough, SOB, chest pain, abd pain. WBC 10.7 Hemoglobin 9.3 hematocrit 32.8 platelet 402. Had a seizure episode for a few minutes in the morning, but returned to baseline mentation after a few minutes post-ictal with associated right hip dislocation post-ictal. She reports this has happened before. Pain tolerable with medication. 08/01 patient seen at bedside postop closed reduction of right hip dislocation. Patient awake and comfortable. Reports swelling and redness of foot has improved. Pain controlled with medication. WBC 11.93 with immature granulocytes elevated at 0.05 hemoglobin 9 platelet 399 creatinine 0.28 08/02 patient seen and awake at bedside. Patient reports episodes of right foot pain controlled with medication. She notes no hip pain. WBC 6 hemoglobin 9 platelet count 415 08/03/2024--patient was seen and examined today. Right foot pain is better. Dressing intact. Infectious disease following, anticipate final plan by tomorrow. Vital stable, afebrile. WBCs normal, hemoglobin 8.5, platelets normal. BMP unremarkable, potassium was 3.1, replaced. Wound culture growing Proteus, vancomycin was discontinued yesterday, currently on Rocephin. CT foot negative for abscess or osteomyelitis Assessment and plan: Right foot cellulitis/wound: Remained afebrile, leukocytosis improved, CRP 4.5, ESR was 47. Was initially on vancomycin and Rocephin, wound culture growing Proteus, infectious disease changed antibiotics to Rocephin alone CT scan right foot negative for abscess or osteomyelitis. Continue Ceftin, infectious disease following. Right hip dislocation Patient has artificial hip. Patient is stable and pain is controlled. Hip x-ray showed posterior superior prosthetic right hip dislocation. -Per Ortho, close reduction was attempted day but was unsuccessful. Reattempt done in the afternoon. Right leg placed in abduction pillow. -C/w pain control -Consult PT OT DVT prophylaxis: Subcutaneous Lovenox PHYSICAL EXAMINATION: GENERAL: The patient is A&O x3, NAD HEENT: EOMI, Sclerae anicteric, Moist Mucous membranes Neck: Supple, Non tender, No JVD PULMONARY: Equal breath souds B/L, No wheezing, No crackles. CARDIOVASCULAR: S1, S2 present. No murmurs, rubs, or gallops. ABDOMEN: Soft, nontender, nondistended, normoactive bowel sounds. No guarding or rebound tenderness. MUSCULOSKELETAL: Right footdressing intact. No edema, No cyanosis. No clubbing. Normal ROM. Intact peripheral pulses. EXTREMITIES: No cyanosis, clubbing, or pedal edema. NEUROLOGICAL: CN 2-12 grossly intact. No FND Skin: No Rash REVIEW OF SYSTEMS: CONSTITUTIONAL: No fever or chills. CARDIOVASCULAR: No chest pain, palpitations or syncope. PULMONARY: No shortness of breath, no cough, sore throat. GASTROINTESTINAL: No nausea, vomiting, diarrhea, abdominal pain. : No Dysuria, urgency, frequency. Extremities: No edema. NEUROLOGICAL: No headaches, no weakness, or numbness Dictation was produced using [employer] dictation software. please excuse any grammatical, word or spelling errors. Objective - Vital Signs Vital signs: Vital Signs Temp 97.8 F 08/03/24 12:39 Pulse 84 08/03/24 12:39 Resp 16 08/03/24 12:39 BP 129/76 08/03/24 12:39 Pulse Ox 98 08/03/24 12:39 FiO2 Intake & Output 08/02/24 08/03/24 08/03/24 18:59 06:59 18:59 Intake Total 1800 240 Balance 1800 240 Intake: Oral 1800 240 Other: Voiding Method Bedside Commode Bedside Commode Bedside Commode # Voids 4 3 # Bowel Movements 2 - Labs CBC & Chem 7: 08/03/24 04:39 08/03/24 12:26 Labs: Abnormal Lab Results - Last 24 Hours (Table) 08/02/24 08/02/24 08/03/24 Range/Units 16:28 16:28 04:39 RBC (4.10-5.20) X 10*6/uL Hgb 9.0 L (11.4-16.0) gm/dL Hct 31.7 L (34.0-46.0) % MCH 23.6 L (25.0-35.0) pg MCHC 28.4 L (31.0-37.0) g/dL RDW 23.0 H (11.5-15.5) % Lymphocytes # 0.6 L (1.0-4.8) k/uL Potassium 3.1 L (3.5-5.1) mmol/L Creatinine 0.32 L 0.32 L (0.52-1.04) mg/dL Glucose 123 H (74-99) mg/dL Calcium 8.1 L (8.4-10.2) mg/dL 08/03/24 Range/Units 04:39 RBC 3.77 L (4.10-5.20) X 10*6/uL Hgb 8.5 L (11.4-16.0) gm/dL Hct 30.8 L (34.0-46.0) % MCH 22.5 L (25.0-35.0) pg MCHC 27.6 L (31.0-37.0) g/dL RDW 26.0 H (11.5-15.5) % Lymphocytes # (1.0-4.8) k/uL Potassium (3.5-5.1) mmol/L Creatinine (0.52-1.04) mg/dL Glucose (74-99) mg/dL Calcium (8.4-10.2) mg/dL Microbiology - Last 24 Hours (Table) 07/28/24 16:50 Blood Culture - Final Blood 07/31/24 13:42 Anaerobic Culture - Preliminary Toe - Right Third 07/31/24 13:42 Gram Stain - Final Toe - Right Third Wound Culture - Final Proteus mirabilis
--- NOTE | 2024-08-03 14:56 | P.PN ---
Subjective Progress Note Date: 08/03/24 Principal diagnosis: Reason for follow-up is right for cellulitis Patient is a 73-year-old female with a past medical history significant for hypertension rheumatoid arthritis seizure disorder osteoarthritis reflux patient presenting to the hospital for right foot pain swelling and redness right foot cellulitis On today's evaluation that is 08/03/2024, the patient continues to be afebrile, the patient is on room air and breathing comfortably, the Pt denies having any chest pain or cough, the patient denies having any abdominal pain no vomiting or any diarrhea has been reported by the nursing staff pain to the right foot is currently controlled. Patient did have blood count 6.06, creatinine 0.32.FOOT CT, no evidence of osteomyelitis Objective - Vital Signs Vital signs: Vital Signs Temp 97.8 F 08/03/24 12:39 Pulse 84 08/03/24 12:39 Resp 16 08/03/24 12:39 BP 129/76 08/03/24 12:39 Pulse Ox 98 08/03/24 12:39 FiO2 Intake & Output 08/02/24 08/03/24 08/03/24 18:59 06:59 18:59 Intake Total 1800 480 Balance 1800 480 Intake: Oral 1800 480 Other: Voiding Method Bedside Commode Bedside Commode Bedside Commode # Voids 4 3 # Bowel Movements 2 - Exam GENERAL DESCRIPTION: An elderly female lying in bed in no distress RESPIRATORY SYSTEM: Unlabored breathing , decreased breath sounds at bases HEART: S1 S2 regular rate and rhythm , ABDOMEN: Soft , no tenderness EXTREMITIES: Right foot redness has decreased in intensity patient did have wound between the toes - Labs CBC & Chem 7: 08/03/24 04:39 08/03/24 12:26 Labs: Abnormal Lab Results - Last 24 Hours (Table) 08/02/24 08/02/24 08/03/24 Range/Units 16:28 16:28 04:39 RBC (4.10-5.20) X 10*6/uL Hgb 9.0 L (11.4-16.0) gm/dL Hct 31.7 L (34.0-46.0) % MCH 23.6 L (25.0-35.0) pg MCHC 28.4 L (31.0-37.0) g/dL RDW 23.0 H (11.5-15.5) % Lymphocytes # 0.6 L (1.0-4.8) k/uL Potassium 3.1 L (3.5-5.1) mmol/L Creatinine 0.32 L 0.32 L (0.52-1.04) mg/dL Glucose 123 H (74-99) mg/dL Calcium 8.1 L (8.4-10.2) mg/dL 08/03/24 Range/Units 04:39 RBC 3.77 L (4.10-5.20) X 10*6/uL Hgb 8.5 L (11.4-16.0) gm/dL Hct 30.8 L (34.0-46.0) % MCH 22.5 L (25.0-35.0) pg MCHC 27.6 L (31.0-37.0) g/dL RDW 26.0 H (11.5-15.5) % Lymphocytes # (1.0-4.8) k/uL Potassium (3.5-5.1) mmol/L Creatinine (0.52-1.04) mg/dL Glucose (74-99) mg/dL Calcium (8.4-10.2) mg/dL Microbiology - Last 24 Hours (Table) 07/28/24 16:50 Blood Culture - Final Blood 07/31/24 13:42 Anaerobic Culture - Preliminary Toe - Right Third Assessment and Plan (1) Cellulitis of right foot Current Visit: Yes Status: Acute Code(s): L03.115 - CELLULITIS OF RIGHT LOWER LIMB SNOMED Code(s): 01647893755387669 Plan: 1patient with acute right lower extremity/foot area cellulitis apparently started with a small wound on the medial aspect of the right foot at the base of the big toe that seem to have dried out clinical suspicion is likely for Staphylococcus aureus infection with a question of MRSA. 2patient did have wound on both sides of the toes slightly concerning culture has been obtained which are currently growing Proteus, that is a sensitive pathogen 3-patient to continue with Rocephin while inpatient finishing therapy with oral Ceftin 500 mg twice a day for 10 days on discharge Dictation was produced using [employer] dictation software. please excuse any grammatical, word or spelling errors. Time with Patient: Less than 30
[2024-08-04 09:04] LABS: BUN/Creat Ratio 14.25 Ratio (12.00-20.00); Blood Urea Nitrogen 5.7 mg/dL (9.0-27.0); Calcium 8.6 mg/dL (8.7-10.3); Carbon Dioxide 28.8 mmol/L (21.6-31.8); Chloride 104 mmol/L (96-109); Glucose 94 mg/dL (70-110); Sodium 143 mmol/L (135-145)
[2024-08-04 09:51] LABS: Basophils # (A) 0.03 X 10*3/uL (0.00-0.10); Basophils % (A) 0.5 %; Eosinophils # (A) 0 X 10*3/uL (0.04-0.35); Eosinophils % (A) 0 %; HCT 32.5 % (37.2-46.3); HGB 9.2 g/dL (12.0-15.0); Lymphocytes % (A) 14.5 %; MCH 23.3 pg (27.0-32.0); MCHC 28.3 g/dL (32.0-37.0); MCV 82.3 FL (80.0-97.0); Mean Platelet Volume 9.6 FL (9.5-12.2); Monocytes # (A) 0.65 X 10*3/uL (0.20-1.00); Monocytes % (A) 10.5 %; NRBC Per 100 WBC 0 X 10*3/uL (0.00-0.01); Neutrophils # (A) 4.61 X 10*3/uL (1.80-7.70); Neutrophils % (A) 74.2 %; Platelet Count 470 X 10*3/uL (140-440); RBC 3.95 X 10*6/uL (4.10-5.20); RDW 25.2 % (11.5-14.5); WBC 6.21 X 10*3/uL (4.50-10.00)
[2024-08-04 12:47] VITALS: BP 112/73; PULSE 85; TEMP 98.1
[2024-08-04 13:20] VITALS: BMI 21.4
--- NOTE | 2024-08-06 08:24 | P.PN ---
Subjective Progress Note Date: 08/04/24 Principal diagnosis: Reason for follow-up is right for cellulitis Patient is a 73-year-old female with a past medical history significant for hypertension rheumatoid arthritis seizure disorder osteoarthritis reflux patient presenting to the hospital for right foot pain swelling and redness right foot cellulitis On today's evaluation that is 08/04/2024, Patient is afebrile patient is currently on room air and denies having any shortness of breath, the patient denies any chest pain or cough, the patient denies any nausea vomiting did not have any abdominal pain and no diarrhea pain to the right foot has slightly decreased in intensity. Patient white count 6.21, creatinine 0.4 anaerobe cultures negative local culture with Proteus Objective - Vital Signs Vital signs: Vital Signs Temp 98.2 F 08/04/24 07:03 Pulse 89 08/04/24 07:03 Resp 16 08/04/24 07:03 BP 135/80 08/04/24 07:03 Pulse Ox 96 08/04/24 07:03 FiO2 Intake & Output 08/03/24 08/04/24 08/04/24 18:59 06:59 18:59 Intake Total 1800 Output Total 2 1 Balance 1798 -1 Intake: Oral 1800 Output: Stool 2 1 Other: Voiding Method Bedside Commode Bedside Commode # Voids 6 5 1 - Exam GENERAL DESCRIPTION: An elderly female lying in bed in no distress RESPIRATORY SYSTEM: Unlabored breathing , decreased breath sounds at bases HEART: S1 S2 regular rate and rhythm , ABDOMEN: Soft , no tenderness EXTREMITIES: Right foot redness has decreased and no drainage - Labs CBC & Chem 7: 08/04/24 05:35 08/04/24 05:35 Labs: Abnormal Lab Results - Last 24 Hours (Table) 08/04/24 08/04/24 Range/Units 05:35 05:35 RBC 3.95 L (4.10-5.20) X 10*6/uL Hgb 9.2 L (12.0-15.0) g/dL Hct 32.5 L (37.2-46.3) % MCH 23.3 L (27.0-32.0) pg MCHC 28.3 L (32.0-37.0) g/dL RDW 25.2 H (11.5-14.5) % Plt Count 470 H (140-440) X 10*3/uL Eosinophils # 0 L (0.04-0.35) X 10*3/uL BUN 5.7 L (9.0-27.0) mg/dL Creatinine 0.4 L (0.6-1.5) mg/dL Calcium 8.6 L (8.7-10.3) mg/dL Microbiology - Last 24 Hours (Table) 07/31/24 13:42 Anaerobic Culture - Final Toe - Right Third 07/29/24 20:38 Blood Culture - Final Blood Assessment and Plan (1) Cellulitis of right foot Status: Acute Code(s): L03.115 - CELLULITIS OF RIGHT LOWER LIMB SNOMED Code(s): 57614501809845847 Plan: 1patient with acute right lower extremity/foot area cellulitis apparently started with a small wound on the medial aspect of the right foot at the base of the big toe that seem to have dried out clinical suspicion is likely for Staphylococcus aureus infection with a question of MRSA. 2patient did have wound on both sides of the toes slightly concerning culture has been obtained which are currently growing Proteus, that is a sensitive pathogen 3-patient to finish therapy with oral Ceftin 500 mg twice a day for 10 days on discharge and close outpatient follow-up Dictation was produced using [employer] dictation software. please excuse any grammatical, word or spelling errors. Time with Patient: Less than 30
--- NOTE | 2024-08-09 09:47 | P.DS ---
Providers Date of admission: 07/28/24 17:37 Expected date of discharge: 08/04/24 Attending physician: Cristina Gayle Consults: 07/29/24 12:50 Consult Physician Routine Consulting Provider: Mini Lainez Consult Reason/Comments: cellulitis of right foot Do you want consulting provider notified?: Yes 07/31/24 10:44 Consult Physician Urgent Consulting Provider: Brice Walker Consult Reason/Comments: Right hip dislocation Do you want consulting provider notified?: Already Contacted Primary care physician: Sawyer Lance [facility] Course: Final diagnosis Right foot cellulitis/wound: Present on admission Right hip dislocation status post reduction, patient has an artificial hip History of GERD History of osteoarthritis History of rheumatoid arthritis History of IBS History of anxiety/depression DVT prophylaxis GI prophylaxis Full code Discharge disposition Patient is being discharged in a stable condition with guarded prognosis to home with home care. Patient will follow-up with Dr. Lance in the outpatient setting upon discharge. Patient is to continue with oral antibiotics per ID recommendations and outpatient follow-up with the wound care center as scheduled. Total time taken is greater than 35 minutes. Hospital course This is a 73-year-old female who was recently admitted with concerns of right foot cellulitis and wound being closely monitored. Patient evaluated by orthopedics as well as infectious disease and wound care maintained on antibiotics and will transition to oral antibiotics on discharge per ID recommendations. Patient to continue with local wound care and follow-up care center as scheduled. Patient also had a right hip dislocation and her artificial hip which was reduced by orthopedics recommending outpatient follow- up as needed. Patient has been cleared by consultations. Please refer to consultation notes for further HPI. Currently no reports of chest pain, shortness of breath, or palpitations. Patient is afebrile. No reports of nausea or vomiting and patient is tolerating diet. Patient will be discharged home today. High risk for readmissions given patient's significant comorbidities Physical exam: Gen: This is a 73-year-old female who is awake, alert and oriented x 3, well- developed, elderly appearing HEENT: Head is atraumatic, normocephalic. Pupils equal, round. Sclerae is anicteric. NECK: Supple. No JVD. No lymphadenopathy. No thyromegaly. LUNGS: Clear to auscultation. No wheezes or rhonchi. No intercostal retractions. HEART: Regular rate and rhythm. No murmur. ABDOMEN: Soft. Bowel sounds are present. No masses. No tenderness. EXTREMITIES: No pedal edema. No calf tenderness. NEUROLOGICAL: Patient is awake, alert and oriented x3. Cranial nerves 2 through 12 are grossly intact. Diffusely weak Please refer to medication reconciliation sheet for a list of medications. The impression and plan of care has been dictated by Mine Negrete, Nurse Practitioner as directed. Dr. Anjelica MD I have performed a history and examination and MDM of this patient, discussed the same with the dictator, and agree with the dictator's assessment and plan as written ,documented as a scribe. Based on total visit time, I have performed more than 50% of the visit. Patient Condition at Discharge: Stable Plan - Discharge Summary Discharge Rx Participant: No New Discharge Prescriptions: New cefUROXime axetiL [Ceftin] 500 mg PO BID 10 Days #20 tab Acetaminophen Tab [Tylenol] 650 mg PO Q6HR PRN tab PRN Reason: Mild Pain Or Fever > 100.5 Continue Primidone [Mysoline] 250 mg PO BID lamoTRIgine [LaMICtal] 150 mg PO BID Omeprazole 20 mg PO DAILY Discharge Medication List Primidone [Mysoline] 250 mg PO BID 02/18/19 [History] lamoTRIgine [LaMICtal] 150 mg PO BID 01/20/23 [History] Omeprazole 20 mg PO DAILY 07/28/24 [History] Acetaminophen Tab [Tylenol] 650 mg PO Q6HR PRN tab 08/04/24 [Rx] cefUROXime axetiL [Ceftin] 500 mg PO BID 10 Days #20 tab 08/04/24 [Rx] Follow up Appointment(s)/Referral(s): Sawyer Lance DO [Primary Care Provider] - 08/14/24 11:30 am [facility] [NON-STAFF] - 08/13/24 12:45 pm Activity/Diet/Wound Care/Special Instructions: Activity limited until follow-up Follow-up with primary care provider on discharge Continue taking antibiotics until finished Continue local wound care by applying honey gel, nonadherent gauze and rolled gauze and elevating lower extremity while at rest Follow-up with the wound care center on discharge Discharge Disposition: HOME SELF-CARE
--- NOTE | 2024-08-26 18:21 | FL ---
EXAMINATION TYPE: FL guidance operating room, XR Hip Limited RT DATE OF EXAM: 08/01/2024 2:30 PM COMPARISON: Pre Operative Images if available both CT/MRI or plain film CLINICAL INDICATION: Female, 73 years old with history of CLOSED REDUCTION; TECHNIQUE: FL guidance operating room, XR Hip Limited RT, multiple fluoroscopic images provided for p rocedure. Total fluoroscopy time: 9 seconds Total submitted images to PACS: 1 DAP: 0.4715 mGym2 Gycm2 uGym2 cGycm2 or equivalent. FINDINGS: Fluoroscopic images during internal fixation/arthroplasty demonstrate fixation hardware in appropriat e position. Hardware appears intact. No immediate complication identified. IMPRESSION: 1. No evidence for intraoperative complication. 2. Please see the operative/procedural note for further details. [facility], , 08/26/2024 6:18 PM
== END 2024-08-04 17:30 | disposition home or self-care (01) | DRG 603 ==
LOC: EC 14:21 → 5NMEDONC 17:37 → 1SOBS 07-29 10:18 → 5NMEDONC 07-31 17:48
PROVIDERS: ADMIT Internal Medicine; ATTEND Internal Medicine
PROC: 3E0T3BZ Introduction of Anesthetic Agent into Peripheral Nerves and Plexi, Percutaneous Approach (ICD-10-PCS; 2024-08-01)
PROC: 0SS9XZZ Reposition Right Hip Joint, External Approach (ICD-10-PCS; principal; 2024-08-01 11:00)
DX: L03.115 Cellulitis of right lower limb (principal); T84.020A Dislocation of internal right hip prosthesis, initial encounter; G40.909 Epilepsy, unspecified, not intractable, without status epilepticus; I10 Essential (primary) hypertension; L97.512 Non-pressure chronic ulcer of other part of right foot with fat layer exposed; M05.20 Rheumatoid vasculitis with rheumatoid arthritis of unspecified site; F32.A Depression, unspecified; F41.9 Anxiety disorder, unspecified; L98.492 Non-pressure chronic ulcer of skin of other sites with fat layer exposed; D64.9 Anemia, unspecified; M21.611 Bunion of right foot; K58.9 Irritable bowel syndrome, unspecified; B96.4 Proteus (mirabilis) (morganii) as the cause of diseases classified elsewhere; K21.9 Gastro-esophageal reflux disease without esophagitis; M41.9 Scoliosis, unspecified; Y79.2 Prosthetic and other implants, materials and accessory orthopedic devices associated with adverse incidents; Z79.899 Other long term (current) drug therapy; Z82.0 Family history of epilepsy and other diseases of the nervous system; Z82.49 Family history of ischemic heart disease and other diseases of the circulatory system; Z83.3 Family history of diabetes mellitus; Z96.652 Presence of left artificial knee joint
CPT/HCPCS: 36415; 73501; 73502; 80048; 80053; 80202; 82565; 83605; 83735; 84132; 85025; 85027; 85652; 86140; 87040; 87070; 87075; 87077; 87186; 87205; 94760; 99285

== ENCOUNTER 2024-08-26 09:44 | Inpatient (IN) | payer MEDICARE ==
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
--- NOTE | 2024-08-26 10:52 | XR ---
EXAMINATION TYPE: XR foot complete RT DATE OF EXAM: 08/26/2024 CLINICAL HISTORY: pain TECHNIQUE: Frontal, lateral and oblique images of the right foot are obtained. COMPARISON: None. FINDINGS: There is no acute fracture/dislocation evident. The joint spaces appear within normal zamora its. Soft tissue ulceration about the great toe. Vague lucency involving the medial aspect of the fir st metatarsal head. Early osteomyelitis is difficult to exclude. IMPRESSION: Soft tissue ulceration about the great toe. Vague lucency involving the medial aspect of the first me tatarsal head. Early osteomyelitis is difficult to exclude. [facility], , 08/26/2024 10:50 AM
[2024-08-26] MEDS: MORPHINE SULFATE 4 MG/ML SYRINGE IVP STA (11:01)
[2024-08-26] MEDS: KETOROLAC 15 MG/ML 1 ML VIAL IVP STA (11:04)
[2024-08-26 11:36] LABS: ALT 15 U/L (4-34); AST 31 U/L (14-36); African American GFR (CKD) >90 (>60 ml/min/1.73 sqM); Alkaline Phosphatase 146 U/L (38-126); Anion Gap 9 mmol/L; Blood Urea Nitrogen 15 mg/dL (7-17); C Reactive Protein 1.5 mg/dL (<1.0); Calcium 8.9 mg/dL (8.4-10.2); Carbon Dioxide 24 mmol/L (22-30); Chloride 107 mmol/L (98-107); Glucose 73 mg/dL (74-99); Non-African American GFR(CKD) >90 (>60 ml/min/1.73 sqM); Potassium 4.2 mmol/L (3.5-5.1); Sodium 140 mmol/L (137-145); Total Bilirubin 0.3 mg/dL (0.2-1.3); Total Protein 6.9 g/dL (6.3-8.2)
[2024-08-26 12:22] LABS: Anisocytosis Slight; Basophils % (A) 0 %; Eosinophils % (A) 0 %; HCT 29.5 % (34.0-46.0); HGB 8.4 gm/dL (11.4-16.0); Hypochromasia Marked; Lymphocytes # (A) 0.7 k/uL (1.0-4.8); Lymphocytes % (A) 10 %; MCH 22.7 pg (25.0-35.0); MCHC 28.5 g/dL (31.0-37.0); MCV 79.9 fL (80.0-100.0); Mean Platelet Volume 7.4; Microcytosis Slight; Monocytes # (A) 0.4 k/uL (0-1.0); Monocytes % (A) 6 %; Neutrophils # (A) 5.6 k/uL (1.3-7.7); Neutrophils % (A) 82 %; Platelet Count 413 k/uL (150-450); RBC 3.69 m/uL (3.80-5.40); RDW 19.8 % (11.5-15.5); WBC 6.8 k/uL (3.8-10.6)
[2024-08-26] MEDS ORDERED: VANCOMYCIN IV PER PHARMACY 1 EACH MISC MISCELLANE PRN (13:13)
[2024-08-26] MEDS ORDERED: ACETAMINOPHEN TAB 325 MG TAB PO PRN (13:57)
[2024-08-26] MEDS ORDERED: NALOXONE 0.4 MG/ML 1 ML VIAL IV PRN (13:57)
[2024-08-26 15:12] LABS: Erythrocyte Sedimentation Rate 37 mm/Hr (0-30)
[2024-08-26] MEDS: HYDROmorphone 0.5 MG/0.5 ML SYRINGE IVP PRN (16:06)
[2024-08-26] MEDS: CEFEPIME 1 GM in SODIUM CHLORIDE 0.9% 50 ML IVPB ONE (16:09)
[2024-08-26] MEDS: SODIUM CHLORIDE 0.9% 1,000 ML IV STA (16:11)
[2024-08-26] MEDS: VANCOMYCIN 1,000 MG in SODIUM CHLORIDE 0.9% 250 ML IVPB STA (16:17)
[2024-08-26] MEDS: metroNIDAZOLE 500 MG TAB PO SCH (17:23)
[2024-08-26] MEDS: MORPHINE SULFATE 4 MG/ML SYRINGE IV PRN (19:09)
[2024-08-26] MEDS: KETOROLAC 15 MG/ML 1 ML VIAL IVP PRN (19:09)
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
[2024-08-26] MEDS: lamoTRIgine 100 MG TAB PO SCH (21:32)
[2024-08-26] MEDS: PRIMIDONE 250 MG TAB PO SCH (21:32)
[2024-08-26] MEDS: CEFEPIME 1 GM in SODIUM CHLORIDE 0.9% 50 ML IVPB SCH (22:05)
[2024-08-27] MEDS: VANCOMYCIN 1,000 MG in SODIUM CHLORIDE 0.9% 250 ML IVPB SCH (00:25)
[2024-08-27] MEDS: ACETAMINOPHEN TAB 325 MG TAB PO PRN (04:38)
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
[2024-08-27 08:55] LABS: HGB 7.3 g/dL (12.0-15.0); MCH 22.1 pg (27.0-32.0); MCHC 28.1 g/dL (32.0-37.0); MCV 78.8 FL (80.0-97.0); NRBC Per 100 WBC 0 X 10*3/uL (0.00-0.01); Platelet Count 318 X 10*3/uL (140-440); RDW 20.7 % (11.5-14.5); WBC 5.68 X 10*3/uL (4.50-10.00)
[2024-08-27 08:56] LABS: Basophils # (A) 0.03 X 10*3/uL (0.00-0.10); Basophils % (A) 0.5 %; Blood Urea Nitrogen 13.2 mg/dL (9.0-27.0); Calcium 7.6 mg/dL (8.7-10.3); Carbon Dioxide 24.1 mmol/L (21.6-31.8); Chloride 103 mmol/L (96-109); Eosinophils # (A) 0 X 10*3/uL (0.04-0.35); Eosinophils % (A) 0 %; Glucose 90 mg/dL (70-110); Lymphocytes # (A) 0.67 X 10*3/uL (0.90-5.00); Lymphocytes % (A) 11.8 %; Monocytes # (A) 0.69 X 10*3/uL (0.20-1.00); Monocytes % (A) 12.1 %; Neutrophils # (A) 4.27 X 10*3/uL (1.80-7.70); Neutrophils % (A) 75.2 %; Potassium 4.1 mmol/L (3.5-5.5); Sodium 137 mmol/L (135-145)
[2024-08-27] MEDS ORDERED: NON FORMULARY DRUG (Omeprazole [Omeprazole] 20 MG Capsule.Dr) PO SCH (09:00)
[2024-08-27] MEDS: HEPARIN SODIUM,PORCINE 5,000 UNIT/ML 1 ML VIAL SQ SCH (09:11)
[2024-08-27] MEDS: FERROUS SULFATE 325 MG TAB PO SCH (09:12)
[2024-08-27] MEDS: SERTRALINE 100 MG TAB PO SCH (09:12)
[2024-08-27] MEDS: PANTOPRAZOLE 40 MG/10 ML VIAL IV SCH (09:12)
[2024-08-27] MEDS: NYSTATIN 100,000 UNIT/GM POWD 15 GM TOPICAL SCH (09:17)
--- NOTE | 2024-08-27 11:27 | US ---
EXAMINATION TYPE: US arterial LE multi level DATE OF EXAM: 08/27/2024 10:49 AM CLINICAL INDICATION: Female, 73 years old with history of Non-healing right foot wound; History of: Smoker: N Hypertension: N Diabetic: N Hyperlipidemia: N TIA/CVA: N Previous Vascular Surgery: N CAD: N MD: N Vascular Ulcers: Y; MULTIPLE RLE Claudication: Y Gangrene: N Doppler Waveforms: Right: Monophasic Left: Monophasic Right Brachial Pressure: 110 Left Brachial Pressure: 105 Ankle-Brachial Indices: Right: Unable to obtain - multiple techs scanned - unable to obtain popliteal to PTV/DP waveforms Left: 1.16 (Vessel hardening > 1.4; Normal 0.9 - 1.4, Moderate 0.7 - 0.9, Severe 0.5-0.7) IMPRESSION: Nondiagnostic right lower extremity. Left lower extremity ankle-brachial index within normal limits. [facility], , 08/27/2024 11:25 AM
--- NOTE | 2024-08-27 12:01 | P.PN ---
Subjective Progress Note Date: 08/27/24 Principal diagnosis: Reason for follow-up is right foot ulcers and cellulitis Patient is a 73-year-old female with a past medical history significant for hypertension rheumatoid arthritis seizure disorder reflux patient was recently admitted to this facility for the right foot cellulitis Within the hospital with a worsening wound to the right foot in between the toes as well as on the medial aspect of the right foot big toe. On today's evaluation that is 08/27/2024, the patient continues to be afebrile, the patient is on room air and breathing comfortably, the Pt denies having any chest pain or cough, the patient denies having any abdominal pain no vomiting or any diarrhea, still complaining of pain to the right foot about the same and no worsening drainage. Patient white count is 5.68, creatinine 0.3 cultures are pending Objective - Vital Signs Vital signs: Vital Signs Temp 97.9 F 08/27/24 06:44 Pulse 89 08/27/24 06:44 Resp 16 08/27/24 06:44 BP 115/66 08/27/24 06:44 Pulse Ox 94 L 08/27/24 06:44 FiO2 Intake & Output 08/26/24 08/27/24 08/27/24 18:59 06:59 18:59 Intake Total 590 240 Balance 590 240 Weight 58.967 kg Intake: Oral 590 240 Other: Voiding Method Bedside Commode # Voids 2 - Exam GENERAL DESCRIPTION: An elderly female lying in bed in no distress RESPIRATORY SYSTEM: Unlabored breathing , decreased breath sounds at bases HEART: S1 S2 regular rate and rhythm , ABDOMEN: Soft , no tenderness EXTREMITIES: Right foot wound on the medial aspect seems to be drying out redness slightly decreased - Labs CBC & Chem 7: 08/27/24 04:57 08/27/24 04:57 Labs: Abnormal Lab Results - Last 24 Hours (Table) 08/26/24 08/27/24 08/27/24 Range/Units 10:44 04:57 04:57 RBC 3.69 L 3.30 L (3.80-5.40) m/uL Hgb 8.4 L 7.3 L (11.4-16.0) gm/dL Hct 29.5 L 26.0 L (34.0-46.0) % MCV 79.9 L 78.8 L (80.0-100.0) fL MCH 22.7 L 22.1 L (25.0-35.0) pg MCHC 28.5 L 28.1 L (31.0-37.0) g/dL RDW 19.8 H 20.7 H (11.5-15.5) % MPV 9.0 L (9.5-12.2) FL Lymphocytes # 0.7 L 0.67 L (1.0-4.8) k/uL Eosinophils # 0 L (0.04-0.35) X 10*3/uL ESR 37 H (0-30) mm/Hr Creatinine 0.3 L (0.6-1.5) mg/dL BUN/Creatinine Ratio 44.00 H (12.00-20.00) Ratio Calcium 7.6 L (8.7-10.3) mg/dL Assessment and Plan (1) Right foot ulcer Current Visit: Yes Status: Acute Code(s): L97.519 - NON-PRS CHRONIC ULCER OTH PRT RIGHT FOOT W UNSP SEVERITY SNOMED Code(s): 914134033 (2) Cellulitis of right foot Current Visit: Yes Status: Acute Code(s): L03.115 - CELLULITIS OF RIGHT LOWER LIMB SNOMED Code(s): 44434991699843958 Plan: 1patient presented to hospital with worsening ulceration to the right foot in this patient who did have extensive athlete's foot with a wound in between the toes as well as on the medial aspect of the right big toe and did have an abno rmal x-ray suspicious for possible osteomyelitis with recent culture positive for Proteus mirabilis. 2patient did have a sed rate of 37 CRP mildly elevated 3patient to continue with vancomycin pharmacy to dose, cefepime and Flagyl while waiting for the culture to finalize Dictation was produced using [employer] software. please excuse any grammatical, word or spelling errors.
--- NOTE | 2024-08-27 13:06 | P.PN ---
Subjective Progress Note Date: 08/27/24 Principal diagnosis: Right lower extremity cellulitis This is a pleasant 73-year-old female who presented to the emergency department with concerns of possible right foot infection. Past medical history includes hypertension, osteoarthritis, rheumatoid arthritis, seizure disorder GERD, recent right hip closed reduction. States that she was getting pain shooting across to her foot as well as some increased redness. She developed some wounds between her toes from [place] as well as a wound to her medial aspect of her foot. States that she thought it started out as a bunion and then turned into a small wound. She has been recently hospitalized and treated with IV antibiotics and sent home on oral antibiotics. She had her first appointment last week with the wound care center at [place]. States using Aquacel silver dressings between her toes and on her wound. She has an appointment next week as a follow-up. She also reports over the last 2 weeks she has been getting cramping in her marinelli when she walks. States after short distance she will start getting the cramping. Pain resolves after sitting down for several minutes. No previous history of reported vascular disease. She had a foot x-ray that reported possible beginning of osteomyelitis. Objective - Vital Signs Vital signs: Vital Signs Temp 97.9 F 08/27/24 06:44 Pulse 89 08/27/24 06:44 Resp 16 08/27/24 06:44 BP 115/66 08/27/24 06:44 Pulse Ox 94 L 08/27/24 06:44 FiO2 Intake & Output 08/26/24 08/27/24 08/27/24 18:59 06:59 18:59 Intake Total 590 240 Balance 590 240 Weight 58.967 kg Intake: Oral 590 240 Other: # Voids 2 - Exam General appearance: The patient is alert, oriented, appears in no acute distress. HET: Head is normocephalic and atraumatic. Neck: Supple. Heart: Regular. Lungs: Equal expansion, normal respiratory effort. Abdomen: Soft, nontender, nondistended. Extremities: Palpable bilateral femoral pulses. Nonpalpable right DP or PT pulse. Monophasic DP and PT Doppler signal. Left palpable DP pulse. Right foot dorsal aspect with erythema, yeast between toes, wound 2 x 2-1/2 cm lateral aspect of proximal great toe with nonviable tissue, no granulation noted. No drainage or foul odor. Neurological: No focal deficits. Alert and oriented. - Labs CBC & Chem 7: 08/27/24 04:57 08/27/24 04:57 Labs: Abnormal Lab Results - Last 24 Hours (Table) 08/26/24 08/26/24 08/26/24 Range/Units 10:44 10:44 10:44 RBC 3.69 L (3.80-5.40) m/uL Hgb 8.4 L (11.4-16.0) gm/dL Hct 29.5 L (34.0-46.0) % MCV 79.9 L (80.0-100.0) fL MCH 22.7 L (25.0-35.0) pg MCHC 28.5 L (31.0-37.0) g/dL RDW 19.8 H (11.5-15.5) % MPV (9.5-12.2) FL Lymphocytes # 0.7 L (1.0-4.8) k/uL Eosinophils # (0.04-0.35) X 10*3/uL ESR 37 H (0-30) mm/Hr Creatinine 0.31 L (0.52-1.04) mg/dL BUN/Creatinine Ratio (12.00-20.00) Ratio Glucose 73 L (74-99) mg/dL Plasma Lactic Acid Mickey 3.1 H* (0.7-2.0) mmol/L Calcium (8.7-10.3) mg/dL Alkaline Phosphatase 146 H (38-126) U/L C-Reactive Protein 1.5 H (<1.0) mg/dL 08/27/24 08/27/24 Range/Units 04:57 04:57 RBC 3.30 L (3.80-5.40) m/uL Hgb 7.3 L (11.4-16.0) gm/dL Hct 26.0 L (34.0-46.0) % MCV 78.8 L (80.0-100.0) fL MCH 22.1 L (25.0-35.0) pg MCHC 28.1 L (31.0-37.0) g/dL RDW 20.7 H (11.5-15.5) % MPV 9.0 L (9.5-12.2) FL Lymphocytes # 0.67 L (1.0-4.8) k/uL Eosinophils # 0 L (0.04-0.35) X 10*3/uL ESR (0-30) mm/Hr Creatinine 0.3 L (0.52-1.04) mg/dL BUN/Creatinine Ratio 44.00 H (12.00-20.00) Ratio Glucose (74-99) mg/dL Plasma Lactic Acid Mickey (0.7-2.0) mmol/L Calcium 7.6 L (8.7-10.3) mg/dL Alkaline Phosphatase (38-126) U/L C-Reactive Protein (<1.0) mg/dL Assessment and Plan Assessment: 1. Right foot wound, does not appear infected 2. Cellulitis of right foot 3. Recent closed reduction right hip periprosthetic hip dislocation 08/01/2024 Plan: 1. Continue local wound care 2. Lower extremity arterial Dopplers ordered 3. Further recommendations forthcoming per vascular surgeon Thank you for this consultation, we will continue to follow. The impression and plan of care has been dictated as directed. I performed a history and examination of this patient, discussed the same with the dictator. I agree with the dictator's note ,documented as a scribe. Any additional findings or plans will be noted.
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
--- NOTE | 2024-08-27 16:00 | CT ---
EXAMINATION TYPE: CT angio abd aorta w/Runoff CT DLP: 1398 mGycm, Automated exposure control for dose reduction was used. DATE OF EXAM: 08/27/2024 2:55 PM COMPARISON: Ultrasound arterial lower extremity 08/27/24, CT right foot 08/02/2024, CT pelvis 01/30/2022 CLINICAL INDICATION:Female, 73 years old with history of Nonpalpable RLE DP/PT pulse, abnormal arteri al US; rt foot ulcer TECHNIQUE: Multiple thin slice sub-millimeter images were obtained through the abdomen, pelvis, and l ower extremities after administration of contrast. Patient was given Isovue 370, 100 cc intravenousl y. 3-D reconstructed images and maximum intensity projection images were obtained of the abdomen, pe lvis, and lower extremities. FINDINGS: CTA Abdomen and pelvis: The abdominal aorta does not demonstrate aneurysmal dilatation. Tortuosity of the abdominal aorta. Mild atherosclerotic plaquing is identified within the abdominal aorta. The or igins of the superior mesenteric artery, renal arteries, inferior mesenteric artery, and celiac axis are patent. The iliac vessels are normal in morphology. The left common femoral, left external and internal iliac arteries are widely patent without stenosis. There is abrupt lack of contrast opacifi cation at the origin of the right common iliac artery. No visualized opacification of the right commo n iliac and internal iliac arteries. No visualized opacification of the right common femoral artery. Pelvic phleboliths. CTA Lower extremities: Right: No visualized opacification of the right common femoral artery. There is long segment lack of opacification identified of the right superficial femoral artery beginning at its origin until its di stal aspect where there is distal reconstitution. Mild atherosclerotic calcification of the distal gould perficial femoral artery. There is enhancement of the deep right femoral artery secondary to collater al vessels. The popliteal artery is poorly evaluated due to streak artifact from knee arthroplasty. The visualized portions are patent. The distal aspect appears evident in appearance. Moderate stenos is of the tibioperoneal trunk. Anterior and posterior tibial arteries as well as the peroneal artery are patent. Anterior and posterior tibial arteries cross the ankle. Left: The common femoral and superficial femoral arteries are patent. Poor visualization of the popli teal artery secondary to streak artifact from knee arthroplasty. The visualized portions are patent. Anterior and posterior tibial arteries as well as the peroneal artery are patent. Anterior and fuel cell engineer ior tibial arteries cross the ankle. VISCERA: The liver, spleen, adrenal glands, kidneys, pancreas, and gallbladder are not optimally enha nced due the arterial phase utilized. LIVER: Unremarkable GALLBLADDER AND BILE DUCTS: Unremarkable. PANCREAS: Unremarkable. SPLEEN: Not enlarged. Peripheral calcified likely benign 7 mm lesion. ADRENAL GLANDS: Unremarkable. KIDNEYS AND URETERS: No evidence of hydronephrosis or renal calculus. The enhance symmetrically. PELVIS BLADDER: Moderately distended. Limited visualization from streak artifact from right hip prosthesis. REPRODUCTIVE: Poorly visualized from streak artifact from right hip prosthesis. ABDOMEN & PELVIS STOMACH AND BOWEL: Large hiatal hernia with at least 50% of the stomach intrathoracic. Scattered colo alona diverticulosis without evidence for acute diverticulitis. No focal bowel wall thickening or surro unding inflammatory changes. No evidence of bowel obstruction. PERITONEUM: No evidence of pneumoperitoneum or free fluid. MUSCULOSKELETAL: No acute osseous abnormalities. Postsurgical changes from right total hip arthroplas ty. Discrete streak artifact limiting evaluation. Remote healed bilateral inferior pubic rami fractur es. Scoliotic curvature of the thoracolumbar spine. Advanced degenerative disc disease changes of the thoracic lumbar spine. Postsurgical changes from bilateral knee total arthroplasty which creates str eak artifact limiting evaluation. Mild soft tissue edema of the bilateral feet. Diffuse bone deminera lization. Soft tissue ulceration along the medial aspect of the right great toe. No adjacent osseous erosions. LYMPH NODES: Mildly prominent bilateral inguinal lymph nodes. SOFT TISSUE/ABDOMINAL WALL: Diffuse anasarca. Calcified granuloma within the right gluteal soft tissu es. Postsurgical changes of the anterior abdominal wall with skin anil and sutures identified. Lax ity of the right lower anterior abdominal wall with muscle atrophy. LOWER CHEST: Bibasilar atelectasis. Cardiomegaly. Elevation of the right hemidiaphragm. IMPRESSION 1. 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 There is distal reconstitution of the right superficial femoral artery. The remaining distal right lower extremity ar terial vasculature is patent. Vascular surgery consultation is recommended. 2. Poor visualization of the bilateral popliteal arteries due to streak artifact from knee arthropla sty. The visualized portions appear patent with the distal right popliteal artery appearing diminutiv e. 3. No evidence of abdominal aortic aneurysm, significant stenosis/atherosclerotic plaque involving th e left lower extremity. 4. Large hiatal hernia with 50% of the stomach intrathoracic. Additional elevation of the right hemid iaphragm. 5. Soft tissue ulceration involving the right first digit medially without adjacent osseous erosion t o suggest osteomyelitis. [facility], , 08/27/2024 3:58 PM
--- NOTE | 2024-08-28 05:15 | P.PN ---
Subjective Progress Note Date: 08/27/24 Patient is a 73-year-old female with a past medical history of hypertension, osteoarthritis, rheumatoid arthritis, history of seizure disorder, anxiety/depression presents to ER with complaints of right foot infection and discharge. Patient was recently admitted to the hospital and was discharged home on 08/04/2024 with antibiotic course to complete for 10 more days. Patient states that she did take medication at home. She will use with a roommate. Patient states that she has been having increasing pain to the point where she is unable to ambulate. Patient states that she also has history of poor circulation in the leg. Patient otherwise denied any complaints of fever or chills. No nausea vomiting abdominal pain. No chest pain or shortness of breath. X-ray of the foot showed soft tissue ulceration about the great toe, with lucency involving the medial aspect of the first metatarsal head. Early osteomyelitis is difficult to exclude. Patient had a recent wound cultures growing Proteus mirabilis taken on 07/31/2024 which is pansensitive. Laboratory data showed WBC 6.8 hemoglobin 8.4 MCV 79.9 and RDW 19.8 and platelets 413 ESR 37 CRP 1.5 Sodium 140 potassium 4.2 chloride 107 bicarb is 24 BUN 15 and creatinine 0.31 and blood sugar 73 and calcium 8.9. 08/27/2024 Patient is seen and evaluated in follow-up today being followed by vascular surgery along with infectious disease. Patient is maintained on antibiotics scheduled to undergo a bone scan. Patient also having CT imaging with vascular surgery as x-ray was suggestive of possible starts of osteomyelitis. Patient is afebrile with no reports of chest pain or shortness of breath. Patient denies any nausea or vomiting and has been tolerating diet. Awaiting cultures and currently preliminary showing gram-negative bacilli. Review of systems: Constitutional: No reports of fatigue, fever, or chills Cardiovascular: No reports of chest pain or palpitations Respiratory: No reports of shortness of breath or cough GI: No reports of nausea, vomiting, or diarrhea : No reports of dysuria or retention Neurovascular: reports of generalized weakness All medications have been reviewed PHYSICAL EXAMINATION: Patient is lying in the bed comfortably, no acute distress, awake alert and oriented.. Elderly appearing, thin built HEENT: Normocephalic. Neck is supple. Pupils reactive. Nostrils clear. Oral cavity is moist. Neck reveals no JVD, carotid bruits, or thyromegaly. CHEST EXAMINATION: Trachea is central. Symmetrical expansion. Lung rasmussen clear to auscultation and percussion. CARDIAC: Normal S1, S2 with no gallops. No murmurs ABDOMEN: Soft. Bowel sounds normal. No organomegaly. No abdominal bruits. Extremities: Right foot wound on the medial aspect of the great toe with purulent discharge and redness extending up to the mid foot. No clubbing or cyanosis Neurologically awake, alert, oriented x3 with well-coordinated movements. No focal deficits noted, diffusely weak Skin: No rash or skin lesions. Psychiatric: Cooperative. Non-suicidal Musculoskeletal: No joint swelling or deformity. Normal range of motion. Assessment: Right great toe wound with surrounding cellulitis and purulent discharge. Possible early acute osteomyelitis involving the right medial aspect of the first metatarsal head Microcytic iron deficiency anemia. Iron profile showed deficiency on 01/14/2024 Osteoarthritis history Rheumatoid arthritis history Seizure disorder on antiepileptics at home History of IBS and GERD Anxiety/depression DVT prophylaxis with heparin subcu GI prophylaxis Full code Plan: Patient currently continued on antibiotics of vancomycin and cefepime. Aerobic and anaerobic wound cultures were sent and follow-up blood cultures as well. Preliminary wound culture showing gram-negative bacilli continue with pain management. Recommend being cautious with narcotics given patient's age Currently scheduled to undergo a bone scan in the a.m. Patient undergoing CT of the lower extremity per vascular surgery with Dr. Mcmahan following Continue local wound care Current home medications reviewed and resumed as appropriate. Will need PT/OT therapy evaluation Due to multiple complex medical issues, overall prognosis is guarded The impression and plan of care has been dictated by Mine Negrete, Nurse Practitioner as directed. Dr. Nalini MD I have performed a history and examination and MDM of this patient, discussed the same with the dictator, and agree with the dictator's assessment and plan as written ,documented as a scribe. Based on total visit time, I have performed more than 50% of the visit. Objective - Vital Signs Vital signs: Vital Signs Temp 97.9 F 08/27/24 06:44 Pulse 89 08/27/24 06:44 Resp 16 08/27/24 06:44 BP 115/66 08/27/24 06:44 Pulse Ox 94 L 08/27/24 06:44 FiO2 Intake & Output 08/26/24 08/27/24 08/27/24 18:59 06:59 18:59 Intake Total 590 Balance 590 Weight 58.967 kg Intake: Oral 590 Other: # Voids 2 - Labs CBC & Chem 7: 08/27/24 04:57 08/27/24 04:57 Labs: Abnormal Lab Results - Last 24 Hours (Table) 08/26/24 08/26/24 08/26/24 Range/Units 10:44 10:44 10:44 RBC 3.69 L (3.80-5.40) m/uL Hgb 8.4 L (11.4-16.0) gm/dL Hct 29.5 L (34.0-46.0) % MCV 79.9 L (80.0-100.0) fL MCH 22.7 L (25.0-35.0) pg MCHC 28.5 L (31.0-37.0) g/dL RDW 19.8 H (11.5-15.5) % MPV (9.5-12.2) FL Lymphocytes # 0.7 L (1.0-4.8) k/uL Eosinophils # (0.04-0.35) X 10*3/uL ESR 37 H (0-30) mm/Hr Creatinine 0.31 L (0.52-1.04) mg/dL BUN/Creatinine Ratio (12.00-20.00) Ratio Glucose 73 L (74-99) mg/dL Plasma Lactic Acid Mickey 3.1 H* (0.7-2.0) mmol/L Calcium (8.7-10.3) mg/dL Alkaline Phosphatase 146 H (38-126) U/L C-Reactive Protein 1.5 H (<1.0) mg/dL 08/27/24 08/27/24 Range/Units 04:57 04:57 RBC 3.30 L (3.80-5.40) m/uL Hgb 7.3 L (11.4-16.0) gm/dL Hct 26.0 L (34.0-46.0) % MCV 78.8 L (80.0-100.0) fL MCH 22.1 L (25.0-35.0) pg MCHC 28.1 L (31.0-37.0) g/dL RDW 20.7 H (11.5-15.5) % MPV 9.0 L (9.5-12.2) FL Lymphocytes # 0.67 L (1.0-4.8) k/uL Eosinophils # 0 L (0.04-0.35) X 10*3/uL ESR (0-30) mm/Hr Creatinine 0.3 L (0.52-1.04) mg/dL BUN/Creatinine Ratio 44.00 H (12.00-20.00) Ratio Glucose (74-99) mg/dL Plasma Lactic Acid Mickey (0.7-2.0) mmol/L Calcium 7.6 L (8.7-10.3) mg/dL Alkaline Phosphatase (38-126) U/L C-Reactive Protein (<1.0) mg/dL
[2024-08-28 07:25] LABS: Anisocytosis Slight; Basophils % (A) 0 %; Eosinophils # (A) 0.1 k/uL (0-0.7); Eosinophils % (A) 1 %; HCT 30.4 % (34.0-46.0); HGB 8.5 gm/dL (11.4-16.0); Hypochromasia Marked; Lymphocytes # (A) 0.7 k/uL (1.0-4.8); Lymphocytes % (A) 11 %; MCH 22.6 pg (25.0-35.0); MCHC 27.9 g/dL (31.0-37.0); MCV 81.2 fL (80.0-100.0); Mean Platelet Volume 7.9; Microcytosis Slight; Monocytes # (A) 0.4 k/uL (0-1.0); Monocytes % (A) 7 %; Neutrophils # (A) 4.6 k/uL (1.3-7.7); Neutrophils % (A) 79 %; Platelet Count 392 k/uL (150-450); RBC 3.74 m/uL (3.80-5.40); RDW 19.5 % (11.5-15.5); WBC 5.8 k/uL (3.8-10.6)
[2024-08-28 09:11] LABS: African American GFR (CKD) >90 (>60 ml/min/1.73 sqM); Anion Gap 7 mmol/L; Blood Urea Nitrogen 7 mg/dL (7-17); Calcium 8.7 mg/dL (8.4-10.2); Carbon Dioxide 25 mmol/L (22-30); Chloride 105 mmol/L (98-107); Glucose 84 mg/dL (74-99); Non-African American GFR(CKD) >90 (>60 ml/min/1.73 sqM); Potassium 4.1 mmol/L (3.5-5.1); Sodium 137 mmol/L (137-145)
[2024-08-28] MEDS: VANCOMYCIN TROUGH DUE 1 EACH MISC MISCELLANE ONE (09:34)
[2024-08-28 10:04] LABS: INR 0.9 (<1.2); Prothrombin Time 10.4 sec (10.0-12.5)
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
--- NOTE | 2024-08-28 13:32 | P.PN ---
Subjective Progress Note Date: 08/28/24 Principal diagnosis: Right foot wound, peripheral arterial disease Patient is seen and examined today as a follow-up. She denies any acute changes through the night. No significant pain down the right lower extremity at this time. Sensorimotor intact. She does report frequent acid reflux and heartburn. Also states some difficulty in swallowing at times if she is in a certain position. Yesterday she underwent CT angiogram aorta abdomen and pelvis with runoff with multiple findings including a large intrathoracic hiatal hernia with elevation of right hemidiaphragm. Also reported vascular occlusion origin of right common iliac artery, right external and internal iliac arteries and right SFA. Objective - Vital Signs Vital signs: Vital Signs Temp 98.7 F 08/28/24 08:15 Pulse 97 08/28/24 08:15 Resp 20 08/28/24 08:15 BP 130/64 08/28/24 08:15 Pulse Ox 96 08/28/24 08:15 FiO2 Intake & Output 08/27/24 08/28/24 08/28/24 18:59 06:59 18:59 Intake Total 1560 470 Balance 1560 470 Intake: Intake, IV Titration 350 Amount Cefepime 1 gm In Sodium 100 Chloride 0.9% 50 ml @ 100 mls/hr IVPB Q8H [facility] Rx#: [id number] Vancomycin 1,000 mg In 250 Sodium Chloride 0.9% 250 ml @ 125 mls/hr IVPB Q8HR [facility] Rx#:[id number] Oral 1560 120 Other: Voiding Method Bedside Commode Bedside Commode Bedside Commode # Voids 4 1 # Bowel Movements 1 - Exam General appearance: The patient is alert, oriented, appears in no acute distress. HET: Head is normocephalic and atraumatic. Neck: Supple. Heart: Regular. Lungs: Equal expansion, normal respiratory effort. Abdomen: Soft, nontender, nondistended. Extremities: Nonpalpable right DP or PT pulse. Left palpable DP pulse. Right foot Dressing clean dry and intact. Sensorimotor intact. Neurological: No focal deficits. - Labs CBC & Chem 7: 08/28/24 07:00 08/28/24 07:00 Labs: Abnormal Lab Results - Last 24 Hours (Table) 08/28/24 08/28/24 Range/Units 07:00 07:00 RBC 3.74 L (3.80-5.40) m/uL Hgb 8.5 L (11.4-16.0) gm/dL Hct 30.4 L (34.0-46.0) % MCH 22.6 L (25.0-35.0) pg MCHC 27.9 L (31.0-37.0) g/dL RDW 19.5 H (11.5-15.5) % Lymphocytes # 0.7 L (1.0-4.8) k/uL Creatinine 0.30 L (0.52-1.04) mg/dL Microbiology - Last 24 Hours (Table) 08/26/24 14:36 Blood Culture - Preliminary Blood 08/26/24 14:36 Gram Stain - Preliminary Foot - Right Wound Culture - Preliminary Gram Neg Bacilli Assessment and Plan Assessment: 1. Chronic right foot wound 2. 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 Claudication 4. Cellulitis of right foot 5. Recent closed reduction right hip periprosthetic hip dislocation 08/01/2024 6. Large intrathoracic hiatal hernia with elevation of right hemidiaphragm Plan: 1. Continue local wound care as ordered 2. Lower extremity arterial Dopplers ordered and reviewed 3. CTA aorta, abdomen and pelvis with runoff ordered and reviewed 4. Consult to general surgery for large intrathoracic hiatal hernia 5. Consult to cardiology for cardiac clearance for possible femorofemoral bypass with intervention 6. Patient would likely benefit from femorofemoral bypass with possible i ntervention pending general surgery evaluation and recommendations as well as cardiology recommendations. Timing to be determined Thank you for this consultation, we will continue to follow. The impression and plan of care has been dictated as directed. I performed a history and examination of this patient, discussed the same with the dictator. I agree with the dictator's note ,documented as a scribe. Any additional findings or plans will be noted.
--- NOTE | 2024-08-28 14:44 | NM ---
EXAMINATION TYPE: NM bone 3 phase DATE OF EXAM: 08/28/2024 COMPARISON: NONE CLINICAL INDICATION: Female, 73 years old with history of Right foot wound abnormal x-ray ?osteo; Triple phase bone scintigraphy was performed following the injection of 25.2 mCi Tc 99m MDP. Immedia te images and 5.5 hours post injection images acquired. FINDINGS: Increased uptake on all 3 phases of the examination which includes the angiographic, blood pool and d elayed images involving the right great toe. Osteomyelitis is not excluded. Otherwise there is degene rative uptake seen bilaterally. IMPRESSION: Increased uptake on all 3 phases of the examination which includes the angiographic, blood pool and d elayed images involving the right great toe. Osteomyelitis is not excluded. [facility], , 08/28/2024 2:41 PM
--- NOTE | 2024-08-28 14:50 | P.PN ---
Subjective Progress Note Date: 08/28/24 Principal diagnosis: Reason for follow-up is right foot ulcers and cellulitis Patient is a 73-year-old female with a past medical history significant for hypertension rheumatoid arthritis seizure disorder reflux patient was recently admitted to this facility for the right foot cellulitis Within the hospital with a worsening wound to the right foot in between the toes as well as on the medial aspect of the right foot big toe. On today's evaluation that is 08/28/2024, Patient is afebrile patient is currently on room air and denies having any shortness of breath, the patient denies any chest pain or cough, the patient denies any nausea vomiting did not have any abdominal pain and no diarrhea still complaining of pain to the right foot area but no drainage. Patient did have INR of 0.9 vancomycin trough is 13.3 culture growing gram- negative Objective - Vital Signs Vital signs: Vital Signs Temp 98.7 F 08/28/24 08:15 Pulse 97 08/28/24 08:15 Resp 20 08/28/24 08:15 BP 130/64 08/28/24 08:15 Pulse Ox 96 08/28/24 08:15 FiO2 Intake & Output 08/27/24 08/28/24 08/28/24 18:59 06:59 18:59 Intake Total 1560 470 Balance 1560 470 Intake: Intake, IV Titration 350 Amount Cefepime 1 gm In Sodium 100 Chloride 0.9% 50 ml @ 100 mls/hr IVPB Q8H [facility] Rx#: [id number] Vancomycin 1,000 mg In 250 Sodium Chloride 0.9% 250 ml @ 125 mls/hr IVPB Q8HR [facility] Rx#:[id number] Oral 1560 120 Other: Voiding Method Bedside Commode Bedside Commode Bedside Commode # Voids 4 1 # Bowel Movements 1 - Exam GENERAL DESCRIPTION: An elderly female lying in bed in no distress RESPIRATORY SYSTEM: Unlabored breathing , decreased breath sounds at bases HEART: S1 S2 regular rate and rhythm , ABDOMEN: Soft , no tenderness EXTREMITIES: Right foot wound on the medial aspect seems to be drying out redness slightly decreased - Labs CBC & Chem 7: 08/28/24 07:00 08/28/24 07:00 Labs: Abnormal Lab Results - Last 24 Hours (Table) 08/28/24 08/28/24 Range/Units 07:00 07:00 RBC 3.74 L (3.80-5.40) m/uL Hgb 8.5 L (11.4-16.0) gm/dL Hct 30.4 L (34.0-46.0) % MCH 22.6 L (25.0-35.0) pg MCHC 27.9 L (31.0-37.0) g/dL RDW 19.5 H (11.5-15.5) % Lymphocytes # 0.7 L (1.0-4.8) k/uL Creatinine 0.30 L (0.52-1.04) mg/dL Microbiology - Last 24 Hours (Table) 08/26/24 14:36 Blood Culture - Preliminary Blood 08/26/24 14:36 Gram Stain - Preliminary Foot - Right Wound Culture - Preliminary Gram Neg Bacilli Assessment and Plan (1) Right foot ulcer Current Visit: Yes Status: Acute Code(s): L97.519 - NON-PRS CHRONIC ULCER OTH PRT RIGHT FOOT W UNSP SEVERITY SNOMED Code(s): 968963397 (2) Cellulitis of right foot Current Visit: Yes Status: Acute Code(s): L03.115 - CELLULITIS OF RIGHT LOWER LIMB SNOMED Code(s): 86497286690312638 Plan: 1patient presented to hospital with worsening ulceration to the right foot in this patient who did have extensive athlete's foot with a wound in between the toes as well as on the medial aspect of the right big toe and did have an abnormal x-ray suspicious for possible osteomyelitis with recent culture positive for Proteus mirabilis. 2patient did have a sed rate of 37 CRP mildly elevated 3patient wound culture currently growing gram-negative with ID sensitivities p ending, vascular workup in progress, 4patient to continue with vancomycin pharmacy to dose, cefepime and Flagyl while waiting for the culture to finalize Dictation was produced using [employer] dictation software. please excuse any grammatical, word or spelling errors. Time with Patient: Less than 30
--- NOTE | 2024-08-28 17:06 | CA ---
Transthoracic Echo Report Name: Yarelis Hicks Age: 73 Gender: F : 1950 Exam Date: 08/28/2024 14:03 Exam Location: [facility] Ht (in): 69 Wt (lb): 130 Ordering Physician: Dilma Costello Attending/Referring Phys: [id number], Trang Cat Skinner Deb Sahni RDCS Procedure CPT: Indications: LVF Cardiac Hx: Technical Quality: Fair Contrast 1: Total Dose (mL): Contrast 2: Total Dose (mL): MEASUREMENTS (Male / Female) Normal Values 2D ECHO LV Diastolic Diameter PLAX 4.2 cm 4.2 - 5.9 / 3.9 - 5.3 cm LV Systolic Diameter PLAX 3.0 cm IVS Diastolic Thickness 1.4 cm 0.6 - 1.0 / 0.6 - 0.9 cm LVPW Diastolic Thickness 1.2 cm 0.6 - 1.0 / 0.6 - 0.9 cm LV Relative Wall Thickness 0.6 RV Internal Dim ED PLAX 3.4 cm LA Volume 62.3 cm??? 18 - 58 / 22 - 52 cm??? LA Volume Index 37.0 cm???/m??? 16 - 28 cm???/m??? M-MODE Aortic Root Diameter MM 3.1 cm LA Systolic Diameter MM 5.0 cm LA Ao Ratio MM 1.7 AV Cusp Separation MM 2.1 cm DOPPLER AV Peak Velocity 152.5 cm/s AV Peak Gradient 9.3 mmHg AV Mean Velocity 96.8 cm/s AV Mean Gradient 4.3 mmHg AV Velocity Time Integral 24.3 cm LVOT Peak Velocity 138.5 cm/s LVOT Peak Gradient 7.7 mmHg LVOT Velocity Time Integral 23.0 cm MV Area PHT 4.9 cm??? Mitral E Point Velocity 91.2 cm/s Mitral A Point Velocity 70.1 cm/s Mitral E to A Ratio 1.3 MV Deceleration Time 155.0 ms MV E' Velocity 7.6 cm/s Mitral E to MV E' Ratio 12.0 TR Peak Velocity 304.9 cm/s TR Peak Gradient 37.2 mmHg Right Ventricular Systolic Press 41.0 mmHg FINDINGS Left Ventricle Moderately increased left ventricular wall thickness. Left ventricular cavity size normal. Normal left ventricular systolic function with no obvious regional wall motion abnormalities. Left ventricular ejection fraction is estimated at 55-60 %. Grade 1 diastolic dysfunction. Right Ventricle Normal right ventricular size and function. Mild pulmonary hypertension. Right Atrium Severe right atrial dilatation. Left Atrium Mildly increased left atrial volume. Mildly increased left atrial area. Interatrial septal aneurysm. Mitral Valve Structurally normal mitral valve. Mitral valve thickened. Mild mitral annular calcification. Mild mitral regurgitation. Aortic Valve Trileaflet aortic valve. No aortic valve stenosis or regurgitation. Tricuspid Valve Structurally normal tricuspid valve. [id number] tricuspid regurgitation. Pulmonic Valve Structurally normal pulmonic valve. Pericardium No pericardial effusion. Aorta Normal size aortic root and proximal ascending aorta. CONCLUSIONS Normal LV function Left atrial enlargement Interatrial septal aneurysm Mild mitral and mild to moderate tricuspid regurgitation Previewed by: Dr. Dung Samuel MD (Electronically Signed) Final Date: 28 August 2024 17:05
[2024-08-28] MEDS: ONDANSETRON 4 MG/2 ML VIAL IVP PRN (19:49)
--- NOTE | 2024-08-29 05:49 | P.PN ---
Subjective Progress Note Date: 08/28/24 Patient is a 73-year-old female with a past medical history of hypertension, osteoarthritis, rheumatoid arthritis, history of seizure disorder, anxiety/depression presents to ER with complaints of right foot infection and discharge. Patient was recently admitted to the hospital and was discharged home on 08/04/2024 with antibiotic course to complete for 10 more days. Patient states that she did take medication at home. She will use with a roommate. Patient states that she has been having increasing pain to the point where she is unable to ambulate. Patient states that she also has history of poor circulation in the leg. Patient otherwise denied any complaints of fever or chills. No nausea vomiting abdominal pain. No chest pain or shortness of breath. X-ray of the foot showed soft tissue ulceration about the great toe, with lucency involving the medial aspect of the first metatarsal head. Early osteomyelitis is difficult to exclude. Patient had a recent wound cultures growing Proteus mirabilis taken on 07/31/2024 which is pansensitive. Laboratory data showed WBC 6.8 hemoglobin 8.4 MCV 79.9 and RDW 19.8 and platelets 413 ESR 37 CRP 1.5 Sodium 140 potassium 4.2 chloride 107 bicarb is 24 BUN 15 and creatinine 0.31 and blood sugar 73 and calcium 8.9. 08/27/2024 Patient is seen and evaluated in follow-up today being followed by vascular surgery along with infectious disease. Patient is maintained on antibiotics scheduled to undergo a bone scan. Patient also having CT imaging with vascular surgery as x-ray was suggestive of possible starts of osteomyelitis. Patient is afebrile with no reports of chest pain or shortness of breath. Patient denies any nausea or vomiting and has been tolerating diet. Awaiting cultures and currently preliminary showing gram-negative bacilli. 08/28/2024 Patient is seen in follow-up this morning undergoing bone scan with infectious disease following maintained on IV antibiotics and will continue. Patient continues with severe right foot pain and lower extremity pain with concerns of osteomyelitis. Patient undergoing further vascular surgery workup including angiogram with runoff and general surgery has been consulted as CT revealed a large intrathoracic hernia and also cardiology for cardiac clearance in the event patient will require surgical intervention. Likely femoropopliteal bypass in the near future. Review of systems: Constitutional: No reports of fatigue, fever, or chills Cardiovascular: No reports of chest pain or palpitations Respiratory: No reports of shortness of breath or cough GI: No reports of nausea, vomiting, or diarrhea : No reports of dysuria or retention Neurovascular: reports of generalized weakness and continued severe right foot pain All medications have been reviewed PHYSICAL EXAMINATION: Patient is lying in the bed comfortably, no acute distress, awake alert and oriented.. Elderly appearing, thin built HEENT: Normocephalic. Neck is supple. Pupils reactive. Nostrils clear. Oral cavity is moist. Neck reveals no JVD, carotid bruits, or thyromegaly. CHEST EXAMINATION: Trachea is central. Symmetrical expansion. Lung rasmussen clear to auscultation and percussion. CARDIAC: Normal S1, S2 with no gallops. No murmurs ABDOMEN: Soft. Bowel sounds normal. No organomegaly. No abdominal bruits. Extremities: Right foot wound on the medial aspect of the great toe with purulent discharge and redness extending up to the mid foot. No clubbing or cyanosis Neurologically awake, alert, oriented x3 with well-coordinated movements. No focal deficits noted, diffusely weak Skin: No rash or skin lesions. Psychiatric: Cooperative. Non-suicidal Musculoskeletal: No joint swelling or deformity. Normal range of motion. Assessment: Right great toe wound with surrounding cellulitis and purulent discharge. Possible early acute osteomyelitis involving the right medial aspect of the first metatarsal head, undergoing bone scan today which is pending Right common iliac, external, and internal iliac artery, right SFA artery occlusion noted on imaging Microcytic iron deficiency anemia. Iron profile showed deficiency on 01/14/2024 Osteoarthritis history Rheumatoid arthritis history Seizure disorder on antiepileptics at home History of IBS and GERD Anxiety/depression DVT prophylaxis with heparin subcu GI prophylaxis Full code Plan: Patient currently continued on antibiotics of vancomycin and cefepime. Aerobic and anaerobic wound cultures were sent and follow-up blood cultures as well. Wound culture showing Proteus Mirabellas with Pseudomonas, infectious disease following continue with pain management. Recommend being cautious with narcotics given patient's age Currently scheduled to undergo a bone scan today which is ongoing at this time Patient underwent CT of the lower extremity per vascular surgery with Dr. Mcmahan following with Right common iliac, external, and internal iliac artery, right SFA artery occlusion noted on imaging Continue local wound care Current home medications reviewed and resumed as appropriate. Will need PT/OT therapy evaluation Due to multiple complex medical issues, overall prognosis is guarded The impression and plan of care has been dictated by Mine Negrete, Nurse Practitioner as directed. Dr. Nalini MD I have performed a history and examination and MDM of this patient, discussed the same with the dictator, and agree with the dictator's assessment and plan as written ,documented as a scribe. Based on total visit time, I have performed more than 50% of the visit. Objective - Vital Signs Vital signs: Vital Signs Temp 98 F 08/28/24 01:32 Pulse 78 08/28/24 01:32 Resp 16 08/28/24 01:32 BP 136/77 08/28/24 01:32 Pulse Ox 97 08/28/24 01:32 FiO2 Intake & Output 08/27/24 08/28/24 08/28/24 18:59 06:59 18:59 Intake Total 1560 470 Balance 1560 470 Intake: Intake, IV Titration 350 Amount Cefepime 1 gm In Sodium 100 Chloride 0.9% 50 ml @ 100 mls/hr IVPB Q8H [facility] Rx#: [id number] Vancomycin 1,000 mg In 250 Sodium Chloride 0.9% 250 ml @ 125 mls/hr IVPB Q8HR [facility] Rx#:[id number] Oral 1560 120 Other: Voiding Method Bedside Commode Bedside Commode # Voids 4 1 # Bowel Movements 1 - Labs CBC & Chem 7: 08/28/24 07:00 08/28/24 07:00 Labs: Abnormal Lab Results - Last 24 Hours (Table) 08/28/24 08/28/24 Range/Units 07:00 07:00 RBC 3.74 L (3.80-5.40) m/uL Hgb 8.5 L (11.4-16.0) gm/dL Hct 30.4 L (34.0-46.0) % MCH 22.6 L (25.0-35.0) pg MCHC 27.9 L (31.0-37.0) g/dL RDW 19.5 H (11.5-15.5) % Lymphocytes # 0.7 L (1.0-4.8) k/uL Creatinine 0.30 L (0.52-1.04) mg/dL Microbiology - Last 24 Hours (Table) 08/26/24 14:36 Blood Culture - Preliminary Blood 08/26/24 14:36 Gram Stain - Preliminary Foot - Right Wound Culture - Preliminary Gram Neg Bacilli
--- NOTE | 2024-08-29 12:01 | P.PN ---
Subjective Progress Note Date: 08/29/24 Principal diagnosis: Right foot wound, peripheral arterial disease Patient is seen and examined today as a follow-up. No new complaints. No increased pain in her right lower extremity. She has been afebrile, no complaints of shortness of breath or chest pain, no abdominal pain nausea or vomiting. Patient has been seen and evaluated by general surgery with plans for upper endoscopy on Sunday. Echocardiogram reported normal LV function, left atrial enlargement, anterior atrial septal aneurysm, mild mitral and mild to moderate tricuspid regurgitation. She also underwent bone scan reporting increased uptake on all 3 phases of examination which includes the angiographic, blood pool and delayed images involving right great toe. Osteomyelitis is not excluded. Objective - Vital Signs Vital signs: Vital Signs Temp 98.1 F 08/29/24 01:57 Pulse 87 08/29/24 01:57 Resp 16 08/29/24 01:57 BP 106/63 08/29/24 01:57 Pulse Ox 95 08/29/24 01:57 FiO2 Intake & Output 08/28/24 08/29/24 08/29/24 18:59 06:59 18:59 Other: Voiding Method Bedside Commode Bedside Commode Diaper # Voids 3 3 - Exam General appearance: The patient is alert, oriented, appears in no acute distress. HET: Head is normocephalic and atraumatic. Neck: Supple. Extremities: Nonpalpable right DP or PT pulse. Left palpable DP pulse. Right foot Dressing clean dry and intact. Sensorimotor intact. Neurological: No focal deficits. - Labs CBC & Chem 7: 08/28/24 07:00 08/28/24 07:00 Labs: Abnormal Lab Results - Last 24 Hours (Table) 08/28/24 Range/Units 07:00 Creatinine 0.30 L (0.52-1.04) mg/dL Microbiology - Last 24 Hours (Table) 08/26/24 14:36 Blood Culture - Preliminary Blood 08/26/24 14:36 Gram Stain - Final Foot - Right Wound Culture - Final Pseudomonas aeruginosa Proteus mirabilis 08/26/24 14:36 Anaerobic Culture - Preliminary Foot - Right Assessment and Plan Assessment: 1. Chronic right foot wound 2. 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 Claudication 4. Cellulitis of right foot 5. Recent closed reduction right hip periprosthetic hip dislocation 08/01/2024 6. Large intrathoracic hiatal hernia with elevation of right hemidiaphragm Plan: 1. Continue local wound care as ordered 2. Lower extremity arterial Dopplers ordered and reviewed 3. CTA aorta, abdomen and pelvis with runoff ordered and reviewed 4. Consult to general surgery for large intrathoracic hiatal hernia, appreciate their recommendations 5. Consult to cardiology for cardiac clearance for possible femorofemoral bypass with intervention, await their further recommendations 6. Patient would likely benefit from femorofemoral bypass with possible intervention pending general surgery evaluation and recommendations as well as cardiology recommendations. Timing to be determined. Further recommendations forthcoming based on clinical course. Thank you for this consultation, we will continue to follow. The impression and plan of care has been dictated as directed. I performed a history and examination of this patient, discussed the same with the dictator. I agree with the dictator's note ,documented as a scribe. Any additional findings or plans will be noted.
--- NOTE | 2024-08-29 12:21 | P.PN ---
Subjective Progress Note Date: 08/29/24 CHIEF COMPLAINT: Right foot wound HISTORY OF PRESENT ILLNESS: Surgical service following regards to patient's large hiatal hernia. She is complaining of foot pain. Denies any nausea or vomiting. She does report issues with reflux and difficulty with swallowing solid foods. Afebrile. PHYSICAL EXAM: VITAL SIGNS: Reviewed. GENERAL: no acute distress. ABDOMEN: Soft. Nondistended. Nontender. NEUROLOGIC: Alert and oriented. Cranial nerves II through XII grossly intact. ASSESSMENT: 1. Large hiatal hernia with 50% of the stomach intrathoracic 2. 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 Patient followed by vascular service 3. Right foot wound and cellulitis PLAN: -Patient scheduled for EGD on 09/01/[address] Copeland -Will plan to repair paraesophageal hiatal hernia after EGD -Ensure added for protein supplement Physician Driver'S License Examiner note has been reviewed by physician. Signing provider agrees with the documented findings, assessment, and plan of care. Objective - Vital Signs Vital signs: Vital Signs Temp 98.5 F 08/29/24 06:55 Pulse 96 08/29/24 06:55 Resp 18 08/29/24 06:55 BP 116/71 08/29/24 06:55 Pulse Ox 95 08/29/24 06:55 FiO2 Intake & Output 08/28/24 08/29/24 08/29/24 18:59 06:59 18:59 Other: Voiding Method Bedside Commode Bedside Commode Bedside Commode Diaper Diaper # Voids 3 3 1 - Labs CBC & Chem 7: 08/28/24 07:00 08/28/24 07:00 Labs: Microbiology - Last 24 Hours (Table) 08/26/24 14:36 Blood Culture - Preliminary Blood 08/26/24 14:36 Gram Stain - Final Foot - Right Wound Culture - Final Pseudomonas aeruginosa Proteus mirabilis 08/26/24 14:36 Anaerobic Culture - Preliminary Foot - Right
--- NOTE | 2024-08-29 15:03 | P.PN ---
Subjective Progress Note Date: 08/29/24 Principal diagnosis: Reason for follow-up is right foot ulcers and cellulitis Patient is a 73-year-old female with a past medical history significant for hypertension rheumatoid arthritis seizure disorder reflux patient was recently admitted to this facility for the right foot cellulitis Within the hospital with a worsening wound to the right foot in between the toes as well as on the medial aspect of the right foot big toe. On today's evaluation that is 08/29/2024, patient has been afebrile, patient is breathing comfortably and is currently on room air, patient denies having any significant cough no chest pain, patient denies nausea vomiting or diarrhea and no abdominal pain still getting no significant pain to the right foot and lower leg. Patient did have a INR of 0.9 no CBC was done today local culture positive for Pseudomonas and Proteus Mirabella's Objective - Vital Signs Vital signs: Vital Signs Temp 97.7 F 08/29/24 12:56 Pulse 89 08/29/24 12:56 Resp 17 08/29/24 12:56 BP 125/80 08/29/24 12:56 Pulse Ox 97 08/29/24 12:56 FiO2 Intake & Output 08/28/24 08/29/24 08/29/24 18:59 06:59 18:59 Other: Voiding Method Bedside Commode Bedside Commode Bedside Commode Diaper Diaper # Voids 3 3 1 - Exam GENERAL DESCRIPTION: An elderly female lying in bed in no distress RESPIRATORY SYSTEM: Unlabored breathing , decreased breath sounds at bases HEART: S1 S2 regular rate and rhythm , ABDOMEN: Soft , no tenderness EXTREMITIES: Right foot wound on the medial aspect seems to be drying out redness slightly decreased - Labs CBC & Chem 7: 08/28/24 07:00 08/28/24 07:00 Labs: Microbiology - Last 24 Hours (Table) 08/26/24 14:36 Blood Culture - Preliminary Blood 08/26/24 14:36 Gram Stain - Final Foot - Right Wound Culture - Final Pseudomonas aeruginosa Proteus mirabilis 08/26/24 14:36 Anaerobic Culture - Preliminary Foot - Right Assessment and Plan (1) Right foot ulcer Current Visit: Yes Status: Acute Code(s): L97.519 - NON-PRS CHRONIC ULCER OTH PRT RIGHT FOOT W UNSP SEVERITY SNOMED Code(s): 059026912 (2) Cellulitis of right foot Current Visit: Yes Status: Acute Code(s): L03.115 - CELLULITIS OF RIGHT LOWER LIMB SNOMED Code(s): 80782260741928700 Plan: 1patient presented to hospital with worsening ulceration to the right foot in this patient who did have extensive athlete's foot with a wound in between the toes as well as on the medial aspect of the right big toe and did have an abnormal x-ray suspicious for possible osteomyelitis with recent culture positive for Proteus mirabilis. 2patient did have a sed rate of 37 CRP mildly elevated 3patient wound culture currently growing Proteus and Pseudomonas aeruginosa 4patient to continue with cefepime and Flagyl and will discontinue vancomycin Dictation was produced using [employer] dictation software. please excuse any grammatical, word or spelling errors. Time with Patient: Less than 30
--- NOTE | 2024-08-29 22:16 | P.PN ---
Subjective Progress Note Date: 08/29/24 Progress note 08/29/2024 Patient is doing well from cardiac standpoint. Denies any chest pain chest pressure shortness of breath. Hemodynamically stable. HPI This is a 73-year-old female with past medical history of hypertension, rheumatoid arthritis, seizure disorder, GERD, depression, right hip peripr osthetic dislocation 08/01/2024 status post closed reduction. Patient was last seen by Dr. MONA Trotter in the office l for telehealth visit on 03/15/2020 at which time there was concern for depression and suicidal ideation and a surface grinder was sent to her home to rule out suicide. Patient was found to be safe. Patient has had no further follow-up in the office. Patient presented to the emergency center on 08/26 due to right foot infection. Patient has been seen by infectious disease and maintained on IV antibiotics. Vascular surgery has evaluated the patient with plan for possible femoral-femoral bypass next week. CTA abdomen aorta with runoff revealed vascular occlusion at the origin of the right common iliac artery with lack of opacification of the right external and internal iliac arteries, and right superficial femoral artery. Distal reconstitution of the right superficial femoral artery. Remaining distal right lower extremity arterial vascular is patent. No abdominal aortic aneurysm. Patient denies having any chest pain, shortness of breath, palpitations. She did undergo recent closed reduction of a periprosthetic right hip dislocation under IV sedation and had no post procedure complications. Blood pressure 136/77, heart rate 78, pulse ox 97% on room air. EKG sinus rhythm with no acute ST-T wave changes. Laboratory studies: WBC 5.8, hemoglobin 8.5, platelet count 392. Electrolytes are normal. Creatinine 0.3 and BUN 7. Lactic acid initially 3.1 is 0.8. Home cardiac medications: None Review Of Systems: At the time of my exam: CONSTITUTIONAL: Denies fever or chills. HEENT: Denies blurred vision, vision changes, or eye pain. Denies hemoptysis CARDIOVASCULAR: Denies chest pain. Denies orthopnea. Denies PND. Denies palpitations RESPIRATORY: Denies shortness of breath. GASTROINTESTINAL: Denies abdominal pain. Denies nausea or vomiting. HEMATOLOGIC: Denies bleeding disorders. GENITOURINARY: Denies any blood in urine. SKIN: Denies puritis. Denies rash. Physical examination: Gen: This is a 73-year-old female in no acute distress VS: reviewed HEENT: Head is atraumatic, normocephalic. Pupils equal, round. Sclerae is anicteric. NECK: Supple. No JVD. LUNGS: Clear to auscultation. No wheezes or rhonchi. No intercostal retractions. HEART: Regular rate and rhythm. No murmur. ABDOMEN: Soft No tenderness. EXTREMITIES: Dressing in place to the right foot. No calf tenderness. NEUROLOGICAL: Patient is awake, alert and oriented x3. Assessment: Right foot wound, possible osteomyelitis Cellulitis of the right foot Lactic acidosis, resolved Recent closed reduction right hip periprosthetic hip dislocation, 08/01/2024 History of hypertension Rheumatoid arthritis Depression Plan: Patient's echocardiogram showed an EF of 55%, with mild to moderate tricuspid regurgitation with otherwise no significant structural valvular abnormalities. Patient is currently having no complaints of chest pain and no signs of heart failure. Patient is at moderate risk for a moderate to high risk procedure. Patient is otherwise cleared from cardiovascular standpoint to undergo surgery. At this time cardiology team will sign off. Please reconsult us in case of any questions Objective - Vital Signs Vital signs: Vital Signs Temp 98.3 F 08/29/24 19:23 Pulse 78 08/29/24 20:00 Resp 16 08/29/24 19:23 BP 93/58 08/29/24 19:23 Pulse Ox 93 L 08/29/24 19:23 FiO2 Intake & Output 08/29/24 08/29/24 08/30/24 06:59 18:59 06:59 Other: Voiding Method Bedside Commode Bedside Commode Diaper Diaper # Voids 3 1 # Bowel Movements 1 - Labs CBC & Chem 7: 08/28/24 07:00 08/28/24 07:00 Labs: Microbiology - Last 24 Hours (Table) 08/26/24 14:36 Blood Culture - Preliminary Blood 08/26/24 14:36 Gram Stain - Final Foot - Right Wound Culture - Final Pseudomonas aeruginosa Proteus mirabilis
--- NOTE | 2024-08-30 06:42 | P.PN ---
Subjective Progress Note Date: 08/29/24 Patient is a 73-year-old female with a past medical history of hypertension, osteoarthritis, rheumatoid arthritis, history of seizure disorder, anxiety/depression presents to ER with complaints of right foot infection and discharge. Patient was recently admitted to the hospital and was discharged home on 08/04/2024 with antibiotic course to complete for 10 more days. Patient states that she did take medication at home. She will use with a roommate. Patient states that she has been having increasing pain to the point where she is unable to ambulate. Patient states that she also has history of poor circulation in the leg. Patient otherwise denied any complaints of fever or chills. No nausea vomiting abdominal pain. No chest pain or shortness of breath. X-ray of the foot showed soft tissue ulceration about the great toe, with lucency involving the medial aspect of the first metatarsal head. Early osteomyelitis is difficult to exclude. Patient had a recent wound cultures growing Proteus mirabilis taken on 07/31/2024 which is pansensitive. Laboratory data showed WBC 6.8 hemoglobin 8.4 MCV 79.9 and RDW 19.8 and platelets 413 ESR 37 CRP 1.5 Sodium 140 potassium 4.2 chloride 107 bicarb is 24 BUN 15 and creatinine 0.31 and blood sugar 73 and calcium 8.9. 08/27/2024 Patient is seen and evaluated in follow-up today being followed by vascular surgery along with infectious disease. Patient is maintained on antibiotics scheduled to undergo a bone scan. Patient also having CT imaging with vascular surgery as x-ray was suggestive of possible starts of osteomyelitis. Patient is afebrile with no reports of chest pain or shortness of breath. Patient denies any nausea or vomiting and has been tolerating diet. Awaiting cultures and currently preliminary showing gram-negative bacilli. 08/28/2024 Patient is seen in follow-up this morning undergoing bone scan with infectious disease following maintained on IV antibiotics and will continue. Patient continues with severe right foot pain and lower extremity pain with concerns of osteomyelitis. Patient undergoing further vascular surgery workup including angiogram with runoff and general surgery has been consulted as CT revealed a large intrathoracic hernia and also cardiology for cardiac clearance in the event patient will require surgical intervention. Likely femoropopliteal bypass in the near future. 08/29/2024 Patient is seen in follow-up with multiple consultations following. Patient maintained on IV antibiotics with infectious disease along with vascular surgery and cardiology, general surgery. Patient is scheduled to undergo EGD on Sunday with general surgery for large hiatal hernia. Vascular surgery following for possible femoropopliteal bypass in the near future. Cardiology following for clearance given her extensive cardiac history. Patient is afebrile with no reports of chest pain or shortness of breath. Patient reports not much of an appetite although denies nausea and vomiting. Patient reports significant pain of her right foot. Review of systems: Constitutional: No reports of fatigue, fever, or chills Cardiovascular: No reports of chest pain or palpitations Respiratory: No reports of shortness of breath or cough GI: No reports of nausea, vomiting, or diarrhea, reports not much of an appetite : No reports of dysuria or retention Neurovascular: reports of generalized weakness and continued severe right foot pain All medications have been reviewed PHYSICAL EXAMINATION: Patient is lying in the bed asleep although arousable, alert and oriented.. Elderly appearing, thin built HEENT: Normocephalic. Neck is supple. Pupils reactive. Nostrils clear. Oral cavity is moist. Neck reveals no JVD, carotid bruits, or thyromegaly. CHEST EXAMINATION: Trachea is central. Symmetrical expansion. Lung rasmussen clear to auscultation and percussion. CARDIAC: Normal S1, S2 with no gallops. No murmurs ABDOMEN: Soft. Bowel sounds normal. No organomegaly. No abdominal bruits. Extremities: Right foot wound on the medial aspect of the great toe with purulent discharge and redness extending up to the mid foot. No clubbing or cyanosis Neurologically awake, alert, oriented x3 with well-coordinated movements. No focal deficits noted, diffusely weak Skin: No rash or skin lesions. Other than mentioned above Psychiatric: Cooperative. Non-suicidal Musculoskeletal: No joint swelling or deformity. Normal range of motion. Assessment: Right great toe wound with surrounding cellulitis and purulent discharge. 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 Iron profile showed deficiency on 01/14/2024 Osteoarthritis history Rheumatoid arthritis history Seizure disorder on antiepileptics at home History of IBS and GERD Anxiety/depression DVT prophylaxis with heparin subcu GI prophylaxis Full code Plan: Patient currently continued on antibiotics of vancomycin and cefepime. Aerobic and anaerobic wound cultures were sent and follow-up blood cultures as well. Wound culture showing Proteus Mirabellas with Pseudomonas, infectious disease following continue with pain management. Recommend being cautious with narcotics given patient's age Uptake noted in multiple areas on bone scan and difficult to exclude osteomyelitis Patient underwent CT of the lower extremity per vascular surgery with Dr. 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 Also noted to have a large hiatal hernia and general surgery has been consulted. Scheduled for EGD on Sunday Continue local wound care Current home medications reviewed and resumed as appropriate. Will need PT/OT therapy evaluation Due to multiple complex medical issues, overall prognosis is guarded The impression and plan of care has been dictated by Mine Negrete, Nurse Practitioner as directed. Dr. Nalini MD I have performed a history and examination and MDM of this patient, discussed the same with the dictator, and agree with the dictator's assessment and plan as written ,documented as a scribe. Based on total visit time, I have performed more than 50% of the visit. Objective - Vital Signs Vital signs: Vital Signs Temp 97.7 F 08/29/24 12:56 Pulse 89 08/29/24 12:56 Resp 17 08/29/24 12:56 BP 125/80 08/29/24 12:56 Pulse Ox 97 08/29/24 12:56 FiO2 Intake & Output 08/28/24 08/29/24 08/29/24 18:59 06:59 18:59 Other: Voiding Method Bedside Commode Bedside Commode Bedside Commode Diaper Diaper # Voids 3 3 1 - Labs CBC & Chem 7: 08/28/24 07:00 08/28/24 07:00 Labs: Microbiology - Last 24 Hours (Table) 08/26/24 14:36 Blood Culture - Preliminary Blood 08/26/24 14:36 Gram Stain - Final Foot - Right Wound Culture - Final Pseudomonas aeruginosa Proteus mirabilis 08/26/24 14:36 Anaerobic Culture - Preliminary Foot - Right
[2024-08-30] MEDS ORDERED: VANCOMYCIN TROUGH DUE 1 EACH MISC MISCELLANE ONE (07:00)
--- NOTE | 2024-08-30 09:08 | P.PN ---
Subjective Progress Note Date: 08/30/24 Principal diagnosis: Hiatal hernia Patient without complaints. Tolerating diet. No nausea or vomiting. Mild heartburn. Objective - Vital Signs Vital signs: Vital Signs Temp 97.8 F 08/30/24 07:38 Pulse 85 08/30/24 07:38 Resp 17 08/30/24 07:38 BP 108/70 08/30/24 07:38 Pulse Ox 95 08/30/24 07:38 FiO2 Intake & Output 08/29/24 08/30/24 08/30/24 18:59 06:59 18:59 Other: Voiding Method Bedside Commode Diaper # Voids 1 3 # Bowel Movements 1 - Exam Abdomen: Soft, nontender, nondistended - Labs CBC & Chem 7: 08/28/24 07:00 08/28/24 07:00 Labs: Microbiology - Last 24 Hours (Table) 08/26/24 14:36 Blood Culture - Preliminary Blood Assessment and Plan (1) GERD (gastroesophageal reflux disease) Narrative/Plan: 73-year-old female with large hiatal hernia and heartburn symptoms. Plan EGD on Sunday. Dr. Copeland will discuss possible surgical intervention following that. Current Visit: No Status: Acute Code(s): K21.9 - GASTRO-ESOPHAGEAL REFLUX DISEASE WITHOUT ESOPHAGITIS SNOMED Code(s): 958151355
--- NOTE | 2024-08-30 09:13 | P.PN ---
Subjective Progress Note Date: 08/30/24 Principal diagnosis: Right foot wound, PAD Patient seen and examined. No new complaints. Plan is for EGD Sunday. Per cardiology patient cleared for surgery Objective - Vital Signs Vital signs: Vital Signs Temp 97.8 F 08/30/24 07:38 Pulse 85 08/30/24 07:38 Resp 17 08/30/24 07:38 BP 108/70 08/30/24 07:38 Pulse Ox 95 08/30/24 07:38 FiO2 Intake & Output 08/29/24 08/30/24 08/30/24 18:59 06:59 18:59 Other: Voiding Method Bedside Commode Diaper # Voids 1 3 # Bowel Movements 1 - Exam Right foot dressings intact non palpable right DP or PT pulse palpable left DP pulse - Labs CBC & Chem 7: 08/28/24 07:00 08/28/24 07:00 Labs: Microbiology - Last 24 Hours (Table) 08/26/24 14:36 Blood Culture - Preliminary Blood Assessment and Plan Assessment: 1. Chronic right foot wound 2. 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 Claudication 4. Cellulitis of right foot 5. Recent closed reduction right hip periprosthetic hip dislocation 08/01/2024 6. Large intrathoracic hiatal hernia with elevation of right hemidiaphragm Plan: 1. Continue local wound care as ordered 2. Plan for EGD Sunday 3. Cardio recs appreciated- cleared for surgery. 4. Femorofemoral bypass with possible intervention timing to be determined af ter EGD completed
--- NOTE | 2024-08-30 13:35 | P.PN ---
Subjective Progress Note Date: 08/30/24 Principal diagnosis: Reason for follow-up is right foot ulcers and cellulitis Patient is a 73-year-old female with a past medical history significant for hypertension rheumatoid arthritis seizure disorder reflux patient was recently admitted to this facility for the right foot cellulitis Within the hospital with a worsening wound to the right foot in between the toes as well as on the medial aspect of the right foot big toe. On today's evaluation that is 08/30/2024, Patient is afebrile this morning patient denies having any chest pain shortness of breath or cough, the patient is currently on room air, patient denies any abdominal pain no diarrhea no nausea no vomiting, still complaining of pain to the right foot however has decreased in intensity. Patient Vanco trough on 08.02 no other labs were done today Objective - Vital Signs Vital signs: Vital Signs Temp 97.8 F 08/30/24 07:38 Pulse 85 08/30/24 08:00 Resp 17 08/30/24 08:00 BP 108/70 08/30/24 07:38 Pulse Ox 95 08/30/24 07:38 FiO2 Intake & Output 08/29/24 08/30/24 08/30/24 18:59 06:59 18:59 Other: Voiding Method Bedside Commode Bedside Commode Diaper Diaper # Voids 1 3 # Bowel Movements 1 - Exam GENERAL DESCRIPTION: An elderly female lying in bed in no distress RESPIRATORY SYSTEM: Unlabored breathing , decreased breath sounds at bases HEART: S1 S2 regular rate and rhythm , ABDOMEN: Soft , no tenderness EXTREMITIES: Right foot wound are drying out no drainage - Labs CBC & Chem 7: 08/28/24 07:00 08/28/24 07:00 Labs: Microbiology - Last 24 Hours (Table) 08/26/24 14:36 Blood Culture - Preliminary Blood Assessment and Plan (1) Right foot ulcer Current Visit: Yes Status: Acute Code(s): L97.519 - NON-PRS CHRONIC ULCER OTH PRT RIGHT FOOT W UNSP SEVERITY SNOMED Code(s): 676498353 (2) Cellulitis of right foot Current Visit: Yes Status: Acute Code(s): L03.115 - CELLULITIS OF RIGHT LOWER LIMB SNOMED Code(s): 09891914376676643 Plan: 1patient presented to hospital with worsening ulceration to the right foot in this patient who did have extensive athlete's foot with a wound in between the toes as well as on the medial aspect of the right big toe and did have an abnormal x-ray suspicious for possible osteomyelitis with recent culture positive for Proteus mirabilis. 2patient did have a sed rate of 37 CRP mildly elevated 3patient wound culture currently growing Proteus and Pseudomonas aeruginosa 4patient to continue with cefepime and Flagyl, plan is for EGD followed by vascular surgery intervention for the right lower extremity arterial occlusion that will help heal the wound Dictation was produced using [employer] dictation software. please excuse any grammatical, word or spelling errors. Time with Patient: Less than 30
[2024-08-30] MEDS: HYDROcodone/APAP 5-325MG 1 EACH TAB PO PRN (14:30)
--- NOTE | 2024-08-30 16:16 | PN ---
PROGRESS NOTE DATE OF SERVICE: 08/30/2024 SUBJECTIVE: This is a 73-year-old woman, who was admitted with significant foot infection and drainage. She is complaining of severe pain. No chest pain. No palpitation. OBJECTIVE: VITAL SIGNS: Pulse is 85, blood pressure 108/74, respirations 17. CHEST: Clear to auscultation. CARDIOVASCULAR: S1, S2. ABDOMEN: Soft. LEGS: Wound present. LABORATORY DATA: Noted. ASSESSMENT: 1. Right great toe wound with surrounding cellulitis and purulent discharge and severe pain with Pseudomonas aeruginosa sensitive and Proteus mirabilis. 2. Possibly acute osteomyelitis. 3. Peripheral vascular disease. 4. Large hiatal hernia. 5. Multiple complex medical issues. RECOMMENDATIONS AND DISCUSSION: I recommend to continue current management and continue symptomatic treatment. Otherwise, pain management. I would recommend repeat labs. Closely follow with multiple consultants. Guarded prognosis. Further recommendations to follow. Wound culture showed Pseudomonas aeruginosa and Proteus mirabilis. MMODL / IJN: [id number] /
[2024-08-31 09:15] LABS: Basophils # (A) 0.03 X 10*3/uL (0.00-0.10); Basophils % (A) 0.5 %; Eosinophils # (A) 0 X 10*3/uL (0.04-0.35); Eosinophils % (A) 0 %; HCT 26.8 % (37.2-46.3); HGB 7.5 g/dL (12.0-15.0); Lymphocytes # (A) 1.07 X 10*3/uL (0.90-5.00); Lymphocytes % (A) 17.3 %; MCH 22.1 pg (27.0-32.0); MCV 79.1 FL (80.0-97.0); Mean Platelet Volume 9.8 FL (9.5-12.2); Monocytes # (A) 0.68 X 10*3/uL (0.20-1.00); NRBC Per 100 WBC 0 X 10*3/uL (0.00-0.01); Neutrophils % (A) 70.9 %; Platelet Count 367 X 10*3/uL (140-440); RBC 3.39 X 10*6/uL (4.10-5.20); RDW 21.2 % (11.5-14.5)
[2024-08-31 10:13] LABS: BUN/Creat Ratio 29.67 Ratio (12.00-20.00); Blood Urea Nitrogen 8.9 mg/dL (9.0-27.0); Carbon Dioxide 27.1 mmol/L (21.6-31.8); Chloride 104 mmol/L (96-109); Glucose 94 mg/dL (70-110); Potassium 3.4 mmol/L (3.5-5.5); Sodium 139 mmol/L (135-145)
[2024-08-31] MEDS ORDERED: Potassium Replacement Protocol 1 EACH MISC MISCELLANE PRN ×2 (16:08→17:42)
[2024-08-31] MEDS ORDERED: Magnesium Replacement Protocol 1 EACH MISC MISCELLANE PRN (16:08)
[2024-08-31] MEDS: POTASSIUM CHLORIDE ER 20 MEQ TAB.ER PO SCH (18:11)
--- NOTE | 2024-08-31 19:19 | CT ---
EXAMINATION TYPE: CT brain wo con DATE OF EXAM: 08/31/2024 COMPARISON: 08/20/2023 INDICATION: fall. pt confused, does not remember, pt did not hit head DLP: 1376 mGycm, Automated exposure control for dose reduction was used. CONTRAST: None CT of the brain is performed utilizing 3 mm thick sections through the posterior fossa and 3 mm thick sections through the remaining calvarium. Study is performed within 24 hours of arrival to the hosp ital. No abnormal hyperdensity is present to suggest an acute intracranial hemorrhage. No mass lesion is evident. No acute infarcts are evident. There is a hypodensity adjacent to the superior portion of the anterio r horn right lateral ventricle. This appears to be an old ischemic change. MRI could further evaluate the age of this. This is new from the comparison of 08/20/2023. Old Virchow Gerald space or lacunar in farct is within the left basal ganglion. Ventricles and sulci are prominent for the patient age. Paranasal sinuses and mastoid air cells within the [id number]-sfff are clear. IMPRESSION: 1. There may be a new hypodensity superior to the anterior right lateral ventricle. However, this h as a old ischemic appearance to it. Confirmation of suspected older infarct age could be performed wi th MRI. 2. Old lacunar infarct left basal ganglion. 3. No obvious acute intracranial process. [facility], Workstation: [facility], 08/31/2024 7:17 PM
--- NOTE | 2024-08-31 19:20 | XR ---
EXAMINATION TYPE: XR knee complete RT DATE OF EXAM: 08/31/2024 COMPARISON: None HISTORY: Fall, pain TECHNIQUE: 3 view right knee FINDINGS: Tibial femoral components are present from a knee prosthesis. No acute fracture or dislocat ion evident. No joint effusion is evident. Follow-up exam can be performed 7-10 days from acute traum a for continued pain. IMPRESSION: 1. No acute osseous abnormality right knee [facility], Workstation: [email or web address], 08/31/2024 7:18 PM
[2024-08-31] MEDS ORDERED: LIDOCAINE 1% (10MG/ML) FOR IV START INTRADERMA PRN (22:27)
[2024-08-31] MEDS: LACTATED RINGERS 1,000 ML IV SCH (22:33)
--- NOTE | 2024-09-01 02:55 | PN ---
PROGRESS NOTE DATE OF SERVICE: 08/31/2024 SUBJECTIVE: This 73-year-old woman who was admitted with right great toe wound and cellulitis, was also complaining of pain. No chest pain. No palpitations. No fever. OBJECTIVE: VITAL SIGNS: Pulse is 103, blood pressure ntd, respirations 18. CHEST: Few scattered rhonchi and crackles. ABDOMEN: Soft. NERVOUS SYSTEM: Nonfocal. LABORATORY DATA: Hemoglobin 7.5. Potassium 3.4. ASSESSMENT: 1. Right great toe wound with surrounding cellulitis with purulent discharge severe pain with Pseudomonas aeruginosa sensitive and Proteus mirabilis. 2. Possible acute osteomyelitis. 3. Peripheral vascular disease with large hiatal hernia. 4. Multiple complex medical issues. RECOMMENDATIONS AND DISCUSSION: antibiotic treatment. Supplement potassium and magnesium. Repeat labs. Pain management. Prognosis guarded. Further recommendations to follow. MMODL / IJN: [id number] / MTDNatalie
[2024-09-01 08:14] LABS: Anisocytosis Moderate; Basophils % (A) 0 %; Eosinophils % (A) 0 %; HCT 31.8 % (34.0-46.0); HGB 9.1 gm/dL (11.4-16.0); Hypochromasia Marked; Lymphocytes # (A) 0.5 k/uL (1.0-4.8); Lymphocytes % (A) 9 %; MCH 23.2 pg (25.0-35.0); MCHC 28.5 g/dL (31.0-37.0); MCV 81.5 fL (80.0-100.0); Mean Platelet Volume 7.6; Microcytosis Slight; Monocytes # (A) 0.4 k/uL (0-1.0); Monocytes % (A) 8 %; Neutrophils # (A) 4.4 k/uL (1.3-7.7); Neutrophils % (A) 81 %; Platelet Count 408 k/uL (150-450); RBC 3.91 m/uL (3.80-5.40); RDW 20.5 % (11.5-15.5); WBC 5.5 k/uL (3.8-10.6)
[2024-09-01 08:28] LABS: African American GFR (CKD) >90 (>60 ml/min/1.73 sqM); Anion Gap 5 mmol/L; Blood Urea Nitrogen 7 mg/dL (7-17); Calcium 8.6 mg/dL (8.4-10.2); Carbon Dioxide 29 mmol/L (22-30); Chloride 101 mmol/L (98-107); Glucose 94 mg/dL (74-99); Magnesium 1.8 mg/dL (1.6-2.3); Non-African American GFR(CKD) >90 (>60 ml/min/1.73 sqM); Potassium 4.2 mmol/L (3.5-5.1); Sodium 135 mmol/L (137-145)
--- NOTE | 2024-09-01 08:41 | P.PN ---
Subjective Progress Note Date: 08/31/24 Principal diagnosis: Reason for follow-up is right foot ulcers and cellulitis Patient is a 73-year-old female with a past medical history significant for hypertension rheumatoid arthritis seizure disorder reflux patient was recently admitted to this facility for the right foot cellulitis Within the hospital with a worsening wound to the right foot in between the toes as well as on the medial aspect of the right foot big toe. On today's evaluation that is 08/31/2024,the patient denies any fever or any chills, patient is breathing comfortably on room air, the patient denies chest pain shortness of breath and no significant cough, patient denies abdominal pain, no nausea vomiting or diarrhea. Still complaining of pain to the right foot however has decreased in intensity. Patient white count 6.20, creatinine 0.3 anaerobe culture has been negative Objective - Vital Signs Vital signs: Vital Signs Temp 98.2 F 08/31/24 14:00 Pulse 104 H 08/31/24 18:16 Resp 19 08/31/24 18:16 BP 161/95 08/31/24 18:16 Pulse Ox 98 08/31/24 18:16 FiO2 Intake & Output 08/30/24 08/31/24 08/31/24 18:59 06:59 18:59 Intake Total 540 580 Balance 540 580 Intake: Oral 540 580 Other: Voiding Method Bedside Commode Bedside Commode Diaper Diaper # Voids 1 1 3 # Bowel Movements 1 - Exam GENERAL DESCRIPTION: An elderly female lying in bed in no distress RESPIRATORY SYSTEM: Unlabored breathing , decreased breath sounds at bases HEART: S1 S2 regular rate and rhythm , ABDOMEN: Soft , no tenderness EXTREMITIES: Right foot wound in between the toe and on the medial aspect is currently dressed no drainage - Labs CBC & Chem 7: 09/01/24 07:45 09/01/24 07:45 Labs: Abnormal Lab Results - Last 24 Hours (Table) 08/31/24 08/31/24 Range/Units 04:20 04:20 RBC 3.39 L (4.10-5.20) X 10*6/uL Hgb 7.5 L (12.0-15.0) g/dL Hct 26.8 L (37.2-46.3) % MCV 79.1 L (80.0-97.0) FL MCH 22.1 L (27.0-32.0) pg MCHC 28.0 L (32.0-37.0) g/dL RDW 21.2 H (11.5-14.5) % Eosinophils # 0 L (0.04-0.35) X 10*3/uL Potassium 3.4 L (3.5-5.5) mmol/L BUN 8.9 L (9.0-27.0) mg/dL Creatinine 0.3 L (0.6-1.5) mg/dL BUN/Creatinine Ratio 29.67 H (12.00-20.00) Ratio Calcium 8.0 L (8.7-10.3) mg/dL Microbiology - Last 24 Hours (Table) 08/26/24 14:36 Anaerobic Culture - Final Foot - Right Assessment and Plan (1) Right foot ulcer Current Visit: Yes Status: Acute Code(s): L97.519 - NON-PRS CHRONIC ULCER OTH PRT RIGHT FOOT W UNSP SEVERITY SNOMED Code(s): 267671435 (2) Cellulitis of right foot Current Visit: Yes Status: Acute Code(s): L03.115 - CELLULITIS OF RIGHT LOWER LIMB SNOMED Code(s): 23119015653256805 Plan: 1patient presented to hospital with worsening ulceration to the right foot in this patient who did have extensive athlete's foot with a wound in between the toes as well as on the medial aspect of the right big toe and did have an abnormal x-ray suspicious for possible osteomyelitis with recent culture positive for Proteus mirabilis. 2patient did have a sed rate of 37 CRP mildly elevated 3patient wound culture did grew Proteus and Pseudomonas aeruginosa, anaerobe cultures negative 4patient to continue with cefepime and Flagyl, currently waiting for vascular intervention for the right lower extremity PAD Dictation was produced using [employer] dictation software. please excuse any grammatical, word or spelling errors. Time with Patient: Less than 30
[2024-09-01] MEDS: IV FLUID CONTINUATION 1,000 ML IV ONE (09:03)
[2024-09-01] MEDS ORDERED: PROPOFOL 10 MG/ML 20 ML VIAL IV ONE (09:05)
--- NOTE | 2024-09-01 09:15 | P.OP ---
Date of Procedure: 09/01/24 Preoperative Diagnosis: Paraesophageal hiatal hernia Intrathoracic stomach Postoperative Diagnosis: Large paraesophageal hiatal hernia with intrathoracic stomach approximately 60% Procedure(s) Performed: EGD Anesthesia: MAC Surgeon: Ronni Copeland Pathology: none sent Condition: stable Disposition: PACU Description of Procedure: Patient was placed on the endoscopy table lateral position. She received IV sedation. The gas was placed oropharynx passed in the esophagus and stomach. The patient had a large intrathoracic stomach. The scope was maneuvered into the antrum and then through the pylorus. The first portion duodenum appeared normal. The scope was brought back to the antrum this appeared normal. Scope was then retroflexed and approximately 60% stomach appeared to be in the thorax. The scope was back. The visualized thumbing appeared normal. The GE junction was at 36 cm. The distal esophagus Menopur the proximal esophagus were normal scope withdrawn the patient.
--- NOTE | 2024-09-01 10:08 | P.PN ---
Subjective Progress Note Date: 09/01/24 Principal diagnosis: Right foot wound, peripheral arterial disease Patient is seen and examined today as a follow-up. States that she still has some pain in her foot. She is scheduled today to undergo upper endoscopy with general surgery. Did have a fall apparently through the weekend. Objective - Vital Signs Vital signs: Vital Signs Temp 99.4 F 09/01/24 05:15 Pulse 103 H 09/01/24 05:15 Resp 17 09/01/24 05:15 BP 144/80 09/01/24 05:15 Pulse Ox 94 L 09/01/24 05:15 FiO2 Intake & Output 08/31/24 09/01/24 09/01/24 18:59 06:59 18:59 Intake Total 580 170 Balance 580 170 Intake: Intake, IV Titration 50 Amount Cefepime 1 gm In Sodium 50 Chloride 0.9% 50 ml @ 100 mls/hr IVPB Q8H [facility] Rx#: [id number] Oral 580 120 Other: Voiding Method Bedside Commode Bedside Commode Diaper Diaper # Voids 3 2 - Exam General appearance: The patient is alert, oriented, appears in no acute distress. HET: Head is normocephalic and atraumatic. Neck: Supple. Extremities: Nonpalpable right DP or PT pulse. Left palpable DP pulse. Right foot Dressing clean dry and intact. Sensorimotor intact. Neurological: No focal deficits. - Labs CBC & Chem 7: 09/01/24 07:45 09/01/24 07:45 Labs: Abnormal Lab Results - Last 24 Hours (Table) 08/31/24 08/31/24 Range/Units 04:20 04:20 RBC 3.39 L (4.10-5.20) X 10*6/uL Hgb 7.5 L (12.0-15.0) g/dL Hct 26.8 L (37.2-46.3) % MCV 79.1 L (80.0-97.0) FL MCH 22.1 L (27.0-32.0) pg MCHC 28.0 L (32.0-37.0) g/dL RDW 21.2 H (11.5-14.5) % Eosinophils # 0 L (0.04-0.35) X 10*3/uL Potassium 3.4 L (3.5-5.5) mmol/L BUN 8.9 L (9.0-27.0) mg/dL Creatinine 0.3 L (0.6-1.5) mg/dL BUN/Creatinine Ratio 29.67 H (12.00-20.00) Ratio Calcium 8.0 L (8.7-10.3) mg/dL Microbiology - Last 24 Hours (Table) 08/26/24 14:36 Blood Culture - Final Blood Assessment and Plan Assessment: 1. Chronic right foot wound 2. 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 Claudication 4. Cellulitis of right foot 5. Recent closed reduction right hip periprosthetic hip dislocation 08/01/2024 6. Large intrathoracic hiatal hernia with elevation of right hemidiaphragm 7. History of CVA Plan: 1. Continue local wound care as ordered 2. Lower extremity arterial Dopplers ordered and reviewed 3. CTA aorta, abdomen and pelvis with runoff ordered and reviewed 4. Consult to general surgery for large intrathoracic hiatal hernia, scheduled for upper endoscopy today. Appreciate their recommendations 5. Consult to cardiology for cardiac clearance for possible femorofemoral bypass with intervention, await their further recommendations 6. Patient would likely benefit from femorofemoral bypass with possible intervention pending general surgery evaluation and recommendations as well as cardiology recommendations. Timing to be determined. 7. Further recommendations forthcoming based on clinical course. Thank you for this consultation, we will continue to follow. The impression and plan of care has been dictated as directed. I performed a history and examination of this patient, discussed the same with the dictator. I agree with the dictator's note ,documented as a scribe. Any additional findings or plans will be noted.
--- NOTE | 2024-09-01 12:14 | P.PN ---
Subjective Progress Note Date: 09/01/24 Principal diagnosis: Reason for follow-up is right foot ulcers and cellulitis Patient is a 73-year-old female with a past medical history significant for hypertension rheumatoid arthritis seizure disorder reflux patient was recently admitted to this facility for the right foot cellulitis Within the hospital with a worsening wound to the right foot in between the toes as well as on the medial aspect of the right foot big toe. On today's evaluation that is 09/01/2024,the patient remains to be afebrile, patient is on room air not requiring supplemental oxygen and denies any shortness of breath no chest pain or cough.Patient denies having any nausea or vomiting, no abdominal pain and no diarrhea has been reported patient is status post EGD completed this morning as reported by the nursing staff. Patient white count is 5.5, creatinine 0.28 Objective - Vital Signs Vital signs: Vital Signs Temp 99.5 F 09/01/24 07:23 Pulse 103 H 09/01/24 11:03 Resp 20 09/01/24 11:03 BP 136/83 09/01/24 11:03 Pulse Ox 95 09/01/24 11:03 FiO2 Intake & Output 08/31/24 09/01/24 09/01/24 18:59 06:59 18:59 Intake Total 580 170 100 Balance 580 170 100 Intake: IV 100 Intake, IV Titration 50 Amount Cefepime 1 gm In Sodium 50 Chloride 0.9% 50 ml @ 100 mls/hr IVPB Q8H [facility] Rx#: [id number] Oral 580 120 Other: Voiding Method Bedside Commode Bedside Commode Diaper Diaper # Voids 3 2 - Exam GENERAL DESCRIPTION: An elderly female lying in bed in no distress RESPIRATORY SYSTEM: Unlabored breathing , decreased breath sounds at bases HEART: S1 S2 regular rate and rhythm , ABDOMEN: Soft , no tenderness EXTREMITIES: Right foot wound in between the toe and on the medial aspect is currently dressed no drainage - Labs CBC & Chem 7: 09/01/24 07:45 09/01/24 07:45 Labs: Abnormal Lab Results - Last 24 Hours (Table) 09/01/24 09/01/24 Range/Units 07:45 07:45 Hgb 9.1 L (11.4-16.0) gm/dL Hct 31.8 L (34.0-46.0) % MCH 23.2 L (25.0-35.0) pg MCHC 28.5 L (31.0-37.0) g/dL RDW 20.5 H (11.5-15.5) % Lymphocytes # 0.5 L (1.0-4.8) k/uL Sodium 135 L (137-145) mmol/L Creatinine 0.28 L (0.52-1.04) mg/dL Microbiology - Last 24 Hours (Table) 08/26/24 14:36 Blood Culture - Final Blood Assessment and Plan (1) Right foot ulcer Current Visit: Yes Status: Acute Code(s): L97.519 - NON-PRS CHRONIC ULCER OTH PRT RIGHT FOOT W UNSP SEVERITY SNOMED Code(s): 637259711 (2) Cellulitis of right foot Current Visit: Yes Status: Acute Code(s): L03.115 - CELLULITIS OF RIGHT LOWER LIMB SNOMED Code(s): 62782038940294218 Plan: 1patient presented to hospital with worsening ulceration to the right foot in this patient who did have extensive athlete's foot with a wound in between the toes as well as on the medial aspect of the right big toe and did have an abnormal x-ray suspicious for possible osteomyelitis with recent culture positive for Proteus mirabilis. 2patient did have a sed rate of 37 CRP mildly elevated 3patient wound culture did grew Proteus and Pseudomonas aeruginosa, anaerobe cultures negative 4patient to continue with cefepime, Flagyl has been discontinued continue current wound care with Aquacel silver dressing awaiting vascular intervention Dictation was produced using [employer] dictation software. please excuse any grammatical, word or spelling errors. Time with Patient: Less than 30
--- NOTE | 2024-09-01 12:31 | P.PN ---
Subjective Progress Note Date: 09/01/24 CHIEF COMPLAINT: Right foot wound HISTORY OF PRESENT ILLNESS: Surgical service following regards to patient's large hiatal hernia. Patient status post EGD with findings of a large paraesophageal hiatal hernia with intrathoracic stomach approximately 60%. Patient with no new complaints. Afebrile. Mildly tachycardic, heart rate 103. WBC 5.5 Hgb 9.1 platelets 408 sodium 135 potassium is 4.2 creatinine 0.28 magnesium 1.8 PHYSICAL EXAM: VITAL SIGNS: Reviewed. GENERAL: no acute distress. ABDOMEN: Soft. Nondistended. Nontender. NEUROLOGIC: Alert and oriented. Cranial nerves II through XII grossly intact. ASSESSMENT: 1. Large paraesophageal hiatal hernia with intrathoracic stomach 2. 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 Patient followed by vascular service 3. Right foot wound and cellulitis PLAN: -Patient scheduled for repair of paraesophageal hiatal hernia tomorrow with Dr. Copeland -N.p.o. after midnight Physician Masticator note has been reviewed by physician. Signing provider agrees with the documented findings, assessment, and plan of care. Objective - Vital Signs Vital signs: Vital Signs Temp 99.5 F 09/01/24 07:23 Pulse 103 H 09/01/24 11:03 Resp 20 09/01/24 11:03 BP 136/83 09/01/24 11:03 Pulse Ox 95 09/01/24 11:03 FiO2 Intake & Output 08/31/24 09/01/24 09/01/24 18:59 06:59 18:59 Intake Total 580 170 100 Balance 580 170 100 Intake: IV 100 Intake, IV Titration 50 Amount Cefepime 1 gm In Sodium 50 Chloride 0.9% 50 ml @ 100 mls/hr IVPB Q8H REPLACED BY [facility] Rx#: [id number] Oral 580 120 Other: Voiding Method Bedside Commode Bedside Commode Diaper Diaper # Voids 3 2 - Labs CBC & Chem 7: 09/01/24 07:45 09/01/24 07:45 Labs: Abnormal Lab Results - Last 24 Hours (Table) 09/01/24 09/01/24 Range/Units 07:45 07:45 Hgb 9.1 L (11.4-16.0) gm/dL Hct 31.8 L (34.0-46.0) % MCH 23.2 L (25.0-35.0) pg MCHC 28.5 L (31.0-37.0) g/dL RDW 20.5 H (11.5-15.5) % Lymphocytes # 0.5 L (1.0-4.8) k/uL Sodium 135 L (137-145) mmol/L Creatinine 0.28 L (0.52-1.04) mg/dL Microbiology - Last 24 Hours (Table) 08/26/24 14:36 Blood Culture - Final Blood
--- NOTE | 2024-09-02 00:51 | P.PN ---
Subjective Progress Note Date: 09/01/24 Patient is a 73-year-old female with a past medical history of hypertension, osteoarthritis, rheumatoid arthritis, history of seizure disorder, anxiety/depression presents to ER with complaints of right foot infection and discharge. Patient was recently admitted to the hospital and was discharged home on 08/04/2024 with antibiotic course to complete for 10 more days. Patient states that she did take medication at home. She will use with a roommate. Patient states that she has been having increasing pain to the point where she is unable to ambulate. Patient states that she also has history of poor circulation in the leg. Patient otherwise denied any complaints of fever or chills. No nausea vomiting abdominal pain. No chest pain or shortness of breath. X-ray of the foot showed soft tissue ulceration about the great toe, with lucency involving the medial aspect of the first metatarsal head. Early osteomyelitis is difficult to exclude. Patient had a recent wound cultures growing Proteus mirabilis taken on 07/31/2024 which is pansensitive. Laboratory data showed WBC 6.8 hemoglobin 8.4 MCV 79.9 and RDW 19.8 and platelets 413 ESR 37 CRP 1.5 Sodium 140 potassium 4.2 chloride 107 bicarb is 24 BUN 15 and creatinine 0.31 and blood sugar 73 and calcium 8.9. 08/27/2024 Patient is seen and evaluated in follow-up today being followed by vascular surgery along with infectious disease. Patient is maintained on antibiotics scheduled to undergo a bone scan. Patient also having CT imaging with vascular surgery as x-ray was suggestive of possible starts of osteomyelitis. Patient is afebrile with no reports of chest pain or shortness of breath. Patient denies any nausea or vomiting and has been tolerating diet. Awaiting cultures and currently preliminary showing gram-negative bacilli. 08/28/2024 Patient is seen in follow-up this morning undergoing bone scan with infectious disease following maintained on IV antibiotics and will continue. Patient continues with severe right foot pain and lower extremity pain with concerns of osteomyelitis. Patient undergoing further vascular surgery workup including angiogram with runoff and general surgery has been consulted as CT revealed a large intrathoracic hernia and also cardiology for cardiac clearance in the event patient will require surgical intervention. Likely femoropopliteal bypass in the near future. 08/29/2024 Patient is seen in follow-up with multiple consultations following. Patient maintained on IV antibiotics with infectious disease along with vascular surgery and cardiology, general surgery. Patient is scheduled to undergo EGD on Sunday with general surgery for large hiatal hernia. Vascular surgery following for possible femoropopliteal bypass in the near future. Cardiology following for clearance given her extensive cardiac history. Patient is afebrile with no reports of chest pain or shortness of breath. Patient reports not much of an appetite although denies nausea and vomiting. Patient reports significant pain of her right foot. 09/01/2024 Patient is seen and evaluated in follow-up scheduled to undergo EGD today with general surgery for evaluation of hernia. Vascular surgery following as well along with infectious disease and maintained on IV antibiotics and discussing plans of possible vascular intervention for the right lower extremity. Multiple consultations following and currently awaiting EGD report. Patient is afebrile continues to report right foot pain and is currently NPO. Apparently patient had a fall yesterday with some knee pain showing no acute fractures and CT head was performed with chronic findings with no acute process at this time. Review of systems: Constitutional: No reports of fatigue, fever, or chills Cardiovascular: No reports of chest pain or palpitations Respiratory: No reports of shortness of breath or cough GI: No reports of nausea, vomiting, or diarrhea, reports not much of an appetite : No reports of dysuria or retention Neurovascular: reports of generalized weakness and continued severe right foot pain All medications have been reviewed PHYSICAL EXAMINATION: Patient is lying in the bed awake, alert and oriented.. Elderly appearing, thin built HEENT: Normocephalic. Neck is supple. Pupils reactive. Nostrils clear. Oral cavity is moist. Neck reveals no JVD, carotid bruits, or thyromegaly. CHEST EXAMINATION: Trachea is central. Symmetrical expansion. Lung rasmussen clear to auscultation and percussion. CARDIAC: Normal S1, S2 with no gallops. No murmurs ABDOMEN: Soft. Bowel sounds normal. No organomegaly. No abdominal bruits. Extremities: Right foot wound on the medial aspect of the great toe with purulent discharge and redness extending up to the mid foot. No clubbing or cyanosis Neurologically awake, alert, oriented x3 with well-coordinated movements. No focal deficits noted, diffusely weak Skin: No rash or skin lesions. Other than mentioned above Psychiatric: Cooperative. Non-suicidal Musculoskeletal: No joint swelling or deformity. Normal range of motion. Significant kyphosis noted Assessment: Right great toe wound with surrounding cellulitis and purulent discharge. Present on admission with culture showing Pseudomonas aeruginosa along with Proteus Mirabilis Possible early acute osteomyelitis involving the right medial aspect of the first metatarsal head, uptake noted on bone scan Right common iliac, external, and internal iliac artery, right SFA artery occlusion noted on imaging Large paraesophageal hiatal hernia with intrathoracic stomach noted on EGD 09/01/2024 Microcytic iron deficiency anemia. Iron profile showed deficiency on 01/14/2024 Osteoarthritis history Rheumatoid arthritis history Seizure disorder on antiepileptics at home History of IBS and GERD Anxiety/depression DVT prophylaxis with heparin subcu GI prophylaxis Full code Plan: Patient currently continued on antibiotics of vancomycin and cefepime. Aerobic and anaerobic wound cultures were sent and follow-up blood cultures as well. Wound culture showing Proteus Mirabellas with Pseudomonas, infectious disease following continue with pain management. Recommend being cautious with narcotics given patient's age Uptake noted in multiple areas on bone scan and difficult to exclude osteomyelitis Patient underwent CT of the lower extremity per vascular surgery with Dr. 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 General surgery was consulted as imaging was also noted to have a large hiatal hernia and patient is status post EGD showing a large paraesophageal hiatal hernia with intrathoracic stomach. Patient will be n.p.o. and undergo surgical repair on 09/02/2024 Continue local wound care Current home medications reviewed and resumed as appropriate. Will need PT/OT therapy evaluation Due to multiple complex medical issues, overall prognosis is guarded The impression and plan of care has been dictated by Mine Negrete, Nurse Practitioner as directed. Dr. Aroldo MD I have performed a history and examination and MDM of this patient, discussed the same with the dictator, and agree with the dictator's assessment and plan as written ,documented as a scribe. Based on total visit time, I have performed more than 50% of the visit. Objective - Vital Signs Vital signs: Vital Signs Temp 98.8 F 09/01/24 19:20 Pulse 112 H 09/01/24 19:20 Resp 18 09/01/24 19:20 BP 131/81 09/01/24 19:20 Pulse Ox 97 09/01/24 19:20 FiO2 Intake & Output 09/01/24 09/01/24 09/02/24 06:59 18:59 06:59 Intake Total 170 3220 Balance 170 3220 Intake: IV 100 Intake, IV Titration 50 Amount Cefepime 1 gm In Sodium 50 Chloride 0.9% 50 ml @ 100 mls/hr IVPB Q8H [facility] Rx#: [id number] Oral 120 3120 Other: Voiding Method Bedside Commode Diaper # Voids 2 10 1 # Bowel Movements 2 - Labs CBC & Chem 7: 09/01/24 07:45 09/01/24 07:45 Labs: Abnormal Lab Results - Last 24 Hours (Table) 09/01/24 09/01/24 Range/Units 07:45 07:45 Hgb 9.1 L (11.4-16.0) gm/dL Hct 31.8 L (34.0-46.0) % MCH 23.2 L (25.0-35.0) pg MCHC 28.5 L (31.0-37.0) g/dL RDW 20.5 H (11.5-15.5) % Lymphocytes # 0.5 L (1.0-4.8) k/uL Sodium 135 L (137-145) mmol/L Creatinine 0.28 L (0.52-1.04) mg/dL Microbiology - Last 24 Hours (Table) 08/26/24 14:36 Blood Culture - Final Blood
[2024-09-02 05:43] LABS: Anisocytosis Moderate; HCT 31.3 % (34.0-46.0); HGB 9.5 gm/dL (11.4-16.0); Hypochromasia Marked; MCH 23.6 pg (25.0-35.0); MCHC 30.4 g/dL (31.0-37.0); MCV 77.4 fL (80.0-100.0); Mean Platelet Volume 8.4; Microcytosis Moderate; Poikilocytosis Slight; RBC 4.04 m/uL (3.80-5.40); RDW 20.8 % (11.5-15.5); WBC 5.7 k/uL (3.8-10.6)
[2024-09-02 06:15] LABS: Platelet Count 331 k/uL (150-450)
[2024-09-02 06:43] LABS: African American GFR (CKD) >90 (>60 ml/min/1.73 sqM); Anion Gap 3 mmol/L; Blood Urea Nitrogen 8 mg/dL (7-17); Calcium 8.2 mg/dL (8.4-10.2); Carbon Dioxide 25 mmol/L (22-30); Chloride 106 mmol/L (98-107); Glucose 86 mg/dL (74-99); Non-African American GFR(CKD) >90 (>60 ml/min/1.73 sqM); Potassium 4.6 mmol/L (3.5-5.1); Sodium 134 mmol/L (137-145)
[2024-09-02] MEDS: IV FLUID CONTINUATION 1,000 ML IV ONE ×2 (09:41→11:35)
[2024-09-02 10:15] VITALS: BMI 19.2
[2024-09-02] MEDS ORDERED: ROCURONIUM 10 MG/ML (5 ML VIAL) IV ONE (11:32)
[2024-09-02] MEDS ORDERED: PROPOFOL 10 MG/ML 20 ML VIAL IV ONE (11:32)
[2024-09-02] MEDS ORDERED: GLYCOPYRROLATE 0.2 MG/ML 2 ML VIAL ONE (11:32)
[2024-09-02] MEDS ORDERED: HYDROmorphone (PF) 1 MG/ML ONE (11:32)
[2024-09-02] MEDS ORDERED: SUCCINYLCHOLINE CHLORIDE 200 MG/10 ML VIAL IV ONE (11:32)
[2024-09-02] MEDS ORDERED: NEOSTIGMINE 1 MG/ML 10 ML VIAL ONE (11:32)
[2024-09-02] MEDS ORDERED: PHENYLEPHRINE-0.9% NACL SYG 1,000 MCG/10 ML SYRINGE ONE (11:32)
[2024-09-02] MEDS ORDERED: ceFAZolin 1 GM/50 ML BAG (PMX) ONE (11:32)
[2024-09-02] MEDS ORDERED: fentaNYL (PF) 50 MCG/ML 2 ML AMP ONE (11:32)
[2024-09-02] MEDS ORDERED: LIDOCAINE 1% INJ 10MG/ML (20 ML MDV) ONE (11:32)
[2024-09-02] MEDS: BUPIVACAINE (PF) 0.25% 30 ML VIAL SQ ONE ×2 (12:07)
--- NOTE | 2024-09-02 12:08 | P.PN ---
Progress Note - Text Progress Note Date: 09/02/24 Patient currently not in her room. She is down for her hiatal hernia procedure with general surgery. Plan will be for outpatient follow-up with vascular surgery for right lower extremity pain and discussed revascularization. Patient is cleared from vascular surgery for discharge once otherwise surgically and medically cleared. The impression and plan of care has been dictated as directed. I performed a history and examination of this patient, discussed the same with the dictator. I agree with the dictator's note ,documented as a scribe. Any additional findings or plans will be noted.
[2024-09-02] MEDS: LACTATED RINGERS 1,000 ML IV ONE (13:00)
--- NOTE | 2024-09-02 13:16 | P.OP ---
Date of Procedure: 09/02/24 Preoperative Diagnosis: Large paraesophageal hiatal hernia with intrathoracic stomach Postoperative Diagnosis: Same Procedure(s) Performed: Diagnostic laparoscopy Open repair of large paraesophageal hiatal hernia with intrathoracic stomach Anesthesia: EMMA Surgeon: Ronni Copeland Estimated Blood Loss (ml): 25 Pathology: none sent Condition: stable Disposition: PACU Description of Procedure: Patient was placed on the table in the supine position. She received general endotracheal tube anesthesia. Her abdomen was prepped and draped using usual fashion. The patient had a large incision which ran along the right costal margin. The incision started in the left upper quadrant and extended towards the right flank. A skin incision was made at the umbilicus. Then using an optical trocar direct realization the. ENTERED. The abdomen insufflated after adequate deflation the laparoscope placed the pelvic cavity. There were significant adhesions noted throughout the para cavity. This point a 5 mm trocar was placed in the right and left lateral position. The adhesions were noted to be quite dense. Due to the the adhesions decided to perform the procedure in an open technique. The trocars were withdrawn. The skin was incised in the midline. Then use electrocautery and subcu tissue divided. The abdominal wall was divided and adhesions were lysed using sharp dissection with cautery. The stomach was visualized. The greater curvature of the stomach was then dissected using the harmonic scissors. I then the paraesophageal hiatal hernia was reduced. The stomach was reduced back apparently cavity. The crural edges were dissected using the harmonic scissors. The crural defect was closed in a posterior fashion using 0 Ethibond suture. The eye was irrigated there is no bleeding seen. The fascia is closed looped #1 PDS suture. The skin was closed with anil. Patient tolerated well. She was sent to recovery room in stable condition.
[2024-09-02] MEDS ORDERED: ONDANSETRON 4 MG/2 ML VIAL IVP PRN (13:17)
[2024-09-02] MEDS ORDERED: ACETAMINOPHEN TAB 325 MG TAB PO PRN (13:17)
[2024-09-02] MEDS ORDERED: NALOXONE 0.4 MG/ML 1 ML VIAL IV PRN (13:17)
[2024-09-02] MEDS: LACTATED RINGERS 1,000 ML IV SCH (15:53)
[2024-09-02] MEDS: HYDROmorphone 1 MG/ML 1 ML SYRINGE IVP PRN (18:30)
[2024-09-03] MEDS: ENOXAPARIN 30 MG/0.3 ML SYRINGE SQ SCH (08:18)
--- NOTE | 2024-09-03 09:45 | P.PN ---
Subjective Progress Note Date: 09/02/24 Patient is a 73-year-old female with a past medical history of hypertension, osteoarthritis, rheumatoid arthritis, history of seizure disorder, anxiety/depression presents to ER with complaints of right foot infection and discharge. Patient was recently admitted to the hospital and was discharged home on 08/04/2024 with antibiotic course to complete for 10 more days. Patient states that she did take medication at home. She will use with a roommate. Patient states that she has been having increasing pain to the point where she is unable to ambulate. Patient states that she also has history of poor circulation in the leg. Patient otherwise denied any complaints of fever or chills. No nausea vomiting abdominal pain. No chest pain or shortness of breath. X-ray of the foot showed soft tissue ulceration about the great toe, with lucency involving the medial aspect of the first metatarsal head. Early osteomyelitis is difficult to exclude. Patient had a recent wound cultures growing Proteus mirabilis taken on 07/31/2024 which is pansensitive. Laboratory data showed WBC 6.8 hemoglobin 8.4 MCV 79.9 and RDW 19.8 and platelets 413 ESR 37 CRP 1.5 Sodium 140 potassium 4.2 chloride 107 bicarb is 24 BUN 15 and creatinine 0.31 and blood sugar 73 and calcium 8.9. 08/27/2024 Patient is seen and evaluated in follow-up today being followed by vascular surgery along with infectious disease. Patient is maintained on antibiotics scheduled to undergo a bone scan. Patient also having CT imaging with vascular surgery as x-ray was suggestive of possible starts of osteomyelitis. Patient is afebrile with no reports of chest pain or shortness of breath. Patient denies any nausea or vomiting and has been tolerating diet. Awaiting cultures and currently preliminary showing gram-negative bacilli. 08/28/2024 Patient is seen in follow-up this morning undergoing bone scan with infectious disease following maintained on IV antibiotics and will continue. Patient continues with severe right foot pain and lower extremity pain with concerns of osteomyelitis. Patient undergoing further vascular surgery workup including angiogram with runoff and general surgery has been consulted as CT revealed a large intrathoracic hernia and also cardiology for cardiac clearance in the event patient will require surgical intervention. Likely femoropopliteal bypass in the near future. 08/29/2024 Patient is seen in follow-up with multiple consultations following. Patient maintained on IV antibiotics with infectious disease along with vascular surgery and cardiology, general surgery. Patient is scheduled to undergo EGD on Sunday with general surgery for large hiatal hernia. Vascular surgery following for possible femoropopliteal bypass in the near future. Cardiology following for clearance given her extensive cardiac history. Patient is afebrile with no reports of chest pain or shortness of breath. Patient reports not much of an appetite although denies nausea and vomiting. Patient reports significant pain of her right foot. 09/01/2024 Patient is seen and evaluated in follow-up scheduled to undergo EGD today with general surgery for evaluation of hernia. Vascular surgery following as well along with infectious disease and maintained on IV antibiotics and discussing plans of possible vascular intervention for the right lower extremity. Multiple consultations following and currently awaiting EGD report. Patient is afebrile continues to report right foot pain and is currently NPO. Apparently patient had a fall yesterday with some knee pain showing no acute fractures and CT head was performed with chronic findings with no acute process at this time. 09/02/2024 Patient is seen in follow-up today with no acute overnight issues noted. Currently n.p.o. and patient is scheduled to undergo paraesophageal hernia repair with general surgery. Patient is also being followed by vascular surgery as well as cardiology and discussing further future femoropopliteal bypass once medically stable. Patient is maintained on IV antibiotics with infectious disease following and will continue. Patient is afebrile with no reported chest pain or shortness of breath. Patient continues to elicit 10/10 pain of the right foot. Diet to be resumed once cleared by surgery. Review of systems: Constitutional: No reports of fatigue, fever, or chills Cardiovascular: No reports of chest pain or palpitations Respiratory: No reports of shortness of breath or cough GI: No reports of nausea, vomiting, or diarrhea, reports not much of an appetite : No reports of dysuria or retention Neurovascular: reports of generalized weakness and continued severe right foot pain All medications have been reviewed PHYSICAL EXAMINATION: Patient is lying in the bed awake, alert and oriented.. Elderly appearing, thin built HEENT: Normocephalic. Neck is supple. Pupils reactive. Nostrils clear. Oral cavity is moist. Neck reveals no JVD, carotid bruits, or thyromegaly. CHEST EXAMINATION: Trachea is central. Symmetrical expansion. Lung rasmussen clear to auscultation and percussion. CARDIAC: Normal S1, S2 with no gallops. No murmurs ABDOMEN: Soft. Bowel sounds normal. No organomegaly. No abdominal bruits. Extremities: Right foot wound on the medial aspect of the great toe with purulent discharge and redness extending up to the mid foot. No clubbing or cyanosis Neurologically awake, alert, oriented x3 with well-coordinated movements. No focal deficits noted, diffusely weak Skin: No rash or skin lesions. Other than mentioned above Psychiatric: Cooperative. Non-suicidal Musculoskeletal: No joint swelling or deformity. Normal range of motion. Significant kyphosis noted Assessment: Right great toe wound with surrounding cellulitis and purulent discharge. Present on admission with culture showing Pseudomonas aeruginosa along with Proteus Mirabilis Possible early acute osteomyelitis involving the right medial aspect of the first metatarsal head, uptake noted on bone scan Right common iliac, external, and internal iliac artery, right SFA artery occlusion noted on imaging Large paraesophageal hiatal hernia with intrathoracic stomach noted on EGD 09/01/2024, scheduled to undergo surgical intervention 09/03/2024 Microcytic iron deficiency anemia. Iron profile showed deficiency on 01/14/2024 Osteoarthritis history Rheumatoid arthritis history Seizure disorder on antiepileptics at home History of IBS and GERD Anxiety/depression DVT prophylaxis with heparin subcu GI prophylaxis Full code Plan: Patient currently continued on antibiotics of vancomycin and cefepime. Aerobic and anaerobic wound cultures were sent and follow-up blood cultures as well. Wound culture showing Proteus Mirabellas with Pseudomonas, infectious disease following continue with pain management. Recommend being cautious with narcotics given patient's age Uptake noted in multiple areas on bone scan and difficult to exclude osteomyelitis Patient underwent CT of the lower extremity per vascular surgery with Dr. 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 General surgery was consulted as imaging was also noted to have a large hiatal hernia and patient is status post EGD showing a large paraesophageal hiatal her tami with intrathoracic stomach. Patient is currently n.p.o. and will undergo surgical repair today 09/02/2024. Await surgical report Continue local wound care Current home medications reviewed and resumed as appropriate. Will need PT/OT therapy evaluation Due to multiple complex medical issues, overall prognosis is guarded The impression and plan of care has been dictated by Mine Negrete, Nurse Practitioner as directed. Dr. Aroldo MD I have performed a history and examination and MDM of this patient, discussed the same with the dictator, and agree with the dictator's assessment and plan as written ,documented as a scribe. Based on total visit time, I have performed more than 50% of the visit. Objective - Vital Signs Vital signs: Vital Signs Temp 99.4 F 09/03/24 07:40 Pulse 104 H 09/03/24 07:40 Resp 20 09/03/24 07:40 BP 114/56 09/03/24 07:40 Pulse Ox 95 09/03/24 07:40 FiO2 Intake & Output 09/02/24 09/03/24 09/03/24 18:59 06:59 18:59 Intake Total 1940 Output Total 50 Balance 1890 Weight 58.967 kg Intake: IV 1800 Oral 140 Output: Estimated Blood Loss 50 Other: Voiding Method Bedside Commode Bedside Commode Diaper Diaper # Voids 1 1 1 - Labs CBC & Chem 7: 09/02/24 05:20 09/02/24 05:20
--- NOTE | 2024-09-03 11:21 | P.PN ---
Subjective Progress Note Date: 09/03/24 Principal diagnosis: Right foot wound, peripheral arterial disease Patient seen and examined as a follow-up. She is postop day #1 for intrathoracic hiatal hernia. Patient complaints of abdominal pain. No acute changes otherwise noted. Objective - Vital Signs Vital signs: Vital Signs Temp 99.4 F 09/03/24 07:40 Pulse 104 H 09/03/24 07:40 Resp 20 09/03/24 07:40 BP 114/56 09/03/24 07:40 Pulse Ox 95 09/03/24 07:40 FiO2 Intake & Output 09/02/24 09/03/24 09/03/24 18:59 06:59 18:59 Intake Total 1940 Output Total 50 Balance 1890 Weight 58.967 kg Intake: IV 1800 Oral 140 Output: Estimated Blood Loss 50 Other: Voiding Method Bedside Commode Bedside Commode Diaper Diaper # Voids 1 1 1 - Exam General appearance: The patient is alert, oriented, appears in no acute distress. HET: Head is normocephalic and atraumatic. Neck: Supple. Extremities: Nonpalpable right DP or PT pulse. Left palpable DP pulse. Right foot Dressing clean dry and intact. Sensorimotor intact. Neurological: No focal deficits. - Labs CBC & Chem 7: 09/02/24 05:20 09/02/24 05:20 Assessment and Plan Assessment: 1. Chronic right foot wound 2. 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 Claudication 4. Cellulitis of right foot 5. Recent closed reduction right hip periprosthetic hip dislocation 08/01/2024 6. Large intrathoracic hiatal hernia with elevation of right hemidiaphragm status post surgical repair 7. History of CVA Plan: 1. Continue local wound care as ordered 2. Patient would likely benefit from femorofemoral bypass with possible intervention. Cardiology has seen patient and states she is moderate risk for a moderate to high risk procedure. Will plan as outpatient. 3. Rest of medical management per primary medical team Thank you for this consultation, we will sign off at this time. Patient to follow-up with vascular surgery as an outpatient in 1 to 2 weeks. The impression and plan of care has been dictated as directed. I performed a history and examination of this patient, discussed the same with the dictator. I agree with the dictator's note ,documented as a scribe. Any additional findings or plans will be noted.
--- NOTE | 2024-09-03 12:33 | P.PN ---
Subjective Progress Note Date: 09/02/24 Principal diagnosis: Reason for follow-up is right foot ulcers and cellulitis Patient is a 73-year-old female with a past medical history significant for hypertension rheumatoid arthritis seizure disorder reflux patient was recently admitted to this facility for the right foot cellulitis Within the hospital with a worsening wound to the right foot in between the toes as well as on the medial aspect of the right foot big toe. Patient is status post Diagnostic laparoscopy and Open repair of large paraesophageal hiatal hernia with intrathoracic stomach completed on 09/02/2024. On today's evaluation that is 09/02/2024, the patient continues to be afebrile, the patient is on 2 L nasal cannula oxygen and breathing comfortably, the Pt has been complaining of abdominal pain postsurgery nausea but no vomiting denies any worsening pain to the right foot wound. Patient white count is 5.7 creatinine 0.82 Objective - Vital Signs Vital signs: Vital Signs Temp 97.6 F 09/02/24 13:28 Pulse 73 09/02/24 13:58 Resp 16 09/02/24 13:58 BP 137/64 09/02/24 13:58 Pulse Ox 100 09/02/24 13:58 FiO2 Intake & Output 09/01/24 09/02/24 09/02/24 18:59 06:59 18:59 Intake Total 3220 1500 Output Total 50 Balance 3220 1450 Weight 58.967 kg Intake: IV 100 1500 Oral 3120 Output: Estimated Blood Loss 50 Other: Voiding Method Bedside Commode Bedside Commode Diaper Diaper # Voids 10 1 2 # Bowel Movements 2 - Exam GENERAL DESCRIPTION: An elderly female lying in bed in no distress RESPIRATORY SYSTEM: Unlabored breathing , decreased breath sounds at bases HEART: S1 S2 regular rate and rhythm , ABDOMEN: Soft , no tenderness EXTREMITIES: Right foot wound in between the toe and on the medial aspect is currently dressed no drainage - Labs CBC & Chem 7: 09/02/24 05:20 09/02/24 05:20 Labs: Abnormal Lab Results - Last 24 Hours (Table) 09/02/24 09/02/24 Range/Units 05:20 05:20 Hgb 9.5 L (11.4-16.0) gm/dL Hct 31.3 L (34.0-46.0) % MCV 77.4 L (80.0-100.0) fL MCH 23.6 L (25.0-35.0) pg MCHC 30.4 L (31.0-37.0) g/dL RDW 20.8 H (11.5-15.5) % Sodium 134 L (137-145) mmol/L Creatinine 0.28 L (0.52-1.04) mg/dL Calcium 8.2 L (8.4-10.2) mg/dL Assessment and Plan (1) Right foot ulcer Current Visit: Yes Status: Acute Code(s): L97.519 - NON-PRS CHRONIC ULCER OTH PRT RIGHT FOOT W UNSP SEVERITY SNOMED Code(s): 491704065 (2) Cellulitis of right foot Current Visit: Yes Status: Acute Code(s): L03.115 - CELLULITIS OF RIGHT LOW ER LIMB SNOMED Code(s): 84648214100179516 Plan: 1patient presented to hospital with worsening ulceration to the right foot in this patient who did have extensive athlete's foot with a wound in between the toes as well as on the medial aspect of the right big toe and did have an abnormal x-ray suspicious for possible osteomyelitis with recent culture positive for Proteus mirabilis. 2patient did have a sed rate of 37 CRP mildly elevated 3patient wound culture did grew Proteus and Pseudomonas aeruginosa, anaerobe cultures negative 4patient to continue with cefepime, and local wound care with Aquacel silver dressing awaiting vascular intervention hopefully this week Dictation was produced using [employer] dictation software. please excuse any grammatical, word or spelling errors. Time with Patient: Less than 30
--- NOTE | 2024-09-03 12:34 | P.PN ---
Subjective Progress Note Date: 09/03/24 Principal diagnosis: Reason for follow-up is right foot ulcers and cellulitis Patient is a 73-year-old female with a past medical history significant for hypertension rheumatoid arthritis seizure disorder reflux patient was recently admitted to this facility for the right foot cellulitis Within the hospital with a worsening wound to the right foot in between the toes as well as on the medial aspect of the right foot big toe. Patient is status post Diagnostic laparoscopy and Open repair of large paraesophageal hiatal hernia with intrathoracic stomach completed on 09/02/2024. On today's evaluation that is 09/03/2024, Patient is afebrile patient is currently on 2 L nasal oxygen and denies having any shortness of breath, the patient denies any chest pain or cough, the patient has been complaining of nausea but no vomiting also complaining abdominal discomfort no diarrhea denies pain to the right foot. No new lab has been obtained today Objective - Vital Signs Vital signs: Vital Signs Temp 99.4 F 09/03/24 07:40 Pulse 104 H 09/03/24 07:40 Resp 20 09/03/24 07:40 BP 114/56 09/03/24 07:40 Pulse Ox 95 09/03/24 07:40 FiO2 Intake & Output 09/02/24 09/03/24 09/03/24 18:59 06:59 18:59 Intake Total 1940 Output Total 50 Balance 1890 Weight 58.967 kg Intake: IV 1800 Oral 140 Output: Estimated Blood Loss 50 Other: Voiding Method Bedside Commode Bedside Commode Diaper Diaper # Voids 1 1 1 - Exam GENERAL DESCRIPTION: An elderly female lying in bed in no distress RESPIRATORY SYSTEM: Unlabored breathing , decreased breath sounds at bases HEART: S1 S2 regular rate and rhythm , ABDOMEN: Soft , no tenderness EXTREMITIES: Right foot wound currently dressed no drainage - Labs CBC & Chem 7: 09/02/24 05:20 09/02/24 05:20 Assessment and Plan (1) Right foot ulcer Current Visit: Yes Status: Acute Code(s): L97.519 - NON-PRS CHRONIC ULCER OTH PRT RIGHT FOOT W UNSP SEVERITY SNOMED Code(s): 240233099 (2) Cellulitis of right foot Current Visit: Yes Status: Acute Code(s): L03.115 - CELLULITIS OF RIGHT LOWER LIMB SNOMED Code(s): 43974703965539455 Plan: 1patient presented to hospital with worsening ulceration to the right foot in this patient who did have extensive athlete's foot with a wound in between the toes as well as on the medial aspect of the right big toe and did have an abnormal x-ray suspicious for possible osteomyelitis with recent culture positive for Proteus mirabilis. 2patient did have a sed rate of 37 CRP mildly elevated 3patient wound culture did grew Proteus and Pseudomonas aeruginosa, anaerobe cultures negative 4patient did have significant PAD with a necrotic wound to the foot with the surgery postponed we will recommend getting a midline and a 2-week course of cefepime on discharge discussed with the LAUNCH ENGINEER for admitting team Dictation was produced using [employer] dictation software. please excuse any g rammatical, word or spelling errors. Time with Patient: Less than 30
[2024-09-03] MEDS: CEFEPIME 2 GM in SODIUM CHLORIDE 0.9% 100 ML IVPB SCH (12:36)
--- NOTE | 2024-09-03 12:38 | P.PN ---
Subjective Progress Note Date: 09/03/24 CHIEF COMPLAINT: Right foot wound HISTORY OF PRESENT ILLNESS: Patient postop day #1 status post diagnostic laparoscopy and open repair of large paraesophageal hiatal hernia with intrathoracic stomach. Patient does complain of pain. She reports that she is swallowing the liquids. She reports no sticking of the liquids with swallowing. Denies any nausea or vomiting. Afebrile. Mildly tachycardic. On room air. Patient seen and examined with Dr. Copeland PHYSICAL EXAM: VITAL SIGNS: Reviewed. GENERAL: no acute distress. ABDOMEN: Soft. Mildly distended. Tender at incision site. Prevena wound VAC dressing intact NEUROLOGIC: Alert and oriented. Cranial nerves II through XII grossly intact. ASSESSMENT: 1. Large paraesophageal hiatal hernia with intrathoracic stomach 2. 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 Patient followed by vascular service 3. Right foot wound and cellulitis PLAN: -Continue clear liquid diet with no straws or carbonated beverages -Continue pain management -Incentive spirometer ordered -DVT prophylaxis Lovenox Physician Flight Technician note has been reviewed by physician. Signing provider agrees with the documented findings, assessment, and plan of care. Objective - Vital Signs Vital signs: Vital Signs Temp 99.4 F 09/03/24 07:40 Pulse 104 H 09/03/24 07:40 Resp 20 09/03/24 07:40 BP 114/56 09/03/24 07:40 Pulse Ox 95 09/03/24 07:40 FiO2 Intake & Output 09/02/24 09/03/24 09/03/24 18:59 06:59 18:59 Intake Total 1940 Output Total 50 Balance 1890 Weight 58.967 kg Intake: IV 1800 Oral 140 Output: Estimated Blood Loss 50 Other: Voiding Method Bedside Commode Bedside Commode Diaper Diaper # Voids 1 1 1 - Labs CBC & Chem 7: 09/02/24 05:20 09/02/24 05:20
--- NOTE | 2024-09-03 14:11 | XR ---
EXAMINATION TYPE: XR chest 1V portable DATE OF EXAM: 09/03/2024 HISTORY: Shortness of breath. COMPARISON: 01/24/2024 TECHNIQUE: Single view of the chest is submitted. FINDINGS: Demonstrated are scattered senescent parenchymal change. Lung volumes are diminished. There are increased basilar markings as well as probable small effusions . Pulmonary vasculature appears prominent correlate for underlying congestive failure. Hilar and mediastinal structures are within normal limits. Degenerative changes are seen of the dorsal spine. IMPRESSION: 1. Lung volumes are diminished. There are increased basilar markings as well as probable small effus ions. Pulmonary vasculature appears prominent correlate for underlying congestive failure. [facility], , 09/03/2024 2:09 PM
--- NOTE | 2024-09-03 14:38 | P.PN ---
Subjective Progress Note Date: 09/03/24 Patient is a 73-year-old female with a past medical history of hypertension, osteoarthritis, rheumatoid arthritis, history of seizure disorder, anxiety/depression presents to ER with complaints of right foot infection and discharge. Patient was recently admitted to the hospital and was discharged home on 08/04/2024 with antibiotic course to complete for 10 more days. Patient states that she did take medication at home. She will use with a roommate. Patient states that she has been having increasing pain to the point where she is unable to ambulate. Patient states that she also has history of poor circulation in the leg. Patient otherwise denied any complaints of fever or chills. No nausea vomiting abdominal pain. No chest pain or shortness of breath. X-ray of the foot showed soft tissue ulceration about the great toe, with lucency involving the medial aspect of the first metatarsal head. Early osteomyelitis is difficult to exclude. Patient had a recent wound cultures growing Proteus mirabilis taken on 07/31/2024 which is pansensitive. Laboratory data showed WBC 6.8 hemoglobin 8.4 MCV 79.9 and RDW 19.8 and platelets 413 ESR 37 CRP 1.5 Sodium 140 potassium 4.2 chloride 107 bicarb is 24 BUN 15 and creatinine 0.31 and blood sugar 73 and calcium 8.9. 08/27/2024 Patient is seen and evaluated in follow-up today being followed by vascular surgery along with infectious disease. Patient is maintained on antibiotics scheduled to undergo a bone scan. Patient also having CT imaging with vascular surgery as x-ray was suggestive of possible starts of osteomyelitis. Patient is afebrile with no reports of chest pain or shortness of breath. Patient denies any nausea or vomiting and has been tolerating diet. Awaiting cultures and currently preliminary showing gram-negative bacilli. 08/28/2024 Patient is seen in follow-up this morning undergoing bone scan with infectious disease following maintained on IV antibiotics and will continue. Patient continues with severe right foot pain and lower extremity pain with concerns of osteomyelitis. Patient undergoing further vascular surgery workup including angiogram with runoff and general surgery has been consulted as CT revealed a large intrathoracic hernia and also cardiology for cardiac clearance in the event patient will require surgical intervention. Likely femoropopliteal bypass in the near future. 08/29/2024 Patient is seen in follow-up with multiple consultations following. Patient maintained on IV antibiotics with infectious disease along with vascular surgery and cardiology, general surgery. Patient is scheduled to undergo EGD on Sunday with general surgery for large hiatal hernia. Vascular surgery following for possible femoropopliteal bypass in the near future. Cardiology following for clearance given her extensive cardiac history. Patient is afebrile with no reports of chest pain or shortness of breath. Patient reports not much of an appetite although denies nausea and vomiting. Patient reports significant pain of her right foot. 09/01/2024 Patient is seen and evaluated in follow-up scheduled to undergo EGD today with general surgery for evaluation of hernia. Vascular surgery following as well along with infectious disease and maintained on IV antibiotics and discussing plans of possible vascular intervention for the right lower extremity. Multiple consultations following and currently awaiting EGD report. Patient is afebrile continues to report right foot pain and is currently NPO. Apparently patient had a fall yesterday with some knee pain showing no acute fractures and CT head was performed with chronic findings with no acute process at this time. 09/02/2024 Patient is seen in follow-up today with no acute overnight issues noted. Currently n.p.o. and patient is scheduled to undergo paraesophageal hernia repair with general surgery. Patient is also being followed by vascular surgery as well as cardiology and discussing further future femoropopliteal bypass once medically stable. Patient is maintained on IV antibiotics with infectious disease following and will continue. Patient is afebrile with no reported chest pain or shortness of breath. Patient continues to elicit 10/10 pain of the right foot. Diet to be resumed once cleared by surgery. 09/03/2024 Patient is seen in follow-up today status post paraesophageal hernia repair. Patient reports to significant abdominal pain and continued right foot pain. Vascular surgery following and has signed off recommending outpatient follow-up for possible femoropopliteal in the near future. Patient is maintained on IV antibiotics with infectious disease following as cultures finalized showing Pseudomonas along with Proteus and patient has a midline and will continue on 2 weeks of IV antibiotics on discharge. Case management following also making arrangements for possible ECF. Patient is an extremely high risk for falls with the continued right foot pain and lower extremity difficulties would benefit f rom ECF on discharge. Patient lives alone normally. Patient is afebrile with no reports of chest pain or shortness of breath. Patient was maintained on large dose IV hydration with some bronchial congestion and a slight cough will order a chest x-ray Review of systems: Constitutional: No reports of fatigue, fever, or chills Cardiovascular: No reports of chest pain or palpitations Respiratory: No reports of shortness of breath or cough GI: No reports of nausea, vomiting, or diarrhea, reports not much of an appetite : No reports of dysuria or retention Neurovascular: reports of generalized weakness and continued severe right foot pain All medications have been reviewed PHYSICAL EXAMINATION: Patient is lying in the bed awake, alert and oriented.. Elderly appearing, thin built HEENT: Normocephalic. Neck is supple. Pupils reactive. Nostrils clear. Oral cavity is moist. Neck reveals no JVD, carotid bruits, or thyromegaly. CHEST EXAMINATION: Trachea is central. Symmetrical expansion. Lung rasmussen clear to auscultation and percussion. CARDIAC: Normal S1, S2 with no gallops. No murmurs ABDOMEN: Soft. Bowel sounds normal. No organomegaly. No abdominal bruits. Extremities: Right foot wound on the medial aspect of the great toe with purulent discharge and redness extending up to the mid foot. No clubbing or cyanosis Neurologically awake, alert, oriented x3 with well-coordinated movements. No focal deficits noted, diffusely weak Skin: No rash or skin lesions. Other than mentioned above Psychiatric: Cooperative. Non-suicidal Musculoskeletal: No joint swelling or deformity. Normal range of motion. Significant kyphosis noted Assessment: Right great toe wound with surrounding cellulitis and purulent discharge. 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 Iron profile showed deficiency on 01/14/2024 Osteoarthritis history Rheumatoid arthritis history Seizure disorder on antiepileptics at home History of IBS and GERD Anxiety/depression DVT prophylaxis with heparin subcu GI prophylaxis Full code Plan: Patient currently continued on antibiotics of cefepime. Aerobic and anaerobic wound cultures were sent and follow-up blood cultures as well. Wound culture showing Proteus Mirabellas with Pseudomonas, infectious disease following. Discussed further with infectious disease and patient does have a midline and will be continued on IV cefepime for 2 weeks course on discharge continue with pain management. Recommend being cautious with narcotics given patient's age Uptake noted in multiple areas on bone scan and difficult to exclude osteomyelitis Patient underwent CT of the lower extremity per vascular surgery with Dr. 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 Vascular surgery signing off as patient is postop paraesophageal hernia repair and recommend outpatient follow-up to discuss femoropopliteal bypass in the near future. General surgery following status post EGD showing a large paraesophageal hiatal hernia with intrathoracic stomach. Patient is status post paraesophageal hernia repair, postop day 1 reporting significant abdominal pain 09/04. Continue clear liquids for now and slowly advance per surgery recommendations. Continue local wound care Current home medications reviewed and resumed as appropriate. Will need PT/OT therapy evaluation as patient would benefit from going to ECF on discharge as patient lives alone and will be dealing with IV antibiotic therapy along with wound care and patient is significantly weak and has had prolonged hospitalization. Patient is high risk for falls and falls frequently including sliding out of the bed here during this admission. Patient is hesitant and reluctant although agreeable and case management following making arrangements for ECF. Due to multiple complex medical issues, overall prognosis is guarded Possible discharge planning in the next few days once pain is better controlled. The impression and plan of care has been dictated by Mine Negrete, Nurse Practitioner as directed. Dr. Aroldo MD I have performed a history and examination and MDM of this patient, discussed the same with the dictator, and agree with the dictator's assessment and plan as written ,documented as a scribe. Based on total visit time, I have performed more than 50% of the visit. Objective - Vital Signs Vital signs: Vital Signs Temp 99.4 F 09/03/24 07:40 Pulse 104 H 09/03/24 07:40 Resp 20 09/03/24 07:40 BP 114/56 09/03/24 07:40 Pulse Ox 95 09/03/24 07:40 FiO2 Intake & Output 09/02/24 09/03/24 09/03/24 18:59 06:59 18:59 Intake Total 1940 Output Total 50 Balance 1890 Weight 58.967 kg Intake: IV 1800 Oral 140 Output: Estimated Blood Loss 50 Other: Voiding Method Bedside Commode Bedside Commode Diaper Diaper # Voids 1 1 1 - Labs CBC & Chem 7: 09/02/24 05:20 09/02/24 05:20
[2024-09-03] MEDS: FUROSEMIDE 10 MG/ML 4 ML VIAL IV STA (15:15)
[2024-09-04 09:14] LABS: Basophils # (A) 0.02 X 10*3/uL (0.00-0.10); Basophils % (A) 0.2 %; Eosinophils # (A) 0 X 10*3/uL (0.04-0.35); Eosinophils % (A) 0 %; HCT 27.9 % (37.2-46.3); HGB 7.9 g/dL (12.0-15.0); Lymphocytes # (A) 0.68 X 10*3/uL (0.90-5.00); Lymphocytes % (A) 7.8 %; MCH 22.5 pg (27.0-32.0); MCHC 28.3 g/dL (32.0-37.0); MCV 79.5 FL (80.0-97.0); Mean Platelet Volume 9.9 FL (9.5-12.2); Monocytes # (A) 0.86 X 10*3/uL (0.20-1.00); Monocytes % (A) 9.9 %; NRBC Per 100 WBC 0 X 10*3/uL (0.00-0.01); Neutrophils # (A) 7.12 X 10*3/uL (1.80-7.70); Neutrophils % (A) 81.6 %; Platelet Count 357 X 10*3/uL (140-440); RBC 3.51 X 10*6/uL (4.10-5.20); RDW 21.3 % (11.5-14.5); WBC 8.72 X 10*3/uL (4.50-10.00)
[2024-09-04 09:21] LABS: BUN/Creat Ratio 21.33 Ratio (12.00-20.00); Blood Urea Nitrogen 6.4 mg/dL (9.0-27.0); Chloride 95 mmol/L (96-109); Glucose 98 mg/dL (70-110); Magnesium 1.7 mg/dL (1.5-2.4); Potassium 3.3 mmol/L (3.5-5.5); Sodium 133 mmol/L (135-145)
[2024-09-04 09:22] LABS: ALT 31 U/L (8-44); AST 34 U/L (13-35); Albumin 3.1 g/dL (3.8-4.9); Albumin/Globulin Ratio 1.29 Ratio (1.60-3.17); Alkaline Phosphatase 90 U/L (41-126); Calcium 7.5 mg/dL (8.7-10.3); Carbon Dioxide 28.7 mmol/L (21.6-31.8); Globulin 2.4 g/dL (1.6-3.3); Total Bilirubin <0.2 mg/dL (0.3-1.2); Total Protein 5.5 g/dL (6.2-8.2)
--- NOTE | 2024-09-04 11:00 | P.PN ---
Subjective Progress Note Date: 09/04/24 CHIEF COMPLAINT: Right foot wound HISTORY OF PRESENT ILLNESS: Patient postop day #2 status post diagnostic laparoscopy and open repair of large paraesophageal hiatal hernia with intrathoracic stomach. Patient is tolerating the clear liquids. Denies any difficulty with swallowing. Denies any flatus. Does report abdominal pain but states it is better than yesterday. Denies any nausea or vomiting. Afebrile. WBC 8.72 Hgb is down from 9.5-7.9 platelets 357 sodium is 133 potassium 3.3 creatinine 0.3 PHYSICAL EXAM: VITAL SIGNS: Reviewed. GENERAL: no acute distress. ABDOMEN: Soft. Nondistended tender at incision site. Prevena wound VAC dressing intact NEUROLOGIC: Alert and oriented. Cranial nerves II through XII grossly intact. ASSESSMENT: 1. Large paraesophageal hiatal hernia with intrathoracic stomach 2. 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 Patient followed by vascular service 3. Right foot wound and cellulitis PLAN: -Advance diet to full liquids with no straws or carbonated beverages -Continue pain management -Increase activity level -Recommend keeping patient 1 more day and possible discharge tomorrow -DVT prophylaxis Lovenox Physician Steam Table Associate note has been reviewed by physician. Signing provider agrees with the documented findings, assessment, and plan of care. Objective - Vital Signs Vital signs: Vital Signs Temp 97.8 F 09/04/24 07:22 Pulse 94 09/04/24 07:22 Resp 16 09/04/24 07:22 BP 93/55 09/04/24 07:22 Pulse Ox 92 L 09/04/24 07:22 FiO2 Intake & Output 09/03/24 09/04/24 09/04/24 18:59 06:59 18:59 Intake Total 590 Balance 590 Intake: Oral 590 Other: Voiding Method Toilet Toilet # Voids 1 4 2 # Bowel Movements 0 - Labs CBC & Chem 7: 09/04/24 03:49 09/04/24 03:49 Labs: Abnormal Lab Results - Last 24 Hours (Table) 09/04/24 09/04/24 Range/Units 03:49 03:49 RBC 3.51 L (4.10-5.20) X 10*6/uL Hgb 7.9 L (12.0-15.0) g/dL Hct 27.9 L (37.2-46.3) % MCV 79.5 L (80.0-97.0) FL MCH 22.5 L (27.0-32.0) pg MCHC 28.3 L (32.0-37.0) g/dL RDW 21.3 H (11.5-14.5) % Lymphocytes # 0.68 L (0.90-5.00) X 10*3/uL Eosinophils # 0 L (0.04-0.35) X 10*3/uL Sodium 133 L (135-145) mmol/L Potassium 3.3 L (3.5-5.5) mmol/L Chloride 95 L (96-109) mmol/L BUN 6.4 L (9.0-27.0) mg/dL Creatinine 0.3 L (0.6-1.5) mg/dL BUN/Creatinine Ratio 21.33 H (12.00-20.00) Ratio Calcium 7.5 L (8.7-10.3) mg/dL Total Bilirubin <0.2 L (0.3-1.2) mg/dL Total Protein 5.5 L (6.2-8.2) g/dL Albumin 3.1 L (3.8-4.9) g/dL Albumin/Globulin Ratio 1.29 L (1.60-3.17) Ratio
[2024-09-04] MEDS ORDERED: Magnesium Replacement Protocol 1 EACH MISC MISCELLANE PRN (14:51)
--- NOTE | 2024-09-04 14:56 | P.PN ---
Subjective Progress Note Date: 09/04/24 Principal diagnosis: Reason for follow-up is right foot ulcers and cellulitis Patient is a 73-year-old female with a past medical history significant for hypertension rheumatoid arthritis seizure disorder reflux patient was recently admitted to this facility for the right foot cellulitis Within the hospital with a worsening wound to the right foot in between the toes as well as on the medial aspect of the right foot big toe. Patient is status post Diagnostic laparoscopy and Open repair of large paraesophageal hiatal hernia with intrathoracic stomach completed on 09/02/2024. On today's evaluation that is 09/04/2024, patient has been afebrile, patient is breathing comfortably and is currently on room air, patient denies having any significant cough no chest pain, patient still complaining of some nausea abdominal pain no diarrhea or worsening pain to the right foot. Patient white count is 8.72, creatinine 0.3 Objective - Vital Signs Vital signs: Vital Signs Temp 98.1 F 09/04/24 12:53 Pulse 93 09/04/24 12:53 Resp 16 09/04/24 12:53 BP 110/66 09/04/24 12:53 Pulse Ox 92 L 09/04/24 12:53 FiO2 Intake & Output 09/03/24 09/04/24 09/04/24 18:59 06:59 18:59 Intake Total 590 Balance 590 Intake: Oral 590 Other: Voiding Method Toilet Toilet Toilet # Voids 1 4 1 # Bowel Movements 0 - Exam GENERAL DESCRIPTION: An elderly female lying in bed in no distress RESPIRATORY SYSTEM: Unlabored breathing , decreased breath sounds at bases HEART: S1 S2 regular rate and rhythm , ABDOMEN: Soft , no tenderness EXTREMITIES: Right foot wound currently dressed no drainage - Labs CBC & Chem 7: 09/04/24 03:49 09/04/24 03:49 Labs: Abnormal Lab Results - Last 24 Hours (Table) 09/04/24 09/04/24 Range/Units 03:49 03:49 RBC 3.51 L (4.10-5.20) X 10*6/uL Hgb 7.9 L (12.0-15.0) g/dL Hct 27.9 L (37.2-46.3) % MCV 79.5 L (80.0-97.0) FL MCH 22.5 L (27.0-32.0) pg MCHC 28.3 L (32.0-37.0) g/dL RDW 21.3 H (11.5-14.5) % Lymphocytes # 0.68 L (0.90-5.00) X 10*3/uL Eosinophils # 0 L (0.04-0.35) X 10*3/uL Sodium 133 L (135-145) mmol/L Potassium 3.3 L (3.5-5.5) mmol/L Chloride 95 L (96-109) mmol/L BUN 6.4 L (9.0-27.0) mg/dL Creatinine 0.3 L (0.6-1.5) mg/dL BUN/Creatinine Ratio 21.33 H (12.00-20.00) Ratio Calcium 7.5 L (8.7-10.3) mg/dL Total Bilirubin <0.2 L (0.3-1.2) mg/dL Total Protein 5.5 L (6.2-8.2) g/dL Albumin 3.1 L (3.8-4.9) g/dL Albumin/Globulin Ratio 1.29 L (1.60-3.17) Ratio Assessment and Plan (1) Right foot ulcer Current Visit: Yes Status: Acute Code(s): L97.519 - NON-PRS CHRONIC ULCER OTH PRT RIGHT FOOT W UNSP SEVERITY SNOMED Code(s): 116265591 (2) Cellulitis of right foot Current Visit: Yes Status: Acute Code(s): L03.115 - CELLULITIS OF RIGHT LOWER LIMB SNOMED Code(s): 57495623433313369 Plan: 1patient presented to hospital with worsening ulceration to the right foot in this patient who did have extensive athlete's foot with a wound in between the toes as well as on the medial aspect of the right big toe and did have an abnormal x-ray suspicious for possible osteomyelitis with recent culture positive for Proteus mirabilis. 2patient did have a sed rate of 37 CRP mildly elevated 3patient wound culture did grew Proteus and Pseudomonas aeruginosa, anaerobe cultures negative 4patient did have significant PAD with a necrotic wound to the foot with the surgery postponed, plan is for a midline and 2-week course of IV cefepime on discharge and close outpatient follow-up Dictation was produced using [employer] software. please excuse any grammatical, word or spelling errors. Time with Patient: Less than 30
--- NOTE | 2024-09-04 14:56 | P.PN ---
Subjective Progress Note Date: 09/04/24 Patient is a 73-year-old female with a past medical history of hypertension, osteoarthritis, rheumatoid arthritis, history of seizure disorder, anxiety/depression presents to ER with complaints of right foot infection and discharge. Patient was recently admitted to the hospital and was discharged home on 08/04/2024 with antibiotic course to complete for 10 more days. Patient states that she did take medication at home. She will use with a roommate. Patient states that she has been having increasing pain to the point where she is unable to ambulate. Patient states that she also has history of poor circulation in the leg. Patient otherwise denied any complaints of fever or chills. No nausea vomiting abdominal pain. No chest pain or shortness of breath. X-ray of the foot showed soft tissue ulceration about the great toe, with lucency involving the medial aspect of the first metatarsal head. Early osteomyelitis is difficult to exclude. Patient had a recent wound cultures growing Proteus mirabilis taken on 07/31/2024 which is pansensitive. Laboratory data showed WBC 6.8 hemoglobin 8.4 MCV 79.9 and RDW 19.8 and platelets 413 ESR 37 CRP 1.5 Sodium 140 potassium 4.2 chloride 107 bicarb is 24 BUN 15 and creatinine 0.31 and blood sugar 73 and calcium 8.9. 08/27/2024 Patient is seen and evaluated in follow-up today being followed by vascular surgery along with infectious disease. Patient is maintained on antibiotics scheduled to undergo a bone scan. Patient also having CT imaging with vascular surgery as x-ray was suggestive of possible starts of osteomyelitis. Patient is afebrile with no reports of chest pain or shortness of breath. Patient denies any nausea or vomiting and has been tolerating diet. Awaiting cultures and currently preliminary showing gram-negative bacilli. 08/28/2024 Patient is seen in follow-up this morning undergoing bone scan with infectious disease following maintained on IV antibiotics and will continue. Patient continues with severe right foot pain and lower extremity pain with concerns of osteomyelitis. Patient undergoing further vascular surgery workup including angiogram with runoff and general surgery has been consulted as CT revealed a large intrathoracic hernia and also cardiology for cardiac clearance in the event patient will require surgical intervention. Likely femoropopliteal bypass in the near future. 08/29/2024 Patient is seen in follow-up with multiple consultations following. Patient maintained on IV antibiotics with infectious disease along with vascular surgery and cardiology, general surgery. Patient is scheduled to undergo EGD on Sunday with general surgery for large hiatal hernia. Vascular surgery following for possible femoropopliteal bypass in the near future. Cardiology following for clearance given her extensive cardiac history. Patient is afebrile with no reports of chest pain or shortness of breath. Patient reports not much of an appetite although denies nausea and vomiting. Patient reports significant pain of her right foot. 09/01/2024 Patient is seen and evaluated in follow-up scheduled to undergo EGD today with general surgery for evaluation of hernia. Vascular surgery following as well along with infectious disease and maintained on IV antibiotics and discussing plans of possible vascular intervention for the right lower extremity. Multiple consultations following and currently awaiting EGD report. Patient is afebrile continues to report right foot pain and is currently NPO. Apparently patient had a fall yesterday with some knee pain showing no acute fractures and CT head was performed with chronic findings with no acute process at this time. 09/02/2024 Patient is seen in follow-up today with no acute overnight issues noted. Currently n.p.o. and patient is scheduled to undergo paraesophageal hernia repair with general surgery. Patient is also being followed by vascular surgery as well as cardiology and discussing further future femoropopliteal bypass once medically stable. Patient is maintained on IV antibiotics with infectious disease following and will continue. Patient is afebrile with no reported chest pain or shortness of breath. Patient continues to elicit 10/10 pain of the right foot. Diet to be resumed once cleared by surgery. 09/03/2024 Patient is seen in follow-up today status post paraesophageal hernia repair. Patient reports to significant abdominal pain and continued right foot pain. Vascular surgery following and has signed off recommending outpatient follow-up for possible femoropopliteal in the near future. Patient is maintained on IV antibiotics with infectious disease following as cultures finalized showing Pseudomonas along with Proteus and patient has a midline and will continue on 2 weeks of IV antibiotics on discharge. Case management following also making arrangements for possible ECF. Patient is an extremely high risk for falls with the continued right foot pain and lower extremity difficulties would benefit f rom ECF on discharge. Patient lives alone normally. Patient is afebrile with no reports of chest pain or shortness of breath. Patient was maintained on large dose IV hydration with some bronchial congestion and a slight cough will order a chest x-ray 09/04/2024 Patient is seen in follow-up this morning continues to report abdominal pain and will adjust medications and discussed with general surgery with possible discharge planning in the next 24 hours. Patient will require IV antibiotics on discharge for 2 weeks in the form of cefepime per ID recommendations. Plan is for outpatient follow-up with vascular surgery to discuss possible femoropopliteal bypass in the near future. Patient is currently afebrile with no reports of chest pain or shortness of breath. Patient's diet is being advanced and will monitor overnight for tolerance. Discussed with nursing staff and recommend avoiding IV narcotics if possible. Review of systems: Constitutional: No reports of fatigue, fever, or chills Cardiovascular: No reports of chest pain or palpitations Respiratory: No reports of shortness of breath or cough GI: No reports of nausea, vomiting, or diarrhea, reports not much of an appetite, reports continued abdominal pain : No reports of dysuria or retention Neurovascular: reports of generalized weakness and continued severe right foot pain All medications have been reviewed PHYSICAL EXAMINATION: Patient is lying in the bed awake, alert and oriented.. Elderly appearing, thin built HEENT: Normocephalic. Neck is supple. Pupils reactive. Nostrils clear. Oral cavity is moist. Neck reveals no JVD, carotid bruits, or thyromegaly. CHEST EXAMINATION: Trachea is central. Symmetrical expansion. Lung rasmussen clear to auscultation and percussion. CARDIAC: Normal S1, S2 with no gallops. No murmurs ABDOMEN: Soft. Bowel sounds normal. No organomegaly. No abdominal bruits. Extremities: Right foot wound on the medial aspect of the great toe with purulent discharge and redness extending up to the mid foot. No clubbing or cyanosis Neurologically awake, alert, oriented x3 with well-coordinated movements. No focal deficits noted, diffusely weak Skin: No rash or skin lesions. Other than mentioned above Psychiatric: Cooperative. Non-suicidal Musculoskeletal: No joint swelling or deformity. Normal range of motion. Significant kyphosis noted Assessment: Right great toe wound with surrounding cellulitis and purulent discharge. 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 Iron profile showed deficiency on 01/14/2024 Osteoarthritis history Rheumatoid arthritis history Seizure disorder on antiepileptics at home History of IBS and GERD Anxiety/depression DVT prophylaxis with heparin subcu GI prophylaxis Full code Plan: Patient currently continued on antibiotics of cefepime. Aerobic and anaerobic wound cultures were sent and follow-up blood cultures as well. Wound culture showing Proteus Mirabellas with Pseudomonas, infectious disease following. Discussed further with infectious disease and patient does have a midline and will be continued on IV cefepime for 2 weeks course on discharge continue with pain management. Recommend being cautious with narcotics given patient's age Uptake noted in multiple areas on bone scan and difficult to exclude osteomyelitis Patient underwent CT of the lower extremity per vascular surgery with Dr. 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 Vascular surgery signing off as patient is postop paraesophageal hernia repair and recommend outpatient follow-up to discuss femoropopliteal bypass in the near future. General surgery following status post EGD showing a large paraesophageal hiatal hernia with intrathoracic stomach. Patient is status post paraesophageal hernia repair, postop day 1 reporting significant abdominal pain 09/04. Advancing diet per surgery today and will monitor for tolerance with possible discharge planning in the next 24 hours. Continue local wound care Current home medications reviewed and resumed as appropriate. Will need PT/OT therapy evaluation as patient would benefit from going to ECF on discharge as patient lives alone and will be dealing with IV antibiotic therapy along with wound care and patient is significantly weak and has had prolonged hospitalization. Patient is high risk for falls and falls frequently including sliding out of the bed here during this admission. Patient is hesitant and reluctant although agreeable and case management following making arrangements for ECF. Due to multiple complex medical issues, overall prognosis is guarded Possible discharge planning in the next few days once pain is better controlled. The impression and plan of care has been dictated by Mine Negrete, Nurse Practitioner as directed. Dr. Aroldo MD I have performed a history and examination and MDM of this patient, discussed the same with the dictator, and agree with the dictator's assessment and plan as written ,documented as a scribe. Based on total visit time, I have performed more than 50% of the visit. Objective - Vital Signs Vital signs: Vital Signs Temp 97.8 F 09/04/24 07:22 Pulse 94 09/04/24 07:22 Resp 16 09/04/24 07:22 BP 93/55 09/04/24 07:22 Pulse Ox 92 L 09/04/24 07:22 FiO2 Intake & Output 09/03/24 09/04/24 09/04/24 18:59 06:59 18:59 Intake Total 590 Balance 590 Intake: Oral 590 Other: Voiding Method Toilet Toilet # Voids 1 4 2 # Bowel Movements 0 - Labs CBC & Chem 7: 09/04/24 03:49 09/04/24 03:49 Labs: Abnormal Lab Results - Last 24 Hours (Table) 09/04/24 09/04/24 Range/Units 03:49 03:49 RBC 3.51 L (4.10-5.20) X 10*6/uL Hgb 7.9 L (12.0-15.0) g/dL Hct 27.9 L (37.2-46.3) % MCV 79.5 L (80.0-97.0) FL MCH 22.5 L (27.0-32.0) pg MCHC 28.3 L (32.0-37.0) g/dL RDW 21.3 H (11.5-14.5) % Lymphocytes # 0.68 L (0.90-5.00) X 10*3/uL Eosinophils # 0 L (0.04-0.35) X 10*3/uL Sodium 133 L (135-145) mmol/L Potassium 3.3 L (3.5-5.5) mmol/L Chloride 95 L (96-109) mmol/L BUN 6.4 L (9.0-27.0) mg/dL Creatinine 0.3 L (0.6-1.5) mg/dL BUN/Creatinine Ratio 21.33 H (12.00-20.00) Ratio Calcium 7.5 L (8.7-10.3) mg/dL Total Bilirubin <0.2 L (0.3-1.2) mg/dL Total Protein 5.5 L (6.2-8.2) g/dL Albumin 3.1 L (3.8-4.9) g/dL Albumin/Globulin Ratio 1.29 L (1.60-3.17) Ratio
[2024-09-04] MEDS: MAGNESIUM SULFATE-D5W PMX 1 GM in DEXTROSE/WATER 1 100ML.BAG IVPB ONE (15:52)
[2024-09-04] MEDS: POTASSIUM CHLORIDE ER 20 MEQ TAB.ER PO STA (15:52)
[2024-09-04] MEDS: HYDROcodone/APAP 7.5-325MG 1 EACH TAB PO PRN (15:54)
[2024-09-04 19:57] LABS: Glucose,Whole Blood 191 mg/dL (70-110)
--- NOTE | 2024-09-05 10:43 | P.PN ---
Subjective Progress Note Date: 09/05/24 CHIEF COMPLAINT: Right foot wound HISTORY OF PRESENT ILLNESS: Patient postop day #3 status post diagnostic laparoscopy and open repair of large paraesophageal hiatal hernia with intrathoracic stomach. Patient tolerating the full liquid diet. Denies any nausea or vomiting. Pain is controlled. PHYSICAL EXAM: VITAL SIGNS: Reviewed. GENERAL: no acute distress. ABDOMEN: Soft. Nondistended tender at incision site. Prevena wound VAC dressing intact NEUROLOGIC: Alert and oriented. Cranial nerves II through XII grossly intact. ASSESSMENT: 1. Large paraesophageal hiatal hernia with intrathoracic stomach 2. 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 Patient followed by vascular service 3. Right foot wound and cellulitis PLAN: -Continue full liquid diet x 2 weeks -No straws or carbonated beverages -Patient can be discharged from surgical standpoint -DVT prophylaxis Lovenox Physician Space Control Agent note has been reviewed by physician. Signing provider agrees with the documented findings, assessment, and plan of care. Objective - Vital Signs Vital signs: Vital Signs Temp 97.7 F 09/05/24 08:00 Pulse 90 09/05/24 08:00 Resp 14 09/05/24 08:00 BP 111/71 09/05/24 08:00 Pulse Ox 94 L 09/05/24 08:00 FiO2 Intake & Output 09/04/24 09/05/24 09/05/24 18:59 06:59 18:59 Intake Total 590 Balance 590 Intake: Oral 590 Other: Voiding Method Toilet Toilet # Voids 1 6 - Labs CBC & Chem 7: 09/04/24 03:49 09/04/24 03:49 Labs: Abnormal Lab Results - Last 24 Hours (Table) 09/04/24 Range/Units 19:55 POC Glucose (mg/dL) 191 H (70-110) mg/dL
--- NOTE | 2024-09-05 13:21 | P.DS ---
Providers Date of admission: 08/26/24 15:02 Expected date of discharge: 09/05/24 Attending physician: Cristina Gayle Consults: 08/26/24 13:57 Consult Physician Urgent Consulting Provider: Mini Lainez Consult Reason/Comments: Cellulitis of right foot, possible osteomyelitis of right toe Do you want consulting provider notified?: Yes 08/28/24 08:33 Consult Physician Routine Consulting Provider: Ronni Copeland Consult Reason/Comments: Large Hiatal hernia on CTA Do you want consulting provider notified?: Yes Primary care physician: Sawyer Lance [facility] Hospital Course: Final diagnosis Right great toe wound with surrounding cellulitis and purulent discharge. 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 Iron profile showed deficiency on 01/14/2024 Osteoarthritis history Rheumatoid arthritis history Seizure disorder on antiepileptics at home History of IBS and GERD Anxiety/depression DVT prophylaxis with heparin subcu GI prophylaxis Full code Discharge disposition Patient is being discharged in a stable condition with guarded prognosis to [facility]. Patient will follow-up with Dr. Lance in the outpatient setting upon discharge. Patient is to continue with IV cefepime every 8 hours for the next 2 weeks per ID recommendations and patient has a midline. Patient to follow-up with vascular surgery along with general surgery and cardiology outpatient as scheduled. Total time taken is greater than 35 minutes. Hospital course This is a 73-year-old female who was recently admitted with severe right foot pain and right great toe wound with surrounding cellulitis with concerns of infection being followed by multiple consultations. Patient's cultures finalized showing Pseudomonas aeruginosa along with Proteus and is maintained on IV antibiotics per ID recommendations. Patient does have a midline and will be continuing on IV cefepime 3 times daily for the next 2 weeks. Patient also evaluated by wound care along with vascular surgery would likely benefit from a femoropopliteal bypass although was noted to have a large hiatal hernia and was evaluated by general surgery. Patient underwent paraesophageal hernia repair and will be followed in the outpatient setting with vascular surgery regarding the lower extremity health concerns. Patient with extreme weakness high risk for falls and lives alone was evaluated by physical therapy recommending rehab and patient is now agreeable. Patient has received insurance authorization and will be going to [facility] on [facility]. Continue local wound care as mentioned below along with IV antibiotics and close outpatient follow-up with vascular surgery as well as general surgery. Please refer to other consultation notes for further HPI. Per surgery patient is to continue on a full liquid diet for 2 weeks with aspiration precautions and no straws and no carbonated beverages. Currently no reports of chest pain, shortness of breath, or palpitations. Patient is afebrile. No reports of nausea or vomiting and patient is tolerating diet. Patient will be going to [facility] on the [place] today. Guarded prognosis and high risk for readmission. Physical exam: Gen: This is a 73 year old female who is awake, alert and oriented x3. well developed, elderly appearing, ill-appearing, severely kyphotic HEENT: Head is atraumatic, normocephalic. Pupils equal, round. Sclerae is anicteric. NECK: Supple. No JVD. No lymphadenopathy. No thyromegaly. LUNGS: Diminished breath sounds bilaterally otherwise clear to auscultation. No wheezes or rhonchi. No intercostal retractions. HEART: Regular rate and rhythm. No murmur. ABDOMEN: Soft. Bowel sounds are present. No masses. No tenderness. EXTREMITIES: No pedal edema. No calf tenderness. Right foot redness, and pain on palpation NEUROLOGICAL: Patient is awake, alert and oriented x3. Cranial nerves 2 through 12 are grossly intact. Diffusely weak Please refer to medication reconciliation sheet for a list of medications. The impression and plan of care has been dictated by Mine Negrete, Nurse Practitioner as directed. Dr. Aroldo MD I have performed a history and examination and MDM of this patient, discussed the same with the dictator, and agree with the dictator's assessment and plan as written ,documented as a scribe. Based on total visit time, I have performed more than 50% of the visit. Patient Condition at Discharge: Fair Plan - Discharge Summary Discharge Rx Participant: Yes New Discharge Prescriptions: New Cefepime [Maxipime] 2 gm IVPB Q8H 14 Days #42 each Nystatin 100,000 Unit/gm Powd [Mycostatin Powder] 1 applic TOPICAL BID each Ondansetron [Zofran] 4 mg PO Q8HR PRN #10 tab PRN Reason: Nausea Ferrous Sulfate [Iron (65 MG Elemental)] 325 mg PO W/LUNCH tab Enoxaparin [Lovenox] 30 mg SQ DAILY each HYDROcodone/APAP 7.5-325MG [Meigs 7.5-325] 1 each PO Q6HR PRN #6 tab PRN Reason: Pain Pantoprazole [Protonix] 40 mg PO DAILY #30 tab Continue Primidone [Mysoline] 250 mg PO BID Sertraline [Zoloft] 100 mg PO DAILY lamoTRIgine [LaMICtal] 150 mg PO BID Omeprazole 20 mg PO DAILY Acetaminophen Tab [Tylenol] 650 mg PO Q6HR PRN tab PRN Reason: Mild Pain Or Fever > 100.5 Discharge Medication List Primidone [Mysoline] 250 mg PO BID 02/18/19 [History] lamoTRIgine [LaMICtal] 150 mg PO BID 01/20/23 [History] Omeprazole 20 mg PO DAILY 07/28/24 [History] Acetaminophen Tab [Tylenol] 650 mg PO Q6HR PRN tab 08/04/24 [Rx] Sertraline [Zoloft] 100 mg PO DAILY 08/26/24 [History] Cefepime [Maxipime] 2 gm IVPB Q8H 14 Days #42 each 09/05/24 [Rx] Enoxaparin [Lovenox] 30 mg SQ DAILY each 09/05/24 [Rx] Ferrous Sulfate [Iron (65 MG Elemental)] 325 mg PO W/LUNCH tab 09/05/24 [Rx] HYDROcodone/APAP 7.5-325MG [Meigs 7.5-325] 1 each PO Q6HR PRN #6 tab 09/05/24 [Rx] Nystatin 100,000 Unit/gm Powd [Mycostatin Powder] 1 applic TOPICAL BID each [Rx] Ondansetron [Zofran] 4 mg PO Q8HR PRN #10 tab 09/05/24 [Rx] Pantoprazole [Protonix] 40 mg PO DAILY #30 tab 09/05/24 [Rx] Follow up Appointment(s)/Referral(s): Marlee Mcmahan DO [STAFF PHYSICIAN] - 1 Week Sawyer Lance DO [Primary Care Provider] - 1-2 days Ronni Copeland MD [STAFF PHYSICIAN] - 1 Week Activity/Diet/Wound Care/Special Instructions: Patient is going to [facility] on the [facility] as tolerated Patient is high risk for falls and has a right foot infection with concerns of osteomyelitis being maintained on antibiotics with a midline and will continue IV antibiotics in the form of cefepime every 8 hours per ID recommendations for 2 weeks Follow-up with vascular surgery outpatient Follow-up with general surgery in 1 to 2 weeks Continue local wound care to the right lower extremity by applying Aquacel silver with a 4 x 4 and Kerlix on Sunday/Sunday/Sunday and if becoming soiled or compromised Continue full liquid diet for the next 2 weeks No straws or carbonated beverages Discharge Disposition: TRANSFER TO SNF/ECF
[2024-09-05 14:24] VITALS: BP 110/72; PULSE 96; RESP 15; TEMP 97.5
--- NOTE | 2024-09-05 15:45 | P.PN ---
Subjective Progress Note Date: 09/05/24 Principal diagnosis: Reason for follow-up is right foot ulcers and cellulitis Patient is a 73-year-old female with a past medical history significant for hypertension rheumatoid arthritis seizure disorder reflux patient was recently admitted to this facility for the right foot cellulitis Within the hospital with a worsening wound to the right foot in between the toes as well as on the medial aspect of the right foot big toe. Patient is status post Diagnostic laparoscopy and Open repair of large paraesophageal hiatal hernia with intrathoracic stomach completed on 09/02/2024. On today's evaluation that is 09/05/2024, Patient is afebrile this morning patient denies having any chest pain shortness of breath or cough, the patient is currently on room air, patient abdominal pain has decreased in intensity no nausea noting still complaining of pain to the right foot but no worsening. No CBC was done today Objective - Vital Signs Vital signs: Vital Signs Temp 97.5 F L 09/05/24 13:54 Pulse 96 09/05/24 13:54 Resp 15 09/05/24 13:54 BP 110/72 09/05/24 13:54 Pulse Ox 92 L 09/05/24 13:54 FiO2 Intake & Output 09/04/24 09/05/24 09/05/24 18:59 06:59 18:59 Intake Total 590 Balance 590 Intake: Oral 590 Other: Voiding Method Toilet Toilet # Voids 1 6 1 - Exam GENERAL DESCRIPTION: An elderly female lying in bed in no distress RESPIRATORY SYSTEM: Unlabored breathing , decreased breath sounds at bases HEART: S1 S2 regular rate and rhythm , ABDOMEN: Soft , no tenderness EXTREMITIES: Right foot wound currently dressed no drainage - Labs CBC & Chem 7: 09/04/24 03:49 09/04/24 03:49 Labs: Abnormal Lab Results - Last 24 Hours (Table) 09/04/24 Range/Units 19:55 POC Glucose (mg/dL) 191 H (70-110) mg/dL Assessment and Plan (1) Right foot ulcer Status: Acute Code(s): L97.519 - NON-PRS CHRONIC ULCER OTH PRT RIGHT FOOT W UNSP SEVERITY SNOMED Code(s): 070195925 (2) Cellulitis of right foot Status: Acute Code(s): L03.115 - CELLULITIS OF RIGHT LOWER LIMB SNOMED Code(s): 79040590355303309 Plan: 1patient presented to hospital with worsening ulceration to the right foot in this patient who did have extensive athlete's foot with a wound in between the toes as well as on the medial aspect of the right big toe and did have an abnormal x-ray suspicious for possible osteomyelitis with recent culture positive for Proteus mirabilis. 2patient did have a sed rate of 37 CRP mildly elevated 3patient wound culture did grew Proteus and Pseudomonas aeruginosa, anaerobe cultures negative 4patient with cataract midline and plan is to continue with 2-week course of IV cefepime on discharge and close outpatient follow-up Dictation was produced using [employer] dictation software. please excuse any grammatical, word or spelling errors. Time with Patient: Less than 30
== END 2024-09-05 15:11 | DRG 580 ==
LOC: EC 09:44 → 5NMEDONC 15:02
PROVIDERS: ADMIT Internal Medicine; ATTEND Internal Medicine
PROC: 0DJ08ZZ Inspection of Upper Intestinal Tract, Via Natural or Artificial Opening Endoscopic (ICD-10-PCS; 2024-09-01)
PROC: 0BQT0ZZ Repair Diaphragm, Open Approach (ICD-10-PCS; 2024-09-02)
PROC: 0WJJ4ZZ Inspection of Pelvic Cavity, Percutaneous Endoscopic Approach (ICD-10-PCS; principal; 2024-09-02 10:15)
DX: L97.518 Non-pressure chronic ulcer of other part of right foot with other specified severity (principal); E87.20 Acidosis, unspecified; I25.3 Aneurysm of heart; L03.115 Cellulitis of right lower limb; M86.171 Other acute osteomyelitis, right ankle and foot; I74.5 Embolism and thrombosis of iliac artery; B96.5 Pseudomonas (aeruginosa) (mallei) (pseudomallei) as the cause of diseases classified elsewhere; G40.909 Epilepsy, unspecified, not intractable, without status epilepticus; I10 Essential (primary) hypertension; M06.9 Rheumatoid arthritis, unspecified; M41.9 Scoliosis, unspecified; I73.9 Peripheral vascular disease, unspecified; K21.9 Gastro-esophageal reflux disease without esophagitis; K44.9 Diaphragmatic hernia without obstruction or gangrene; D50.9 Iron deficiency anemia, unspecified; F32.A Depression, unspecified; F41.9 Anxiety disorder, unspecified; I08.1 Rheumatic disorders of both mitral and tricuspid valves; B96.4 Proteus (mirabilis) (morganii) as the cause of diseases classified elsewhere; K66.0 Peritoneal adhesions (postprocedural) (postinfection); W19.XXXA Unspecified fall, initial encounter; Z60.2 Problems related to living alone; Z96.641 Presence of right artificial hip joint; Z96.653 Presence of artificial knee joint, bilateral; Z79.899 Other long term (current) drug therapy; Z86.73 Personal history of transient ischemic attack (TIA), and cerebral infarction without residual deficits; Z79.01 Long term (current) use of anticoagulants; Z82.0 Family history of epilepsy and other diseases of the nervous system; Z82.49 Family history of ischemic heart disease and other diseases of the circulatory system; Z83.3 Family history of diabetes mellitus
CPT/HCPCS: 36410; 36415; 43235; 70450; 71045; 75635; 76937; 78315; 80048; 80053; 80202; 83605; 83735; 85025; 85027; 85610; 85652; 86140; 87040; 87070; 87075; 87077; 87186; 87205; 93005; 93306; 93922; 93923; 96365; 96368; 96375; 99285

== ENCOUNTER 2024-10-22 15:58 | Emergency (ER) | payer MEDICARE ==
[2024-10-22 16:06] VITALS: RESP 20; TEMP 97.9
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
[2024-10-22] MEDS: SODIUM CHLORIDE 0.9% 1,000 ML IV STA (17:04)
[2024-10-22 17:07] LABS: Anisocytosis Moderate; Basophils % (A) 0 %; Eosinophils % (A) 1 %; HCT 36.5 % (34.0-46.0); HGB 10.9 gm/dL (11.4-16.0); Hypochromasia Marked; Lymphocytes # (A) 1.1 k/uL (1.0-4.8); Lymphocytes % (A) 15 %; MCH 23.8 pg (25.0-35.0); MCHC 29.7 g/dL (31.0-37.0); MCV 79.9 fL (80.0-100.0); Mean Platelet Volume 7.2; Microcytosis Slight; Monocytes # (A) 0.6 k/uL (0-1.0); Monocytes % (A) 7 %; Neutrophils # (A) 5.6 k/uL (1.3-7.7); Neutrophils % (A) 74 %; Platelet Count 342 k/uL (150-450); RBC 4.57 m/uL (3.80-5.40); RDW 20.2 % (11.5-15.5); WBC 7.6 k/uL (3.8-10.6)
[2024-10-22 17:13] LABS: Partial Thromboplastin Time 27.8 sec (22.0-30.0); Prothrombin Time 10.5 sec (10.0-12.5)
[2024-10-22 17:16] LABS: ALT 25 U/L (4-34); AST 34 U/L (14-36); African American GFR (CKD) >90 (>60 ml/min/1.73 sqM); Albumin 3.7 g/dL (3.5-5.0); Alkaline Phosphatase 128 U/L (38-126); Anion Gap 2 mmol/L; Blood Urea Nitrogen 23 mg/dL (7-17); Calcium 8.4 mg/dL (8.4-10.2); Carbon Dioxide 31 mmol/L (22-30); Chloride 99 mmol/L (98-107); Glucose 100 mg/dL (74-99); Non-African American GFR(CKD) >90 (>60 ml/min/1.73 sqM); Phosphorus 4.8 mg/dL (2.5-4.5); Potassium 4.3 mmol/L (3.5-5.1); Sodium 132 mmol/L (137-145); Total Bilirubin 0.2 mg/dL (0.2-1.3); Total Protein 6.9 g/dL (6.3-8.2)
[2024-10-22 17:24] LABS: NT-Pro-B-Type Natriuretic Pept 471 pg/mL
[2024-10-22] MEDS: MORPHINE SULFATE 4 MG/ML SYRINGE IVP STA (18:13)
[2024-10-22 19:39] VITALS: BP 126/81; PULSE 83
== END 2024-10-22 19:39 | disposition other institution (70) ==
LOC: EC 15:58
DX: I70.90 Unspecified atherosclerosis (principal)
CPT/HCPCS: 36415; 93005; 83880; 80053; 83605; 83735; 84100; 84443; 84484; 85025; 85610; 85730; 87040; 99284; 96374; 96361; J2270